=== PATIENT | female | born 1965 | race Caucasian/White ===

== ENCOUNTER 2016-10-13 18:14 | Emergency (ER) | payer OTHER ==
[2016-10-13 18:30] VITALS: RESP 18; TEMP 98
[2016-10-13] MEDS ORDERED: ASPIRIN 81 MG CHEW PO STA (19:07)
--- NOTE | 2016-10-13 19:25 | XR ---
EXAMINATION TYPE: XR chest 2V DATE OF EXAM: 10/13/2016 7:21 PM COMPARISON: 01/22/2016 HISTORY: Hypertension TECHNIQUE: Frontal and lateral views of the chest are obtained. FINDINGS: Heart and mediastinum are normal. Lungs are clear. Diaphragm is normal. Bony thorax is int act. There are chest leads. IMPRESSION: Normal chest. No change.
[2016-10-13 19:31] LABS: Basophils % (A) 0 %; CH 31.9; CHCM 34.6; Eosinophils # (A) 0.1 k/uL (0-0.7); Eosinophils % (A) 1 %; HCT 44.7 % (34.0-46.0); HDW 2.57; HGB 14.9 gm/dL (11.4-16.0); Luc # (Auto) 0.13; Luc % (Auto) 2; Lymphocytes # (A) 1.9 k/uL (1.0-4.8); Lymphocytes % (A) 29 %; MCH 30.9 pg (25.0-35.0); MCHC 33.4 g/dL (31.0-37.0); MCV 92.4 fL (80.0-100.0); Mean Platelet Volume 8.2; Monocytes # (A) 0.4 k/uL (0-1.0); Monocytes % (A) 6 %; Neutrophils # (A) 3.9 k/uL (1.3-7.7); Neutrophils % (A) 61 %; RBC 4.84 m/uL (3.80-5.40); RDW 12.4 % (11.5-15.5); WBC 6.4 k/uL (3.8-10.6); WBC (Perox) 6.34
--- NOTE | 2016-10-13 19:49 | ED ---
General Adult HPI - General Chief complaint: Recheck/Abnormal Lab/Rx Stated complaint: hypertension Time Seen by Provider: 10/13/16 18:53 Source: patient Mode of arrival: ambulatory Limitations: no limitations - History of Present Illness Initial comments: This 51-year-old white female presents with the complaint of being worried about her blood pressure. She states that she was at [facility] and took her blood pressure. It apparently measured 197/105. She states that she 'started freaking out'. She relates that she is'very high anxiety'. She relates that she has been under increased anxiety recently because her boyfriend broke up with her 3 weeks ago for something that she did not even do. She does not take any medications for her anxiety or high blood pressure. She relates that she has a history of pulmonary hypertension. She checks her blood pressure periodically and it is been elevated recently. She relates that she has had some intermittent chest pain described as a pressure. She will have her daughter push on her back and her back will apparently pop and then her chest pain will go away. She denies any chest pain currently. She did have some slight shortness of breath. She denies any lightheadedness. She denies any known history of cardiac disease. She is unsure if she ever had a stress test. No other complaints or modifying factors. She is worried that she may be going into menopause as well. - Related Data Home Medications Medication Instructions Recorded Confirmed Multivitamins, Thera [Multivitamin] 1 tab PO DAILY 10/13/16 10/13/16 Allergies Allergy/AdvReac Type Severity Reaction Status Date / Time cefaclor [From Ceclor] Allergy Unknown Verified 10/13/16 18:41 chocolate flavor Allergy Unknown Verified 10/13/16 18:41 milk Allergy Unknown Verified 10/13/16 18:41 Penicillins Allergy Unknown Verified 10/13/16 18:41 sulfamethoxazole Allergy Unknown Verified 10/13/16 18:41 [From Bactrim] trimethoprim [From Bactrim] Allergy Unknown Verified 10/13/16 18:41 Review of Systems ROS Statement: Those systems with pertinent positive or pertinent negative responses have been documented in the HPI. ROS Other: All systems not noted in ROS Statement are negative. Past Medical History Additional Past Medical History / Comment(s): Primary pulmonary hypertension History of Any Multi-Drug Resistant Organisms: None Reported Past Surgical History: Appendectomy Past Psychological History: No Psychological Hx Reported Smoking Status: Never smoker Past Alcohol Use History: None Reported Past Drug Use History: None Reported General Exam - General Exam Comments Initial Comments: GENERAL: The patient is well nourished and well hydrated. VITAL SIGNS: Heart rate, blood pressure, respiratory rate reviewed as recorded in nurse's notes. EYES: Pupils are round and reactive. Extraocular movements are intact. No conjunctival / lid redness or swelling. ENT: No external evidence of injury, swelling, or ecchymosis. Airway is patent. Throat is clear. NECK: Nontender. No swelling or evidence of injury. No subcutaneous emphysema. Trachea is midline. No thyroid mass. HEART: Regular rate and rhythm. Good peripheral pulses. LUNGS/CHEST: Breath sounds clear and equal bilaterally. No rales, rhonchi, or wheezes. No ecchymosis, subcutaneous emphysema, or tenderness. ABDOMEN: Abdomen soft without tenderness. No palpable masses or organomegaly. No peritoneal signs. No abdominal wall swelling or ecchymosis. EXTREMITIES: No extremity tenderness. Normal muscle tone and function. No thoracolumbar tenderness. NEUROLOGIC: Sensation is grossly intact. Cranial nerve exam reveals face is symmetrical, tongue is midline, speech is clear. SKIN: No abrasions or ecchymosis is noted. No induration or masses noted. PSYCHIATRIC: Alert and oriented. Moderate anxiety noted. Limitations: no limitations Course Vital Signs 10/13/16 10/13/16 10/13/16 18:27 18:48 20:00 Temperature 98.0 F Pulse Rate 74 74 66 Respiratory 18 18 18 Rate Blood Pressure 192/87 162/79 158/80 O2 Sat by Pulse 99 98 97 Oximetry Medical Decision Making - Medical Decision Making The patient was seen and examined. All diagnostics were reviewed. The EKG shows a normal sinus rhythm at a rate of 70. There is no acute ST-T wave changes identified. The patient had a NE interval of 154, QRS duration of 100, and QTC intervals 419. The chest x-ray did not show any acute processes. The laboratory was all essentially within normal limits. Overall, the patient's symptomatology seems consistent with anxiety. She also has a degree of hypertension. It is not felt as though her symptoms are related to a cardiac etiology. It is felt as though she is stable for discharge and close follow-up with her primary doctor. She refuses any medication for anxiety. She was instructed to keep a blood pressure log and follow up closely with her primary doctor in this regard. She leaves in no identifiable distress. - Lab Data Result diagrams: 10/13/16 18:45 10/13/16 18:45 Lab Results 10/13/16 10/13/16 10/13/16 Range/Units 18:45 18:45 18:45 WBC 6.4 (3.8-10.6) k/uL RBC 4.84 (3.80-5.40) m/uL Hgb 14.9 (11.4-16.0) gm/dL Hct 44.7 (34.0-46.0) % MCV 92.4 (80.0-100.0) fL MCH 30.9 (25.0-35.0) pg MCHC 33.4 (31.0-37.0) g/dL RDW 12.4 (11.5-15.5) % Plt Count 174 (150-450) k/uL Neutrophils % 61 % Lymphocytes % 29 % Monocytes % 6 % Eosinophils % 1 % Basophils % 0 % Neutrophils # 3.9 (1.3-7.7) k/uL Lymphocytes # 1.9 (1.0-4.8) k/uL Monocytes # 0.4 (0-1.0) k/uL Eosinophils # 0.1 (0-0.7) k/uL Basophils # 0.0 (0-0.2) k/uL PT (9.0-12.0) sec INR (<1.1) APTT (22.0-30.0) sec Sodium 141 (137-145) mmol/L Potassium 4.1 (3.5-5.1) mmol/L Chloride 102 (98-107) mmol/L Carbon Dioxide 25 (22-30) mmol/L Anion Gap 14 mmol/L BUN 14 (7-17) mg/dL Creatinine 0.78 (0.52-1.04) mg/dL Est GFR (MDRD) Af Amer >60 (>60 ml/min/1.73 sqM) Est GFR (MDRD) Non-Af >60 (>60 ml/min/1.73 sqM) Glucose 84 (74-99) mg/dL Calcium 9.7 (8.4-10.2) mg/dL Magnesium 1.9 (1.6-2.3) mg/dL Total Bilirubin 0.6 (0.2-1.3) mg/dL AST 21 (14-36) U/L ALT 39 (9-52) U/L Alkaline Phosphatase 96 (38-126) U/L Total Creatine Kinase 48 (30-135) U/L CK-MB (CK-2) 0.6 (0.0-2.4) ng/mL CK-MB (CK-2) Rel Index 1.3 Troponin I <0.012 (0.000-0.034) ng/mL Total Protein 8.0 (6.3-8.2) g/dL Albumin 4.4 (3.5-5.0) g/dL 10/13/16 Range/Units 18:45 WBC (3.8-10.6) k/uL RBC (3.80-5.40) m/uL Hgb (11.4-16.0) gm/dL Hct (34.0-46.0) % MCV (80.0-100.0) fL MCH (25.0-35.0) pg MCHC (31.0-37.0) g/dL RDW (11.5-15.5) % Plt Count (150-450) k/uL Neutrophils % % Lymphocytes % % Monocytes % % Eosinophils % % Basophils % % Neutrophils # (1.3-7.7) k/uL Lymphocytes # (1.0-4.8) k/uL Monocytes # (0-1.0) k/uL Eosinophils # (0-0.7) k/uL Basophils # (0-0.2) k/uL PT 10.4 (9.0-12.0) sec INR 1.0 (<1.1) APTT 24.5 (22.0-30.0) sec Sodium (137-145) mmol/L Potassium (3.5-5.1) mmol/L Chloride (98-107) mmol/L Carbon Dioxide (22-30) mmol/L Anion Gap mmol/L BUN (7-17) mg/dL Creatinine (0.52-1.04) mg/dL Est GFR (MDRD) Af Amer (>60 ml/min/1.73 sqM) Est GFR (MDRD) Non-Af (>60 ml/min/1.73 sqM) Glucose (74-99) mg/dL Calcium (8.4-10.2) mg/dL Magnesium (1.6-2.3) mg/dL Total Bilirubin (0.2-1.3) mg/dL AST (14-36) U/L ALT (9-52) U/L Alkaline Phosphatase (38-126) U/L Total Creatine Kinase (30-135) U/L CK-MB (CK-2) (0.0-2.4) ng/mL CK-MB (CK-2) Rel Index Troponin I (0.000-0.034) ng/mL Total Protein (6.3-8.2) g/dL Albumin (3.5-5.0) g/dL Disposition Clinical Impression: Anxiety, Chest pain, Hypertension Disposition: HOME SELF-CARE Condition: Good Instructions: Generalized Anxiety Disorder (ED), Chest Pain (ED), Hypertension (ED) Referrals: Pritesh Taylor MD [Primary Care Provider] - 1-2 days Time of Disposition: 20:26
[2016-10-13 19:50] LABS: ALT 39 U/L (9-52); AST 21 U/L (14-36); Alkaline Phosphatase 96 U/L (38-126); Anion Gap 14 mmol/L; Blood Urea Nitrogen 14 mg/dL (7-17); Calcium 9.7 mg/dL (8.4-10.2); Carbon Dioxide 25 mmol/L (22-30); Chloride 102 mmol/L (98-107); Glucose 84 mg/dL (74-99); Magnesium 1.9 mg/dL (1.6-2.3); Non-African American GFR(MDRD) >60 (>60 ml/min/1.73 sqM); Potassium 4.1 mmol/L (3.5-5.1); Sodium 141 mmol/L (137-145); Total Bilirubin 0.6 mg/dL (0.2-1.3)
[2016-10-13 19:59] LABS: Creatine Kinase 48 U/L (30-135)
[2016-10-13 20:12] LABS: Creatine Kinase MB 0.6 ng/mL (0.0-2.4); Troponin I <0.012 ng/mL (0.000-0.034)
[2016-10-13 20:19] LABS: Partial Thromboplastin Time 24.5 sec (22.0-30.0); Prothrombin Time 10.4 sec (9.0-12.0)
[2016-10-13 20:44] VITALS: BP 157/89; PULSE 60
== END 2016-10-13 20:45 | disposition home or self-care (01) ==
LOC: EC 18:14
DX: F41.9 Anxiety disorder, unspecified (principal); R07.9 Chest pain, unspecified; I10 Essential (primary) hypertension; Z88.0 Allergy status to penicillin; Z88.1 Allergy status to other antibiotic agents; Z91.011 Allergy to milk products; Z88.2 Allergy status to sulfonamides; Z91.018 Allergy to other foods
CPT/HCPCS: 36415; 71020; 80053; 82550; 82553; 83735; 84484; 85025; 85610; 85730; 93005; 99284

== ENCOUNTER 2016-11-01 08:07 | Emergency (ER) | payer OTHER ==
[2016-11-01] MEDS ORDERED: SODIUM CHLORIDE 0.9% 500 ML IV STA (08:44)
--- NOTE | 2016-11-01 08:48 | ED ---
Dizziness HPI - General Chief Complaint: Dizziness Stated Complaint: Dizziness Time Seen by Provider: 11/01/16 08:30 Source: patient, RN notes reviewed Mode of arrival: ambulatory Limitations: no limitations - History of Present Illness Initial Comments: 51-year-old female presents emergency Department chief complaint dizziness. Patient states she woke up at 3 AM and felt very dizzy she went back to sleep and thought it would just go away but states that it didn't. She states that she she feels unsteady, feels like the room spins. Patient states that she's had dizzy spells in the past but he usually dissipate. Patient denies any chest pain, shortness breath at this time. Patient states that she's had stress test, echocardiograms by Dr. Garcia prawn trawler hand. They did want her to perform cardiac cath because of increased pressure on the right side she's been diagnosed with pulmonary hypertension. Patient states that she is not moving she has no dizziness. Denies any headache, fever, chills. She has had some sinus congestion but very minimal. Patient has chronic jaw and headache pain at nighttime secondary to contusion her teeth. Patient denies any nausea vomiting diarrhea constipation this time. Denies any focal weakness. - Related Data Home Medications Medication Instructions Recorded Confirmed Multivitamins, Thera [Multivitamin] 1 tab PO DAILY 10/13/16 11/01/16 Allergies Allergy/AdvReac Type Severity Reaction Status Date / Time cefaclor [From Ceclor] Allergy Unknown Verified 11/01/16 09:13 chocolate flavor Allergy Unknown Verified 11/01/16 09:13 milk Allergy Unknown Verified 11/01/16 09:13 Penicillins Allergy Unknown Verified 11/01/16 09:13 sulfamethoxazole Allergy Unknown Verified 11/01/16 09:13 [From Bactrim] trimethoprim [From Bactrim] Allergy Unknown Verified 11/01/16 09:13 Review of Systems ROS Statement: Those systems with pertinent positive or pertinent negative responses have been documented in the HPI. ROS Other: All systems not noted in ROS Statement are negative. Past Medical History Additional Past Medical History / Comment(s): Primary pulmonary hypertension History of Any Multi-Drug Resistant Organisms: None Reported Past Surgical History: Appendectomy Past Psychological History: No Psychological Hx Reported Smoking Status: Never smoker Past Alcohol Use History: None Reported Past Drug Use History: None Reported General Exam Limitations: no limitations General appearance: alert, in no apparent distress Head exam: Present: atraumatic, normocephalic, normal inspection Eye exam: Present: normal appearance, PERRL, EOMI. Absent: scleral icterus, conjunctival injection, periorbital swelling ENT exam: Present: normal exam, normal oropharynx, mucous membranes moist, TM's normal bilaterally, normal external ear exam Neck exam: Present: normal inspection, full ROM. Absent: tenderness, meningismus, lymphadenopathy Respiratory exam: Present: normal lung sounds bilaterally. Absent: respiratory distress, wheezes, rales, rhonchi, stridor Cardiovascular Exam: Present: regular rate, normal rhythm, normal heart sounds. Absent: systolic murmur, diastolic murmur, rubs, gallop, clicks Neurological exam: Present: alert, oriented X3, CN II-XII intact, reflexes normal, other (Finger to nose intact bilaterally without overshooting). Absent : motor sensory deficit Skin exam: Present: warm, dry, intact, normal color. Absent: rash Course Vital Signs 11/01/16 11/01/16 08:26 09:57 Temperature 98.3 F 97.8 F Pulse Rate 69 66 Respiratory 20 16 Rate Blood Pressure 142/65 145/76 O2 Sat by Pulse 99 98 Oximetry EKG Findings - EKG Comments: EKG Findings:: EKG 848 normal sinus rhythm with a rate of 62, P1 66, QRS duration 92, QT/QTC 394/399 Medical Decision Making - Medical Decision Making 51-year-old female presented emergency department for dizziness worse with movement. Patient refused any Antivert at this time. Patient EKG shows no acute abnormality patient's lab work within normal limits. Patient states that she has no dizziness at rest. Patient will be discharged suicidal follow-up with primary care physician. - Lab Data Result diagrams: 11/01/16 08:40 11/01/16 08:40 Lab Results 11/01/16 11/01/16 11/01/16 Range/Units 08:40 08:40 08:40 WBC 5.8 (3.8-10.6) k/uL RBC 4.96 (3.80-5.40) m/uL Hgb 15.6 (11.4-16.0) gm/dL Hct 47.1 H (34.0-46.0) % MCV 95.0 (80.0-100.0) fL MCH 31.4 (25.0-35.0) pg MCHC 33.1 (31.0-37.0) g/dL RDW 12.8 (11.5-15.5) % Plt Count 205 (150-450) k/uL Neutrophils % 73 % Lymphocytes % 17 % Monocytes % 6 % Eosinophils % 1 % Basophils % 0 % Neutrophils # 4.2 (1.3-7.7) k/uL Lymphocytes # 1.0 (1.0-4.8) k/uL Monocytes # 0.4 (0-1.0) k/uL Eosinophils # 0.1 (0-0.7) k/uL Basophils # 0.0 (0-0.2) k/uL Sodium 142 (137-145) mmol/L Potassium 4.9 (3.5-5.1) mmol/L Chloride 104 (98-107) mmol/L Carbon Dioxide 28 (22-30) mmol/L Anion Gap 10 mmol/L BUN 14 (7-17) mg/dL Creatinine 0.82 (0.52-1.04) mg/dL Est GFR (MDRD) Af Amer >60 (>60 ml/min/1.73 sqM) Est GFR (MDRD) Non-Af >60 (>60 ml/min/1.73 sqM) Glucose 101 H (74-99) mg/dL Calcium 10.1 (8.4-10.2) mg/dL Total Bilirubin 0.8 (0.2-1.3) mg/dL AST 20 (14-36) U/L ALT 36 (9-52) U/L Alkaline Phosphatase 96 (38-126) U/L Troponin I <0.012 (0.000-0.034) ng/mL Total Protein 8.7 H (6.3-8.2) g/dL Albumin 4.6 (3.5-5.0) g/dL Disposition Clinical Impression: Vertigo Disposition: HOME SELF-CARE Condition: Stable Instructions: Dizziness (ED) Additional Instructions: Please return to the Emergency Department if symptoms worsen or any other concerns. Time of Disposition: 10:06
[2016-11-01 08:55] LABS: Basophils % (A) 0 %; CH 31.7; CHCM 33.4; Eosinophils # (A) 0.1 k/uL (0-0.7); Eosinophils % (A) 1 %; HCT 47.1 % (34.0-46.0); HDW 2.52; HGB 15.6 gm/dL (11.4-16.0); Luc # (Auto) 0.14; Luc % (Auto) 3; Lymphocytes % (A) 17 %; MCH 31.4 pg (25.0-35.0); MCHC 33.1 g/dL (31.0-37.0); Mean Platelet Volume 7.4; Monocytes # (A) 0.4 k/uL (0-1.0); Monocytes % (A) 6 %; Neutrophils # (A) 4.2 k/uL (1.3-7.7); Neutrophils % (A) 73 %; RBC 4.96 m/uL (3.80-5.40); RDW 12.8 % (11.5-15.5); WBC 5.8 k/uL (3.8-10.6); WBC (Perox) 5.67
--- NOTE | 2016-11-01 09:03 | XR ---
EXAMINATION TYPE: XR chest 2V DATE OF EXAM: 11/01/2016 8:59 AM COMPARISON: 10/13/2016 TECHNIQUE: PA and lateral views submitted. HISTORY: Dizziness FINDINGS: The lungs are clear and there is no pneumothorax, pleural effusion, or focal pneumonia. IMPRESSION: 1. No acute process.
[2016-11-01 09:04] LABS: ALT 36 U/L (9-52); AST 20 U/L (14-36); Alkaline Phosphatase 96 U/L (38-126); Anion Gap 10 mmol/L; Blood Urea Nitrogen 14 mg/dL (7-17); Calcium 10.1 mg/dL (8.4-10.2); Carbon Dioxide 28 mmol/L (22-30); Chloride 104 mmol/L (98-107); Glucose 101 mg/dL (74-99); Non-African American GFR(MDRD) >60 (>60 ml/min/1.73 sqM); Potassium 4.9 mmol/L (3.5-5.1); Sodium 142 mmol/L (137-145); Total Bilirubin 0.8 mg/dL (0.2-1.3); Total Protein 8.7 g/dL (6.3-8.2)
[2016-11-01 09:58] VITALS: BP 145/76; PULSE 66; RESP 16; TEMP 97.8
== END 2016-11-01 10:29 | disposition home or self-care (01) ==
LOC: EC 08:07
DX: R42 Dizziness and giddiness (principal); I27.2 Other secondary pulmonary hypertension; R09.81 Nasal congestion; Z88.0 Allergy status to penicillin; Z88.1 Allergy status to other antibiotic agents; Z88.2 Allergy status to sulfonamides
CPT/HCPCS: 36415; 71020; 80053; 84484; 85025; 93005; 96360; 99284

== ENCOUNTER 2017-03-01 14:44 | Emergency (ER) | payer OTHER ==
--- NOTE | 2017-03-01 15:56 | ED ---
General Adult HPI - General Chief complaint: Recheck/Abnormal Lab/Rx Stated complaint: body aches/ Diarrhea Time Seen by Provider: 03/01/17 15:28 Source: patient Mode of arrival: ambulatory Limitations: no limitations - History of Present Illness Initial comments: 51-year-old female presenting with chief complaint of abdominal pain and diarrhea. Denies dysuria, denies vaginal bleeding or vaginal discharge. Denies nausea or vomiting Patient has multiple additional complaints including right-sided back pain which is nontraumatic. She also is complaining of bilateral feet pain. She denies paresthesias or weakness in her lower extremities. Patient states she's had a daily headache for 6 months. She does not like taking medication for these headaches and states this is absent today. She also states she is having some abdominal cramping similar to her menstrual cycle. She denies fever. Denies chest pain or shortness of breath. Patient does admit to being depressed stating she is having some issues with her significant other. Patient denies any suicidal ideation. She has been evaluated by her primary care physician for many of these complaints is they have been present for 6 months to one year. She has noted a weight gain of approximately 50 pounds over the past 6 months. She is not currently on any medication. patient denies any recent travel. - Related Data Home Medications Medication Instructions Recorded Confirmed No Known Home Medications [No 03/01/17 03/01/17 Known Home Medications] Allergies Allergy/AdvReac Type Severity Reaction Status Date / Time cefaclor [From Ceclor] Allergy Unknown Verified 03/01/17 15:18 chocolate flavor Allergy Unknown Verified 03/01/17 15:18 milk Allergy Unknown Verified 03/01/17 15:18 Penicillins Allergy Unknown Verified 03/01/17 15:18 sulfamethoxazole Allergy Unknown Verified 03/01/17 15:18 [From Bactrim] trimethoprim [From Bactrim] Allergy Unknown Verified 03/01/17 15:18 ANESTHETIC(UNKNOWN) Allergy Unknown Uncoded 03/01/17 14:58 Review of Systems ROS Statement: Those systems with pertinent positive or pertinent negative responses have been documented in the HPI. ROS Other: All systems not noted in ROS Statement are negative. Past Medical History Past Medical History: No Reported History Additional Past Medical History / Comment(s): Primary pulmonary hypertension History of Any Multi-Drug Resistant Organisms: None Reported Past Surgical History: Appendectomy Past Psychological History: No Psychological Hx Reported Smoking Status: Never smoker Past Alcohol Use History: None Reported Past Drug Use History: None Reported General Exam Limitations: no limitations General appearance: alert, in no apparent distress, anxious Head exam: Present: atraumatic, normocephalic, normal inspection Eye exam: Present: normal appearance, PERRL, EOMI Pupils: Present: normal accommodation ENT exam: Present: normal exam Respiratory exam: Present: normal lung sounds bilaterally. Absent: respiratory distress, wheezes Cardiovascular Exam: Present: regular rate, normal rhythm GI/Abdominal exam: Present: soft. Absent: distended, tenderness, guarding, rebound Rectal exam: Present: deferred Extremities exam: Present: normal inspection. Absent: full ROM, pedal edema, joint swelling Back exam: Present: normal inspection Neurological exam: Present: alert, oriented X3, CN II-XII intact, normal gait, reflexes normal Psychiatric exam: Present: depressed Skin exam: Present: warm, dry Course Vital Signs 03/01/17 14:56 Temperature 98.2 F Pulse Rate 69 Respiratory 20 Rate Blood Pressure 140/80 O2 Sat by Pulse 99 Oximetry Medical Decision Making - Medical Decision Making 51-year-old female presenting with chief complaint of abdominal pain and diarrhea. Patient appears well-hydrated and examination she reports having 6 episodes of nonbloody diarrhea over the past 3 days. Denies nausea or vomiting. Patient also has multiple other complaints including chronic daily headache for 6 months, bilateral feet pain, low back pain. She states she is under a tremendous amount of stress including her nitroglycerin, her job and her home situation as well. She admits to being depressed but denies any suicidal ideation. She seen a counselor in the past and has good follow-up with her primary care physician. Laboratory studies are obtained including a CBC, BMP, magnesium level and urinalysis. These are reviewed and are all unremarkable. Patient is reassured and will follow up with her primary care physician. Diagnosis: Diarrhea, depression - Lab Data Result diagrams: 03/01/17 16:00 03/01/17 16:00 Lab Results 03/01/17 03/01/17 03/01/17 Range/Units 16:00 16:00 16:00 WBC 6.8 (3.8-10.6) k/uL RBC 4.72 (3.80-5.40) m/uL Hgb 15.0 (11.4-16.0) gm/dL Hct 43.5 (34.0-46.0) % MCV 92.2 (80.0-100.0) fL MCH 31.8 (25.0-35.0) pg MCHC 34.5 (31.0-37.0) g/dL RDW 12.7 (11.5-15.5) % Plt Count 192 (150-450) k/uL Neutrophils % 73 % Lymphocytes % 20 % Monocytes % 5 % Eosinophils % 1 % Basophils % 0 % Neutrophils # 4.9 (1.3-7.7) k/uL Lymphocytes # 1.4 (1.0-4.8) k/uL Monocytes # 0.3 (0-1.0) k/uL Eosinophils # 0.1 (0-0.7) k/uL Basophils # 0.0 (0-0.2) k/uL Sodium 140 (137-145) mmol/L Potassium 4.5 (3.5-5.1) mmol/L Chloride 104 (98-107) mmol/L Carbon Dioxide 27 (22-30) mmol/L Anion Gap 9 mmol/L BUN 8 (7-17) mg/dL Creatinine 0.71 (0.52-1.04) mg/dL Est GFR (MDRD) Af Amer >60 (>60 ml/min/1.73 sqM) Est GFR (MDRD) Non-Af >60 (>60 ml/min/1.73 sqM) Glucose 86 (74-99) mg/dL Calcium 9.6 (8.4-10.2) mg/dL Magnesium 1.9 (1.6-2.3) mg/dL Urine Color Yellow Urine Appearance Clear (Clear) Urine pH 5.5 (5.0-8.0) Ur Specific [place] 1.014 (1.001-1.035) Urine Protein Negative (Negative) Urine Glucose (UA) Negative (Negative) Urine Ketones Negative (Negative) Urine Blood Negative (Negative) Urine Nitrite Negative (Negative) Urine Bilirubin Negative (Negative) Urine Urobilinogen <2.0 (<2.0) mg/dL Ur Leukocyte Esterase Negative (Negative) Urine HCG, Qual (Not Detectd) 03/01/17 Range/Units 16:00 WBC (3.8-10.6) k/uL RBC (3.80-5.40) m/uL Hgb (11.4-16.0) gm/dL Hct (34.0-46.0) % MCV (80.0-100.0) fL MCH (25.0-35.0) pg MCHC (31.0-37.0) g/dL RDW (11.5-15.5) % Plt Count (150-450) k/uL Neutrophils % % Lymphocytes % % Monocytes % % Eosinophils % % Basophils % % Neutrophils # (1.3-7.7) k/uL Lymphocytes # (1.0-4.8) k/uL Monocytes # (0-1.0) k/uL Eosinophils # (0-0.7) k/uL Basophils # (0-0.2) k/uL Sodium (137-145) mmol/L Potassium (3.5-5.1) mmol/L Chloride (98-107) mmol/L Carbon Dioxide (22-30) mmol/L Anion Gap mmol/L BUN (7-17) mg/dL Creatinine (0.52-1.04) mg/dL Est GFR (MDRD) Af Amer (>60 ml/min/1.73 sqM) Est GFR (MDRD) Non-Af (>60 ml/min/1.73 sqM) Glucose (74-99) mg/dL Calcium (8.4-10.2) mg/dL Magnesium (1.6-2.3) mg/dL Urine Color Urine Appearance (Clear) Urine pH (5.0-8.0) Ur Specific [place] (1.001-1.035) Urine Protein (Negative) Urine Glucose (UA) (Negative) Urine Ketones (Negative) Urine Blood (Negative) Urine Nitrite (Negative) Urine Bilirubin (Negative) Urine Urobilinogen (<2.0) mg/dL Ur Leukocyte Esterase (Negative) Urine HCG, Qual Not Detected (Not Detectd) Disposition Clinical Impression: Diarrhea, Depressed Narrative: Diarrhea, depression Disposition: HOME SELF-CARE Condition: Good Instructions: Acute Diarrhea (ED), Depression (ED) Referrals: Pritesh Tyalor MD [Primary Care Provider] - 1-2 days Time of Disposition: 16:53
[2017-03-01 16:24] LABS: Basophils % (A) 0 %; CH 32.1; Eosinophils # (A) 0.1 k/uL (0-0.7); Eosinophils % (A) 1 %; HCT 43.5 % (34.0-46.0); HDW 2.66; Luc # (Auto) 0.09; Luc % (Auto) 1; Lymphocytes # (A) 1.4 k/uL (1.0-4.8); Lymphocytes % (A) 20 %; MCH 31.8 pg (25.0-35.0); MCHC 34.5 g/dL (31.0-37.0); MCV 92.2 fL (80.0-100.0); Mean Platelet Volume 7.7; Monocytes # (A) 0.3 k/uL (0-1.0); Monocytes % (A) 5 %; Neutrophils # (A) 4.9 k/uL (1.3-7.7); Neutrophils % (A) 73 %; RBC 4.72 m/uL (3.80-5.40); RDW 12.7 % (11.5-15.5); WBC 6.8 k/uL (3.8-10.6); WBC (Perox) 6.36
[2017-03-01 16:25] LABS: Appearance,Urine Clear (Clear); Bilirubin,Urine Negative (Negative); Glucose,Urine (UA) Negative (Negative); Ketones,Urine Negative (Negative); Leukocyte Esterase,Urine Negative (Negative); Nitrite,Urine Negative (Negative); PH, Urine 5.5 (5.0-8.0); Protein,Urine Negative (Negative); Specific Gravity,Urine 1.014 (1.001-1.035); UA Billing (MACRO vs. MICRO) CHEM; Urobilinogen,Urine <2.0 mg/dL (<2.0)
[2017-03-01 16:34] LABS: Anion Gap 9 mmol/L; Blood Urea Nitrogen 8 mg/dL (7-17); Calcium 9.6 mg/dL (8.4-10.2); Carbon Dioxide 27 mmol/L (22-30); Chloride 104 mmol/L (98-107); Glucose 86 mg/dL (74-99); Magnesium 1.9 mg/dL (1.6-2.3); Non-African American GFR(MDRD) >60 (>60 ml/min/1.73 sqM); Potassium 4.5 mmol/L (3.5-5.1); Sodium 140 mmol/L (137-145)
[2017-03-01 17:05] VITALS: BP 169/90; PULSE 66; RESP 18; TEMP 98.6
== END 2017-03-01 17:00 | disposition home or self-care (01) ==
LOC: EC 14:44
DX: F32.9 Major depressive disorder, single episode, unspecified (principal); R19.7 Diarrhea, unspecified; R10.9 Unspecified abdominal pain; G89.29 Other chronic pain; R51 Headache; M54.2 Cervicalgia; M79.672 Pain in left foot; M79.671 Pain in right foot; Z88.1 Allergy status to other antibiotic agents; Z91.018 Allergy to other foods; Z91.011 Allergy to milk products; Z88.0 Allergy status to penicillin; Z88.4 Allergy status to anesthetic agent
CPT/HCPCS: 36415; 80048; 81003; 81025; 83735; 85025; 99284

== ENCOUNTER 2017-03-13 02:46 | Emergency (ER) | payer OTHER ==
[2017-03-13] MEDS ORDERED: METOCLOPRAMIDE 5 MG/ML 2 ML VIAL IVP STA (02:57)
[2017-03-13] MEDS ORDERED: diphenhydrAMINE 50 MG/ML 1 ML VIAL IVP STA (02:57)
[2017-03-13] MEDS ORDERED: RX INFO: IV CONTRAST WAS GIVEN 1 EACH MISC MISCELLANE PRN (02:57)
[2017-03-13] MEDS ORDERED: MORPHINE SULFATE 4 MG/ML SYRINGE IV STA (02:57)
[2017-03-13] MEDS ORDERED: SODIUM CHLORIDE 0.9% 1,000 ML IV STA ×2 (02:57)
[2017-03-13 03:27] LABS: Basophils % (A) 0 %; CH 31.7; CHCM 34.1; Eosinophils # (A) 0.1 k/uL (0-0.7); Eosinophils % (A) 2 %; HCT 42.9 % (34.0-46.0); HDW 2.66; HGB 15.1 gm/dL (11.4-16.0); Luc # (Auto) 0.13; Luc % (Auto) 3; Lymphocytes # (A) 1.7 k/uL (1.0-4.8); Lymphocytes % (A) 32 %; MCH 32.7 pg (25.0-35.0); MCHC 35.1 g/dL (31.0-37.0); MCV 93.4 fL (80.0-100.0); Mean Platelet Volume 8.3; Monocytes # (A) 0.4 k/uL (0-1.0); Monocytes % (A) 8 %; Neutrophils # (A) 2.9 k/uL (1.3-7.7); Neutrophils % (A) 55 %; RDW 12.6 % (11.5-15.5); WBC 5.3 k/uL (3.8-10.6); WBC (Perox) 5.31
--- NOTE | 2017-03-13 03:31 | ED ---
General Adult HPI - General Chief complaint: Headache Stated complaint: Vision problems Time Seen by Provider: 03/13/17 02:57 Source: patient, RN notes reviewed, old records reviewed Mode of arrival: ambulatory Limitations: no limitations - History of Present Illness Initial comments: This is a 51-year-old female here for evaluation of headache, headache with right-sided eye pain. Patient will be symptoms night, history of same pain, sometimes sleeps on her arm wrong. Patient states low worse with is not getting better. Denies visual deficit. No other neurological complaint. Patient is also with headache L she has a history of headaches. This is not the worse headache of her life no fever or trauma - Related Data Home Medications Medication Instructions Recorded Confirmed No Known Home Medications [No 03/01/17 03/13/17 Known Home Medications] Allergies Allergy/AdvReac Type Severity Reaction Status Date / Time cefaclor [From Ceclor] Allergy Unknown Verified 03/13/17 02:51 chocolate flavor Allergy Unknown Verified 03/13/17 02:51 milk Allergy Unknown Verified 03/13/17 02:51 Penicillins Allergy Unknown Verified 03/13/17 02:51 sulfamethoxazole Allergy Unknown Verified 03/13/17 02:51 [From Bactrim] trimethoprim [From Bactrim] Allergy Unknown Verified 03/13/17 02:51 ANESTHETIC(UNKNOWN) Allergy Unknown Uncoded 03/13/17 02:51 Review of Systems ROS Statement: Those systems with pertinent positive or pertinent negative responses have been documented in the HPI. ROS Other: All systems not noted in ROS Statement are negative. Past Medical History Past Medical History: No Reported History Additional Past Medical History / Comment(s): Primary pulmonary hypertension; Migraines History of Any Multi-Drug Resistant Organisms: None Reported Past Surgical History: Appendectomy Past Psychological History: No Psychological Hx Reported Smoking Status: Never smoker Past Alcohol Use History: None Reported Past Drug Use History: None Reported General Exam Limitations: no limitations General appearance: alert, in no apparent distress Head exam: Present: atraumatic, normocephalic, normal inspection Eye exam: Present: normal appearance, PERRL, EOMI. Absent: scleral icterus, conjunctival injection, periorbital swelling ENT exam: Present: normal exam, mucous membranes moist Neck exam: Present: normal inspection. Absent: tenderness, meningismus, lymphadenopathy Respiratory exam: Present: normal lung sounds bilaterally. Absent: respiratory distress, wheezes, rales, rhonchi, stridor Cardiovascular Exam: Present: regular rate, normal rhythm, normal heart sounds. Absent: systolic murmur, diastolic murmur, rubs, gallop, clicks GI/Abdominal exam: Present: soft, normal bowel sounds. Absent: distended, tenderness, guarding, rebound, rigid Extremities exam: Present: normal inspection, full ROM, normal capillary refill. Absent: tenderness, pedal edema, joint swelling, calf tenderness Back exam: Present: normal inspection Neurological exam: Present: alert, oriented X3, CN II-XII intact Psychiatric exam: Present: normal affect, normal mood Skin exam: Present: warm, dry, intact, normal color. Absent: rash Course Vital Signs 03/13/17 03/13/17 02:49 03:56 Temperature 98.0 F 98 F Pulse Rate 67 80 Respiratory 18 15 Rate Blood Pressure 164/85 109/70 O2 Sat by Pulse 97 99 Oximetry Medical Decision Making - Medical Decision Making 51 female in the ER for evaluation of headache, history of headaches and also mild vision problems or eye pain. No change in visual mike. Patient states she has headaches but does not want any further testing denies having CAT scan, patient signed out AMA - Lab Data Result diagrams: 03/13/17 03:21 03/13/17 03:21 Lab Results 03/13/17 03/13/17 Range/Units 03:21 03:21 WBC 5.3 (3.8-10.6) k/uL RBC 4.60 (3.80-5.40) m/uL Hgb 15.1 (11.4-16.0) gm/dL Hct 42.9 (34.0-46.0) % MCV 93.4 (80.0-100.0) fL MCH 32.7 (25.0-35.0) pg MCHC 35.1 (31.0-37.0) g/dL RDW 12.6 (11.5-15.5) % Plt Count 151 (150-450) k/uL Neutrophils % 55 % Lymphocytes % 32 % Monocytes % 8 % Eosinophils % 2 % Basophils % 0 % Neutrophils # 2.9 (1.3-7.7) k/uL Lymphocytes # 1.7 (1.0-4.8) k/uL Monocytes # 0.4 (0-1.0) k/uL Eosinophils # 0.1 (0-0.7) k/uL Basophils # 0.0 (0-0.2) k/uL Sodium 143 (137-145) mmol/L Potassium 4.1 (3.5-5.1) mmol/L Chloride 107 (98-107) mmol/L Carbon Dioxide 26 (22-30) mmol/L Anion Gap 10 mmol/L BUN 16 (7-17) mg/dL Creatinine 0.77 (0.52-1.04) mg/dL Est GFR (MDRD) Af Amer >60 (>60 ml/min/1.73 sqM) Est GFR (MDRD) Non-Af >60 (>60 ml/min/1.73 sqM) Glucose 100 H (74-99) mg/dL Calcium 9.5 (8.4-10.2) mg/dL Total Bilirubin 0.5 (0.2-1.3) mg/dL AST 15 (14-36) U/L ALT 23 (9-52) U/L Alkaline Phosphatase 88 (38-126) U/L Total Protein 7.5 (6.3-8.2) g/dL Albumin 4.1 (3.5-5.0) g/dL Disposition Clinical Impression: Headache, Pain, eye, right Disposition: HOME SELF-CARE Condition: Good Instructions: Eye Pain (ED) Referrals: Pritesh Taylor MD [Primary Care Provider] - 1-2 days
[2017-03-13 03:36] LABS: ALT 23 U/L (9-52); AST 15 U/L (14-36); Alkaline Phosphatase 88 U/L (38-126); Anion Gap 10 mmol/L; Blood Urea Nitrogen 16 mg/dL (7-17); Calcium 9.5 mg/dL (8.4-10.2); Carbon Dioxide 26 mmol/L (22-30); Chloride 107 mmol/L (98-107); Glucose 100 mg/dL (74-99); Non-African American GFR(MDRD) >60 (>60 ml/min/1.73 sqM); Potassium 4.1 mmol/L (3.5-5.1); Sodium 143 mmol/L (137-145); Total Bilirubin 0.5 mg/dL (0.2-1.3); Total Protein 7.5 g/dL (6.3-8.2)
[2017-03-13 03:57] VITALS: BP 109/70; PULSE 80; RESP 15; TEMP 98
== END 2017-03-13 03:56 | disposition left against medical advice (07) ==
LOC: EC 02:46
DX: R51 Headache (principal); H57.11 Ocular pain, right eye; Z53.20 Procedure and treatment not carried out because of patient's decision for unspecified reasons; Z88.0 Allergy status to penicillin; Z88.1 Allergy status to other antibiotic agents; Z88.2 Allergy status to sulfonamides; Z88.4 Allergy status to anesthetic agent; Z91.011 Allergy to milk products; Z91.018 Allergy to other foods; Z86.69 Personal history of other diseases of the nervous system and sense organs
CPT/HCPCS: 36415; 80053; 85025; 96360; 99284

== ENCOUNTER → 2017-04-05 | Outpatient (CLI) | payer OTHER ==
--- NOTE | 2017-04-06 11:09 | ECHOF ---
Referral Reason:I27.2 Pulmonary HTN, R76.8 Antinuclear MEASUREMENTS -------- HEIGHT: 160.0 cm WEIGHT: 77.1 kg BP: 178/93 RVIDd: 3.2 cm (< 3.3) IVSd: 1.1 cm (0.6 - 1.1) LVIDd: 4.7 cm (3.9 - 5.3) LVPWd: 1.1 cm (0.6 - 1.1) IVSs: 1.6 cm LVIDs: 2.5 cm LVPWs: 1.6 cm LAESV Index (A-L): 19.76 ml/m Ao Diam: 3.1 cm (2.0 - 3.7) AV Cusp: 1.8 cm (1.5 - 2.6) LA Diam: 3.8 cm (2.7 - 3.8) MV EXCURSION: 16.312 mm (> 18.000) MV EF SLOPE: 115 mm/s (70 - 150) EPSS: 0.7 cm MV E Jared: 0.74 m/s MV DecT: 241 ms MV A Jared: 0.87 m/s MV E/A Ratio: 0.85 RAP: 5.00 mmHg RVSP: 53.16 mmHg FINDINGS -------- Sinus rhythm. This was a technically adequate study. There is borderline concentric left ventricular hypertrophy. Overall left ventricular systolic function is normal with, an EF between 60 - 65 %. The right ventricle is normal in size and function. Normal LA size by volume 22+/-6 ml/m2. RA appears enlarged. Aortic valve is trileaflet and is mildly thickened. There is no evidence of aortic regurgitation. There is no evidence of aortic stenosis. The mitral valve leaflets are mildly thickened. There is trace to mild mitral regurgitation. [id number] tricuspid regurgitation present. There is moderate pulmonary hypertension. The right ventricular systolic pressure, as measured by Doppler, is 53.16mmHg. Trace/mild (physiologic) pulmonic regurgitation. The aortic root size is normal. Normal inferior vena cava with normal inspiratory collapse consistent with estimated right atrial pressure of 5 mmHg. The pericardium is normal. There is no pericardial effusion. CONCLUSIONS -------- 1. Sinus rhythm. 2. Iyev-yt-[id number] tricuspid regurgitation present. 3. There is moderate pulmonary hypertension. 4. The right ventricular systolic pressure, as measured by Doppler, is 53.16mmHg. 5. Trace/mild (physiologic) pulmonic regurgitation. 6. The aortic root size is normal. 7. There is no pericardial effusion. 8. This was a technically adequate study. 9. There is borderline concentric left ventricular hypertrophy. 10. Overall left ventricular systolic function is normal with, an EF between 60 - 65 %. 11. Normal LA size by volume 22+/-6 ml/m2. 12. RA appears enlarged. 13. Aortic valve is trileaflet and is mildly thickened. 14. The mitral valve leaflets are mildly thickened. 15. There is trace to mild mitral regurgitation. PRESCHOOL PRINCIPAL: Faizan Bean RDCS
== END | disposition home or self-care (01) ==
LOC: RADECHMAIN 14:54
PROVIDERS: ATTEND Internal Medicine Critical Care Medicine
DX: I08.1 Rheumatic disorders of both mitral and tricuspid valves (principal)
CPT/HCPCS: 93306

== ENCOUNTER 2017-07-30 03:11 | Emergency (ER) | payer OTHER ==
[2017-07-30 03:22] VITALS: TEMP 98.7
--- NOTE | 2017-07-30 04:10 | ED ---
SOB HPI - General Chief Complaint: Shortness of Breath Stated Complaint: High blood pressure Time Seen by Provider: 07/30/17 03:27 Source: patient Mode of arrival: ambulatory Limitations: no limitations - History of Present Illness Initial Comments: This patient is a 52-year-old woman presenting to be evaluated for 2 episodes of dyspnea that she had when she was trying sleep. The patient states that she had been feeling like her usual self tonight and had gone to bed, then she woke up gasping for breath. She states that it felt like she couldn't catch her breath for a period of time then she was better rate she did take her blood pressure when she got up and out of bed and it was a bit high in the neighborhood of 170. She states that she was up and was talking with her son for a while when her anxiety had called she went back to bed and then she woke with a similar episode and decided to be seen here. She states that her blood pressure was again elevated after she got up. The patient denies chest pain, diaphoresis, nausea or vomiting. MD Complaint: shortness of breath Onset/Timin -: hour(s) - Related Data Home Medications Medication Instructions Recorded Confirmed No Known Home Medications [No 03/01/17 03/13/17 Known Home Medications] Allergies Allergy/AdvReac Type Severity Reaction Status Date / Time cefaclor [From Ceclor] Allergy Unknown Verified 07/30/17 03:20 chocolate flavor Allergy Unknown Verified 07/30/17 03:20 milk Allergy Unknown Verified 07/30/17 03:20 Penicillins Allergy Unknown Verified 07/30/17 03:20 sulfamethoxazole Allergy Unknown Verified 07/30/17 03:20 [From Bactrim] trimethoprim [From Bactrim] Allergy Unknown Verified 07/30/17 03:20 ANESTHETIC(UNKNOWN) Allergy Unknown Uncoded 07/30/17 03:20 Review of Systems ROS Statement: Those systems with pertinent positive or pertinent negative responses have been documented in the HPI. ROS Other: All systems not noted in ROS Statement are negative. Constitutional: Denies: fever, chills Respiratory: Reports: dyspnea. Denies: cough, wheezes Cardiovascular: Reports: palpitations. Denies: chest pain, dyspnea on exertion , orthopnea, edema, syncope Gastrointestinal: Denies: abdominal pain, nausea, vomiting Genitourinary: Denies: dysuria, hematuria Musculoskeletal: Denies: back pain Skin: Denies: rash Neurological: Denies: headache, weakness, numbness Psychiatric: Reports: anxiety Past Medical History Past Medical History: No Reported History Additional Past Medical History / Comment(s): Primary pulmonary hypertension; Migraines History of Any Multi-Drug Resistant Organisms: None Reported Past Surgical History: Appendectomy Past Psychological History: No Psychological Hx Reported Smoking Status: Never smoker Past Alcohol Use History: None Reported Past Drug Use History: None Reported General Exam Limitations: no limitations General appearance: alert, in no apparent distress Head exam: Present: atraumatic, normocephalic Eye exam: Present: normal appearance. Absent: scleral icterus, conjunctival injection ENT exam: Present: normal oropharynx Neck exam: Present: normal inspection, full ROM Respiratory exam: Present: normal lung sounds bilaterally. Absent: respiratory distress, wheezes, rales, rhonchi, stridor Cardiovascular Exam: Present: regular rate, normal rhythm, normal heart sounds. Absent: systolic murmur, diastolic murmur, rubs, gallop GI/Abdominal exam: Present: soft. Absent: distended, tenderness, guarding, rebound, rigid Extremities exam: Present: normal inspection, normal capillary refill. Absent: pedal edema, calf tenderness Back exam: Present: normal inspection. Absent: CVA tenderness (R), CVA tenderness (L) Neurological exam: Present: alert Skin exam: Present: warm, dry, intact, normal color. Absent: rash Course Vital Signs 07/30/17 07/30/17 07/30/17 03:14 03:23 04:20 Temperature 98.7 F Pulse Rate 74 84 Respiratory 16 20 16 Rate Blood Pressure 192/97 154/84 O2 Sat by Pulse 98 97 Oximetry Medical Decision Making - Lab Data Result diagrams: 07/30/17 03:54 07/30/17 03:54 Lab Results 07/30/17 07/30/17 07/30/17 Range/Units 03:45 03:54 03:54 WBC 5.1 (3.8-10.6) k/uL RBC 4.56 (3.80-5.40) m/uL Hgb 13.9 (11.4-16.0) gm/dL Hct 43.3 (34.0-46.0) % MCV 95.0 (80.0-100.0) fL MCH 30.6 (25.0-35.0) pg MCHC 32.2 (31.0-37.0) g/dL RDW 13.7 (11.5-15.5) % Plt Count 177 (150-450) k/uL Neutrophils % 68 % Lymphocytes % 21 % Monocytes % 8 % Eosinophils % 1 % Basophils % 0 % Neutrophils # 3.5 (1.3-7.7) k/uL Lymphocytes # 1.1 (1.0-4.8) k/uL Monocytes # 0.4 (0-1.0) k/uL Eosinophils # 0.1 (0-0.7) k/uL Basophils # 0.0 (0-0.2) k/uL PT (9.0-12.0) sec INR (<1.2) APTT (22.0-30.0) sec D-Dimer (<0.60) mg/L FEU Sodium (137-145) mmol/L Potassium (3.5-5.1) mmol/L Chloride (98-107) mmol/L Carbon Dioxide (22-30) mmol/L Anion Gap mmol/L BUN (7-17) mg/dL Creatinine (0.52-1.04) mg/dL Est GFR (MDRD) Af Amer (>60 ml/min/1.73 sqM) Est GFR (MDRD) Non-Af (>60 ml/min/1.73 sqM) Glucose (74-99) mg/dL Calcium (8.4-10.2) mg/dL Total Bilirubin (0.2-1.3) mg/dL AST (14-36) U/L ALT (9-52) U/L Alkaline Phosphatase (38-126) U/L Total Creatine Kinase 48 (30-135) U/L CK-MB (CK-2) 0.8 (0.0-2.4) ng/mL CK-MB (CK-2) Rel Index 1.7 Troponin I <0.012 (0.000-0.034) ng/mL Total Protein (6.3-8.2) g/dL Albumin (3.5-5.0) g/dL Urine Color Light Yellow Urine Appearance Clear (Clear) Urine pH 7.5 (5.0-8.0) Ur Specific [place] 1.007 (1.001-1.035) Urine Protein Negative (Negative) Urine Glucose (UA) Negative (Negative) Urine Ketones Negative (Negative) Urine Blood Negative (Negative) Urine Nitrite Negative (Negative) Urine Bilirubin Negative (Negative) Urine Urobilinogen <2.0 (<2.0) mg/dL Ur Leukocyte Esterase Moderate H (Negative) Urine RBC 1 (0-5) /hpf Urine WBC 4 (0-5) /hpf Ur Squamous Epith Cells 7 H (0-4) /hpf Urine Bacteria Rare H (None) /hpf Urine Mucus Rare H (None) /hpf 07/30/17 07/30/17 Range/Units 03:54 03:54 WBC (3.8-10.6) k/uL RBC (3.80-5.40) m/uL Hgb (11.4-16.0) gm/dL Hct (34.0-46.0) % MCV (80.0-100.0) fL MCH (25.0-35.0) pg MCHC (31.0-37.0) g/dL RDW (11.5-15.5) % Plt Count (150-450) k/uL Neutrophils % % Lymphocytes % % Monocytes % % Eosinophils % % Basophils % % Neutrophils # (1.3-7.7) k/uL Lymphocytes # (1.0-4.8) k/uL Monocytes # (0-1.0) k/uL Eosinophils # (0-0.7) k/uL Basophils # (0-0.2) k/uL PT 10.4 (9.0-12.0) sec INR 1.0 (<1.2) APTT 25.3 (22.0-30.0) sec D-Dimer 0.40 (<0.60) mg/L FEU Sodium 141 (137-145) mmol/L Potassium 4.4 (3.5-5.1) mmol/L Chloride 104 (98-107) mmol/L Carbon Dioxide 28 (22-30) mmol/L Anion Gap 9 mmol/L BUN 16 (7-17) mg/dL Creatinine 0.91 (0.52-1.04) mg/dL Est GFR (MDRD) Af Amer >60 (>60 ml/min/1.73 sqM) Est GFR (MDRD) Non-Af >60 (>60 ml/min/1.73 sqM) Glucose 108 H (74-99) mg/dL Calcium 10.0 (8.4-10.2) mg/dL Total Bilirubin 0.6 (0.2-1.3) mg/dL AST 25 (14-36) U/L ALT 37 (9-52) U/L Alkaline Phosphatase 97 (38-126) U/L Total Creatine Kinase (30-135) U/L CK-MB (CK-2) (0.0-2.4) ng/mL CK-MB (CK-2) Rel Index Troponin I (0.000-0.034) ng/mL Total Protein 7.8 (6.3-8.2) g/dL Albumin 4.2 (3.5-5.0) g/dL Urine Color Urine Appearance (Clear) Urine pH (5.0-8.0) Ur Specific [place] (1.001-1.035) Urine Protein (Negative) Urine Glucose (UA) (Negative) Urine Ketones (Negative) Urine Blood (Negative) Urine Nitrite (Negative) Urine Bilirubin (Negative) Urine Urobilinogen (<2.0) mg/dL Ur Leukocyte Esterase (Negative) Urine RBC (0-5) /hpf Urine WBC (0-5) /hpf Ur Squamous Epith Cells (0-4) /hpf Urine Bacteria (None) /hpf Urine Mucus (None) /hpf - EKG Data -: EKG Interpreted by Ct EKG shows normal: sinus rhythm, axis (Normal), intervals (Normal), QRS complexes (Normal), ST-T waves (Normal) Rate: normal (Right proximal 71 bpm) Interpretation: normal EKG Disposition Clinical Impression: Dyspnea Disposition: HOME SELF-CARE Condition: Good Instructions: Dyspnea (ED) Referrals: Jean Claude Dyson DO [Primary Care Provider] - 1-2 days
[2017-07-30 04:26] LABS: Basophils % (A) 0 %; CH 31.1; CHCM 32.9; Eosinophils # (A) 0.1 k/uL (0-0.7); Eosinophils % (A) 1 %; HCT 43.3 % (34.0-46.0); HGB 13.9 gm/dL (11.4-16.0); Luc # (Auto) 0.09; Luc % (Auto) 2; Lymphocytes # (A) 1.1 k/uL (1.0-4.8); Lymphocytes % (A) 21 %; MCH 30.6 pg (25.0-35.0); MCHC 32.2 g/dL (31.0-37.0); Monocytes # (A) 0.4 k/uL (0-1.0); Monocytes % (A) 8 %; Neutrophils # (A) 3.5 k/uL (1.3-7.7); Neutrophils % (A) 68 %; RBC 4.56 m/uL (3.80-5.40); RDW 13.7 % (11.5-15.5); WBC 5.1 k/uL (3.8-10.6); WBC (Perox) 5.11
[2017-07-30 04:28] LABS: Appearance,Urine Clear (Clear); Bacteria,Urine Rare /hpf; Bilirubin,Urine Negative (Negative); Glucose,Urine (UA) Negative (Negative); Ketones,Urine Negative (Negative); Leukocyte Esterase,Urine Moderate (Negative); Mucus,Urine Rare /hpf; Nitrite,Urine Negative (Negative); PH, Urine 7.5 (5.0-8.0); Particle Count 1666; Protein,Urine Negative (Negative); RBC,Urine 1 /hpf (0-5); Specific Gravity,Urine 1.007 (1.001-1.035); Squamous Epithelial Cell,Urine 7 /hpf (0-4); UA Billing (MACRO vs. MICRO) MICRO; Urobilinogen,Urine <2.0 mg/dL (<2.0); WBC,Urine 4 /hpf (0-5)
[2017-07-30 04:45] LABS: Creatine Kinase 48 U/L (30-135)
[2017-07-30 04:49] LABS: ALT 37 U/L (9-52); AST 25 U/L (14-36); Alkaline Phosphatase 97 U/L (38-126); Anion Gap 9 mmol/L; Blood Urea Nitrogen 16 mg/dL (7-17); Carbon Dioxide 28 mmol/L (22-30); Chloride 104 mmol/L (98-107); Glucose 108 mg/dL (74-99); Non-African American GFR(MDRD) >60 (>60 ml/min/1.73 sqM); Potassium 4.4 mmol/L (3.5-5.1); Sodium 141 mmol/L (137-145); Total Bilirubin 0.6 mg/dL (0.2-1.3); Total Protein 7.8 g/dL (6.3-8.2)
[2017-07-30 04:50] LABS: Partial Thromboplastin Time 25.3 sec (22.0-30.0); Prothrombin Time 10.4 sec (9.0-12.0)
[2017-07-30 04:59] LABS: Creatine Kinase MB 0.8 ng/mL (0.0-2.4); Troponin I <0.012 ng/mL (0.000-0.034)
--- NOTE | 2017-07-30 05:13 | XR ---
EXAM: XR Chest, 2 Views CLINICAL HISTORY: Reason: difficulty breathing TECHNIQUE: Frontal and lateral views of the chest. COMPARISON: Chest radiography 11/01/16 FINDINGS: Lungs: Unremarkable. No consolidation. Pleural space: Unremarkable. No pneumothorax. Heart: Unremarkable. No cardiomegaly. Mediastinum: Unremarkable. Bones/joints: Mild degenerative changes of the spine redemonstrated. IMPRESSION: No acute cardiopulmonary disease.
[2017-07-30 05:18] VITALS: RESP 16
[2017-07-30 07:18] VITALS: BP 136/90; PULSE 90
== END 2017-07-30 07:18 | disposition home or self-care (01) ==
LOC: EC 03:11
DX: R06.00 Dyspnea, unspecified (principal); Z88.1 Allergy status to other antibiotic agents; Z88.0 Allergy status to penicillin; Z88.2 Allergy status to sulfonamides; Z88.4 Allergy status to anesthetic agent; Z91.02 Food additives allergy status; Z91.011 Allergy to milk products
CPT/HCPCS: 36415; 71020; 80053; 81001; 82550; 82553; 84484; 85025; 85379; 85610; 85730; 93005; 99285

== ENCOUNTER 2017-10-28 07:52 | Emergency (ER) | payer OTHER ==
[2017-10-28 08:02] VITALS: TEMP 97.5
[2017-10-28] MEDS ORDERED: SODIUM CHLORIDE 0.9% 1,000 ML IV STA (08:38)
[2017-10-28] MEDS ORDERED: ORPHENADRINE 30 MG/ML 2 ML VIAL IVP STA (08:38)
--- NOTE | 2017-10-28 08:46 | ED ---
General Adult HPI - General Chief complaint: Dizziness Stated complaint: DIZZINESS, NAUSEA Time Seen by Provider: 10/28/17 08:27 Source: patient, RN notes reviewed Mode of arrival: ambulatory Limitations: no limitations - History of Present Illness Initial comments: 52-year-old female presents to the emergency department with chief complaint of dizziness. Patient states that she chronically clenches her jaw. She woke up today with some ear pain chest pain all the way around her neck and she developed some dizziness. She states she feels as if the world was spinning around her. She states that she can look at something but it seems to be a little off when she moves she feels like she has to collect her balance. She states that she does chronically clenches her teeth but is never been this bad before. She denies any vomiting with this. She denies any cough cold like symptoms. She denies any head injury. She was concerned because she continued to have this dizziness so she thought that she should be seen. Patient denies any recent fever, chills, shortness of breath, chest pain, back pain, abdominal pain, nausea vomiting, numbness or tingling, dysuria or hematuria, constipation or diarrhea, headaches or visual changes, or any other current symptoms. - Related Data Previous Rx's Medication Instructions Recorded Ibuprofen [Motrin] 600 mg PO Q6HR PRN #20 tab 10/28/17 Allergies Allergy/AdvReac Type Severity Reaction Status Date / Time cefaclor [From Ceclor] Allergy Unknown Verified 10/28/17 08:27 chocolate flavor Allergy Unknown Verified 10/28/17 08:27 milk Allergy Unknown Verified 10/28/17 08:27 Penicillins Allergy Unknown Verified 10/28/17 08:27 sulfamethoxazole Allergy Unknown Verified 10/28/17 08:27 [From Bactrim] trimethoprim [From Bactrim] Allergy Unknown Verified 10/28/17 08:27 ANESTHETIC(UNKNOWN) Allergy Unknown Uncoded 10/28/17 08:02 Review of Systems ROS Statement: Those systems with pertinent positive or pertinent negative responses have been documented in the HPI. ROS Other: All systems not noted in ROS Statement are negative. Past Medical History Past Medical History: No Reported History Additional Past Medical History / Comment(s): Primary pulmonary hypertension; Migraines History of Any Multi-Drug Resistant Organisms: None Reported Past Surgical History: Appendectomy Past Psychological History: No Psychological Hx Reported Smoking Status: Never smoker Past Alcohol Use History: None Reported Past Drug Use History: None Reported General Exam - General Exam Comments Initial Comments: General: The patient is awake and alert, in no distress, and does not appear acutely ill. Eye: Pupils are equal, round and reactive to light, extra-ocular movements are intact; there is normal conjunctiva bilaterally. No signs of icterus. No vertical nystagmus observed. Ears, nose, mouth and throat: There are moist mucous membranes and no oral lesions. Tympanic membranes are pink bilaterally. Neck: The neck is supple, there is no tenderness. Cardiovascular: There is a regular rate and rhythm. No murmur, rub or gallop is appreciated. Respiratory: Lungs are clear to auscultation, respirations are non-labored, breath sounds are equal. No wheezes, stridor, rales, or rhonchi. Gastrointestinal: Soft, non-distended, non-tender abdomen without masses or organomegaly noted. There is no rebound or guarding present. No CVA tenderness. Bowel sounds are unremarkable. Back: There is no tenderness to palpation in the midline. There is no obvious deformity. No rashes noted. Musculoskeletal: Normal ROM, no tenderness, There is no pedal edema. There is no calf tenderness or swelling. Sensation intact. Pulses equal bilaterally 2+. Neurological: CN II-XII intact, There are no obvious motor or sensory deficits. Coordination appears grossly intact. Speech is normal. Negative Romberg's, negative finger to nose, no ataxia Skin: Skin is warm and dry and no rashes or lesions are noted. Psychiatric: Cooperative, appropriate mood & affect, normal judgment. Limitations: no limitations Course Vital Signs 10/28/17 07:59 Temperature 97.5 F L Pulse Rate 72 Respiratory 16 Rate Blood Pressure 145/80 O2 Sat by Pulse 97 Oximetry Medical Decision Making - Medical Decision Making 52-year-old female presents for dizziness. At this time patient's imaging has been reviewed. Patient has had improvement with her current treatment. This and we will start her on Motrin for home. We discussed most likely is from her TMs J-like discomfort. We did discuss however she needs follow-up with her family care doctor for additional testing. We discussed return parameters and all of her questions. Patient states that she understood and she is agreement this plan. All questions have been answered. The patient will be discharged. - Lab Data Result diagrams: 10/28/17 08:45 10/28/17 08:45 Lab Results 10/28/17 10/28/17 10/28/17 Range/Units 08:45 08:45 08:45 WBC 4.3 (3.8-10.6) k/uL RBC 4.84 (3.80-5.40) m/uL Hgb 14.4 (11.4-16.0) gm/dL Hct 45.6 (34.0-46.0) % MCV 94.1 (80.0-100.0) fL MCH 29.7 (25.0-35.0) pg MCHC 31.5 (31.0-37.0) g/dL RDW 13.1 (11.5-15.5) % Plt Count 185 (150-450) k/uL Neutrophils % 75 % Lymphocytes % 16 % Monocytes % 7 % Eosinophils % 1 % Basophils % 0 % Neutrophils # 3.2 (1.3-7.7) k/uL Lymphocytes # 0.7 L (1.0-4.8) k/uL Monocytes # 0.3 (0-1.0) k/uL Eosinophils # 0.1 (0-0.7) k/uL Basophils # 0.0 (0-0.2) k/uL Sodium 140 (137-145) mmol/L Potassium 4.5 (3.5-5.1) mmol/L Chloride 103 (98-107) mmol/L Carbon Dioxide 27 (22-30) mmol/L Anion Gap 10 mmol/L BUN 14 (7-17) mg/dL Creatinine 0.68 (0.52-1.04) mg/dL Est GFR (MDRD) Af Amer >60 (>60 ml/min/1.73 sqM) Est GFR (MDRD) Non-Af >60 (>60 ml/min/1.73 sqM) Glucose 94 (74-99) mg/dL Calcium 9.2 (8.4-10.2) mg/dL Total Bilirubin 0.4 (0.2-1.3) mg/dL AST 21 (14-36) U/L ALT 25 (9-52) U/L Alkaline Phosphatase 103 (38-126) U/L Total Protein 7.5 (6.3-8.2) g/dL Albumin 3.9 (3.5-5.0) g/dL Urine Color Yellow Urine Appearance Clear (Clear) Urine pH 5.5 (5.0-8.0) Ur Specific [place] 1.013 (1.001-1.035) Urine Protein Negative (Negative) Urine Glucose (UA) Negative (Negative) Urine Ketones Negative (Negative) Urine Blood Negative (Negative) Urine Nitrite Negative (Negative) Urine Bilirubin Negative (Negative) Urine Urobilinogen <2.0 (<2.0) mg/dL Ur Leukocyte Esterase Negative (Negative) - Radiology Data Radiology results: report reviewed, image reviewed Disposition Clinical Impression: Dizziness, TMJ (temporomandibular joint syndrome) Disposition: HOME SELF-CARE Condition: Stable Instructions: Dizziness (ED), Temporomandibular Disorder (ED) Additional Instructions: Please use medication as discussed. Please follow up with family doctor if symptoms have not improved over the next two days. Please return to the emergency room if your symptoms increase or worsen or for any other concerns. Prescriptions: Ibuprofen [Motrin] 600 mg PO Q6HR PRN #20 tab PRN Reason: Pain Referrals: Pritesh Taylor MD [Primary Care Provider] - 1-2 days Time of Disposition: 09:59
[2017-10-28 09:16] LABS: Basophils % (A) 0 %; Eosinophils # (A) 0.1 k/uL (0-0.7); Eosinophils % (A) 1 %; HCT 45.6 % (34.0-46.0); HGB 14.4 gm/dL (11.4-16.0); Lymphocytes # (A) 0.7 k/uL (1.0-4.8); Lymphocytes % (A) 16 %; MCH 29.7 pg (25.0-35.0); MCHC 31.5 g/dL (31.0-37.0); MCV 94.1 fL (80.0-100.0); Mean Platelet Volume 7.1; Monocytes # (A) 0.3 k/uL (0-1.0); Monocytes % (A) 7 %; Neutrophils # (A) 3.2 k/uL (1.3-7.7); Neutrophils % (A) 75 %; Platelet Count 185 k/uL (150-450); RBC 4.84 m/uL (3.80-5.40); RDW 13.1 % (11.5-15.5); WBC 4.3 k/uL (3.8-10.6)
[2017-10-28 09:17] LABS: Appearance,Urine Clear (Clear); Bilirubin,Urine Negative (Negative); Blood,Urine Negative (Negative); Color,Urine Yellow; Glucose,Urine (UA) Negative (Negative); Ketones,Urine Negative (Negative); Leukocyte Esterase,Urine Negative (Negative); Nitrite,Urine Negative (Negative); PH, Urine 5.5 (5.0-8.0); Protein,Urine Negative (Negative); Specific Gravity,Urine 1.013 (1.001-1.035); Urobilinogen,Urine <2.0 mg/dL (<2.0)
--- NOTE | 2017-10-28 09:29 | CT ---
EXAMINATION TYPE: CT brain wo con DATE OF EXAM: 10/28/2017 COMPARISON: Prior head CT 06/13/2012 HISTORY: Patient complains of dizziness. CT DLP: 1055 mGycm Automated exposure control for dose reduction was used. Helical acquisition through the brain FINDINGS: No significant interval change. There is no hemorrhage or hydrocephalus. Brain density is normal. Rigo varium is intact. Paranasal sinuses and mastoid air cells are within normal limits. Some cerebral vas cular calcifications are noted incidentally. IMPRESSION: NO ACUTE BRAIN ABNORMALITY, CONSIDER MRI FOR BETTER EVALUATION INDICATED.
[2017-10-28 09:31] LABS: ALT 25 U/L (9-52); AST 21 U/L (14-36); Albumin 3.9 g/dL (3.5-5.0); Alkaline Phosphatase 103 U/L (38-126); Anion Gap 10 mmol/L; Blood Urea Nitrogen 14 mg/dL (7-17); Calcium 9.2 mg/dL (8.4-10.2); Carbon Dioxide 27 mmol/L (22-30); Chloride 103 mmol/L (98-107); Glucose 94 mg/dL (74-99); Potassium 4.5 mmol/L (3.5-5.1); Sodium 140 mmol/L (137-145); Total Bilirubin 0.4 mg/dL (0.2-1.3); Total Protein 7.5 g/dL (6.3-8.2)
[2017-10-28] MEDS ORDERED: KETOROLAC 30 MG/ML 1 ML VIAL IVP STA (09:31)
[2017-10-28 10:25] VITALS: BP 152/67; PULSE 58; RESP 18
== END 2017-10-28 11:09 | disposition home or self-care (01) ==
LOC: EC 07:52
DX: M26.629 Arthralgia of temporomandibular joint, unspecified side (principal); R42 Dizziness and giddiness; Z86.69 Personal history of other diseases of the nervous system and sense organs; Z88.0 Allergy status to penicillin; Z88.1 Allergy status to other antibiotic agents; Z88.2 Allergy status to sulfonamides; Z88.4 Allergy status to anesthetic agent; Z91.011 Allergy to milk products; Z91.018 Allergy to other foods; Z53.29 Procedure and treatment not carried out because of patient's decision for other reasons
CPT/HCPCS: 36415; 70450; 80053; 81003; 85025; 96360; 96361; 99284

== ENCOUNTER 2018-01-08 23:23 | Emergency (ER) | payer OTHER ==
[2018-01-08 23:36] VITALS: RESP 18
[2018-01-09] MEDS ORDERED: SODIUM CHLORIDE 0.9% 1,000 ML IV ONE (01:00)
--- NOTE | 2018-01-09 01:29 | XR ---
EXAMINATION TYPE: XR chest 2V DATE OF EXAM: 01/09/2018 COMPARISON: NONE HISTORY: Cough TECHNIQUE: Frontal and lateral views of the chest are obtained. FINDINGS: Heart and mediastinum are normal. Lungs are clear. Diaphragm is normal. Bony thorax is int act. IMPRESSION: Normal chest. No change.
[2018-01-09 02:08] LABS: Basophils % (A) 0 %; Eosinophils # (A) 0.1 k/uL (0-0.7); Eosinophils % (A) 1 %; HCT 41.1 % (34.0-46.0); HGB 13.6 gm/dL (11.4-16.0); Lymphocytes # (A) 0.9 k/uL (1.0-4.8); Lymphocytes % (A) 16 %; MCH 29.9 pg (25.0-35.0); MCHC 33.2 g/dL (31.0-37.0); MCV 90.1 fL (80.0-100.0); Mean Platelet Volume 7.8; Monocytes # (A) 0.3 k/uL (0-1.0); Monocytes % (A) 5 %; Neutrophils # (A) 4.3 k/uL (1.3-7.7); Neutrophils % (A) 76 %; Platelet Count 165 k/uL (150-450); RBC 4.55 m/uL (3.80-5.40); RDW 13.2 % (11.5-15.5); WBC 5.6 k/uL (3.8-10.6)
[2018-01-09 02:29] LABS: ALT 21 U/L (9-52); AST 14 U/L (14-36); Albumin 3.9 g/dL (3.5-5.0); Alkaline Phosphatase 83 U/L (38-126); Anion Gap 14 mmol/L; Blood Urea Nitrogen 12 mg/dL (7-17); Calcium 9.4 mg/dL (8.4-10.2); Carbon Dioxide 22 mmol/L (22-30); Chloride 106 mmol/L (98-107); Glucose 109 mg/dL (74-99); Potassium 4.2 mmol/L (3.5-5.1); Sodium 142 mmol/L (137-145); Total Bilirubin 0.4 mg/dL (0.2-1.3); Total Protein 7.1 g/dL (6.3-8.2)
[2018-01-09 02:32] LABS: Creatine Kinase 71 U/L (30-135)
[2018-01-09 02:44] LABS: Troponin I <0.012 ng/mL (0.000-0.034)
--- NOTE | 2018-01-09 03:21 | ED ---
Headache HPI - General Chief Complaint: Headache Stated Complaint: Balance issues, headache, nausea Time Seen by Provider: 01/09/18 00:43 Mode of arrival: ambulatory Limitations: no limitations - History of Present Illness Initial Comments: 52-year-old female patient presents to the emergency department today with complaints of dizziness and vomiting. Patient states this started a couple hours prior to arrival. Patient states it started with a headache and started to become dizzy. Patient states that she did have 3 episodes of vomiting and has had 2 episodes of diarrhea since symptom onset. Patient states her headache is currently resolved. She denies any blurred or double vision. She denies any chest pain, shortness of breath, abdominal pain, fever, or chills. Patient states that she has had problems with dizziness in the past. States it is mostly related to her clenching her teeth. Patient states that she has been very stressed out recently and thinks this may be construed into her symptoms. She denies any suicidal or homicidal ideation. She denies any alcohol or drug use. Patient denies any recent rash, back pain, numbness, tingling, weakness, hematuria, dysuria, urinary urgency, urinary frequency, or any other complaints. - Related Data Previous Rx's Medication Instructions Recorded Ibuprofen [Motrin] 600 mg PO Q6HR PRN #20 tab 10/28/17 Allergies Allergy/AdvReac Type Severity Reaction Status Date / Time cefaclor [From Ceclor] Allergy Unknown Verified 10/28/17 08:27 chocolate flavor Allergy Unknown Verified 10/28/17 08:27 milk Allergy Unknown Verified 10/28/17 08:27 Penicillins Allergy Unknown Verified 10/28/17 08:27 sulfamethoxazole Allergy Unknown Verified 10/28/17 08:27 [From Bactrim] trimethoprim [From Bactrim] Allergy Unknown Verified 10/28/17 08:27 ANESTHETIC(UNKNOWN) Allergy Unknown Uncoded 10/28/17 08:02 Review of Systems ROS Statement: Those systems with pertinent positive or pertinent negative responses have been documented in the HPI. ROS Other: All systems not noted in ROS Statement are negative. Past Medical History Past Medical History: No Reported History Additional Past Medical History / Comment(s): Primary pulmonary hypertension; Migraines History of Any Multi-Drug Resistant Organisms: None Reported Past Surgical History: Appendectomy Past Psychological History: No Psychological Hx Reported Smoking Status: Never smoker Past Alcohol Use History: None Reported Past Drug Use History: None Reported General Exam Limitations: no limitations General appearance: alert, in no apparent distress, other (This is a well- developed, well-nourished adult female patient in no acute distress. Vital signs upon presentation are temperature 98.7F, pulse 80, respirations 18, blood pressure 167/84, pulse ox 98% on room air.) Eye exam: Present: normal appearance, PERRL, EOMI. Absent: scleral icterus, conjunctival injection, nystagmus, periorbital swelling ENT exam: Present: normal exam, normal oropharynx, mucous membranes moist Respiratory exam: Present: normal lung sounds bilaterally. Absent: respiratory distress, wheezes, rales, rhonchi, stridor Cardiovascular Exam: Present: regular rate, normal rhythm, normal heart sounds. Absent: systolic murmur, diastolic murmur, rubs, gallop, clicks GI/Abdominal exam: Present: soft, normal bowel sounds. Absent: distended, tenderness, guarding, rebound, rigid Neurological exam: Present: alert, oriented X3, CN II-XII intact, other ( Strength in all 4 extremities is 5/5.) Psychiatric exam: Present: normal affect, normal mood Skin exam: Present: warm, dry, intact, normal color. Absent: rash Course Vital Signs 01/08/18 23:32 Temperature 98.7 F Pulse Rate 80 Respiratory 18 Rate Blood Pressure 167/84 O2 Sat by Pulse 98 Oximetry Medical Decision Making - Medical Decision Making 52-year-old male patient presents to the emergency department today for evaluation of dizziness, headache, vomiting, and diarrhea. Physical examination is unremarkable. Abdomen is soft and nontender. Patient is neurologically intact. We did administer IV fluids. Patient is feeling better. She is instructed to follow-up with her primary care physician for recheck in 1-2 days. She is instructed to return here immediately for any new, worsening, or concerning symptoms. She verbalizes understanding and agrees with this plan. - Lab Data Result diagrams: 01/09/18 01:47 01/09/18 01:47 Lab Results 01/09/18 01/09/18 01/09/18 Range/Units 01:47 01:47 01:47 WBC 5.6 (3.8-10.6) k/uL RBC 4.55 (3.80-5.40) m/uL Hgb 13.6 (11.4-16.0) gm/dL Hct 41.1 (34.0-46.0) % MCV 90.1 (80.0-100.0) fL MCH 29.9 (25.0-35.0) pg MCHC 33.2 (31.0-37.0) g/dL RDW 13.2 (11.5-15.5) % Plt Count 165 (150-450) k/uL Neutrophils % 76 % Lymphocytes % 16 % Monocytes % 5 % Eosinophils % 1 % Basophils % 0 % Neutrophils # 4.3 (1.3-7.7) k/uL Lymphocytes # 0.9 L (1.0-4.8) k/uL Monocytes # 0.3 (0-1.0) k/uL Eosinophils # 0.1 (0-0.7) k/uL Basophils # 0.0 (0-0.2) k/uL Sodium 142 (137-145) mmol/L Potassium 4.2 (3.5-5.1) mmol/L Chloride 106 (98-107) mmol/L Carbon Dioxide 22 (22-30) mmol/L Anion Gap 14 mmol/L BUN 12 (7-17) mg/dL Creatinine 0.60 (0.52-1.04) mg/dL Est GFR (CKD-EPI)AfAm >90 (>60 ml/min/1.73 sqM) Est GFR (CKD-EPI)NonAf >90 (>60 ml/min/1.73 sqM) Glucose 109 H (74-99) mg/dL Calcium 9.4 (8.4-10.2) mg/dL Total Bilirubin 0.4 (0.2-1.3) mg/dL AST 14 (14-36) U/L ALT 21 (9-52) U/L Alkaline Phosphatase 83 (38-126) U/L Total Creatine Kinase 71 (30-135) U/L CK-MB (CK-2) 1.0 (0.0-2.4) ng/mL CK-MB (CK-2) Rel Index 1.4 Troponin I <0.012 (0.000-0.034) ng/mL Total Protein 7.1 (6.3-8.2) g/dL Albumin 3.9 (3.5-5.0) g/dL - Radiology Data Radiology results: report reviewed, image reviewed Two-view x-ray of the chest shows a hard mediastinum are normal. Lungs are clear. Diaphragm is normal. Bony thorax is intact. Impression by Dr. Hines shows normal chest with no change. Disposition Clinical Impression: Dizziness Disposition: HOME SELF-CARE Condition: Good Instructions: Acute Nausea and Vomiting (ED), Dizziness (ED) Additional Instructions: Increase fluids. Follow-up through primary care physician for recheck in 1-2 days. Consider outpatient counseling. Return here immediately for any new, worsening, or concerning symptoms. Is patient prescribed a controlled substance at d/c from ED?: No Referrals: Pritesh Taylor MD [Primary Care Provider] - 1-2 days Time of Disposition: 03:21
[2018-01-09 03:32] VITALS: BP 166/76; PULSE 78; TEMP 98.1
== END 2018-01-09 03:30 | disposition home or self-care (01) ==
LOC: EC 23:23
DX: R42 Dizziness and giddiness (principal); R51 Headache; R11.10 Vomiting, unspecified; R19.7 Diarrhea, unspecified; Z88.0 Allergy status to penicillin; Z88.2 Allergy status to sulfonamides; Z88.1 Allergy status to other antibiotic agents; Z91.011 Allergy to milk products; Z91.018 Allergy to other foods
CPT/HCPCS: 36415; 71046; 80053; 82550; 82553; 84484; 85025; 93005; 96360; 99284

== ENCOUNTER 2018-03-18 04:51 | Emergency (ER) | payer OTHER ==
--- NOTE | 2018-03-18 05:14 | ED ---
Chest Pain HPI - General Chief Complaint: Chest Pain Stated Complaint: High BP Time Seen by Provider: 03/18/18 05:12 Source: patient Mode of arrival: ambulatory Limitations: no limitations - History of Present Illness Initial Comments: Patient is a 52-year-old woman who presents with approximately 2 hours of pain to the right upper chest that she states she woke from sleep with. She describes it as having sensation of being like indigestion. She states that initially when it came on at lasted number minutes, and seem to be getting better. She went to go back to sleep and the symptoms recurred. She then took an aspirin and decided to be evaluated here. Patient states that she also had a couple of episodes of diarrhea since this developed. MD Complaint: chest pain Onset/Timin -: hour(s) Onset: during rest, awoke with symptoms Pain Location: right chest Pain Radiation: none Severity: severe Quality: other ("Like indigestion") Consistency: constant Improves With: nothing Worsens With: nothing Anginal Symptoms: nausea Other Symptoms: other (Diarrhea) Treatments Prior to Arrival: aspirin - Related Data Previous Rx's Medication Instructions Recorded Ibuprofen [Motrin] 600 mg PO Q6HR PRN #20 tab 10/28/17 Allergies Allergy/AdvReac Type Severity Reaction Status Date / Time cefaclor [From Ceclor] Allergy Unknown Verified 03/18/18 05:02 chocolate flavor Allergy Unknown Verified 03/18/18 05:02 milk Allergy Unknown Verified 03/18/18 05:02 Penicillins Allergy Unknown Verified 03/18/18 05:02 sulfamethoxazole Allergy Unknown Verified 03/18/18 05:02 [From Bactrim] trimethoprim [From Bactrim] Allergy Unknown Verified 03/18/18 05:02 ANESTHETIC(UNKNOWN) Allergy Unknown Uncoded 03/18/18 05:02 Review of Systems ROS Statement: Those systems with pertinent positive or pertinent negative responses have been documented in the HPI. ROS Other: All systems not noted in ROS Statement are negative. Constitutional: Denies: fever, chills Respiratory: Denies: cough, dyspnea Cardiovascular: Reports: chest pain. Denies: palpitations, orthopnea, edema, syncope Gastrointestinal: Reports: nausea, diarrhea. Denies: abdominal pain, vomiting, constipation, melena, hematochezia Genitourinary: Denies: dysuria, hematuria Musculoskeletal: Denies: back pain Skin: Denies: rash Neurological: Denies: headache EKG Findings - EKG Results: EKG: interpreted by VITO SIM, sinus rhythm (61 bpm), normal axis, normal QRS, normal ST/T, no acute changes - WI, Pacemaker, Normal: Normal tracing: normal tracing Past Medical History Past Medical History: Hypertension Additional Past Medical History / Comment(s): Primary pulmonary hypertension; Migraines History of Any Multi-Drug Resistant Organisms: None Reported Past Surgical History: Appendectomy Past Psychological History: No Psychological Hx Reported Smoking Status: Never smoker Past Alcohol Use History: None Reported Past Drug Use History: None Reported General Exam Limitations: no limitations General appearance: alert, in no apparent distress Head exam: Present: atraumatic, normocephalic Eye exam: Present: normal appearance. Absent: scleral icterus, conjunctival injection ENT exam: Present: normal oropharynx Neck exam: Present: normal inspection Respiratory exam: Present: normal lung sounds bilaterally. Absent: respiratory distress, wheezes, rales, rhonchi, stridor Cardiovascular Exam: Present: regular rate, normal rhythm, normal heart sounds. Absent: systolic murmur, diastolic murmur, rubs, gallop GI/Abdominal exam: Present: soft. Absent: distended, tenderness, guarding, rebound, rigid, mass, pulsatile mass Extremities exam: Present: normal inspection, normal capillary refill. Absent: pedal edema, calf tenderness Back exam: Present: normal inspection. Absent: CVA tenderness (R), CVA tenderness (L) Neurological exam: Present: alert Skin exam: Present: warm, dry, intact, normal color. Absent: rash Course Vital Signs 03/18/18 03/18/18 03/18/18 04:58 05:13 06:07 Temperature 98.5 F Pulse Rate 74 61 Pulse Rate [ 63 Restrooms Or Lounges Maid ] Respiratory 18 18 Rate Blood Pressure 178/108 153/82 O2 Sat by Pulse 99 97 Oximetry 03/18/18 03/18/18 06:45 07:12 Temperature 98.0 F Pulse Rate 60 Pulse Rate [ Restrooms Or Lounges Maid ] Respiratory 15 Rate Blood Pressure 175/82 O2 Sat by Pulse 98 Oximetry Chest Pain MDM - MDM Discussed results with the patient and offered admission for telemetry monitoring. At this point the patient declines. She has a actuarial manager and states she wants to follow with him as an outpatient. She is not having symptoms. We discussed appropriate further care and follow-up as well as return parameters. Disposition Clinical Impression: Chest pain Disposition: HOME SELF-CARE Condition: Good Instructions: Chest Pain (ED) Is patient prescribed a controlled substance at d/c from ED?: No Referrals: Pritesh Taylor MD [Primary Care Provider] - 1-2 days
[2018-03-18] MEDS ORDERED: MAG HYDROX/AL HYDROX/SIMETH 30 ML, HYOSCYAMINE ELIXIR 10 ML, CIMETIDINE HCL 300 MG, LID... PO STA ×4 (05:21)
[2018-03-18 05:39] LABS: Basophils % (A) 0 %; Eosinophils # (A) 0.1 k/uL (0-0.7); Eosinophils % (A) 1 %; HCT 43.1 % (34.0-46.0); HGB 14.4 gm/dL (11.4-16.0); Lymphocytes # (A) 1.1 k/uL (1.0-4.8); Lymphocytes % (A) 23 %; MCH 30.7 pg (25.0-35.0); MCHC 33.3 g/dL (31.0-37.0); MCV 92.2 fL (80.0-100.0); Mean Platelet Volume 7.5; Monocytes # (A) 0.4 k/uL (0-1.0); Monocytes % (A) 7 %; Neutrophils # (A) 3.2 k/uL (1.3-7.7); Neutrophils % (A) 66 %; Platelet Count 178 k/uL (150-450); RBC 4.67 m/uL (3.80-5.40); RDW 13.4 % (11.5-15.5); WBC 4.9 k/uL (3.8-10.6)
--- NOTE | 2018-03-18 05:40 | XR ---
EXAMINATION TYPE: XR chest 1V portable DATE OF EXAM: 03/18/2018 COMPARISON: 01/09/2018 HISTORY: Chest pain TECHNIQUE: Single frontal view of the chest is obtained. FINDINGS: There is no heart failure nor confluent pneumonic infiltrate. Costophrenic angles are dayanara r. There are chest leads. IMPRESSION: No active cardiopulmonary disease. No change.
[2018-03-18 05:49] LABS: D-Dimer 0.35 mg/L FEU (<0.60); Prothrombin Time 10.2 sec (9.0-12.0)
[2018-03-18 05:50] LABS: Partial Thromboplastin Time 24.5 sec (22.0-30.0)
[2018-03-18 05:58] LABS: Albumin 4.2 g/dL (3.5-5.0); Calcium 9.6 mg/dL (8.4-10.2); Potassium 4.3 mmol/L (3.5-5.1); Total Bilirubin 0.5 mg/dL (0.2-1.3); Total Protein 7.6 g/dL (6.3-8.2)
[2018-03-18 06:07] LABS: Creatine Kinase 59 U/L (30-135)
[2018-03-18 06:20] LABS: Creatine Kinase MB 0.9 ng/mL (0.0-2.4); Troponin I <0.012 ng/mL (0.000-0.034)
[2018-03-18 06:45] VITALS: BP 175/82; PULSE 60; RESP 15
[2018-03-18 07:13] VITALS: TEMP 98
== END 2018-03-18 07:13 | disposition home or self-care (01) ==
LOC: EC 04:51
DX: R07.9 Chest pain, unspecified (principal); R11.0 Nausea; R19.7 Diarrhea, unspecified; Z88.1 Allergy status to other antibiotic agents; Z88.2 Allergy status to sulfonamides; Z88.6 Allergy status to analgesic agent; Z91.011 Allergy to milk products; Z88.0 Allergy status to penicillin; Z91.018 Allergy to other foods; Z53.29 Procedure and treatment not carried out because of patient's decision for other reasons
CPT/HCPCS: 36415; 71045; 80053; 82550; 82553; 83735; 84484; 85025; 85379; 85610; 85730; 93005; 99285

== ENCOUNTER → 2018-10-24 | Outpatient (CLI) | payer OTHER ==
--- NOTE | 2018-10-25 08:26 | MR ---
EXAMINATION TYPE: MR brain wo con DATE OF EXAM: 10/24/2018 COMPARISON: CT brain 10/28/2017 HISTORY: Migraine with visual disturbance CONTRAST: Performed utilizing 0 mL intravenous Gadavist gadolinium contrast. TECHNIQUE: Multiplanar, multiecho imaging on a 3.0 Frannie magnet is performed through the brain. Stud y is performed within 24 hours of arrival to the hospital. The craniovertebral junction is normal. The pituitary is normal. Diffusion-weighted imaging is performed. No abnormal hyperintensity is present to suggest an acute i ntracranial infarct or acute ischemic change. There are scattered punctate areas of hyperintensity on T2 and Inversion Recovery weighted sequences which are non-specific but can be related to microvascular ischemic changes. Migraine headaches would be within the differential. Ventricles and sulci are appropriate for the patient age. IMPRESSIONS: 1. Few scattered punctate hyperintensities within the deep white matter. Findings can be associated w ith migraine headaches.
== END ==
LOC: RADMRIMAIN 21:08
PROVIDERS: ATTEND Ophthalmology
DX: R90.89 Other abnormal findings on diagnostic imaging of central nervous system (principal)
CPT/HCPCS: 70551

== ENCOUNTER 2020-03-18 21:48 | Emergency (ER) | payer OTHER ==
[2020-03-18] MEDS ORDERED: SODIUM CHLORIDE 0.9% 500 ML 500 ML IV STA (22:16)
--- NOTE | 2020-03-18 22:41 | ED ---
General Adult HPI - General Chief complaint: Recheck/Abnormal Lab/Rx Stated complaint: High Blood Pressure Time Seen by Provider: 03/18/20 22:06 Source: patient Mode of arrival: wheelchair Limitations: no limitations - History of Present Illness Initial comments: 54-year-old female patient presents to the emergency department today for evaluation of elevated blood pressure and anxiety. Patient states that she generally checks her blood pressure to monitor it. Patient states tonight when she checked it was elevated. States that this could be caused from anxiety. States she feels even more anxiety when she found out her blood pressure was high. States she does have some shortness of breath. Denies any chest pain. Denies any cough, congestion, or dizziness. Denies taking any blood pressure medications. Does not take any medication for anxiety. She denies depression or suicidal ideation. Patient denies any recent rash, fever, chills, abdominal pain, nausea, vomiting, diarrhea, constipation, back pain, numbness, tingling, hematuria, dysuria, urinary urgency, urinary frequency, headache, visual changes, or any other complaints. - Related Data Home Medications Medication Instructions Recorded Confirmed No Known Home Medications 03/18/20 03/18/20 Allergies Allergy/AdvReac Type Severity Reaction Status Date / Time cefaclor [From Ceclor] Allergy Unknown Verified 03/18/20 23:01 chocolate flavor Allergy Unknown Verified 03/18/20 23:01 milk Allergy Unknown Verified 03/18/20 23:01 Penicillins Allergy Unknown Verified 03/18/20 23:01 sulfamethoxazole Allergy Unknown Verified 03/18/20 23:01 [From Bactrim] trimethoprim [From Bactrim] Allergy Unknown Verified 03/18/20 23:01 ANESTHETIC(UNKNOWN) Allergy Unknown Uncoded 03/18/20 21:57 Review of Systems ROS Statement: Those systems with pertinent positive or pertinent negative responses have been documented in the HPI. ROS Other: All systems not noted in ROS Statement are negative. Past Medical History Past Medical History: Hypertension Additional Past Medical History / Comment(s): Primary pulmonary hypertension; Migraines History of Any Multi-Drug Resistant Organisms: None Reported Past Surgical History: Appendectomy Past Psychological History: No Psychological Hx Reported Past Alcohol Use History: None Reported Past Drug Use History: None Reported General Exam Limitations: no limitations General appearance: alert, in no apparent distress, other (This is a well- developed, well-nourished adult female patient in no acute distress. Vital signs upon presentation are temperature 98.2F, pulse 84, respirations 18, blood pressure 190/91, pulse ox 99% on room air.) Eye exam: Present: normal appearance, PERRL, EOMI. Absent: scleral icterus, conjunctival injection, periorbital swelling ENT exam: Present: normal exam, normal oropharynx, mucous membranes moist Respiratory exam: Present: normal lung sounds bilaterally. Absent: respiratory distress, wheezes, rales, rhonchi, stridor Cardiovascular Exam: Present: regular rate, normal rhythm, normal heart sounds. Absent: systolic murmur, diastolic murmur, rubs, gallop, clicks GI/Abdominal exam: Present: soft, normal bowel sounds. Absent: distended, tenderness, guarding, rebound, rigid Neurological exam: Present: alert, oriented X3, CN II-XII intact Psychiatric exam: Present: normal affect, normal mood Skin exam: Present: warm, dry, intact, normal color. Absent: rash Course Vital Signs 03/18/20 03/18/20 03/18/20 21:54 22:06 22:09 Temperature 98.0 F Pulse Rate 84 80 Pulse Rate [ 77 Pulse Oximetery ] Respiratory 18 16 16 Rate Blood Pressure 190/91 196/101 O2 Sat by Pulse 99 97 Oximetry 03/18/20 03/18/20 03/19/20 22:59 23:22 00:00 Temperature Pulse Rate 69 Pulse Rate [ Pulse Oximetery ] Respiratory 18 17 Rate Blood Pressure 180/97 167/81 O2 Sat by Pulse 96 Oximetry EKG Findings - EKG Comments: EKG Findings:: EKG obtained at 2244 shows normal sinus rhythm with a ventricular rate is 74, PA interval 162, QRS duration 88, QT 376, QTc 417. No evidence of ST elevation or depression. Medical Decision Making - Medical Decision Making 54-year-old female patient presents to the emergency department today for evaluation of elevated blood pressure and anxiety. Physical examination is unremarkable. EKG showed normal sinus rhythm. Labs reviewed and are unremarkable, troponins negative. Chest x-ray shows no acute cardiopulmonary process. Blood pressures did improve while in the department. She did decline anxiety medications. She'll be discharged popped her primary care physician for recheck in 1-2 days. Return parameters discussed in detail. She verbalizes understanding and agrees with this plan. - Lab Data Result diagrams: 03/18/20 22:44 03/18/20 22:44 Lab Results 03/18/20 03/18/20 03/18/20 Range/Units 22:44 22:44 22:44 WBC 6.6 (3.8-10.6) k/uL RBC 4.59 (3.80-5.40) m/uL Hgb 14.1 (11.4-16.0) gm/dL Hct 43.1 (34.0-46.0) % MCV 93.9 (80.0-100.0) fL MCH 30.7 (25.0-35.0) pg MCHC 32.6 (31.0-37.0) g/dL RDW 12.7 (11.5-15.5) % Plt Count 182 (150-450) k/uL Neutrophils % 75 % Lymphocytes % 16 % Monocytes % 5 % Eosinophils % 2 % Basophils % 0 % Neutrophils # 5.0 (1.3-7.7) k/uL Lymphocytes # 1.1 (1.0-4.8) k/uL Monocytes # 0.3 (0-1.0) k/uL Eosinophils # 0.1 (0-0.7) k/uL Basophils # 0.0 (0-0.2) k/uL PT 9.9 (9.0-12.0) sec INR 1.0 (<1.2) APTT 25.0 (22.0-30.0) sec Sodium 137 (137-145) mmol/L Potassium 4.4 (3.5-5.1) mmol/L Chloride 105 (98-107) mmol/L Carbon Dioxide 25 (22-30) mmol/L Anion Gap 7 mmol/L BUN 17 (7-17) mg/dL Creatinine 0.83 (0.52-1.04) mg/dL Est GFR (CKD-EPI)AfAm >90 (>60 ml/min/1.73 sqM) Est GFR (CKD-EPI)NonAf 81 (>60 ml/min/1.73 sqM) Glucose 107 H (74-99) mg/dL Calcium 9.7 (8.4-10.2) mg/dL Magnesium 2.0 (1.6-2.3) mg/dL Total Bilirubin 0.3 (0.2-1.3) mg/dL AST 20 (14-36) U/L ALT 18 (4-34) U/L Alkaline Phosphatase 113 (38-126) U/L Troponin I (0.000-0.034) ng/mL Total Protein 7.8 (6.3-8.2) g/dL Albumin 4.4 (3.5-5.0) g/dL 03/18/20 Range/Units 22:44 WBC (3.8-10.6) k/uL RBC (3.80-5.40) m/uL Hgb (11.4-16.0) gm/dL Hct (34.0-46.0) % MCV (80.0-100.0) fL MCH (25.0-35.0) pg MCHC (31.0-37.0) g/dL RDW (11.5-15.5) % Plt Count (150-450) k/uL Neutrophils % % Lymphocytes % % Monocytes % % Eosinophils % % Basophils % % Neutrophils # (1.3-7.7) k/uL Lymphocytes # (1.0-4.8) k/uL Monocytes # (0-1.0) k/uL Eosinophils # (0-0.7) k/uL Basophils # (0-0.2) k/uL PT (9.0-12.0) sec INR (<1.2) APTT (22.0-30.0) sec Sodium (137-145) mmol/L Potassium (3.5-5.1) mmol/L Chloride (98-107) mmol/L Carbon Dioxide (22-30) mmol/L Anion Gap mmol/L BUN (7-17) mg/dL Creatinine (0.52-1.04) mg/dL Est GFR (CKD-EPI)AfAm (>60 ml/min/1.73 sqM) Est GFR (CKD-EPI)NonAf (>60 ml/min/1.73 sqM) Glucose (74-99) mg/dL Calcium (8.4-10.2) mg/dL Magnesium (1.6-2.3) mg/dL Total Bilirubin (0.2-1.3) mg/dL AST (14-36) U/L ALT (4-34) U/L Alkaline Phosphatase (38-126) U/L Troponin I <0.012 (0.000-0.034) ng/mL Total Protein (6.3-8.2) g/dL Albumin (3.5-5.0) g/dL - Radiology Data Radiology results: report reviewed, image reviewed Two-view x-ray of the chest is obtained. Report is reviewed in its entirety. Impression by Dr. Hines shows normal chest. No change. Disposition Clinical Impression: Hypertension, Anxiety Disposition: HOME SELF-CARE Condition: Good Instructions (If sedation given, give patient instructions): Hypertension (ED), Anxiety (ED) Additional Instructions: Rest. Follow-up with your primary care physician for recheck as soon as possible. Keep a log of your blood pressures to submit to your doctor. Return to the emergency department immediately for any new, worsening, or concerning symptoms Is patient prescribed a controlled substance at d/c from ED?: No Referrals: Victoriano Servin MD [Primary Care Provider] - 1-2 days Time of Disposition: 00:13
[2020-03-18 22:54] LABS: Basophils % (A) 0 %; Eosinophils # (A) 0.1 k/uL (0-0.7); Eosinophils % (A) 2 %; HCT 43.1 % (34.0-46.0); HGB 14.1 gm/dL (11.4-16.0); Lymphocytes # (A) 1.1 k/uL (1.0-4.8); Lymphocytes % (A) 16 %; MCH 30.7 pg (25.0-35.0); MCHC 32.6 g/dL (31.0-37.0); MCV 93.9 fL (80.0-100.0); Mean Platelet Volume 8.1; Monocytes # (A) 0.3 k/uL (0-1.0); Monocytes % (A) 5 %; Neutrophils % (A) 75 %; Platelet Count 182 k/uL (150-450); RBC 4.59 m/uL (3.80-5.40); RDW 12.7 % (11.5-15.5); WBC 6.6 k/uL (3.8-10.6)
[2020-03-18 23:04] LABS: ALT 18 U/L (4-34); AST 20 U/L (14-36); African American GFR (CKD) >90 (>60 ml/min/1.73 sqM); Albumin 4.4 g/dL (3.5-5.0); Alkaline Phosphatase 113 U/L (38-126); Anion Gap 7 mmol/L; Blood Urea Nitrogen 17 mg/dL (7-17); Calcium 9.7 mg/dL (8.4-10.2); Carbon Dioxide 25 mmol/L (22-30); Chloride 105 mmol/L (98-107); Glucose 107 mg/dL (74-99); Non-African American GFR(CKD) 81 (>60 ml/min/1.73 sqM); Potassium 4.4 mmol/L (3.5-5.1); Sodium 137 mmol/L (137-145); Total Bilirubin 0.3 mg/dL (0.2-1.3); Total Protein 7.8 g/dL (6.3-8.2)
--- NOTE | 2020-03-18 23:18 | XR ---
EXAMINATION TYPE: XR chest 2V DATE OF EXAM: 03/18/2020 COMPARISON: Today HISTORY: Chest pain TECHNIQUE: FINDINGS: Heart and mediastinum are normal. Lungs are clear. Diaphragm is normal. Bony thorax appears normal. IMPRESSION: Normal chest. No change.
[2020-03-18 23:22] LABS: Prothrombin Time 9.9 sec (9.0-12.0)
[2020-03-19 01:13] VITALS: BP 157/92; PULSE 66; RESP 16; TEMP 97.8
== END 2020-03-19 01:10 | disposition home or self-care (01) ==
LOC: EC 21:48
DX: I10 Essential (primary) hypertension (principal); F41.9 Anxiety disorder, unspecified; R06.02 Shortness of breath; Z88.1 Allergy status to other antibiotic agents; Z91.018 Allergy to other foods; Z91.011 Allergy to milk products; Z88.0 Allergy status to penicillin; Z88.2 Allergy status to sulfonamides; Z88.4 Allergy status to anesthetic agent; Z53.29 Procedure and treatment not carried out because of patient's decision for other reasons
CPT/HCPCS: 36415; 71046; 80053; 83735; 84484; 85025; 85610; 85730; 93005; 96360; 96361; 99284

== ENCOUNTER 2020-04-28 21:25 | Emergency (ER) | payer OTHER ==
[2020-04-28 21:31] VITALS: RESP 18; TEMP 98
[2020-04-28 22:08] LABS: Basophils % (A) 1 %; Eosinophils # (A) 0.2 k/uL (0-0.7); Eosinophils % (A) 3 %; HCT 43.4 % (34.0-46.0); HGB 14.2 gm/dL (11.4-16.0); Lymphocytes # (A) 1.1 k/uL (1.0-4.8); Lymphocytes % (A) 19 %; MCH 30.2 pg (25.0-35.0); MCHC 32.6 g/dL (31.0-37.0); MCV 92.6 fL (80.0-100.0); Mean Platelet Volume 8.2; Monocytes # (A) 0.2 k/uL (0-1.0); Monocytes % (A) 4 %; Neutrophils % (A) 72 %; Platelet Count 179 k/uL (150-450); RBC 4.69 m/uL (3.80-5.40); RDW 12.9 % (11.5-15.5); WBC 5.6 k/uL (3.8-10.6)
[2020-04-28 22:16] LABS: ALT 22 U/L (4-34); AST 27 U/L (14-36); African American GFR (CKD) >90 (>60 ml/min/1.73 sqM); Albumin 4.7 g/dL (3.5-5.0); Alkaline Phosphatase 113 U/L (38-126); Anion Gap 9 mmol/L; Blood Urea Nitrogen 15 mg/dL (7-17); Calcium 9.9 mg/dL (8.4-10.2); Carbon Dioxide 25 mmol/L (22-30); Chloride 104 mmol/L (98-107); Glucose 100 mg/dL (74-99); Non-African American GFR(CKD) >90 (>60 ml/min/1.73 sqM); Potassium 4.3 mmol/L (3.5-5.1); Sodium 138 mmol/L (137-145); Total Bilirubin 0.8 mg/dL (0.2-1.3); Total Protein 8.2 g/dL (6.3-8.2)
[2020-04-28 22:20] LABS: INR 0.9 (<1.2); Partial Thromboplastin Time 24.4 sec (22.0-30.0); Prothrombin Time 9.9 sec (9.0-12.0)
--- NOTE | 2020-04-28 22:23 | XR ---
EXAMINATION TYPE: XR chest 2V DATE OF EXAM: 04/28/2020 COMPARISON: 03/18/2020 HISTORY: Altered mental status. Chest pain TECHNIQUE: FINDINGS: Heart and mediastinum are normal. Lungs are clear. Diaphragm is normal. Bony thorax appears normal. IMPRESSION: Normal chest. No change.
--- NOTE | 2020-04-28 22:31 | CT ---
EXAMINATION TYPE: CT brain wo con for TPA DATE OF EXAM: 04/28/2020 COMPARISON: 10/28/2017 HISTORY: Right leg numbness. CT DLP: 1083.4 mGycm Automated exposure control for dose reduction was used. Ventricles and sulci appear normal. There is no mass effect nor midline shift. There is no sign of in tracranial hemorrhage. There is no evidence of cerebral edema. Calvarium is intact. IMPRESSION: Negative unenhanced head CT scan. No change.
[2020-04-28 23:06] VITALS: BP 157/87; PULSE 68
--- NOTE | 2020-04-28 23:14 | ED ---
Extremity Problem HPI - General Chief complaint: Extremity Problem,Nontraumatic Stated complaint: R Leg Numbness Time Seen by Provider: 04/28/20 21:43 Source: patient Mode of arrival: ambulatory Limitations: no limitations - History of Present Illness Initial comments: 55-year-old female who states she is situational hypertension presenting to department today for chief complaint of paresthesia of the right leg. Patient states she is walking the department she developed a falling asleep sensation in the right leg she states she could feel like it had normal strength. Patient states she became overwhelmed and started noticing right arm tingling as well. Patient states that she has a bad right shoulder. Patient denies a chest pain or shortness of breath aside denied headache dizziness visual changes speech changes she denied any weakness or sensation loss more a tingling sensation. Patient states he was more prominent in the right center of her butt cheek. Patient states that area is tender to touch. Patient doesn't follow strict trauma IV drug use history of fevers. Patient has a low back pain that is new. Patient denies any coldness or pallor of the right lower extremity. Denies any known history of TIA or stroke. Patient denies any diabetes. Patient states that she walked in the home and took her blood pressure which was normal she states that was 127/"80s". She states she called one of her friends who states she might be having a stroke patient and she then became overwhelmed to the blood pressure again and noted it was very high. Patient then called her daughter to bring her to the emergency department. Patient has no additional complaints. Patient states these symptoms began at 8PM, and have complete resolved. Pt symptom free on arrival.history taking. - Related Data Home Medications Medication Instructions Recorded Confirmed No Known Home Medications 03/18/20 04/28/20 Allergies Allergy/AdvReac Type Severity Reaction Status Date / Time cefaclor [From Ceclor] Allergy Unknown Verified 04/28/20 22:23 chocolate flavor Allergy Unknown Verified 04/28/20 22:23 milk Allergy Unknown Verified 04/28/20 22:23 Penicillins Allergy Unknown Verified 04/28/20 22:23 sulfamethoxazole Allergy Unknown Verified 04/28/20 22:23 [From Bactrim] trimethoprim [From Bactrim] Allergy Unknown Verified 04/28/20 22:23 ANESTHETIC(UNKNOWN) Allergy Unknown Uncoded 04/28/20 21:29 Review of Systems ROS Statement: Those systems with pertinent positive or pertinent negative responses have been documented in the HPI. ROS Other: All systems not noted in ROS Statement are negative. Past Medical History Past Medical History: Hypertension Additional Past Medical History / Comment(s): Primary pulmonary hypertension; Migraines History of Any Multi-Drug Resistant Organisms: None Reported Past Surgical History: Appendectomy Past Psychological History: No Psychological Hx Reported Past Alcohol Use History: None Reported Past Drug Use History: None Reported General Exam - General Exam Comments Initial Comments: General: The patient is awake and alert, in no distress Eye: +3 mm pupils are equal, round and reactive to light, extra-ocular movements are intact. No nystagmus. There is normal conjunctiva bilaterally. No signs of icterus. Ears, nose, mouth and throat: There are moist mucous membranes and no oral lesions. Neck: The neck is supple, there is no tenderness or JVD. Cardiovascular: There is a regular rate and rhythm. No murmur, rub or gallop is appreciated. Respiratory: Lungs are clear to auscultation, respirations are non-labored, breath sounds are equal. No wheezes, stridor, rales, or rhonchi. Gastrointestinal: Soft, non-distended, non-tender abdomen without masses or organomegaly noted. There is no rebound or guarding present. Musculoskeletal: Normal inspection of buttock, pain to light palpation mid buttock (r) only. No mildine lumbar pain to palpation. Normal ROM, no tenderness. Strength 5/5 of the LE and UE b/l equally. Sensation intact. Radial pulses equal bilaterally 2+. Neurological: A&O x 3. CN II-XII intact,memory intact to immediately, intermediate and assisted recall. Able to follow simple verbal. Able to name a common object. High quality, labial (pa) and lingual (la) speech. Low quality posterior pharynx/larynx (ga) voice sounds. Able to express general knowledge (days in a week). No hemineglect or inattention noted. Finger agnosia (-) and spatially oriented. Light touch sensation present over the face, chest, abdomen, back, UE bilaterally, and LE bilaterally. Able to localize point during point localization b/l and extinction. No visible bulk atrophy, hypertrophy, fasciculations, or myoclonus of the UE or LE b/l. Full PROM in UE and LE b/l. Bilateral muscle strength 5/5 for the following muscles: deltoid, biceps, triceps, brachioradialis, wrist extensors/flexor, hip flexor, hip abductors/adductors, hamstrings, quadriceps, feet dorsiflexors/plantar flexors. Finger to nose, finger to the examiners finger, and heel to giraldo coordinated and accurate b/l. Coordinated and even demonstration of hand flip, finger to thumb, and toe tap b/l. Gait is coordinated and even in stride with walking. (-) pronator drift. No nuchal rigidity. (-) Brudzinskis and Kernig signs. Skin: Skin is warm and dry and no rashes or lesions are noted. Psychiatric: Cooperative, appropriate mood & affect, normal judgment. Limitations: no limitations Course Vital Signs 04/28/20 04/28/20 21:27 23:04 Temperature 98.0 F Pulse Rate 66 68 Respiratory 18 18 Rate Blood Pressure 175/105 157/87 O2 Sat by Pulse 100 99 Oximetry Medical Decision Making - Medical Decision Making 55-year-old female presenting today for chief complaint parathesias of right leg , right arm. Right leg first, then arm. told she was having stroke. initially BP WNL at home per patient. States she is stressed and now its high takes no home medications. Patient has no complaints currently in ER. Exam no focal neurological deficits. Sensation and strength equal and intact. CT (-). EKG no acute findings. Labs stable. Patient BP improved. ABCD2 score 2. Patient low risk. There is also mixed clinical picture with pain to palpation of the right buttock cannot r/o MSK cause of symptom. [facility] 24-48 hours for outpatient carotid studies and monitoring. Recommended daily baby aspirin 81mg. Patient verbalized understanding and was discharged appearing. Case was discussed in detail with attending provider Dr. Menendez who is agreeable to care plan. - Lab Data Result diagrams: 04/28/20 21:55 04/28/20 21:55 Lab Results 04/28/20 04/28/20 04/28/20 Range/Units 21:55 21:55 21:55 WBC 5.6 (3.8-10.6) k/uL RBC 4.69 (3.80-5.40) m/uL Hgb 14.2 (11.4-16.0) gm/dL Hct 43.4 (34.0-46.0) % MCV 92.6 (80.0-100.0) fL MCH 30.2 (25.0-35.0) pg MCHC 32.6 (31.0-37.0) g/dL RDW 12.9 (11.5-15.5) % Plt Count 179 (150-450) k/uL Neutrophils % 72 % Lymphocytes % 19 % Monocytes % 4 % Eosinophils % 3 % Basophils % 1 % Neutrophils # 4.0 (1.3-7.7) k/uL Lymphocytes # 1.1 (1.0-4.8) k/uL Monocytes # 0.2 (0-1.0) k/uL Eosinophils # 0.2 (0-0.7) k/uL Basophils # 0.0 (0-0.2) k/uL PT 9.9 (9.0-12.0) sec INR 0.9 (<1.2) APTT 24.4 (22.0-30.0) sec Sodium 138 (137-145) mmol/L Potassium 4.3 (3.5-5.1) mmol/L Chloride 104 (98-107) mmol/L Carbon Dioxide 25 (22-30) mmol/L Anion Gap 9 mmol/L BUN 15 (7-17) mg/dL Creatinine 0.74 (0.52-1.04) mg/dL Est GFR (CKD-EPI)AfAm >90 (>60 ml/min/1.73 sqM) Est GFR (CKD-EPI)NonAf >90 (>60 ml/min/1.73 sqM) Glucose 100 H (74-99) mg/dL Calcium 9.9 (8.4-10.2) mg/dL Total Bilirubin 0.8 (0.2-1.3) mg/dL AST 27 (14-36) U/L ALT 22 (4-34) U/L Alkaline Phosphatase 113 (38-126) U/L Troponin I (0.000-0.034) ng/mL Total Protein 8.2 (6.3-8.2) g/dL Albumin 4.7 (3.5-5.0) g/dL 04/28/20 Range/Units 21:55 WBC (3.8-10.6) k/uL RBC (3.80-5.40) m/uL Hgb (11.4-16.0) gm/dL Hct (34.0-46.0) % MCV (80.0-100.0) fL MCH (25.0-35.0) pg MCHC (31.0-37.0) g/dL RDW (11.5-15.5) % Plt Count (150-450) k/uL Neutrophils % % Lymphocytes % % Monocytes % % Eosinophils % % Basophils % % Neutrophils # (1.3-7.7) k/uL Lymphocytes # (1.0-4.8) k/uL Monocytes # (0-1.0) k/uL Eosinophils # (0-0.7) k/uL Basophils # (0-0.2) k/uL PT (9.0-12.0) sec INR (<1.2) APTT (22.0-30.0) sec Sodium (137-145) mmol/L Potassium (3.5-5.1) mmol/L Chloride (98-107) mmol/L Carbon Dioxide (22-30) mmol/L Anion Gap mmol/L BUN (7-17) mg/dL Creatinine (0.52-1.04) mg/dL Est GFR (CKD-EPI)AfAm (>60 ml/min/1.73 sqM) Est GFR (CKD-EPI)NonAf (>60 ml/min/1.73 sqM) Glucose (74-99) mg/dL Calcium (8.4-10.2) mg/dL Total Bilirubin (0.2-1.3) mg/dL AST (14-36) U/L ALT (4-34) U/L Alkaline Phosphatase (38-126) U/L Troponin I <0.012 (0.000-0.034) ng/mL Total Protein (6.3-8.2) g/dL Albumin (3.5-5.0) g/dL Disposition Clinical Impression: Right leg paresthesias Disposition: HOME SELF-CARE Condition: Good Instructions (If sedation given, give patient instructions): Transient Ischemic Attack (ED), Paresthesia (ED) Additional Instructions: Please use medication as discussed. Please follow-up with family doctor in the next 2 days. Take baby aspirin daily. Please return to emergency room if the symptoms increase or worsen or for any other concerns. Is patient prescribed a controlled substance at d/c from ED?: No Referrals: Victoriano Servin MD [Primary Care Provider] - 1-2 days Time of Disposition: 23:14
== END 2020-04-28 23:42 | disposition home or self-care (01) ==
LOC: EC 21:25
DX: R20.2 Paresthesia of skin (principal); Z88.0 Allergy status to penicillin; Z88.1 Allergy status to other antibiotic agents; Z91.011 Allergy to milk products; Z91.018 Allergy to other foods; Z88.2 Allergy status to sulfonamides; Z88.4 Allergy status to anesthetic agent
CPT/HCPCS: 36415; 70450; 71046; 80053; 84484; 85025; 85610; 85730; 93005; 99284

== ENCOUNTER 2020-05-30 18:19 | Emergency (ER) | payer OTHER ==
[2020-05-30 18:32] VITALS: RESP 18
[2020-05-30] MEDS ORDERED: SODIUM CHLORIDE 0.9% 500 ML 500 ML IV ONE (19:15)
--- NOTE | 2020-05-30 19:17 | ED ---
General Adult HPI - General Chief complaint: Recheck/Abnormal Lab/Rx Stated complaint: High BP/shaky Time Seen by Provider: 05/30/20 18:41 Source: patient, RN notes reviewed, old records reviewed Mode of arrival: ambulatory Limitations: no limitations - History of Present Illness Initial comments: 55-year-old female presenting for evaluation of flushed feeling, nausea. Patient states she was at home in bed. She again feeling like she may vomit, she felt a flush sensation over her body. She denies associated chest pain or abdominal pain. She does complain of nausea. No headache. No focal numbness or weakness. She states she's had some tingling in the right arm and hand this is been ongoing for several months. She has been seeing her chiropractor regarding these symptoms. - Related Data Home Medications Medication Instructions Recorded Confirmed No Known Home Medications 03/18/20 05/30/20 Allergies Allergy/AdvReac Type Severity Reaction Status Date / Time cefaclor [From Ceclor] Allergy Unknown Verified 05/30/20 19:39 Childhood Penicillins Allergy Swelling Verified 05/30/20 19:39 sulfamethoxazole Allergy Unknown Verified 05/30/20 19:39 [From Bactrim] Childhood trimethoprim [From Bactrim] Allergy Unknown Verified 05/30/20 19:39 Childhood chocolate flavor AdvReac headache Verified 05/30/20 19:39 milk AdvReac headache Verified 05/30/20 19:39 ANESTHETIC(UNKNOWN) Allergy Unknown Uncoded 05/30/20 19:39 Review of Systems ROS Statement: Those systems with pertinent positive or pertinent negative responses have been documented in the HPI. ROS Other: All systems not noted in ROS Statement are negative. Past Medical History Past Medical History: Hypertension Additional Past Medical History / Comment(s): Primary pulmonary hypertension; Migraines History of Any Multi-Drug Resistant Organisms: None Reported Past Surgical History: Appendectomy Past Psychological History: No Psychological Hx Reported Smoking Status: Never smoker Past Alcohol Use History: None Reported Past Drug Use History: None Reported General Exam Limitations: no limitations General appearance: alert, in no apparent distress Head exam: Present: atraumatic, normocephalic Eye exam: Present: normal appearance, PERRL ENT exam: Present: normal exam Neck exam: Present: normal inspection. Absent: tenderness, meningismus Respiratory exam: Present: normal lung sounds bilaterally. Absent: respiratory distress, wheezes Cardiovascular Exam: Present: regular rate, normal rhythm GI/Abdominal exam: Present: soft. Absent: distended, tenderness, guarding Extremities exam: Present: normal inspection, normal capillary refill. Absent: pedal edema, calf tenderness Neurological exam: Present: alert, oriented X3, CN II-XII intact. Absent: motor sensory deficit Psychiatric exam: Present: anxious Skin exam: Present: warm, dry, intact. Absent: cyanosis, diaphoretic Course Vital Signs 05/30/20 05/30/20 18:28 20:00 Temperature 97.8 F Pulse Rate 79 88 Respiratory 18 18 Rate Blood Pressure 189/92 164/100 O2 Sat by Pulse 97 97 Oximetry EKG Findings - EKG Comments: EKG Findings:: EKG: Normal sinus rhythm, rate of 80, SD interval 166, QRS duration 88, QTC 435, no ST segment elevation. Medical Decision Making - Medical Decision Making 55-year-old female history of hypertension, not currently on any medication presenting with a flushed feeling. She does admit that she is under a lot of stress. Both at work and at home. Blood pressure is elevated although downtrending in the emergency department. Workup reveals EKG which is sinus rhythm. She has a chest x-ray was negative for acute Ian pulmonary disease, head CT negative for intracranial hemorrhage or mass effect. She has normal CBC, normal CMP, normal urinalysis, negative troponin. She is feeling better at the time of reevaluation. No nausea vomiting. She has no significant flushed feeling. She is uncertain if she could be going through menopause. No chest pain or abdominal pain. Patient will try and her blood pressure at home, keep a log, and follow-up with her primary care physician. - Lab Data Result diagrams: 05/30/20 19:28 05/30/20 19:28 Lab Results 05/30/20 05/30/20 05/30/20 Range/Units 19:28 19:28 19:28 WBC 6.0 (3.8-10.6) k/uL RBC 4.70 (3.80-5.40) m/uL Hgb 13.9 (11.4-16.0) gm/dL Hct 42.6 (34.0-46.0) % MCV 90.7 (80.0-100.0) fL MCH 29.7 (25.0-35.0) pg MCHC 32.7 (31.0-37.0) g/dL RDW 12.6 (11.5-15.5) % Plt Count 187 (150-450) k/uL Neutrophils % 76 % Lymphocytes % 15 % Monocytes % 6 % Eosinophils % 1 % Basophils % 0 % Neutrophils # 4.6 (1.3-7.7) k/uL Lymphocytes # 0.9 L (1.0-4.8) k/uL Monocytes # 0.4 (0-1.0) k/uL Eosinophils # 0.1 (0-0.7) k/uL Basophils # 0.0 (0-0.2) k/uL PT 10.0 (9.0-12.0) sec INR 1.0 (<1.2) APTT 25.3 (22.0-30.0) sec Sodium (137-145) mmol/L Potassium (3.5-5.1) mmol/L Chloride (98-107) mmol/L Carbon Dioxide (22-30) mmol/L Anion Gap mmol/L BUN (7-17) mg/dL Creatinine (0.52-1.04) mg/dL Est GFR (CKD-EPI)AfAm (>60 ml/min/1.73 sqM) Est GFR (CKD-EPI)NonAf (>60 ml/min/1.73 sqM) Glucose (74-99) mg/dL Plasma Lactic Acid Abel (0.7-2.0) mmol/L Calcium (8.4-10.2) mg/dL Total Bilirubin (0.2-1.3) mg/dL AST (14-36) U/L ALT (4-34) U/L Alkaline Phosphatase (38-126) U/L Troponin I (0.000-0.034) ng/mL Total Protein (6.3-8.2) g/dL Albumin (3.5-5.0) g/dL Urine Color Yellow Urine Appearance Clear (Clear) Urine pH 8.0 (5.0-8.0) Ur Specific [place] 1.018 (1.001-1.035) Urine Protein Trace H (Negative) Urine Glucose (UA) Negative (Negative) Urine Ketones Negative (Negative) Urine Blood Negative (Negative) Urine Nitrite Negative (Negative) Urine Bilirubin Negative (Negative) Urine Urobilinogen <2.0 (<2.0) mg/dL Ur Leukocyte Esterase Negative (Negative) 05/30/20 05/30/20 05/30/20 Range/Units 19:28 19:28 19:28 WBC (3.8-10.6) k/uL RBC (3.80-5.40) m/uL Hgb (11.4-16.0) gm/dL Hct (34.0-46.0) % MCV (80.0-100.0) fL MCH (25.0-35.0) pg MCHC (31.0-37.0) g/dL RDW (11.5-15.5) % Plt Count (150-450) k/uL Neutrophils % % Lymphocytes % % Monocytes % % Eosinophils % % Basophils % % Neutrophils # (1.3-7.7) k/uL Lymphocytes # (1.0-4.8) k/uL Monocytes # (0-1.0) k/uL Eosinophils # (0-0.7) k/uL Basophils # (0-0.2) k/uL PT (9.0-12.0) sec INR (<1.2) APTT (22.0-30.0) sec Sodium 138 (137-145) mmol/L Potassium 4.1 (3.5-5.1) mmol/L Chloride 102 (98-107) mmol/L Carbon Dioxide 27 (22-30) mmol/L Anion Gap 9 mmol/L BUN 17 (7-17) mg/dL Creatinine 0.89 (0.52-1.04) mg/dL Est GFR (CKD-EPI)AfAm 85 (>60 ml/min/1.73 sqM) Est GFR (CKD-EPI)NonAf 74 (>60 ml/min/1.73 sqM) Glucose 116 H (74-99) mg/dL Plasma Lactic Acid Abel 1.6 (0.7-2.0) mmol/L Calcium 9.4 (8.4-10.2) mg/dL Total Bilirubin 0.4 (0.2-1.3) mg/dL AST 19 (14-36) U/L ALT 18 (4-34) U/L Alkaline Phosphatase 106 (38-126) U/L Troponin I <0.012 (0.000-0.034) ng/mL Total Protein 7.6 (6.3-8.2) g/dL Albumin 4.2 (3.5-5.0) g/dL Urine Color Urine Appearance (Clear) Urine pH (5.0-8.0) Ur Specific [place] (1.001-1.035) Urine Protein (Negative) Urine Glucose (UA) (Negative) Urine Ketones (Negative) Urine Blood (Negative) Urine Nitrite (Negative) Urine Bilirubin (Negative) Urine Urobilinogen (<2.0) mg/dL Ur Leukocyte Esterase (Negative) Disposition Clinical Impression: Hypertension Disposition: HOME SELF-CARE Condition: Good Instructions (If sedation given, give patient instructions): Hypertension (ED) Is patient prescribed a controlled substance at d/c from ED?: No Referrals: Victoriano Servin MD [Primary Care Provider] - 1-2 days Time of Disposition: 20:43
[2020-05-30 19:44] LABS: Basophils % (A) 0 %; Eosinophils # (A) 0.1 k/uL (0-0.7); Eosinophils % (A) 1 %; HCT 42.6 % (34.0-46.0); HGB 13.9 gm/dL (11.4-16.0); Lymphocytes # (A) 0.9 k/uL (1.0-4.8); Lymphocytes % (A) 15 %; MCH 29.7 pg (25.0-35.0); MCHC 32.7 g/dL (31.0-37.0); MCV 90.7 fL (80.0-100.0); Monocytes # (A) 0.4 k/uL (0-1.0); Monocytes % (A) 6 %; Neutrophils # (A) 4.6 k/uL (1.3-7.7); Neutrophils % (A) 76 %; Platelet Count 187 k/uL (150-450); RDW 12.6 % (11.5-15.5)
[2020-05-30 19:52] LABS: Partial Thromboplastin Time 25.3 sec (22.0-30.0)
[2020-05-30 19:57] LABS: Albumin 4.2 g/dL (3.5-5.0); Calcium 9.4 mg/dL (8.4-10.2); Potassium 4.1 mmol/L (3.5-5.1); Total Bilirubin 0.4 mg/dL (0.2-1.3); Total Protein 7.6 g/dL (6.3-8.2)
--- NOTE | 2020-05-30 20:19 | CT ---
EXAMINATION TYPE: CT brain wo con DATE OF EXAM: 05/30/2020 COMPARISON: 04/28/2020 INDICATION: Weakness and nausea. DLP: 1091.4 mGycm, Automated exposure control for dose reduction was used. CONTRAST: None CT of the brain is performed utilizing 3 mm thick sections through the posterior fossa and 3 mm thick sections through the remaining calvarium. Study is performed within 24 hours of arrival to the hosp [facility]. No abnormal hyperdensity is present to suggest an acute intracranial hemorrhage. No mass lesion is evident. No acute infarcts are evident. Ventricles and sulci are appropriate for the patient age. Paranasal sinuses and mastoid air cells within the [id number] are clear. IMPRESSIONS: 1. No acute intracranial process.
--- NOTE | 2020-05-30 20:19 | XR ---
EXAMINATION TYPE: XR chest 2V DATE OF EXAM: 05/30/2020 COMPARISON: 04/28/2020 INDICATION: Weakness TECHNIQUE: Frontal and lateral views of the chest are obtained. FINDINGS: The heart size is normal. The pulmonary vasculature is normal. The lungs are clear. IMPRESSION: 1. No acute pulmonary process.
[2020-05-30 20:23] LABS: Appearance,Urine Clear (Clear); Bilirubin,Urine Negative (Negative); Blood,Urine Negative (Negative); Color,Urine Yellow; Glucose,Urine (UA) Negative (Negative); Ketones,Urine Negative (Negative); Leukocyte Esterase,Urine Negative (Negative); Nitrite,Urine Negative (Negative); Protein,Urine Trace (Negative); Specific Gravity,Urine 1.018 (1.001-1.035); Urobilinogen,Urine <2.0 mg/dL (<2.0)
[2020-05-30 20:52] VITALS: BP 176/86; PULSE 87; TEMP 97.7
== END 2020-05-30 20:52 | disposition home or self-care (01) ==
LOC: EC 18:19
DX: I10 Essential (primary) hypertension (principal); Z88.0 Allergy status to penicillin; Z88.1 Allergy status to other antibiotic agents; Z88.2 Allergy status to sulfonamides; Z91.018 Allergy to other foods; Z91.011 Allergy to milk products; Z88.4 Allergy status to anesthetic agent
CPT/HCPCS: 36415; 70450; 71046; 80053; 81003; 83605; 84484; 85025; 85610; 85730; 93005; 96360; 99284

== ENCOUNTER → 2020-07-11 | Outpatient (CLI) | payer OTHER ==
--- NOTE | 2020-07-11 15:56 | XR ---
EXAMINATION TYPE: XR knee complete LT DATE OF EXAM: 07/11/2020 COMPARISON: None HISTORY: Left knee pain TECHNIQUE: 4 view left knee FINDINGS: No acute fracture or dislocation is evident. No joint effusion is evident. Exam is suppleme nted with a sunrise view. Follow-up exams can be performed 7-10 days from acute trauma for continued pain IMPRESSION: 1. Normal 4 view left knee
== END | disposition home or self-care (01) ==
LOC: RADXRMAIN 12:32
PROVIDERS: ATTEND Physician Assistant
DX: M25.562 Pain in left knee (principal)

== ENCOUNTER 2020-08-27 11:16 | Emergency (ER) | payer OTHER ==
[2020-08-27 11:37] VITALS: TEMP 98.6
[2020-08-27] MEDS ORDERED: SODIUM CHLORIDE 0.9% 500 ML 500 ML IV STA (11:56)
[2020-08-27] MEDS ORDERED: hydrALAZINE HCL 20 MG/ML 1 ML VIAL IVP STA (11:57)
--- NOTE | 2020-08-27 11:59 | ED ---
General Adult HPI - General Chief complaint: Recheck/Abnormal Lab/Rx Stated complaint: High BP Time Seen by Provider: 08/27/20 11:41 Source: patient, RN notes reviewed, old records reviewed Mode of arrival: wheelchair Limitations: no limitations - History of Present Illness Initial comments: 55-year-old female presents for a service today with concerns for blood pressure elevation for the past 2 weeks as well as feeling palpitations and dyspnea on exertion for the past week denies any active chest pain. Patient states she's been feeling unwell and leaves that her blood pressure was high so she checks it at home it's 200s over 100. Patient states that she went to the doctor's yesterday and was evaluated by her nurse who found her blood pressure is 170/90. She was started on a low-dose of lisinopril 5 mg however has not been taking it as her blood pressures sometimes is normal and she is very hesitant to take any medication. Patient states she's been to our hospital 3 times [facility] for palpitations and blood pressure issues. - Related Data Home Medications Medication Instructions Recorded Confirmed No Known Home Medications 03/18/20 08/27/20 Allergies Allergy/AdvReac Type Severity Reaction Status Date / Time cefaclor [From Ceclor] Allergy Unknown Verified 08/27/20 12:37 Childhood Penicillins Allergy Swelling Verified 08/27/20 12:37 sulfamethoxazole Allergy Unknown Verified 08/27/20 12:37 [From Bactrim] Childhood trimethoprim [From Bactrim] Allergy Unknown Verified 08/27/20 12:37 Childhood chocolate flavor AdvReac headache Verified 08/27/20 12:37 milk AdvReac headache Verified 08/27/20 12:37 ANESTHETIC(UNKNOWN) Allergy Unknown Uncoded 08/27/20 11:37 Review of Systems ROS Statement: Those systems with pertinent positive or pertinent negative responses have been documented in the HPI. ROS Other: All systems not noted in ROS Statement are negative. Past Medical History Past Medical History: Hypertension Additional Past Medical History / Comment(s): Primary pulmonary hypertension; Migraines History of Any Multi-Drug Resistant Organisms: None Reported Past Surgical History: Appendectomy Past Psychological History: No Psychological Hx Reported Smoking Status: Never smoker Past Alcohol Use History: None Reported Past Drug Use History: None Reported General Exam - General Exam Comments Initial Comments: 55-year-old female. Alert and oriented. No distress. Limitations: no limitations General appearance: alert, in no apparent distress Head exam: Present: atraumatic, normocephalic, normal inspection Eye exam: Present: normal appearance, PERRL, EOMI. Absent: scleral icterus, conjunctival injection, periorbital swelling ENT exam: Present: normal exam, mucous membranes moist Neck exam: Present: normal inspection. Absent: tenderness, meningismus, lymphadenopathy Respiratory exam: Present: normal lung sounds bilaterally. Absent: respiratory distress, wheezes, rales, rhonchi, stridor Cardiovascular Exam: Present: regular rate, normal rhythm, normal heart sounds. Absent: systolic murmur, diastolic murmur, rubs, gallop, clicks GI/Abdominal exam: Present: soft, normal bowel sounds. Absent: distended, tenderness, guarding, rebound, rigid Extremities exam: Present: normal inspection, full ROM, normal capillary refill. Absent: tenderness, pedal edema, joint swelling, calf tenderness Back exam: Present: normal inspection Neurological exam: Present: alert Psychiatric exam: Present: normal affect, normal mood Skin exam: Present: warm, dry, intact, normal color. Absent: rash Course Vital Signs 08/27/20 08/27/20 08/27/20 11:33 12:05 12:37 Temperature 98.6 F Pulse Rate 74 70 73 Respiratory 20 16 18 Rate Blood Pressure 170/98 154/87 165/88 O2 Sat by Pulse 99 98 Oximetry 08/27/20 08/27/20 13:16 14:34 Temperature Pulse Rate 78 70 Respiratory 18 18 Rate Blood Pressure 177/88 181/88 O2 Sat by Pulse 100 98 Oximetry EKG Findings - EKG Comments: EKG Findings:: EKG performed showing a normal sinus rhythm normal EKG. Ventricular rate of 72 bpm. Intervals 154 ms. She orthodoxy is 90 ms. QT QTc is 396/433 ms Medical Decision Making - Medical Decision Making 55-year-old female presents emergency department today for enough for concern for elevated blood pressure. She is very anxious. She states it. Nurse's take any medication and has not taken lisinopril as prescribed for her. Patient reports for department with blood pressure 170/90. Denied chest pain or current palpitations. This time patient's EKG and troponin were reviewed and normal. BNP is normal chest x-ray clear. She's been to is for multiple times for similar complaints between here and [facility]. I did advise Patient she is follow-up with her primary care doctor and would recommend taking her blood pressure medication based on these numbers. She was very hesitant to take any blood pressure medicine and emergency department but did agree with the lowest dose of Vasotec 1.25 mg. Her blood pressure to still be elevated and I do believe most of this is secondary to anxiety however she would be hesitant to take any anxiety medication as well. I discussed this with Dr. Saha reviewed EKG and findings and is agreeable to have the Patient discharged home. - Lab Data Result diagrams: 08/27/20 12:03 08/27/20 12:03 Lab Results 08/27/20 08/27/20 08/27/20 Range/Units 12:03 12:03 12:03 WBC 6.2 (3.8-10.6) k/uL RBC 5.09 (3.80-5.40) m/uL Hgb 15.9 (11.4-16.0) gm/dL Hct 45.6 (34.0-46.0) % MCV 89.6 (80.0-100.0) fL MCH 31.2 (25.0-35.0) pg MCHC 34.8 (31.0-37.0) g/dL RDW 12.2 (11.5-15.5) % Plt Count 185 (150-450) k/uL MPV 7.9 Neutrophils % 84 % Lymphocytes % 10 % Monocytes % 4 % Eosinophils % 1 % Basophils % 1 % Neutrophils # 5.2 (1.3-7.7) k/uL Lymphocytes # 0.6 L (1.0-4.8) k/uL Monocytes # 0.3 (0-1.0) k/uL Eosinophils # 0.1 (0-0.7) k/uL Basophils # 0.0 (0-0.2) k/uL PT 10.3 (9.0-12.0) sec INR 1.0 (<1.2) APTT 25.1 (22.0-30.0) sec Sodium 138 (137-145) mmol/L Potassium 4.2 (3.5-5.1) mmol/L Chloride 104 (98-107) mmol/L Carbon Dioxide 22 (22-30) mmol/L Anion Gap 12 mmol/L BUN 15 (7-17) mg/dL Creatinine 0.83 (0.52-1.04) mg/dL Est GFR (CKD-EPI)AfAm >90 (>60 ml/min/1.73 sqM) Est GFR (CKD-EPI)NonAf 81 (>60 ml/min/1.73 sqM) Glucose 89 (74-99) mg/dL Calcium 10.2 (8.4-10.2) mg/dL Magnesium 1.9 (1.6-2.3) mg/dL Total Bilirubin 1.1 (0.2-1.3) mg/dL AST 23 (14-36) U/L ALT 18 (4-34) U/L Alkaline Phosphatase 120 (38-126) U/L Troponin I (0.000-0.034) ng/mL NT-Pro-B Natriuret Pep pg/mL Total Protein 8.9 H (6.3-8.2) g/dL Albumin 4.8 (3.5-5.0) g/dL 08/27/20 08/27/20 Range/Units 12:03 12:03 WBC (3.8-10.6) k/uL RBC (3.80-5.40) m/uL Hgb (11.4-16.0) gm/dL Hct (34.0-46.0) % MCV (80.0-100.0) fL MCH (25.0-35.0) pg MCHC (31.0-37.0) g/dL RDW (11.5-15.5) % Plt Count (150-450) k/uL MPV Neutrophils % % Lymphocytes % % Monocytes % % Eosinophils % % Basophils % % Neutrophils # (1.3-7.7) k/uL Lymphocytes # (1.0-4.8) k/uL Monocytes # (0-1.0) k/uL Eosinophils # (0-0.7) k/uL Basophils # (0-0.2) k/uL PT (9.0-12.0) sec INR (<1.2) APTT (22.0-30.0) sec Sodium (137-145) mmol/L Potassium (3.5-5.1) mmol/L Chloride (98-107) mmol/L Carbon Dioxide (22-30) mmol/L Anion Gap mmol/L BUN (7-17) mg/dL Creatinine (0.52-1.04) mg/dL Est GFR (CKD-EPI)AfAm (>60 ml/min/1.73 sqM) Est GFR (CKD-EPI)NonAf (>60 ml/min/1.73 sqM) Glucose (74-99) mg/dL Calcium (8.4-10.2) mg/dL Magnesium (1.6-2.3) mg/dL Total Bilirubin (0.2-1.3) mg/dL AST (14-36) U/L ALT (4-34) U/L Alkaline Phosphatase (38-126) U/L Troponin I <0.012 (0.000-0.034) ng/mL NT-Pro-B Natriuret Pep 155 pg/mL Total Protein (6.3-8.2) g/dL Albumin (3.5-5.0) g/dL Disposition Clinical Impression: Hypertension, Anxiety Disposition: HOME SELF-CARE Condition: Good Instructions (If sedation given, give patient instructions): Hypertension (ED) Additional Instructions: Patient advised to take your lisinopril as prescribed following up with primary care doctor, follow up in 1 week and follow up with cardiology. Return to the ED if any alarming signs or symptoms occur. Is patient prescribed a controlled substance at d/c from ED?: No Referrals: Victoriano Servin MD [Primary Care Provider] - 1-2 days Time of Disposition: 14:40
[2020-08-27 12:16] LABS: Basophils % (A) 1 %; Eosinophils # (A) 0.1 k/uL (0-0.7); Eosinophils % (A) 1 %; HCT 45.6 % (34.0-46.0); HGB 15.9 gm/dL (11.4-16.0); Lymphocytes # (A) 0.6 k/uL (1.0-4.8); Lymphocytes % (A) 10 %; MCH 31.2 pg (25.0-35.0); MCHC 34.8 g/dL (31.0-37.0); MCV 89.6 fL (80.0-100.0); Mean Platelet Volume 7.9; Monocytes # (A) 0.3 k/uL (0-1.0); Monocytes % (A) 4 %; Neutrophils # (A) 5.2 k/uL (1.3-7.7); Neutrophils % (A) 84 %; Platelet Count 185 k/uL (150-450); RBC 5.09 m/uL (3.80-5.40); RDW 12.2 % (11.5-15.5); WBC 6.2 k/uL (3.8-10.6)
[2020-08-27 12:34] LABS: Partial Thromboplastin Time 25.1 sec (22.0-30.0); Prothrombin Time 10.3 sec (9.0-12.0)
[2020-08-27 12:37] VITALS: RESP 18
--- NOTE | 2020-08-27 12:40 | XR ---
EXAMINATION TYPE: XR chest 2V DATE OF EXAM: 08/27/2020 COMPARISON: 05/30/2020 HISTORY: Shortness of breath TECHNIQUE: Frontal and lateral views of the chest are obtained. FINDINGS: Scattered senescent parenchymal changes noted. No evidence for infiltrate. No evidence for atelectasis. Heart size is stable. Mediastinal structures are stable and grossly unremarkable. No evidence for hilar prominence. Degenerative changes dorsal spine. IMPRESSION: 1. No evidence for acute pulmonary disease.
[2020-08-27 12:55] LABS: ALT 18 U/L (4-34); AST 23 U/L (14-36); African American GFR (CKD) >90 (>60 ml/min/1.73 sqM); Albumin 4.8 g/dL (3.5-5.0); Alkaline Phosphatase 120 U/L (38-126); Anion Gap 12 mmol/L; Blood Urea Nitrogen 15 mg/dL (7-17); Calcium 10.2 mg/dL (8.4-10.2); Carbon Dioxide 22 mmol/L (22-30); Chloride 104 mmol/L (98-107); Glucose 89 mg/dL (74-99); Magnesium 1.9 mg/dL (1.6-2.3); Non-African American GFR(CKD) 81 (>60 ml/min/1.73 sqM); Potassium 4.2 mmol/L (3.5-5.1); Sodium 138 mmol/L (137-145); Total Bilirubin 1.1 mg/dL (0.2-1.3); Total Protein 8.9 g/dL (6.3-8.2)
[2020-08-27] MEDS ORDERED: ENALAPRILAT 1.25 MG/ML 1 ML VIAL IVP STA (14:09)
[2020-08-27 15:08] VITALS: BP 151/89; PULSE 71
== END 2020-08-27 15:06 | disposition home or self-care (01) ==
LOC: EC 11:16
DX: I10 Essential (primary) hypertension (principal); F41.9 Anxiety disorder, unspecified; Z91.14 Patient's other noncompliance with medication regimen; Z88.0 Allergy status to penicillin; Z88.1 Allergy status to other antibiotic agents; Z88.2 Allergy status to sulfonamides; Z91.011 Allergy to milk products; Z91.018 Allergy to other foods; Z88.6 Allergy status to analgesic agent
CPT/HCPCS: 36415; 71046; 80053; 83735; 83880; 84484; 85025; 85610; 85730; 93005; 96361; 96374; 99284

== ENCOUNTER 2020-08-28 21:15 | Emergency (ER) | payer OTHER ==
[2020-08-28 21:22] VITALS: BP 195/79; PULSE 68; RESP 18; TEMP 98.6
--- NOTE | 2020-08-28 21:56 | ED ---
Recheck HPI - General Chief Complaint: Recheck/Abnormal Lab/Rx Stated Complaint: High BP Time Seen by Provider: 08/28/20 21:30 Source: patient Mode of arrival: ambulatory Limitations: no limitations - History of Present Illness Initial Comments: 55-year-old female patient presents to the emergency department today for elevated blood pressure. Patient states that she has been checking her blood pressure throughout the day and the level has been getting higher and higher. She states that she was recently seen by her primary care physician and given bl ood pressure medication, lisinopril 5mg. She states she did take half a tablet tonight but feels it did not help. She states she is afraid to take medication because she is concerned her blood pressure will go down too low. She was seen in the ED for the same symptoms yesterday she had labs and ekg performed without significant findings. Patient states she is feeling quite anxious and has been under a lot of stress lately. Denies any significant chest pain or shortness of breath. Denies numbness, tingling, weakness or extremities. Denies any headache, blurred vision, double vision. - Related Data Home Medications Medication Instructions Recorded Confirmed No Known Home Medications 03/18/20 08/27/20 Allergies Allergy/AdvReac Type Severity Reaction Status Date / Time cefaclor [From Ceclor] Allergy Unknown Verified 08/28/20 21:22 Childhood Penicillins Allergy Swelling Verified 08/28/20 21:22 sulfamethoxazole Allergy Unknown Verified 08/28/20 21:22 [From Bactrim] Childhood trimethoprim [From Bactrim] Allergy Unknown Verified 08/28/20 21:22 Childhood chocolate flavor AdvReac headache Verified 08/28/20 21:22 milk AdvReac headache Verified 08/28/20 21:22 ANESTHETIC(UNKNOWN) Allergy Unknown Uncoded 08/28/20 21:22 Review of Systems ROS Statement: Those systems with pertinent positive or pertinent negative responses have been documented in the HPI. ROS Other: All systems not noted in ROS Statement are negative. Past Medical History Past Medical History: Hypertension Additional Past Medical History / Comment(s): Primary pulmonary hypertension; Migraines History of Any Multi-Drug Resistant Organisms: None Reported Past Surgical History: Appendectomy Past Psychological History: No Psychological Hx Reported Smoking Status: Never smoker Past Alcohol Use History: None Reported Past Drug Use History: None Reported General Exam Limitations: no limitations General appearance: alert, in no apparent distress, other (Physical well- developed, well-nourished adult female patient in no acute distress. Vital signs upon presentation are temperature 98.6F, pulse 68, respirations 18, blood pressure 195/79, pulse ox 98% on room air.) Respiratory exam: Present: normal lung sounds bilaterally. Absent: respiratory distress, wheezes, rales, rhonchi, stridor Cardiovascular Exam: Present: regular rate, normal rhythm, normal heart sounds. Absent: systolic murmur, diastolic murmur, rubs, gallop, clicks GI/Abdominal exam: Present: soft, normal bowel sounds. Absent: distended, tenderness, guarding, rebound, rigid Neurological exam: Present: alert, oriented X3, CN II-XII intact Psychiatric exam: Present: normal affect, normal mood Skin exam: Present: warm, dry, intact, normal color. Absent: rash Course Vital Signs 08/28/20 21:19 Temperature 98.6 F Pulse Rate 68 Respiratory 18 Rate Blood Pressure 195/79 O2 Sat by Pulse 98 Oximetry Medical Decision Making - Medical Decision Making 55-year-old female patient presents to the emergency department today for evaluation of elevated blood pressure. Physical examination is unremarkable. She is neurologically intact no focal deficits. Lungs are clear to auscultation with good air movement. Patient does have blood pressure medication home that she is reluctant to take due to fear of dropping her blood pressure too low. She is on 5 mg of lisinopril she did have a dose tonight. I did talk to her and try to get her to take another tablet she refused, she did take half a tablet she'll be discharged With her primary care physician. She is instructed to keep a log for her primary care physician. She is instructed to follow-up as soon as possible. Return parameters were discussed in detail. She verbalizes understanding and agrees with this plan. Disposition Clinical Impression: High blood pressure Disposition: HOME SELF-CARE Condition: Good Instructions (If sedation given, give patient instructions): Hypertension (ED) Additional Instructions: Take your blood pressure medication as directed. Follow up with the primary care doctor as soon as possible. Keep a log of your blood pressures. Return to the emergency department for any new, worsening, or concerning symptoms. Is patient prescribed a controlled substance at d/c from ED?: No Referrals: Victoriano Servin MD [Primary Care Provider] - 1-2 days Time of Disposition: 21:55
== END 2020-08-28 22:20 | disposition home or self-care (01) ==
LOC: EC 21:15
DX: I10 Essential (primary) hypertension (principal); Z88.0 Allergy status to penicillin; Z88.1 Allergy status to other antibiotic agents; Z88.2 Allergy status to sulfonamides; Z88.4 Allergy status to anesthetic agent; Z91.011 Allergy to milk products; Z91.018 Allergy to other foods; Z90.49 Acquired absence of other specified parts of digestive tract
CPT/HCPCS: 99283

== ENCOUNTER 2020-12-17 12:27 | Emergency (ER) | payer OTHER ==
[2020-12-17 13:04] VITALS: TEMP 97.9
[2020-12-17 13:08] LABS: Glucose,Whole Blood 97 mg/dL (75-99)
--- NOTE | 2020-12-17 14:28 | ED ---
General Adult HPI - General Chief complaint: Neuro Symptoms/Deficit Stated complaint: right arm & leg numbness Time Seen by Provider: 12/17/20 14:03 Source: patient Mode of arrival: ambulatory Limitations: no limitations - History of Present Illness Initial comments: 55-year-old female with a past medical history of primary pulmonary hypertension, migraines, hypertension presents to the emergency room for a chief complaint of tingling. Patient reports that she has had tingling on and off in the right arm and leg for 6 months to a year now. Patient reports she has been seeing her doctor for this who said it could be stress related. However today patient saw her neurologist who told her it could be mini strokes and ordered an MRI for 2 weeks as well as nerve testing. She called her primary care doctor to tell them this who told her to come in to the ER for eval and for an MRI. Patient denies any weakness when she gets this tingling. Denies history of facial droop or difficulty speaking. Patient states happens 3 or 4 times a week and lasts a few minutes at a time before resolving. Patient has been asymptomatic today. Patient has no other complaints at this time including shortness of breath, chest pain, abdominal pain, nausea or vomiting, headache, or visual changes. - Related Data Home Medications Medication Instructions Recorded Confirmed lisinopriL [Zestril] 5 mg PO DAILY 12/17/20 12/17/20 Allergies Allergy/AdvReac Type Severity Reaction Status Date / Time cefaclor [From Ceclor] Allergy Unknown Verified 12/17/20 15:44 Childhood Penicillins Allergy Swelling Verified 12/17/20 15:44 sulfamethoxazole Allergy Unknown Verified 12/17/20 15:44 [From Bactrim] Childhood trimethoprim [From Bactrim] Allergy Unknown Verified 12/17/20 15:44 Childhood chocolate flavor AdvReac headache Verified 12/17/20 15:44 milk AdvReac headache Verified 12/17/20 15:44 ANESTHETIC(UNKNOWN) Allergy Unknown Uncoded 12/17/20 13:04 Review of Systems ROS Statement: Those systems with pertinent positive or pertinent negative responses have been documented in the HPI. ROS Other: All systems not noted in ROS Statement are negative. Past Medical History Past Medical History: Hypertension Additional Past Medical History / Comment(s): Primary pulmonary hypertension; Migraines History of Any Multi-Drug Resistant Organisms: None Reported Past Surgical History: Appendectomy Past Psychological History: No Psychological Hx Reported Smoking Status: Never smoker Past Alcohol Use History: None Reported Past Drug Use History: None Reported General Exam Limitations: no limitations General appearance: alert, in no apparent distress Head exam: Present: atraumatic, normocephalic, normal inspection Eye exam: Present: normal appearance, PERRL, EOMI. Absent: scleral icterus, conjunctival injection, periorbital swelling ENT exam: Present: normal exam, mucous membranes moist Neck exam: Present: normal inspection. Absent: tenderness, meningismus, lymphadenopathy Respiratory exam: Present: normal lung sounds bilaterally. Absent: respiratory distress, wheezes, rales, rhonchi, stridor Cardiovascular Exam: Present: regular rate, normal rhythm, normal heart sounds GI/Abdominal exam: Present: soft, normal bowel sounds. Absent: distended, tenderness, guarding, rebound, rigid Neurological exam: Present: alert, oriented X3 Expanded Patient oriented to: Present: person, place, time Speech: Present: fluid speech Cranial nerves: EOM's Intact: Normal, Tongue Deviation: Normal, Nystagmus: Normal, Facial Sensation: Normal Cerebellar function: Finger to Nose: Normal Upper motor neuron: Pronator Drift: Normal Sensory exam: Upper Extremity Pin Prick: Normal, Upper Extremity Temperature: Normal, Lower Extremity Light Touch: Normal, Lower Extremity Pin Prick: Normal Motor strength exam: RUE: 5, LUE: 5, RLE: 5, LLE: 5 Eye Response: (4) open spontaneously Motor Response: (6) obeys commands Verbal Response: (5) oriented Russell Total: 15 Course Vital Signs 12/17/20 12/17/20 13:01 14:50 Temperature 97.9 F Pulse Rate 77 70 Respiratory 20 18 Rate Blood Pressure 160/79 175/80 O2 Sat by Pulse 100 98 Oximetry EKG Findings - EKG Comments: EKG Findings:: Normal sinus rhythm, ventricular rate 67, IN interval 158, QTC 416 Medical Decision Making - Medical Decision Making Vitals are stable. Physical exam unremarkable. No focal neurologic deficits. NIH is 0. CBC CMP unremarkable. CT brain shows no acute abnormality. Suspect some underlying nonspecific white matter demyelination as noted on prior brain MRI in 2019. Chest x-ray shows no acute process. Patient has not had any symptoms today. As mentioned symptoms have been intermittent for at least 6 months - 1 year. In fact, patient believes previous MRI was for the same co mplaint in 2019 so symptoms have likely been stable for longer. Discussed inpatient versus outpatient management. At this time patient feels comfortable following up with her neurologist outpatient. I do feel this is reasonable. I did discuss strict return parameters for any worsening symptoms including weakness.I discussed this case with attending Dr. Rodriguez who agrees with this assessment and treatment plan. - Lab Data Result diagrams: 12/17/20 14:37 12/17/20 14:37 Lab Results 12/17/20 12/17/20 12/17/20 Range/Units 13:07 14:37 14:37 WBC 3.6 L (3.8-10.6) k/uL RBC 4.42 (3.80-5.40) m/uL Hgb 13.7 (11.4-16.0) gm/dL Hct 40.2 (34.0-46.0) % MCV 90.9 (80.0-100.0) fL MCH 30.9 (25.0-35.0) pg MCHC 34.0 (31.0-37.0) g/dL RDW 12.5 (11.5-15.5) % Plt Count 167 (150-450) k/uL MPV 8.0 Neutrophils % 77 % Lymphocytes % 17 % Monocytes % 5 % Eosinophils % 1 % Basophils % 0 % Neutrophils # 2.8 (1.3-7.7) k/uL Lymphocytes # 0.6 L (1.0-4.8) k/uL Monocytes # 0.2 (0-1.0) k/uL Eosinophils # 0.0 (0-0.7) k/uL Basophils # 0.0 (0-0.2) k/uL Sodium 137 (137-145) mmol/L Potassium 4.9 (3.5-5.1) mmol/L Chloride 103 (98-107) mmol/L Carbon Dioxide 25 (22-30) mmol/L Anion Gap 9 mmol/L BUN 14 (7-17) mg/dL Creatinine 0.87 (0.52-1.04) mg/dL Est GFR (CKD-EPI)AfAm 88 (>60 ml/min/1.73 sqM) Est GFR (CKD-EPI)NonAf 76 (>60 ml/min/1.73 sqM) Glucose 90 (74-99) mg/dL POC Glucose (mg/dL) 97 (75-99) mg/dL POC Glu Central Supply Technician ID Ryan Kidd Nicole Calcium 9.9 (8.4-10.2) mg/dL Magnesium 1.9 (1.6-2.3) mg/dL Total Bilirubin 0.8 (0.2-1.3) mg/dL AST 27 (14-36) U/L ALT 15 (4-34) U/L Alkaline Phosphatase 105 (38-126) U/L Troponin I (0.000-0.034) ng/mL Total Protein 8.3 H (6.3-8.2) g/dL Albumin 4.6 (3.5-5.0) g/dL 12/17/20 Range/Units 14:37 WBC (3.8-10.6) k/uL RBC (3.80-5.40) m/uL Hgb (11.4-16.0) gm/dL Hct (34.0-46.0) % MCV (80.0-100.0) fL MCH (25.0-35.0) pg MCHC (31.0-37.0) g/dL RDW (11.5-15.5) % Plt Count (150-450) k/uL MPV Neutrophils % % Lymphocytes % % Monocytes % % Eosinophils % % Basophils % % Neutrophils # (1.3-7.7) k/uL Lymphocytes # (1.0-4.8) k/uL Monocytes # (0-1.0) k/uL Eosinophils # (0-0.7) k/uL Basophils # (0-0.2) k/uL Sodium (137-145) mmol/L Potassium (3.5-5.1) mmol/L Chloride (98-107) mmol/L Carbon Dioxide (22-30) mmol/L Anion Gap mmol/L BUN (7-17) mg/dL Creatinine (0.52-1.04) mg/dL Est GFR (CKD-EPI)AfAm (>60 ml/min/1.73 sqM) Est GFR (CKD-EPI)NonAf (>60 ml/min/1.73 sqM) Glucose (74-99) mg/dL POC Glucose (mg/dL) (75-99) mg/dL POC Glu Central Supply Technician ID Calcium (8.4-10.2) mg/dL Magnesium (1.6-2.3) mg/dL Total Bilirubin (0.2-1.3) mg/dL AST (14-36) U/L ALT (4-34) U/L Alkaline Phosphatase (38-126) U/L Troponin I <0.012 (0.000-0.034) ng/mL Total Protein (6.3-8.2) g/dL Albumin (3.5-5.0) g/dL Disposition Clinical Impression: Paresthesia Disposition: HOME SELF-CARE Condition: Good Instructions (If sedation given, give patient instructions): Paresthesia (ED) Additional Instructions: Please continue to follow up with primary care and neurology. Return to the emergency room if symptoms worsen including if you get weakness in the arm or leg. Is patient prescribed a controlled substance at d/c from ED?: No Referrals: Victoriano Servin MD [Primary Care Provider] - 1-2 days Time of Disposition: 16:00
[2020-12-17 14:51] VITALS: RESP 18
[2020-12-17 15:18] LABS: Albumin 4.6 g/dL (3.5-5.0); Calcium 9.9 mg/dL (8.4-10.2); Magnesium 1.9 mg/dL (1.6-2.3); Potassium 4.9 mmol/L (3.5-5.1); Total Bilirubin 0.8 mg/dL (0.2-1.3); Total Protein 8.3 g/dL (6.3-8.2)
[2020-12-17 15:21] LABS: Basophils % (A) 0 %; Eosinophils % (A) 1 %; HCT 40.2 % (34.0-46.0); HGB 13.7 gm/dL (11.4-16.0); Lymphocytes # (A) 0.6 k/uL (1.0-4.8); Lymphocytes % (A) 17 %; MCH 30.9 pg (25.0-35.0); MCV 90.9 fL (80.0-100.0); Monocytes # (A) 0.2 k/uL (0-1.0); Monocytes % (A) 5 %; Neutrophils # (A) 2.8 k/uL (1.3-7.7); Neutrophils % (A) 77 %; Platelet Count 167 k/uL (150-450); RBC 4.42 m/uL (3.80-5.40); RDW 12.5 % (11.5-15.5); WBC 3.6 k/uL (3.8-10.6)
--- NOTE | 2020-12-17 15:28 | CT ---
EXAMINATION TYPE: CT brain wo con DATE OF EXAM: 12/17/2020 COMPARISON: CT brain 05/30/2020, prior brain MRI dated 2019 HISTORY: Right arm and leg numbness X1 year CT DLP: 1098.4 mGycm Automated exposure control for dose reduction was used. Helical imaging through the brain FINDINGS: Cerebral vascular calcifications present. There is no hemorrhage or hydrocephalus. Calvarium is intac t. Paranasal sinuses and mastoid air cells as visualized are normal. Calcified pineal gland is noted. Periventricular white matter shows patchy low attenuation. IMPRESSION: NO ACUTE ABNORMALITY. SUSPECT SOME UNDERLYING NONSPECIFIC WHITE MATTER DEMYELINATION NOTED ON PRIO R BRAIN MRI.
--- NOTE | 2020-12-17 15:35 | XR ---
EXAMINATION TYPE: XR chest 2V DATE OF EXAM: 12/17/2020 COMPARISON: 08/27/2020 INDICATION: Right arm and leg numbness TECHNIQUE: Frontal and lateral views of the chest are obtained. FINDINGS: The heart size is normal. The pulmonary vasculature is normal. The lungs are clear. IMPRESSION: 1. No acute pulmonary process.
[2020-12-17 16:20] VITALS: BP 178/86; PULSE 71
== END 2020-12-17 16:19 | disposition home or self-care (01) ==
LOC: EC 12:27
DX: R20.2 Paresthesia of skin (principal); I10 Essential (primary) hypertension
CPT/HCPCS: 36415; 70450; 71046; 80053; 83735; 84484; 85025; 93005; 99285

== ENCOUNTER 2022-03-08 02:18 | Inpatient (IN) | payer OTHER ==
[2022-03-08] MEDS ORDERED: NALOXONE 0.4 MG/ML 1 ML VIAL IV PRN (03:59)
[2022-03-08] MEDS ORDERED: ACETAMINOPHEN TAB 325 MG TAB PO PRN (03:59)
--- NOTE | 2022-03-08 03:59 | ED ---
General Adult HPI - General Chief complaint: Headache Stated complaint: left side numbness Time Seen by Provider: 03/08/22 03:01 Source: patient Mode of arrival: ambulatory Limitations: no limitations - History of Present Illness Initial comments: This patient is a 56-year-old woman who presents to have further evaluation for suspected TIA. The patient states that approximately one in the afternoon she began feeling like her left arm and the left side of her face were rubbery. She states that the sensation was decreased and her left arm didn't seem to be working properly. She had gone to [facility] where she was seen in the emergency department. She had a computed tomography scan which did not reveal any abnormality. The physician in the emergency department had wanted to transfer her to [place] to have MRI, but the patient declined that, preferring to drive home. The patient states that her symptoms lasted probably around an hour. She feels as if they have completely resolved. She did have another brief episode during the drive here during which her arm felt funny. The symptoms again had resolved by the time she arrived here. Her past medical history is notable for having pretension and migraine headaches. No diabetes. Onset/Timin -: hour(s) Location: face, left, upper extremity Severity scale (1-10): 0 Consistency: now resolved Improves with: none Worsens with: none Associated Symptoms: denies other symptoms Treatments Prior to Arrival: none - Related Data Home Medications Medication Instructions Recorded Confirmed lisinopriL [Zestril] 2.5 mg PO DAILY 12/17/20 03/08/22 Allergies Allergy/AdvReac Type Severity Reaction Status Date / Time cefaclor [From Ceclor] Allergy Unknown Verified 03/08/22 08:20 Childhood Penicillins Allergy Unknown Verified 03/08/22 08:20 povidone-iodine Allergy Unknown Verified 03/08/22 11:02 [From Betadine] sulfamethoxazole Allergy Unknown Verified 03/08/22 08:20 [From Bactrim] Childhood trimethoprim [From Bactrim] Allergy Unknown Verified 03/08/22 08:20 Childhood chocolate flavor AdvReac headache Verified 03/08/22 08:20 milk AdvReac headache Verified 03/08/22 08:20 ANESTHETIC(UNKNOWN) Allergy Unknown Uncoded 03/08/22 02:24 Review of Systems ROS Statement: Those systems with pertinent positive or pertinent negative responses have been documented in the HPI. ROS Other: All systems not noted in ROS Statement are negative. Constitutional: Denies: fever, chills, weakness Eyes: Denies: eye pain, vision change Respiratory: Denies: cough, dyspnea Cardiovascular: Denies: chest pain, palpitations, edema Gastrointestinal: Denies: abdominal pain, nausea, vomiting Genitourinary: Denies: dysuria Musculoskeletal: Denies: back pain Skin: Denies: rash Neurological: Reports: weakness, numbness. Denies: headache, paresthesias, confusion Hematological/Lymphatic: Denies: easy bleeding Past Medical History Past Medical History: Fibromyalgia, Hypertension Additional Past Medical History / Comment(s): Primary pulmonary hypertension; Migraines History of Any Multi-Drug Resistant Organisms: None Reported Past Surgical History: Appendectomy Past Psychological History: Anxiety Smoking Status: Never smoker Past Alcohol Use History: None Reported Past Drug Use History: None Reported - Past Family History Mother Family Medical History: Hyperlipidemia, Myocardial Infarction ([place]) Additional Family Medical History / Comment(s): MS Father Additional Family Medical History / Comment(s): hemophilia General Exam Limitations: no limitations General appearance: alert, in no apparent distress Head exam: Present: atraumatic, normocephalic Eye exam: Present: normal appearance, PERRL, EOMI. Absent: scleral icterus, conjunctival injection, nystagmus ENT exam: Present: normal oropharynx Neck exam: Present: normal inspection, full ROM. Absent: tenderness Respiratory exam: Present: normal lung sounds bilaterally. Absent: respiratory distress, wheezes, rales, rhonchi, stridor Cardiovascular Exam: Present: regular rate, normal rhythm, normal heart sounds. Absent: systolic murmur, diastolic murmur, rubs, gallop GI/Abdominal exam: Present: soft. Absent: distended, tenderness, guarding, rebound, rigid, mass Extremities exam: Present: normal inspection, normal capillary refill. Absent: pedal edema, calf tenderness Neurological exam: Present: alert, oriented X3, CN II-XII intact. Absent: motor sensory deficit Skin exam: Present: warm, dry, intact, normal color. Absent: rash Course Vital Signs 03/08/22 03/08/22 03/08/22 02:19 04:00 05:10 Temperature 98 F Pulse Rate 68 58 L 66 Respiratory 22 18 16 Rate Blood Pressure 123/77 171/86 143/68 O2 Sat by Pulse 98 98 98 Oximetry Medical Decision Making - Lab Data Result diagrams: 03/08/22 05:10 03/08/22 05:10 Disposition Clinical Impression: TIA (transient ischemic attack) Disposition: ADMITTED IP TO THIS HOSP Condition: Fair Is patient prescribed a controlled substance at d/c from ED?: No
[2022-03-08] MEDS ORDERED: ASPIRIN 325 MG TAB PO STA (05:10)
--- NOTE | 2022-03-08 05:12 | P.HPIM ---
History of Present Illness H&P Date: 03/08/22 The patient is a 56-year-old female with a PMH of hypertension who presented to the emergency room with complaints of left-sided paresthesias and weakness. The patient reports that her symptoms started around 1 PM today as she had arrived to her cabin up [place] where she was planning on going canoeing. She reports initially developing left arm heaviness and weakness. She then developed left leg weakness and heaviness along with left facial tingling. The patient's family immediately took her to the nearest hospital ([place]). The patient's symptoms resolved within 20-30 minutes in route to the hospital. She denied any prior history of CVA. Reports feeling at her baseline at the time of interview. At [facility], she underwent a CT brain without contrast which was unremarkable. The patient was scheduled to be transferred to a hospital in [place], at which point she decided to drive herself down to her hometown, [place] and came to the hospital. Denied expressing speech impairments, abnormal gait, facial symmetry, or visual impairments. Also denied expressing c hest discomfort, shortness of breath, fever, chills, cough, nausea, vomiting, abdominal pain, diarrhea. The patient did not have any of the workup performed at [place] with her. Review of systems: Pertinent positives and negatives as discussed in HPI, a complete review of systems was performed and all other systems are negative. Physical examination: General: non toxic, no distress, appears at stated age, normal weight Derm: no unusual rashes/lesions, warm Head: atraumatic, normocephalic, symmetric Eyes: EOMI, no lid lag, anicteric sclera, pupils equal round reactive to light ENT: Nose and ears atraumatic Neck: No cervical lymphadenopathy, trachea midline, supple Mouth: no lip lesion, mucus membranes moist Cardiovascular: S1S2 reg, no murmur, positive dorsalis pedis pulse bilateral, no edema Lungs: CTA bilateral, no rhonchi, no rales, no accessory muscle use Abdominal: soft, nontender to palpation, no guarding Ext: muscle strength 5 out of 5 in all 4 extremities grossly, no gross muscle atrophy, no contractures, Neuro: CN II-XI grossly intact, no gross focal neuro deficits, finger to nose unremarkable Psych: Alert, oriented, appropriate affect Assessment/plan TIA -Obtain carotid doppler -Echocardiogram -Cardiac monitoring -Neurology consulted -Continue with aspirin, statin Chronic conditions: Hypertension -Permissive hypertension for now DVT prophylaxis -Heparin subcu The patient is admitted with an anticipated less than 2 midnight stay for evaluation of TIA CODE STATUS: Full Code Discussed with: Patient Anticipated discharge date: In a.m. Anticipated discharge place: Home Past Medical History Past Medical History: Fibromyalgia, Hypertension Additional Past Medical History / Comment(s): Primary pulmonary hypertension; Migraines History of Any Multi-Drug Resistant Organisms: None Reported Past Surgical History: Appendectomy Past Psychological History: Anxiety Smoking Status: Never smoker Past Alcohol Use History: None Reported Past Drug Use History: None Reported - Past Family History Mother Family Medical History: Hyperlipidemia Medications and Allergies Home Medications Medication Instructions Recorded Confirmed Type lisinopriL [Zestril] 5 mg PO DAILY 12/17/20 12/17/20 History Allergies Allergy/AdvReac Type Severity Reaction Status Date / Time cefaclor [From Ceclor] Allergy Unknown Verified 03/08/22 02:24 Childhood Penicillins Allergy Swelling Verified 03/08/22 02:24 sulfamethoxazole Allergy Unknown Verified 03/08/22 02:24 [From Bactrim] Childhood trimethoprim [From Bactrim] Allergy Unknown Verified 03/08/22 02:24 Childhood chocolate flavor AdvReac headache Verified 03/08/22 02:24 milk AdvReac headache Verified 03/08/22 02:24 ANESTHETIC(UNKNOWN) Allergy Unknown Uncoded 03/08/22 02:24 Physical Exam Vitals: Vital Signs Temp Pulse Resp BP Pulse Ox 03/08/22 04:00 58 L 18 171/86 98 03/08/22 02:19 98 F 68 22 123/77 98 Intake and Output 03/07/22 03/07/22 03/08/22 14:59 22:59 06:59 Other: Weight 72.575 kg
[2022-03-08 05:20] LABS: Basophils # (A) 0.1 k/uL (0-0.2); Basophils % (A) 2 %; Eosinophils # (A) 0.1 k/uL (0-0.7); Eosinophils % (A) 2 %; HCT 38.2 % (34.0-46.0); HGB 12.9 gm/dL (11.4-16.0); Lymphocytes # (A) 0.9 k/uL (1.0-4.8); Lymphocytes % (A) 23 %; MCH 31.6 pg (25.0-35.0); MCHC 33.8 g/dL (31.0-37.0); MCV 93.3 fL (80.0-100.0); Mean Platelet Volume 8.4; Monocytes # (A) 0.2 k/uL (0-1.0); Monocytes % (A) 6 %; Neutrophils # (A) 2.6 k/uL (1.3-7.7); Neutrophils % (A) 66 %; Platelet Count 167 k/uL (150-450); RDW 13.2 % (11.5-15.5); WBC 3.9 k/uL (3.8-10.6)
[2022-03-08 05:29] LABS: Albumin 4.5 g/dL (3.5-5.0); Calcium 9.4 mg/dL (8.4-10.2); Total Bilirubin 0.7 mg/dL (0.2-1.3); Total Protein 8.1 g/dL (6.3-8.2)
[2022-03-08] MEDS: SODIUM CHLORIDE 0.9% 1,000 ML IV SCH (05:46)
--- NOTE | 2022-03-08 08:01 | US ---
EXAMINATION TYPE: US carotid duplex BILAT DATE OF EXAM: 03/08/2022 COMPARISON: US 2011 CLINICAL HISTORY: TIA. Pt states left side weakness and heaviness EXAM MEASUREMENTS: RIGHT: Peak Systolic Velocity (PSV) cm/sec ----- Right CCA: 100 ----- Right ICA: 98.2 ----- Right ECA: 261 ICA/CCA ratio: 1.0 RIGHT: End Diastole cm/sec ----- Right CCA: 27.3 ----- Right ICA: 19.0 ----- Right ECA: 27.2 LEFT: Peak Systolic Velocity (PSV) cm/sec ----- Left CCA: 84.9 ----- Left ICA: 127 ----- Left ECA: 122 ICA/CCA ratio: 1.5 LEFT: End Diastole cm/sec ----- Left CCA: 20.1 ----- Left ICA: 32.0 ----- Left ECA: 23.0 VERTEBRALS (direction of flow): Right Vertebral: ?occluded Left Vertebral: Antegrade Rhythm: Normal Significant elevated velocities right ECA and possible occluded right vertebral artery/ otherwise n o significant stenosis visualized IMPRESSION: 1. Less than 50% stenosis of the bilateral carotid bifurcations. 2. Nonvisualization the right vertebral artery, correlate for occlusion. Criteria for Assigning % of Stenosis / Diameter reduction (Estimation based on the indirect measurements of the internal carotid artery velocities (ICA PSV). 1. Normal (no stenosis)=ICA PSV < 125 cm/s: ratio < 2.0: ICA EDV<40 cm/s. 2. Less than 50% stenosis=ICA PSV < 125 cm/s: ratio < 2.0: ICA EDV<40 cm/s. 3. 50 to 69% stenosis=ICA PSV of 125 to 230 cm/s: ration 2.0 ? 4.0: ICA EDV 40-100 cm/s. 4. Greater than 70% stenosis to near occlusion= ICA PSV > 230 cm/s: ratio > 4.0: ICA EDV > 100 cm/s. 5. Near occlusion= ICA PSV velocities may be low or undetectable: variable ratio and ICA EDV. 6. Total occlusion=unable to detect flow.
[2022-03-08] MEDS: HEPARIN SODIUM,PORCINE/PF 5,000 UNIT/0.5 ML SYRINGE SQ SCH ×3 (08:40→23:03)
--- NOTE | 2022-03-08 10:30 | P.CNNES ---
History of Present Illness Consult date: 03/08/22 Requesting physician: Eder Prescott Reason for Consult: TIA History of Present Illness: This is a 56-year-old woman medical history of hypertension who presents emergency department for left-sided weakness. It seems that the patient onset of symptoms was around 1 PM on 03/07/2022 and was about to go kayaking. She noticed that she had left facial weakness, left upper extremity weakness and lower cavity weakness she thinks it started with the left upper extremity weakness but not sure. She denies any numbness tingling over the left side that. As stated above she felt the left side was weak and heavy. She denies any headache. Patient denied any speech difficulty. Any visual disturbance. Patient the symptoms resolved within 20-30 minutes on route to the hospital. The family I took the patient to a nearby hospital in [place]. She had a CT of the head w/o at outside hospital which was normal. Patient was supposed to be transferred to [place] but the patient declined and she drove herself to [facility] and came [facility] for further evaluation. Of note patient denies of tobacco user. She denies being on any antiplatelets or anticoagulation. Of note about 2 years ago the patient stated that she had right-sided numbness and she had an MRI of the brain and she was told she had minimal white matter lesion and was likely related to migraine. It was not felt her symptoms at that time was done due to multiple sclerosis. She had EMG with nerve conduction study in the past and that was normal. She stated that she has chronic lower back pain. She stated that when she turns her head to the left side or sleeps on the left side she'll noticed left-sided heaviness. She does have chronic neck pain that. She was in [place] by neurologists in the past but does not remember the name. Her kids have hemophilia A and was told probably she might have hemophilia A but has not had work-up. Some of the workup in our facility consisted of: Carotid duplex is reported as less than 50% stenosis bilateral carotid bifurcation. Nonvisualization of the right vertebral artery, correlate for occlusion. I personally reviewed the CBC and chemistry panel and they seemed unremarkable Review of Systems Review of system: The 12 point system was reviewed and apparent positive and negative per HPI. Past Medical History Past Medical History: Fibromyalgia, Hypertension Additional Past Medical History / Comment(s): Primary pulmonary hypertension; Migraines, covid+ 01/2022. currently having work up to rule out hemophilia, vitiligo. History of Any Multi-Drug Resistant Organisms: None Reported Past Surgical History: Appendectomy Additional Past Surgical History / Comment(s): d&c Past Psychological History: Anxiety Smoking Status: Never smoker Past Alcohol Use History: None Reported Past Drug Use History: None Reported - Past Family History Mother Family Medical History: Hyperlipidemia, Myocardial Infarction ([place]) Additional Family Medical History / Comment(s): MS Father Additional Family Medical History / Comment(s): hemophilia Medications and Allergies Home Medications Medication Instructions Recorded Confirmed Type lisinopriL [Zestril] 5 mg PO DAILY 12/17/20 03/08/22 History Allergies Allergy/AdvReac Type Severity Reaction Status Date / Time cefaclor [From Ceclor] Allergy Unknown Verified 03/08/22 08:20 Childhood Penicillins Allergy Unknown Verified 03/08/22 08:20 povidone-iodine Allergy Unknown Verified 03/08/22 11:02 [From Betadine] sulfamethoxazole Allergy Unknown Verified 03/08/22 08:20 [From Bactrim] Childhood trimethoprim [From Bactrim] Allergy Unknown Verified 03/08/22 08:20 Childhood chocolate flavor AdvReac headache Verified 03/08/22 08:20 milk AdvReac headache Verified 03/08/22 08:20 ANESTHETIC(UNKNOWN) Allergy Unknown Uncoded 03/08/22 02:24 Physical Examination - Vital Signs Vital Signs: Vital Signs Temp Pulse Pulse Resp BP BP Pulse Ox 03/08/22 05:42 98.6 F 61 17 178/77 97 03/08/22 05:10 66 16 143/68 98 03/08/22 04:00 58 L 18 171/86 98 03/08/22 02:19 98 F 68 22 123/77 98 Intake and Output 03/07/22 03/08/22 03/08/22 22:59 06:59 14:59 Other: # Voids 1 Weight 72.575 kg GENERAL: The patient is lying in bed and is not in acute distress. CHEST: The heart rate is regular rate rhythm. No murmurs to auscultation. LUNG: Clear to auscultation bilaterally no wheezing noted throughout. Not labored breathing. ABDOMEN/GI: Bowel sounds present in all 4 quadrants. No tenderness to palpation throughout. NEUROLOGICAL: Higher mental function: The patient is awake, alert, oriented to self, place and time. Patient is following commands. No aphasia and no neglect. Cranial nerves: The pupils are round, equal and reactive to light and accommodation. Visual mike are full to confrontation throughout. Extraocular movement is intact no nystagmus is noted. Facial sensation is normal to touch throughout. The facial strength is normal throughout. Hearing is normal bilaterally to hand rub. Tongue is midline and moved [id number] without any difficulty. No dysarthria is noted. Shoulder shrug is normal bilaterally. Motor: The strength is 5 over 5 throughout. Normal tone and bulk. Cerebellum: Normal finger to nose heel to giraldo bilaterally. Sensation: Sensation is normal to touch throughout. Reflexes (right/left): 2+ throughout. Plantars are downgoing bilaterally. Results - Laboratory Findings CBC and BMP: 03/08/22 05:10 03/08/22 05:10 Abnormal Lab Findings: Abnormal Labs 03/08/22 05:10 Lymphocytes # 0.9 L Assessment and Plan Assessment: Probable transient ischemic attack and her symptoms was left-sided weakness including face History of episode of right sided numbness about 2 years ago and had work-up was told possibly fibromyalgia (I feel unlikely fibromyalgia was cause for those symptoms) ?Nonvisualization of right vertebral artery on carotid duplex (but duplex is not best study for that). 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 Therefore I ordered CT angiography of the head and neck but did not want to pursue with testing because of allergy to ?iodine and did not want prep. I ordered MRI of the brain without since the patient stated that the she is ALL ERGIC to contrast 2-D echo was ordered by the primary team is pending I ordered lipid panel, TSH, hemoglobin A1c The patient was given aspirin 325 once. Patient stated that she has suspected hemophilia A and was hesitant about being on aspirin or antiplatelet. I'll defer the workup of hemophilia to the primary team but the meantime I will not start the patient on antiplatelets because of her risk of bleed and the risk outweighed the benefit. Patient was started on the Lipitor 80 mg daily at [facility] for secondary stroke prophylaxis by primary team. Every 4 hours neuro checks Patient is on cardiac monitoring Consulted PT and OT. We'll defer the rest of the medical management to primary team For DVT prophylaxis the patient is on subcu heparin 5000 units every 8 hours The plan is discussed with patient's nurse Thank you for the consultation. Vance Mcelroy M.D. Neurologist was Time with Patient: Greater than 30
[2022-03-08 12:32] LABS: Prothrombin Time 10.6 sec (9.0-12.0)
[2022-03-08] MEDS ORDERED: lisinopriL 5 MG TAB PO STA (14:56)
[2022-03-08] MEDS: ATORVASTATIN 80 MG TAB PO SCH ×2 (20:16→20:18)
[2022-03-08 21:23] LABS: Chol/HDL Ratio 6.38 Ratio; LDL Cholesterol,Calculated 186.2 mg/dL (0.0-131.0)
[2022-03-09] MEDS: SODIUM CHLORIDE 0.9% 1,000 ML IV SCH (05:58)
[2022-03-09] MEDS: HEPARIN SODIUM,PORCINE/PF 5,000 UNIT/0.5 ML SYRINGE SQ SCH ×3 (07:31→21:17)
[2022-03-09 10:37] LABS: Basophils # (A) 0.01 X 10*3/uL (0.00-0.10); Basophils % (A) 0.3 %; Eosinophils # (A) 0.07 X 10*3/uL (0.04-0.35); Eosinophils % (A) 2.2 %; HGB 13.4 g/dL (12.0-15.0); Immature Grans, Automated 0.3 %; Lymphocytes # (A) 0.97 X 10*3/uL (0.90-5.00); Lymphocytes % (A) 29.9 %; MCH 30.2 pg (27.0-32.0); MCHC 32.7 g/dL (32.0-37.0); MCV 92.6 fL (80.0-97.0); Mean Platelet Volume 10.7 fL (9.5-12.2); Monocytes # (A) 0.34 X 10*3/uL (0.20-1.00); Monocytes % (A) 10.5 %; NRBC Per 100 WBC 0 /100 WBCS (0.0-0.0); Neutrophils # (A) 1.84 X 10*3/uL (1.80-7.70); Neutrophils % (A) 56.8 %; Platelet Count 183 X 10*3/uL (140-440); RBC 4.43 X 10*6/uL (4.10-5.20); RDW 13.1 % (11.5-14.5); WBC 3.24 X 10*3/uL (4.50-10.00)
[2022-03-09 11:12] LABS: African American GFR (CKD) 73.4 (60.0-200.0); Anion Gap 9.4 mmol/L (10.00-18.00); BUN/Creat Ratio 16.6 Ratio (12.00-20.00); Blood Urea Nitrogen 16.6 mg/dL (9.0-27.0); Calcium 9.5 mg/dL (8.7-10.3); Carbon Dioxide 23.6 mmol/L (20.0-27.5); Non-African American GFR(CKD) 63.4 (60.0-200.0); Potassium 4.5 mmol/L (3.5-5.5)
--- NOTE | 2022-03-09 11:12 | P.PN ---
Subjective Progress Note Date: 03/09/22 Hospital course: Patient is a very pleasant 56-year-old female with a PMH of hypertension. She presented to the emergency department on 03/08/22 with complaints of left-sided paresthesias and weakness. The patient reports that her symptoms started around 1 PM as she had arrived to her cabin up [place] where she was planning on going canoeing. She reports initially developing left arm heaviness and weakness. She then developed left leg weakness and heaviness along with left facial t ingling. The patient's family immediately took her to the nearest hospital ([place]). The patient's symptoms resolved within 20-30 minutes in route to the hospital. She denied any prior history of CVA. Reports feeling at her baseline at the time of interview. At [facility], she underwent a CT brain without contrast which was unremarkable. The patient was scheduled to be transferred to a hospital in [place], at which point she decided to drive herself down to her hometown, [place] so she came to our hospital. Pt denied having any speech impairments, abnormal gait, facial symmetry, or visual impairments. She also denied expressing chest discomfort, shortness of breath, fever, chills, cough, nausea, vomiting, abdominal pain, diarrhea. The patient did not have any of the workup performed at [facility] with her. Carotid Dopplers were completed revealing less than 50% stenosis of bilateral carotid bifurcations and nonvisualization of right vertebral artery possibly secondary to obstructed right vertebral artery recommending ruling out with MRI. Echocardiogram completed revealing normal EF 55-60% with moderately dilated right ventricle. Patient awaiting MRI to be completed. Physical exam: Patient seen and fully evaluated at bedside this morning. Patient reports having a mild headache otherwise denies having any complaints including dizziness, lightheadedness, changes in vision or hearing, dysphasia, difficulties with speech, chest pain, palpitations, shortness of breath, or experiencing any numbness/tingling/weakness in her extremities. Patient is aw aiting to go down for MRI, per RN MRI states patient will not get MRI completed until tomorrow morning. At this time patient to continue with aspirin, atorvastatin, and lisinopril. Vital signs reviewed and stable. General: Nontoxic, no distress and appears stated age. Derm: Skin warm and dry, normal coloration for ethnicity. Head: Atraumatic, normocephalic and symmetric. Eyes: EOMs intact, no lid lag, and anicteric sclera Mouth: no lip lesions, mucus membranes moist Cardiovascular: regular rate and rhythm with normal S1S2, no murmur, positive posterior tibial pulses bilaterally, and cap refill < 2 seconds. Lungs: Respirations even, regular, and unlabored on room air. Lungs CTA bila terally, no rhonchi, no rales, no wheezing, and no accessory muscle usage. Abdominal: soft, nontender to palpation, no guarding, no appreciable organomegaly Ext: ROM intact. No gross muscle atrophy, no edema, no contractures Neuro: Speech clear, face symmetrical and CN II-XII grossly intact with no noted focal neuro deficits Psych: Alert and oriented to person, place, time, and situation. Appropriate and pleasant affect. Assessment and Plan of Care: Left-sided paresthesias and weakness, likely resulting from TIA. Symptoms have resolved. -CT brain completed at [facility]. Reportedly negative. -Carotid Dopplers were completed revealing less than 50% stenosis of bilateral carotid bifurcations and nonvisualization of right vertebral artery possibly secondary to obstructed right vertebral artery recommending ruling out with MRI. -Echocardiogram completed revealing normal EF 55-60% with moderately dilated right ventricle. -Patient awaiting MRI to be completed. -Neurology following -Continue with aspirin and atorvastatin. -Continue neuro checks and telemetry monitoring. Hypertension -Monitor vital signs and continue daily medication regimen with lisinopril. Family history of hemophilia A -Recommend outpatient follow-up with web development director for further evaluation and testing. CODE STATUS: Full code DVT prophylaxis: Heparin Discussed with: Patient and RN Anticipated discharge date: Tomorrow morning as we are awaiting MRI to be completed Anticipated discharge place: Home A total of 35 minutes was spent on the care of this complex patient more than 50% of the time was spent in counseling and care coordination. I reviewed the documentation as provided by the JOSE ENRIQUE above, who is the original author of this note. I agree with the documented assessment and plan, with the following changes: none Objective - Vital Signs Vital signs: Vital Signs Temp 97.2 F L 03/09/22 07:48 Pulse 71 03/09/22 07:48 Resp 16 03/09/22 08:00 BP 151/90 03/09/22 07:48 Pulse Ox 95 03/09/22 07:48 FiO2 Intake & Output 03/08/22 03/09/22 03/09/22 18:59 06:59 18:59 Intake Total 118 Balance 118 Intake: Oral 118 Other: Voiding Method Toilet # Voids 2 1 1 - Labs CBC & Chem 7: 03/09/22 06:45 03/09/22 06:45 Labs: Abnormal Lab Results - Last 24 Hours (Table) 03/08/22 03/09/22 03/09/22 Range/Units 05:10 06:45 06:45 WBC 3.24 L (4.50-10.00) X 10*3/uL Anion Gap 9.40 L (10.00-18.00) mmol/L Cholesterol 250.00 H (0.00-200.00) mg/dL LDL Cholesterol, Calc 186.2 H (0.0-131.0) mg/dL HDL Cholesterol 39.20 L (40.00-60.00) mg/dL
--- NOTE | 2022-03-09 12:32 | CA ---
Transthoracic Echo Report Name: Celina Mejia Age: 56 Gender: F : 1965 Exam Date: 03/09/2022 09:17 Exam Location: [facility] Ht (in): 63 Wt (lb): 160 Ordering Physician: Hillary Solis MD Attending/Referring Phys: Relations Manager Cami Sánchez RDCS Procedure CPT: Indications: tia Cardiac Hx: Technical Quality: Fair Contrast 1: Total Dose (mL): Contrast 2: Total Dose (mL): MEASUREMENTS (Male / Female) Normal Values 2D ECHO LV Diastolic Diameter PLAX 3.8 cm 4.2 - 5.9 / 3.9 - 5.3 cm LV Systolic Diameter PLAX 2.6 cm IVS Diastolic Thickness 1.3 cm 0.6 - 1.0 / 0.6 - 0.9 cm LVPW Diastolic Thickness 1.3 cm 0.6 - 1.0 / 0.6 - 0.9 cm LV Relative Wall Thickness 0.7 RV Internal Dim ED PLAX 4.0 cm LA Volume 42.9 cm??? 18 - 58 / 22 - 52 cm??? M-MODE Aortic Root Diameter MM 3.0 cm LA Systolic Diameter MM 3.9 cm LA Ao Ratio MM 1.3 AV Cusp Separation MM 1.9 cm DOPPLER AV Peak Velocity 135.8 cm/s AV Peak Gradient 7.4 mmHg LVOT Peak Velocity 103.8 cm/s LVOT Peak Gradient 4.3 mmHg MV Area PHT 4.2 cm??? Mitral E Point Velocity 89.3 cm/s Mitral A Point Velocity 62.6 cm/s Mitral E to A Ratio 1.4 MV Deceleration Time 182.7 ms MV E' Velocity 5.5 cm/s Mitral E to MV E' Ratio 16.2 TR Peak Velocity 260.1 cm/s TR Peak Gradient 27.1 mmHg Right Ventricular Systolic Press 31.1 mmHg FINDINGS Left Ventricle Moderately increased left ventricular wall thickness. Normal left ventricular systolic function with no obvious regional wall motion abnormalities. Left ventricular ejection fraction is estimated at 55-60 %. Normal left ventricular diastolic filling pattern. Right Ventricle Moderate right ventricular dilatation. Right ventricular systolic pressure within normal limits. Right Atrium Normal right atrial size. Left Atrium Normal left atrial size. No evidence for an atrial septal defect. Mitral Valve Structurally normal mitral valve. Mild mitral annular calcification. Mild mitral regurgitation. Aortic Valve Trileaflet aortic valve. No aortic stenosis. No aortic regurgitation. Aortic valve sclerosis. Tricuspid Valve Structurally normal tricuspid valve. Mild tricuspid regurgitation. Pulmonic Valve Trace pulmonic regurgitation. Pericardium No pericardial effusion. Aorta Normal size aortic root and proximal ascending aorta. CONCLUSIONS Normal left ventricular dimension and systolic function Moderately dilated right ventricle with normal function Previewed by: Dr. Len Calles MD (Electronically Signed) Final Date: 09 March 2022 12:31
--- NOTE | 2022-03-09 15:25 | P.PN ---
Subjective Progress Note Date: 03/09/22 The patient is seen at bedside and denies of any neurological deficits. Objective - Vital Signs Vital signs: Vital Signs Temp 98.2 F 03/09/22 13:48 Pulse 71 03/09/22 13:48 Resp 16 03/09/22 13:48 BP 129/71 03/09/22 13:48 Pulse Ox 100 03/09/22 13:48 FiO2 Intake & Output 03/08/22 03/09/22 03/09/22 18:59 06:59 18:59 Intake Total 118 Balance 118 Intake: Oral 118 Other: Voiding Method Toilet # Voids 2 1 1 - Exam GENERAL: The patient is lying in bed and is not in acute distress. NEUROLOGICAL: Higher mental function: The patient is awake, alert, oriented to self, place and time. Patient is following commands. No aphasia and no neglect. Cranial nerves: The pupils are round, equal and reactive to light and ac commodation. Visual mike are full to confrontation throughout. Extraocular movement is intact no nystagmus is noted. Facial sensation is normal to touch throughout. The facial strength is normal throughout. Hearing is normal bilaterally to hand rub. Tongue is midline and moved [id number] without any difficulty. No dysarthria is noted. Shoulder shrug is normal bilaterally. Motor: The strength is 5 over 5 throughout. Normal tone and bulk. Cerebellum: Normal finger to nose heel to giraldo bilaterally. Sensation: Sensation is normal to touch throughout. Reflexes (right/left): 2+ throughout. Plantars are downgoing bilaterally. Some of the workup in our facility consisted of: HbA1c: 5.6 TSH: 4.23 Lipid panels triglyceride 123, cholesterol 250, LDLs 186 and HDL is 39. Carotid duplex is reported as less than 50% stenosis bilateral carotid bifurcation. Nonvisualization of the right vertebral artery, correlate for occlusion. 2-D echo was reported as normal left ventricular dye mention systolic function. Moderately dilated right ventricle with normal function. Normal left atrial size. No evidence of an atrial septal defect. She had a CT of the head w/o at outside hospital which was normal. - Labs CBC & Chem 7: 03/09/22 06:45 03/09/22 06:45 Labs: Abnormal Lab Results - Last 24 Hours (Table) 07/04/22 07/05/22 07/05/22 Range/Units 05:10 06:45 06:45 WBC 3.24 L (4.50-10.00) X 10*3/uL Anion Gap 9.40 L (10.00-18.00) mmol/L Cholesterol 250.00 H (0.00-200.00) mg/dL LDL Cholesterol, Calc 186.2 H (0.0-131.0) mg/dL HDL Cholesterol 39.20 L (40.00-60.00) mg/dL Assessment and Plan Assessment: Probable transient ischemic attack and her symptoms was left-sided weakness including face History of episode of right sided numbness about 2 years ago and had work-up was told possibly fibromyalgia (I feel unlikely fibromyalgia was cause for those symptoms) ?Nonvisualization of right vertebral artery on carotid duplex (but duplex is not best study for that). 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 Patient refused CTA head and neck because of allergy of iodine and does not prep. MRI of the brain and C-spine are pending. without since the patient stated that the she is ALLERGIC to contrast The patient was given aspirin 325mg once. Patient stated that she has suspected hemophilia A and was hesitant about being on aspirin or antiplatelet. I'll defer the workup of hemophilia to the primary team but the meantime I will not start the patient on antiplatelets because of her risk of bleed and the risk outweighed the benefit. Patient was started on the Lipitor 80 mg daily at bedtime for secondary stroke prophylaxis by primary team. Every 4 hours neuro checks Patient is on cardiac monitoring Consulted PT and OT. We'll defer the rest of the medical management to primary team For DVT prophylaxis the patient is on subcu heparin 5000 units every 8 hours Upon discharge, the patient needs to follow-up with a neurologist as outpatient within 1-2 weeks. The plan is discussed with patient's Vance Mcelroy M.D. Neurologist was Time with Patient: Less than 30
[2022-03-09] MEDS: ASPIRIN 81 MG PO SCH (16:43)
--- NOTE | 2022-03-09 19:00 | MR ---
EXAMINATION TYPE: MR brain/cspine wo DATE OF EXAM: 03/09/2022 COMPARISON: MR brain 10/24/2018 HISTORY: Left side weakness. Multiplanar multi echo imaging of the brain and cervical spine with no contrast. Brain. Ventricles have normal size. There is no mass effect. There is no midline shift. The diffusion images show 7 mm focus of increased signal in the lateral right thalamus. This has increased signal also on the T2 and FLAIR images in consistent with acute infarct. There are numerous scattered peripheral wh ite matter high signal foci up to 4 mm in the frontal temporal and parietal lobes and the occipital l obes. Total number is approximately 25 the corpus callosum is intact. Sella turcica is intact. Brains tem is intact. Cerebellum is intact. No evidence of orbital mass. IMPRESSION: Acute infarct in the lateral right thalamus. This is a change compared to old exam. Numerous peripheral small white matter high signal foci likely related to microvascular ischemia and not significantly different than old exam. No evidence of cortical infarct. Cervical spine. The cervical vertebra have normal alignment. Disc spaces are fairly normal. No compression fracture. There is small posterior disc bulging at C4-5 and C5-6. Cervical spinal cord has normal signal patter n. No edema. No evidence of focal bone destruction. Brainstem is intact. There is developmentally lar ge spinal canal and no spinal stenosis. There is no paraspinal mass. IMPRESSION: Mild posterior disc bulging at several levels of the cervical spine. No spinal stenosis. Large spinal canal. No fracture.
[2022-03-09] MEDS: ATORVASTATIN 80 MG TAB PO SCH (21:16)
[2022-03-10] MEDS: SODIUM CHLORIDE 0.9% 1,000 ML IV SCH (05:48)
[2022-03-10 07:13] VITALS: BP 133/72; PULSE 67; RESP 16; TEMP 97.6
[2022-03-10] MEDS: ASPIRIN 81 MG PO SCH (07:32)
[2022-03-10] MEDS: HEPARIN SODIUM,PORCINE/PF 5,000 UNIT/0.5 ML SYRINGE SQ SCH (07:32)
[2022-03-10] MEDS ORDERED: ATORVASTATIN 80 MG TAB PO STA (11:51)
--- NOTE | 2022-03-10 12:56 | P.DS ---
Providers Date of admission: 03/10/22 08:10 Expected date of discharge: 03/10/22 Attending physician: Hillary Solis MD Consults: 03/08/22 03:59 Consult Physician Routine Consulting Provider: Vance Mcelroy Consult Reason/Comments: TIA Do you want consulting provider notified?: Yes Primary care physician: Victoriano Gareth [place] Hospital Course: Discharge Diagnosis: Acute ischemic CVA, MRI revealed acute infarct in the lateral right thalamus. Patient being discharged on aspirin 81 mg daily and atorvastatin. Patient placed on higher dose of aspirin or Plavix at this time until follow-up with hematology and complete testing for suspected hemophilia A is completed. Dyslipidemia Hypertension, monitor vital signs and continue daily medication regimen with lisinopril. Immediate family history of hemophilia a, patient reports both children have been diagnosed with hemophilia A and she is scheduled to further undergo testing with l tacker. Anxiety, patient discharged home on hydroxyzine 25 mg 4 times daily as needed for anxiety. Hospital Course: Patient is a very pleasant 56-year-old female with a PMH of hypertension. She presented to the emergency department on 03/08/22 with complaints of left-sided paresthesias and weakness. The patient reports that her symptoms started around 1 PM as she had arrived to her cabin up [place] where she was planning on going canoeing. She reports initially developing left arm heaviness and weakness. She then developed left leg weakness and heaviness along with left facial tingling. The patient's family immediately took her to the nearest hospital ([facility]). The patient's symptoms resolved within 20-30 minutes in route to the hospital. She denied any prior history of CVA. Reports feeling at her baseline at the time of interview. At [facility], she underwent a CT brain without contrast which was unremarkable. The patient was scheduled to be transferred to a hospital in [place], at which point she decided to drive herself down to her hometown, [place] so she came to our hospital. Pt denied having any speech impairments, abnormal gait, facial symmetry, or visual impairments. She also denied expressing chest discomfort, shortness of breath, fever, chills, cough, nausea, vomiting, abdominal pain, diarrhea. The patient did not have any of the workup performed at [facility] with her. Carotid Dopplers were completed revealing less than 50% stenosis of bilateral carotid bifurcations and nonvisualization of right vertebral artery possibly secondary to obstructed right vertebral artery recommending ruling out with MRI. Echocardiogram completed revealing normal EF 55-60% with moderately dilated right ventricle. MRI was completed which revealed an acute infarct in the lateral right thalamus. Physical exam: Patient seen and fully evaluated at bedside this morning. Patient reports having a mild headache otherwise denies having any complaints including dizziness, lightheadedness, changes in vision or hearing, dysphasia, difficulties with speech, chest pain, palpitations, shortness of breath, or experiencing any numbness/tingling/weakness in her extremities. Patient is awaiting to go down for MRI, per RN MRI states patient will not get MRI completed until tomorrow morning. At this time patient to continue with aspirin, atorvastatin, and lisinopril. Vital signs reviewed and stable. General: Nontoxic, no distress and appears stated age. Derm: Skin warm and dry, normal coloration for ethnicity. Head: Atraumatic, normocephalic and symmetric. Eyes: EOMs intact, no lid lag, and anicteric sclera Mouth: no lip lesions, mucus membranes moist Cardiovascular: regular rate and rhythm with normal S1S2, no murmur, positive posterior tibial pulses bilaterally, and cap refill < 2 seconds. Lungs: Respirations even, regular, and unlabored on room air. Lungs CTA bilaterally, no rhonchi, no rales, no wheezing, and no accessory muscle usage. Abdominal: soft, nontender to palpation, no guarding, no appreciable organomegaly Ext: ROM intact. No gross muscle atrophy, no edema, no contractures Neuro: Speech clear, face symmetrical and CN II-XII grossly intact with no noted focal neuro deficits Psych: Alert and oriented to person, place, time, and situation. Appropriate and pleasant affect. A total of 39 minutes of time were spent preparing this complex discharge summary. Pt was discharged on 03/10/22 at 12:35 PM. Jose Juan Nye NP rendered care for this patient independently, reviewed the findings and plan as documented in the note above. I did not physically speak with or examine the patient on this date. Patient Condition at Discharge: Stable Plan - Discharge Summary Discharge Rx Participant: No New Discharge Prescriptions: New Aspirin 81 mg PO DAILY 60 Days #60 tab Atorvastatin [Lipitor] 80 mg PO DAILY 60 Days #60 tab hydrOXYzine HCL [Atarax] 25 mg PO QID PRN #60 tab PRN Reason: Anxiety Continue lisinopriL [Zestril] 2.5 mg PO DAILY Discharge Medication List lisinopriL [Zestril] 2.5 mg PO DAILY 12/17/20 [History] Aspirin 81 mg PO DAILY 60 Days #60 tab 03/10/22 [Rx] Atorvastatin [Lipitor] 80 mg PO DAILY 60 Days #60 tab 03/10/22 [Rx] hydrOXYzine HCL [Atarax] 25 mg PO QID PRN #60 tab 03/10/22 [Rx] Follow up Appointment(s)/Referral(s): Sunny Gill MD [STAFF PHYSICIAN] - 1 Week (Follow-up outpatient for testing for hemophilia A.) Victoriano Servin MD [Primary Care Provider] - 1-2 days July Wheeler MD [REFERRING] - 1 Week (Office will call you with an appointment.) Patient Instructions/Handouts: Ischemic Stroke (DC), Self Care Measures After a Stroke (DC) Activity/Diet/Wound Care/Special Instructions: Activity: As tolerated. Take breaks as needed. Diet: Heart healthy and carb consistent diet. Avoid salts, or foods with hidden salts such as canned or boxed foods and frozen dinners. Extra salt makes your heart work harder and traps the fluid in your body for longer. Special Instructions: Take all of your medications as directed and remember to keep all of your doctor's appointments and follow-up as needed. Thank you for allowing us to participate in your care, it was truly a pleasure having you for our patient!!! Discharge/Stand Alone Forms: Outpatient Counseling, [facility] Discharge Disposition: HOME SELF-CARE
--- NOTE | 2022-03-10 13:57 | P.PN ---
Subjective Progress Note Date: 03/10/22 The patient is seen at bedside and continues to be feeling well. Denies of any new neurological issues. Objective - Vital Signs Vital signs: Vital Signs Temp 97.6 F 03/10/22 07:12 Pulse 67 03/10/22 07:12 Resp 16 03/10/22 07:12 BP 133/72 03/10/22 07:12 Pulse Ox 99 03/10/22 07:12 FiO2 Intake & Output 03/09/22 03/10/22 03/10/22 18:59 06:59 18:59 Other: Voiding Method Toilet Toilet # Voids 1 2 - Exam GENERAL: The patient is lying in bed and is not in acute distress. NEUROLOGICAL: Higher mental function: The patient is awake, alert, oriented to self, place and time. Patient is following commands. No aphasia and no neglect. Cranial nerves: The pupils are round, equal and reactive to light and accommodation. Visual mike are full to confrontation throughout. Extraocular movement is intact no nystagmus is noted. Facial sensation is normal to touch throughout. The facial strength is normal throughout. Hearing is normal bilaterally to hand rub. Tongue is midline and moved [id number] without any difficulty. No dysarthria is noted. Shoulder shrug is normal bilaterally. Motor: The strength is 5 over 5 throughout. Normal tone and bulk. Cerebellum: Normal finger to nose heel to giraldo bilaterally. Sensation: Sensation is normal to touch throughout. Reflexes (right/left): 2+ throughout. Plantars are downgoing bilaterally. Some of the workup in our facility consisted of: HbA1c: 5.6 TSH: 4.23 Lipid panels triglyceride 123, cholesterol 250, LDLs 186 and HDL is 39. Carotid duplex is reported as less than 50% stenosis bilateral carotid bifurcation. Nonvisualization of the right vertebral artery, correlate for occlusion. 2-D echo was reported as normal left ventricular dye mention systolic function. Moderately dilated right ventricle with normal function. Normal left atrial size. No evidence of an atrial septal defect. MRI Brain is reported as acute infarct in the lateral right thalamus. There is a change compared to old exam. Numerous peripheral small white matter high signal foci likely related to microvascular ischemia and not significantly different than old exam. MRI C-spine: It is reported as mild posterior disc bulbing at several levels of cervical spine. No spinal stenosis. No fracture. She had a CT of the head w/o at outside hospital which was normal. - Labs CBC & Chem 7: 03/09/22 06:45 03/09/22 06:45 Assessment and Plan Assessment: Acute ischemic stroke (right thalamus): seems possible due to small vessel disease (risk factor is hypertension, Dyslipidemia). Presented with left sided weakness, including face--resolved History of episode of right sided numbness about 2 years ago and had work-up was told possibly fibromyalgia (I feel unlikely fibromyalgia was cause for those symptoms) ?Nonvisualization of right vertebral artery on carotid duplex (but duplex is not best study for that). 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 Patient refused CTA head and neck because of allergy of iodine and does not prep. Patient is currently on ASA 81mg daily (new during this visit) and she is re fusing to take it because of suspected hemophilia A. Will hold off dual antiplatelets because of suspected Hemopholia. aPatient was started on the Lipitor 80 mg daily at bedtime for secondary stroke prophylaxis by primary team. Every 4 hours neuro checks Patient is on cardiac monitoring Consulted PT and OT. We'll defer the rest of the medical management to primary team For DVT prophylaxis the patient is on subcu heparin 5000 units every 8 hours Recommend for patient to follow-up with her hemaologist (Dr. Gill). Upon discharge, the patient needs to follow-up with a neurologist as outpatient within 1-2 weeks. The patient is clear for discharge from neurological perspective. Vance Mcelroy M.D. Neurologist was Time with Patient: Less than 30
== END 2022-03-10 13:11 | disposition home or self-care (01) | DRG 65 ==
LOC: EC 02:18 → 6NMEDSUR 03:59 → OBSVTOIN 03-10 08:10
PROVIDERS: ADMIT Internal Medicine; ATTEND Internal Medicine
DX: I63.81 Other cerebral infarction due to occlusion or stenosis of small artery (principal); G45.9 Transient cerebral ischemic attack, unspecified; I27.0 Primary pulmonary hypertension; G81.94 Hemiplegia, unspecified affecting left nondominant side; E78.5 Hyperlipidemia, unspecified; F41.9 Anxiety disorder, unspecified; G35 Multiple sclerosis; G43.909 Migraine, unspecified, not intractable, without status migrainosus; G89.29 Other chronic pain; I10 Essential (primary) hypertension; I08.1 Rheumatic disorders of both mitral and tricuspid valves; I37.1 Nonrheumatic pulmonary valve insufficiency; R42 Dizziness and giddiness; I65.23 Occlusion and stenosis of bilateral carotid arteries; M79.7 Fibromyalgia; R29.810 Facial weakness; Z79.899 Other long term (current) drug therapy; Z82.49 Family history of ischemic heart disease and other diseases of the circulatory system; Z83.2 Family history of diseases of the blood and blood-forming organs and certain disorders involving the immune mechanism; Z86.16 Personal history of COVID-19; Z88.1 Allergy status to other antibiotic agents; Z88.0 Allergy status to penicillin; Z88.2 Allergy status to sulfonamides; Z91.011 Allergy to milk products; Z91.018 Allergy to other foods
CPT/HCPCS: 70551; 72141; 80048; 80053; 80061; 83036; 84443; 85025; 85610; 85730; 93306; 93880

== ENCOUNTER 2022-03-19 22:41 | Emergency (ER) | payer OTHER ==
[2022-03-19 23:07] VITALS: RESP 18; TEMP 98.2
[2022-03-20] MEDS ORDERED: KETOROLAC 15 MG/ML 1 ML VIAL IVP STA (00:43)
[2022-03-20] MEDS ORDERED: SODIUM CHLORIDE 0.9% 1,000 ML IV STA (00:43)
[2022-03-20] MEDS ORDERED: ONDANSETRON 4 MG/2 ML VIAL IVP STA (00:43)
--- NOTE | 2022-03-20 00:44 | ED ---
Weakness HPI - General Chief complaint: Nausea/Vomiting/Diarrhea Stated complaint: Fatigue, Vomiting, Abdominal Pain Time Seen by Provider: 03/20/22 00:43 Source: patient Mode of arrival: ambulatory Limitations: no limitations - Related Data Home Medications Medication Instructions Recorded Confirmed lisinopriL [Zestril] 2.5 mg PO DAILY 12/17/20 03/08/22 Previous Rx's Medication Instructions Recorded Aspirin 81 mg PO DAILY 60 Days #60 tab 03/10/22 Atorvastatin [Lipitor] 80 mg PO DAILY 60 Days #60 tab 03/10/22 hydrOXYzine HCL [Atarax] 25 mg PO QID PRN #60 tab 03/10/22 Allergies Allergy/AdvReac Type Severity Reaction Status Date / Time cefaclor [From Ceclor] Allergy Unknown Verified 03/19/22 23:06 Childhood Penicillins Allergy Unknown Verified 03/19/22 23:06 povidone-iodine Allergy Unknown Verified 03/19/22 23:06 [From Betadine] sulfamethoxazole Allergy Unknown Verified 03/19/22 23:06 [From Bactrim] Childhood trimethoprim [From Bactrim] Allergy Unknown Verified 03/19/22 23:06 Childhood chocolate flavor AdvReac headache Verified 03/19/22 23:06 milk AdvReac headache Verified 03/19/22 23:06 ANESTHETIC(UNKNOWN) Allergy Unknown Uncoded 03/19/22 23:06 Review of Systems ROS Statement: Those systems with pertinent positive or pertinent negative responses have been documented in the HPI. ROS Other: All systems not noted in ROS Statement are negative. Past Medical History Past Medical History: CVA/TIA, Fibromyalgia, Hypertension Additional Past Medical History / Comment(s): Primary pulmonary hypertension; Migraines History of Any Multi-Drug Resistant Organisms: None Reported Past Surgical History: Appendectomy Additional Past Surgical History / Comment(s): d&c Past Psychological History: Anxiety Smoking Status: Never smoker Past Alcohol Use History: None Reported Past Drug Use History: None Reported - Past Family History Mother Family Medical History: Hyperlipidemia, Myocardial Infarction ([place]) Additional Family Medical History / Comment(s): MS Father Additional Family Medical History / Comment(s): hemophilia General Exam Limitations: no limitations Course Vital Signs 03/19/22 23:04 Temperature 98.2 F Pulse Rate 81 Respiratory 18 Rate Blood Pressure 147/80 O2 Sat by Pulse 100 Oximetry Medical Decision Making - Lab Data Result diagrams: 03/20/22 01:19 03/20/22 01:19 Lab Results 03/20/22 03/20/22 Range/Units 01:19 01:19 WBC 5.4 (3.8-10.6) k/uL RBC 4.16 (3.80-5.40) m/uL Hgb 12.6 (11.4-16.0) gm/dL Hct 38.3 (34.0-46.0) % MCV 92.0 (80.0-100.0) fL MCH 30.4 (25.0-35.0) pg MCHC 33.0 (31.0-37.0) g/dL RDW 12.6 (11.5-15.5) % Plt Count 155 (150-450) k/uL MPV 9.6 Neutrophils % 77 % Lymphocytes % 14 % Monocytes % 7 % Eosinophils % 1 % Basophils % 0 % Neutrophils # 4.2 (1.3-7.7) k/uL Lymphocytes # 0.7 L (1.0-4.8) k/uL Monocytes # 0.4 (0-1.0) k/uL Eosinophils # 0.1 (0-0.7) k/uL Basophils # 0.0 (0-0.2) k/uL Sodium 135 L (137-145) mmol/L Potassium 4.2 (3.5-5.1) mmol/L Chloride 100 (98-107) mmol/L Carbon Dioxide 26 (22-30) mmol/L Anion Gap 9 mmol/L BUN 29 H (7-17) mg/dL Creatinine 1.17 H (0.52-1.04) mg/dL Est GFR (CKD-EPI)AfAm 61 (>60 ml/min/1.73 sqM) Est GFR (CKD-EPI)NonAf 53 (>60 ml/min/1.73 sqM) Glucose 113 H (74-99) mg/dL Calcium 9.5 (8.4-10.2) mg/dL Phosphorus 3.1 (2.5-4.5) mg/dL Magnesium 1.9 (1.6-2.3) mg/dL Total Bilirubin 0.6 (0.2-1.3) mg/dL AST 21 (14-36) U/L ALT 19 (4-34) U/L Alkaline Phosphatase 108 (38-126) U/L Total Protein 7.7 (6.3-8.2) g/dL Albumin 4.3 (3.5-5.0) g/dL Amylase 91 (30-110) U/L Lipase 213 (23-300) U/L Disposition Clinical Impression: Dehydration, Nausea & vomiting, Medication reaction Disposition: HOME SELF-CARE Condition: Good Instructions (If sedation given, give patient instructions): Acute Nausea and Vomiting (ED) Is patient prescribed a controlled substance at d/c from ED?: No Referrals: Victoriano Servin MD [Primary Care Provider] - 1-2 days
[2022-03-20 01:40] LABS: Basophils % (A) 0 %; Eosinophils # (A) 0.1 k/uL (0-0.7); Eosinophils % (A) 1 %; HCT 38.3 % (34.0-46.0); HGB 12.6 gm/dL (11.4-16.0); Lymphocytes # (A) 0.7 k/uL (1.0-4.8); Lymphocytes % (A) 14 %; MCH 30.4 pg (25.0-35.0); Mean Platelet Volume 9.6; Monocytes # (A) 0.4 k/uL (0-1.0); Monocytes % (A) 7 %; Neutrophils # (A) 4.2 k/uL (1.3-7.7); Neutrophils % (A) 77 %; Platelet Count 155 k/uL (150-450); RBC 4.16 m/uL (3.80-5.40); RDW 12.6 % (11.5-15.5); WBC 5.4 k/uL (3.8-10.6)
[2022-03-20 01:49] LABS: Albumin 4.3 g/dL (3.5-5.0); Calcium 9.5 mg/dL (8.4-10.2); Magnesium 1.9 mg/dL (1.6-2.3); Phosphorus 3.1 mg/dL (2.5-4.5); Potassium 4.2 mmol/L (3.5-5.1); Total Bilirubin 0.6 mg/dL (0.2-1.3); Total Protein 7.7 g/dL (6.3-8.2)
[2022-03-20 02:38] VITALS: BP 134/81; PULSE 75
== END 2022-03-20 02:38 | disposition home or self-care (01) ==
LOC: EC 22:41
DX: E86.0 Dehydration (principal); R11.2 Nausea with vomiting, unspecified; R10.9 Unspecified abdominal pain; T46.6X5A Adverse effect of antihyperlipidemic and antiarteriosclerotic drugs, initial encounter; I10 Essential (primary) hypertension; Z88.8 Allergy status to other drugs, medicaments and biological substances; Z88.0 Allergy status to penicillin; Z88.2 Allergy status to sulfonamides; Z91.02 Food additives allergy status; Z91.011 Allergy to milk products; Z88.4 Allergy status to anesthetic agent; Z79.899 Other long term (current) drug therapy
CPT/HCPCS: 36415; 80053; 82150; 83690; 83735; 84100; 85025; 96360; 99283

== ENCOUNTER → 2022-08-24 | Outpatient (CLI) | payer OTHER ==
[2022-08-24 14:59] LABS: Rheumatoid Factor, Qnt 11 IU/mL (0-15)
[2022-08-25 08:39] LABS: Protein, Total 7.4 g/dL (6.2-8.2)
[2022-08-25 12:24] LABS: Free Lambda Lt Chain Qnt, Seru 3.62 mg/dL (0.57-2.63)
== END | disposition home or self-care (01) ==
LOC: LABWHC1 09:29
PROVIDERS: ATTEND Physician Assistant
DX: I10 Essential (primary) hypertension (principal); R77.1 Abnormality of globulin
CPT/HCPCS: 36415; 83883; 84165; 84443; 85652; 86038; 86039; 86140; 86431

== ENCOUNTER 2023-03-31 23:59 | Inpatient (IN) | payer OTHER ==
[2023-04-01] MEDS ORDERED: SODIUM CHLORIDE 0.9% 1,000 ML IV STA (00:10)
--- NOTE | 2023-04-01 00:44 | CT ---
EXAM: CT Head Without Intravenous Contrast CLINICAL HISTORY: ITS.REASON CT Reason: Neuro deficit, acute, stroke suspected TECHNIQUE: Axial computed tomography images of the head/brain without intravenous contrast. CTDI is 48.9 mGy and DLP is 1139.8 mGy-cm. This CT exam was performed using one or more of the following dose reduction techniques: automated exposure control, adjustment of the mA and/or kV according to patient size, and/or use of iterative reconstruction technique. COMPARISON: Comparison is made to prior head CT from December 17, 2020. FINDINGS: Brain: Unremarkable. No hemorrhage. No significant white matter disease. No edema. Ventricles: Unremarkable. No ventriculomegaly. Bones/joints: Unremarkable. No acute fracture. Soft tissues: Unremarkable. Sinuses: Unremarkable as visualized. No acute sinusitis. Mastoid air cells: Unremarkable as visualized. No mastoid effusion. IMPRESSION: No evidence of acute intracranial pathology.
--- NOTE | 2023-04-01 00:48 | ED ---
Neuro HPI - General Chief Complaint: Altered Mental Status Stated Complaint: Right sided weakness, Face numbness, stroke histor Time Seen by Provider: 04/01/23 00:09 Source: patient, RN notes reviewed, old records reviewed Mode of arrival: wheelchair Limitations: no limitations - History of Present Illness Is the patient presenting with stroke symptoms?: Yes -: hour(s) (2 prior to arrival) Initial Comments: This is a 58-year-old female to the ER today. Patient doesn't state the ER for evaluation of possible CVA concern with occasional headache and speech issues, right-sided weakness. History of CVA. Recent hospitalization for CVA patient has had symptoms before getting ready for bed tonight unsure what times was at around 10:00, patient had symptoms slurred speech or stuttering speech but those symptoms have resolved on arrival to the ER she is complaining of some right arm weakness Daughter at bedside stating speech is almost back to normal Location: speech, dysarthria, right arm, right leg History of same: Yes (prior CVA with eficits resolved) Place: home Severity: mild Quality: weak Improves With: time Worsens With: none On Anticoagulants: No (no blood thiners) Context: sudden onset Associated Symptoms: denies other symptoms Treatments Prior to Arrival: none - Related Data Home Medications: Home Medications Medication Instructions Recorded Confirmed lisinopriL [Zestril] 2.5 mg PO DAILY 12/17/20 04/01/23 Previous Rx's Medication Instructions Recorded Aspirin 81 mg PO DAILY 60 Days #60 tab 03/10/22 Allergies/Adverse Reactions: Allergies Allergy/AdvReac Type Severity Reaction Status Date / Time cefaclor [From Ceclor] Allergy Unknown Verified 04/01/23 07:54 Childhood Penicillins Allergy Unknown Verified 04/01/23 07:54 povidone-iodine Allergy Unknown Verified 04/01/23 07:54 [From Betadine] sulfamethoxazole Allergy Unknown Verified 04/01/23 07:54 [From Bactrim] Childhood trimethoprim [From Bactrim] Allergy Unknown Verified 04/01/23 07:54 Childhood chocolate flavor AdvReac headache Verified 04/01/23 07:54 milk AdvReac headache Verified 04/01/23 07:54 ANESTHETIC(UNKNOWN) Allergy Unknown Uncoded 03/19/22 23:06 Review of Systems ROS Statement: Those systems with pertinent positive or pertinent negative responses have been documented in the HPI. ROS Other: All systems not noted in ROS Statement are negative. General Exam - General Exam Comments Initial Comments: NIH 2 slurred speech R arm weakness to gravity Limitations: no limitations General appearance: alert, in no apparent distress, anxious Head exam: Present: atraumatic, normocephalic, normal inspection Eye exam: Present: normal appearance, PERRL, EOMI. Absent: scleral icterus, conjunctival injection, periorbital swelling ENT exam: Present: normal exam, mucous membranes moist Neck exam: Present: normal inspection. Absent: tenderness, meningismus, lymphadenopathy Respiratory exam: Present: normal lung sounds bilaterally. Absent: respiratory distress, wheezes, rales, rhonchi, stridor Cardiovascular Exam: Present: regular rate, normal rhythm, normal heart sounds. Absent: systolic murmur, diastolic murmur, rubs, gallop, clicks GI/Abdominal exam: Present: soft, normal bowel sounds. Absent: distended, tenderness, guarding, rebound, rigid Extremities exam: Present: normal inspection, full ROM, normal capillary refill. Absent: tenderness, pedal edema, joint swelling, calf tenderness Back exam: Present: normal inspection Neurological exam: Present: alert, oriented X3, CN II-XII intact Psychiatric exam: Present: normal affect, normal mood Skin exam: Present: warm, dry, intact, normal color. Absent: rash Stroke MDM - Lab Data Result diagrams: 04/01/23 00:10 04/01/23 00:10 Lab Results 04/01/23 04/01/23 04/01/23 Range/Units 00:10 00:10 00:10 WBC 4.6 (3.8-10.6) k/uL RBC 4.20 (3.80-5.40) m/uL Hgb 12.9 (11.4-16.0) gm/dL Hct 38.3 (34.0-46.0) % MCV 91.3 (80.0-100.0) fL MCH 30.7 (25.0-35.0) pg MCHC 33.6 (31.0-37.0) g/dL RDW 13.2 (11.5-15.5) % Plt Count 173 (150-450) k/uL MPV 8.0 Neutrophils % 54 % Lymphocytes % 31 % Monocytes % 10 % Eosinophils % 2 % Basophils % 1 % Neutrophils # 2.5 (1.3-7.7) k/uL Lymphocytes # 1.4 (1.0-4.8) k/uL Monocytes # 0.4 (0-1.0) k/uL Eosinophils # 0.1 (0-0.7) k/uL Basophils # 0.0 (0-0.2) k/uL PT 10.2 (9.0-12.0) sec INR 1.0 (<1.2) APTT 24.2 (22.0-30.0) sec Sodium 137 (137-145) mmol/L Potassium 4.0 (3.5-5.1) mmol/L Chloride 102 (98-107) mmol/L Carbon Dioxide 25 (22-30) mmol/L Anion Gap 10 mmol/L BUN 20 H (7-17) mg/dL Creatinine 0.92 (0.52-1.04) mg/dL Est GFR (CKD-EPI)AfAm 80 (>60 ml/min/1.73 sqM) Est GFR (CKD-EPI)NonAf 70 (>60 ml/min/1.73 sqM) Glucose 113 H (74-99) mg/dL Estimated Ave Glu mg/dL mg/dL Hemoglobin A1c (<=6.0) % Calcium 9.6 (8.4-10.2) mg/dL Total Bilirubin 0.5 (0.2-1.3) mg/dL AST 26 (14-36) U/L ALT 25 (4-34) U/L Alkaline Phosphatase 88 (38-126) U/L Creatine Kinase 77 (30-135) U/L Troponin I (0.000-0.034) ng/mL Total Protein 8.2 (6.3-8.2) g/dL Albumin 4.2 (3.5-5.0) g/dL 04/01/23 04/01/23 Range/Units 00:10 00:10 WBC (3.8-10.6) k/uL RBC (3.80-5.40) m/uL Hgb (11.4-16.0) gm/dL Hct (34.0-46.0) % MCV (80.0-100.0) fL MCH (25.0-35.0) pg MCHC (31.0-37.0) g/dL RDW (11.5-15.5) % Plt Count (150-450) k/uL MPV Neutrophils % % Lymphocytes % % Monocytes % % Eosinophils % % Basophils % % Neutrophils # (1.3-7.7) k/uL Lymphocytes # (1.0-4.8) k/uL Monocytes # (0-1.0) k/uL Eosinophils # (0-0.7) k/uL Basophils # (0-0.2) k/uL PT (9.0-12.0) sec INR (<1.2) APTT (22.0-30.0) sec Sodium (137-145) mmol/L Potassium (3.5-5.1) mmol/L Chloride (98-107) mmol/L Carbon Dioxide (22-30) mmol/L Anion Gap mmol/L BUN (7-17) mg/dL Creatinine (0.52-1.04) mg/dL Est GFR (CKD-EPI)AfAm (>60 ml/min/1.73 sqM) Est GFR (CKD-EPI)NonAf (>60 ml/min/1.73 sqM) Glucose (74-99) mg/dL Estimated Ave Glu mg/dL 114 mg/dL Hemoglobin A1c 5.6 (<=6.0) % Calcium (8.4-10.2) mg/dL Total Bilirubin (0.2-1.3) mg/dL AST (14-36) U/L ALT (4-34) U/L Alkaline Phosphatase (38-126) U/L Creatine Kinase (30-135) U/L Troponin I <0.012 (0.000-0.034) ng/mL Total Protein (6.3-8.2) g/dL Albumin (3.5-5.0) g/dL - NIH Stroke Scale 1b. LOC Questions: (0) answers correctly 1c. LOC Commands: (0) performs tasks correctly 2. Best Gaze: (0) normal 3. Visual: (0) no visual loss 4. Facial Palsy: (0) normal symmetrical movement 5a. Motor Arm Left: (0) no drift 5b. Motor Arm Right: (1) drift 6a. Motor Leg Left: (0) no drift 6b. Motor Leg Right: (0) no drift 7. Limb Ataxia: (0) absent 8. Sensory: (0) normal 9. Best Language: (0) no aphasia 10. Dysarthria: (1) mild/moderate dysarthria 11. Extinction/Inattention: (0) no abnormality - Thrombolytic Inclusion/Exclusion Thrombolytic Inclusion Criteria: Symptom Onset < 4.5 h, NIH Stroke Scale Deficit (2), Negative CT Scan for ICH - Medical Decision Making 58 female to the ER for evaluation. Patient story of onset of symptoms was nonspecific but no TPA was given secondary to low NIG as well as improving symptoms for family who is at bedside. Patient has continued R arm weakness and again has history of prior CVA not on blood thinners. Patient has normal computed tomography scan here in the ER with history of CVA and will be admitted for neurology evaluation and continued monitoring, blood pressures improved without treatment - Radiology Data Radiology results: report reviewed (CT brain is negative for acute disease), image reviewed - EKG Data -: EKG Interpreted by Me (EKG shows sinus 65 OH 193 QTC 408) Past Medical History Past Medical History: CVA/TIA, Fibromyalgia, Hypertension Additional Past Medical History / Comment(s): Primary pulmonary hypertension; M igraines History of Any Multi-Drug Resistant Organisms: None Reported Past Surgical History: Appendectomy Additional Past Surgical History / Comment(s): d&c Past Psychological History: Anxiety Smoking Status: Never smoker Past Alcohol Use History: None Reported Past Drug Use History: None Reported - Past Family History Mother Family Medical History: Hyperlipidemia, Myocardial Infarction ([place]) Additional Family Medical History / Comment(s): MS Father Additional Family Medical History / Comment(s): hemophilia Course Vital Signs 04/01/23 04/01/23 04/01/23 00:05 00:25 00:39 Temperature 97.3 F L Pulse Rate 74 71 68 Respiratory 16 12 12 Rate Blood Pressure 172/83 195/92 185/97 O2 Sat by Pulse 98 92 L 97 Oximetry 04/01/23 04/01/23 04/01/23 00:55 01:08 03:29 Temperature 98.9 F Pulse Rate 66 70 68 Respiratory 16 14 14 Rate Blood Pressure 177/118 134/90 O2 Sat by Pulse 98 99 98 Oximetry 04/01/23 04/01/23 04/01/23 04:25 05:25 06:55 Temperature Pulse Rate 65 68 66 Respiratory 14 16 14 Rate Blood Pressure 171/80 176/88 162/98 O2 Sat by Pulse 98 90 L 98 Oximetry 04/01/23 04/01/23 04/01/23 09:31 11:11 13:12 Temperature Pulse Rate 62 68 75 Respiratory 18 18 18 Rate Blood Pressure 188/92 194/106 212/102 O2 Sat by Pulse 98 98 97 Oximetry 04/01/23 13:19 Temperature Pulse Rate 76 Respiratory 18 Rate Blood Pressure 180/87 O2 Sat by Pulse 97 Oximetry - Reevaluation(s) Reevaluation #1: 04/01/23 00:48 Medical record is reviewed 04/01/23 00:48 Code stroke in triage on patient arrival 04/01/23 00:[address] angiography secondary to ALLERGY, refusing premedication Reevaluation #2: 04/01/23 03:26 Patient symptoms are continuing to improve 04/01/23 03:27 No TPA secondary to low NIH and improving symptoms, speech continuing to improve to normal, R arm weak but able to move and has good strength Reevaluation #3: 04/01/23 03:26 Patient informed results and questions answered patient is beginning to complain of increasing weakness of the Right arm Reevaluation #4: 04/01/23 00:48 Was pt. sent in by a medical professional or institution ([facility] [place], [employer]OR, urgent care, hospital, or senior care...) When possible be specific @ -no Did you speak to anyone other than the patient for history (EMS, parent, family, police, friend...)? What history was obtained from this source @ -yes daughter at bedside continues to comment on improving of patients speech Did you review nursing and triage notes (agree or disagree)? Why? @ -agree Are old charts reviewed (outside hosp., previous admission, EMS record, old EKG, old radiological studies, urgent care reports/EKG's, senior care records)? Report findings @ -yes prior admission for CVA about a year ago Differential Diagnosis (chest pain, altered mental status, abdominal pain women, abdominal pain men, vaginal bleeding, weakness, fever, dyspnea, syncope, headache, dizziness, GI bleed, back pain, seizure, CVA, palpatations, mental health, musculoskeletal)? @ -prior EKG interpreted by me (3pts min.). @ -yes X-rays interpreted by me (1pt min.). @ -no CT interpreted by me (1pt min.). @ -yes U/S interpreted by me (1pt. min.). @ -no What testing was considered but not performed or refused? (CT, X-rays, U/S, labs)? Why? @ -CTangio HandN refused What meds were considered but not given or refused? Why? @ -tpa, low NIH and improving symptoms Did you discuss the management of the patient with other professionals (professionals i.e. , PA, FRENCH TUTOR, lab, RT, psych nurse, social worker aide, advertising copywriter, teacher, security officer, outsole caser)? Give summary @ -no Was smoking cessation discussed for >3mins.? @ -no Was critical care preformed (if so, how long)? @ -yes31 Were there social determinants of health that impacted care today? How? (Homelessness, low income, unemployed, alcoholism, drug addiction, transportation, low edu. Level, literacy, decrease access to med. care, [facility], rehab)? @ -none Was there de-escalation of care discussed even if they declined (Discuss DNR or withdrawal of care, Hospice)? DNR status @ -no What co-morbidities impacted this encounter? (DM, HTN, Smoking, COPD, CAD, Cancer, CVA, ARF, Chemo, Hep., AIDS, mental health diagnosis, sleep apnea, morbid obesity)? @ -none Was patient admitted / discharged? Hospital course, mention meds given and route, prescriptions, significant lab abnormalities, going to OR and other pertinent info. @ - 58 female to the ED with complaint of R arm and leg weakness as well as slurred speech, speech to normal on arrival and no deficit noted in patients R leg, R arm continues to be weak compared to left, patient refused CTangio, and was not given tpa secondarily to improving symptoms and low NIH and patient will be admitted for neurological evaluation. Undiagnosed new problem with uncertain prognosis? @ -no Drug Therapy requiring intensive monitoring for toxicity (Heparin, Nitro, Insulin, Cardizem)? @ -no Were any procedures done? @ -no Diagnosis/symptom? @ -Acute CVA Acute, or Chronic, or Acute on Chronic? @ -Acute Uncomplicated (without systemic symptoms) or Complicated (systemic symptoms)? @ -Complicated Side effects of treatment? @ -no Exacerbation, Progression, or Severe Exacerbation? @ -exacerbation Poses a threat to life or bodily function? How? (Chest pain, [place], [place], pneumonia, PE, COPD, DKA, ARF, appy, cholecystitis, CVA, Diverticulitis, Homicidal, Suicidal, threat to staff... and all critical care pts) @ -yes with CVA Reevaluation #5: 04/01/23 00:48 Differential CVA Ischemic stroke, hemorrhagic stroke, brain tumor, atypical migraine, Wernicke's encephalopathy, seizure, multiple sclerosis, meningitis, encephalitis, hypoglycemia, Guillain-Starks, electrolytes disturbance, myasthenia gravis.... This is not meant to be an all-inclusive list - Consultations Consultation #1: Spoke with neuro intervention, understanding there is no CTA, no intervention necessary Consultation #2: Spoke with sound who agrees to admit this patient Critical Care Time Critical Care Time: Yes Total Critical Care Time: 31 Disposition Clinical Impression: TIA (transient ischemic attack), CVA (cerebral vascular accident) Disposition: ADMITTED IP TO THIS HOSP Condition: Serious Is patient prescribed a controlled substance at d/c from ED?: No Time of Disposition: 03:25
[2023-04-01 00:49] LABS: Basophils % (A) 1 %; Eosinophils # (A) 0.1 k/uL (0-0.7); Eosinophils % (A) 2 %; HCT 38.3 % (34.0-46.0); HGB 12.9 gm/dL (11.4-16.0); Lymphocytes # (A) 1.4 k/uL (1.0-4.8); Lymphocytes % (A) 31 %; MCH 30.7 pg (25.0-35.0); MCHC 33.6 g/dL (31.0-37.0); MCV 91.3 fL (80.0-100.0); Monocytes # (A) 0.4 k/uL (0-1.0); Monocytes % (A) 10 %; Neutrophils # (A) 2.5 k/uL (1.3-7.7); Neutrophils % (A) 54 %; Platelet Count 173 k/uL (150-450); RDW 13.2 % (11.5-15.5); WBC 4.6 k/uL (3.8-10.6)
[2023-04-01 01:00] LABS: Partial Thromboplastin Time 24.2 sec (22.0-30.0); Prothrombin Time 10.2 sec (9.0-12.0)
[2023-04-01 01:18] LABS: ALT 25 U/L (4-34); AST 26 U/L (14-36); African American GFR (CKD) 80 (>60 ml/min/1.73 sqM); Albumin 4.2 g/dL (3.5-5.0); Alkaline Phosphatase 88 U/L (38-126); Anion Gap 10 mmol/L; Blood Urea Nitrogen 20 mg/dL (7-17); Calcium 9.6 mg/dL (8.4-10.2); Carbon Dioxide 25 mmol/L (22-30); Chloride 102 mmol/L (98-107); Creatine Kinase 77 U/L (30-135); Glucose 113 mg/dL (74-99); Non-African American GFR(CKD) 70 (>60 ml/min/1.73 sqM); Sodium 137 mmol/L (137-145); Total Bilirubin 0.5 mg/dL (0.2-1.3); Total Protein 8.2 g/dL (6.3-8.2)
--- NOTE | 2023-04-01 02:37 | XR ---
EXAM: XR Chest, 1 View CLINICAL HISTORY: ITS.REASON XR Reason: altered mental status TECHNIQUE: Frontal view of the chest. COMPARISON: Comparison is made to prior chest x-ray from December 17, 2020. FINDINGS: Lungs: Mild to moderate peribronchial thickening of the central and peripheral bronchi with increased interstitial opacities throughout the lungs. No consolidation. Pleural space: Unremarkable. No pneumothorax. Heart: Unremarkable. No cardiomegaly. Mediastinum: Unremarkable. Bones/joints: Unremarkable. IMPRESSION: Findings concerning for atypical pneumonia. No consolidation.
[2023-04-01] MEDS ORDERED: ASPIRIN 325 MG TAB PO STA (03:28)
--- NOTE | 2023-04-01 06:09 | P.HPIM ---
History of Present Illness H&P Date: 04/01/23 Chief Complaint: Right-sided weakness 58-year-old female with hypertension, history of stroke with no residual weakness She is coming in for slurred speech and right-sided weakness symptoms started suddenly around 10 PM and she was getting ready to go to bed she felt heavy and weak on the right side she woke up her kids and asked him to take her to the hospital for evaluation upon arrival and evaluation in the ED she had a low NIH score of 2 computed tomography scan of the head was negative no acute pathology determined. Patient declined contrast CT angiogram of the neck was not done. Patient was not given TPA due to low NIH Upon my evaluation patient denies any headache denies any vision or hearing changes denies any numbness or tingling however she does feel heaviness over her right upper and lower extremity and possibly some slurred speech upon my evaluation her NIH was around 4. Patient denies any chest pain trouble breathing nausea vomiting any head i njuries or recent falls. She reports history of stroke like symptoms about a year ago which resolved within a few hours. Denies any history of A. fib or blood clots She denies tobacco smoking and illicit drugs or alcohol review of systems Pertinent positives as noted in HPI. All other systems were reviewed and are negative on exam Constitutional: No acute distress, conversant, pleasant Eyes: Anicteric sclerae, moist conjunctiva, Pupils equal round reactive to light ENMT: NC/AT Oropharynx clear, no erythema, or exudates Neck: Supple, no masses, or JVD No carotid bruits No thyromegaly Lungs: Clear to auscultation Clear to percussion Normal respiratory effort, no accessory muscle use Cardiovascular: Heart regular in rate and rhythm, No murmurs, gallops, or rubs No peripheral edema Abdominal: Soft Nontender, no guarding, rebound or rigidity Abdomen moving with respiration Normoactive bowel sounds No hepatomegaly, No splenomegaly No palpable mass No abdominal wall hernia noted Skin: Normal temperature, tone, texture, turgor Extremities: No digital cyanosis No clubbing Pedal pulses intact and symmetrical Radial pulses intact and symmetrical No calf tenderness Psychiatric: Alert and oriented to person, place and time Appropriate affect fair judgement Neuro Muscles Strength 5/5 left upper and lower extremity, 4 out of 5 in right upper and lower extremity Sensation to light touch grossly present throughout Cranial nerves II-XII grossly intact Finger-nose exam intact with the left hand, dysmetria with the right hand. [id number] exam intact to the left leg patient could not perform it with the right leg. Babinski sign upwards on the right foot, NIH score of 4 for 2 limb ataxia and motor arm and leg on one side Lymphatics: no palpable cervical or supraclavicular lymph nodes Past Medical History Past Medical History: CVA/TIA, Fibromyalgia, Hypertension Additional Past Medical History / Comment(s): Primary pulmonary hypertension; Migraines History of Any Multi-Drug Resistant Organisms: None Reported Past Surgical History: Appendectomy Additional Past Surgical History / Comment(s): d&c Past Psychological History: Anxiety Smoking Status: Never smoker Past Alcohol Use History: None Reported Past Drug Use History: None Reported - Past Family History Mother Family Medical History: Hyperlipidemia, Myocardial Infarction ([place]) Additional Family Medical History / Comment(s): MS Father Additional Family Medical History / Comment(s): hemophilia Medications and Allergies Home Medications Medication Instructions Recorded Confirmed Type lisinopriL [Zestril] 2.5 mg PO DAILY 12/17/20 03/08/22 History Aspirin 81 mg PO DAILY 60 Days #60 tab 03/10/22 Rx Atorvastatin [Lipitor] 80 mg PO DAILY 60 Days #60 tab 03/10/22 Rx hydrOXYzine HCL [Atarax] 25 mg PO QID PRN #60 tab 03/10/22 Rx Allergies Allergy/AdvReac Type Severity Reaction Status Date / Time cefaclor [From Ceclor] Allergy Unknown Verified 03/19/22 23:06 Childhood Penicillins Allergy Unknown Verified 03/19/22 23:06 povidone-iodine Allergy Unknown Verified 03/19/22 23:06 [From Betadine] sulfamethoxazole Allergy Unknown Verified 03/19/22 23:06 [From Bactrim] Childhood trimethoprim [From Bactrim] Allergy Unknown Verified 03/19/22 23:06 Childhood chocolate flavor AdvReac headache Verified 03/19/22 23:06 milk AdvReac headache Verified 03/19/22 23:06 ANESTHETIC(UNKNOWN) Allergy Unknown Uncoded 03/19/22 23:06 Physical Exam Vitals: Vital Signs Temp Pulse Resp BP Pulse Ox 04/01/23 04:25 65 14 171/80 98 04/01/23 03:29 98.9 F 68 14 98 04/01/23 01:08 70 14 134/90 99 04/01/23 00:55 66 16 177/118 98 04/01/23 00:39 68 12 185/97 97 04/01/23 00:25 71 12 195/92 92 L 04/01/23 00:05 97.3 F L 74 16 172/83 98 Intake and Output 03/31/23 03/31/23 04/01/23 14:59 22:59 06:59 Other: Weight 76.657 kg Results CBC & Chem 7: 04/01/23 00:10 04/01/23 00:10 Labs: Abnormal Lab Results - Last 24 Hours (Table) 04/01/23 Range/Units 00:10 BUN 20 H (7-17) mg/dL Glucose 113 H (74-99) mg/dL Assessment and Plan Assessment: 58-year-old female with hypertension coming in for right-sided weakness, I discussed the case with the adductor no TPA was given due to low NIH score I accepted the admission for acute ischemic stroke for further neurology workup and evaluation with anticipated length of stay more than 2 midnights Acute ischemic stroke CT of the brain without contrast was negative Patient declined contrast CT angiogram of the neck was not performed Check echocardiogram Check carotid ultrasound Continue with neuro checks Neurology consult NIH of 4 at time of my evaluation initiate dual antiplatelet therapy Permissive hypertension hold lisinopril keep systolic blood pressure below 220 diastolic below 120 EKG showed normal sinus rhythm Check TSH and lipid panel Blood work showed BUN of 20 creatinine 0.9 potassium 4 sodium 137 unremarkable Hemoglobin 12.9 white counts 4.6 unremarkable Full code DVT prophylaxis mechanical
[2023-04-01] MEDS ORDERED: SODIUM CHLORIDE 0.9% 1,000 ML IV SCH (06:15)
--- NOTE | 2023-04-01 08:15 | US ---
EXAMINATION TYPE: US carotid duplex BILAT DATE OF EXAM: 04/01/2023 COMPARISON: US dated 03/08/2022 CLINICAL INDICATION: Female, 58 years old with history of Stenosis; TECHNIQUE: Carotid duplex ultrasound examination. Indirect Doppler criteria was utilized. FINDINGS: EXAM MEASUREMENTS: RIGHT: Peak Systolic Velocity (PSV) cm/sec ----- Right CCA: 90.9 ----- Right ICA: 154.0 ----- Right ECA: 364.0 ICA/CCA ratio: 1.69 RIGHT: End Diastole cm/sec ----- Right CCA: 22.1 ----- Right ICA: 41.3 ----- Right ECA: 2.4 LEFT: Peak Systolic Velocity (PSV) cm/sec ----- Left CCA: 113.0 ----- Left ICA: 310.0 ----- Left ECA: 152.0 ICA/CCA ratio: 2.74 LEFT: End Diastole cm/sec ----- Left CCA: 26.6 ----- Left ICA: 116.0 ----- Left ECA: 2.0 VERTEBRALS (direction of flow): Right Vertebral: no flow detected Left Vertebral: Antegrade Rhythm: Normal BARKER PEELER NOTES: Soft plaque noted throughout. Elevated right ECA velocity. Significant stenosis no divina left bulb/ICA with increased velocities. IMPRESSION: 50-69% diameter reduction suggested left ICA. Criteria for Assigning % of Stenosis / Diameter reduction (Estimation based on the indirect measurements of the internal carotid artery velocities (ICA PSV). 1. Normal (no stenosis)=ICA PSV < 125 cm/s: ratio < 2.0: ICA EDV<40 cm/s. 2. Less than 50% stenosis=ICA PSV < 125 cm/s: ratio < 2.0: ICA EDV<40 cm/s. 3. 50 to 69% stenosis=ICA PSV of 125 to 230 cm/s: ration 2.0 ? 4.0: ICA EDV 40-100 cm/s. 4. Greater than 70% stenosis to near occlusion= ICA PSV > 230 cm/s: ratio > 4.0: ICA EDV > 100 cm/s. 5. Near occlusion= ICA PSV velocities may be low or undetectable: variable ratio and ICA EDV. 6. Total occlusion=unable to detect flow.
[2023-04-01] MEDS ORDERED: ATORVASTATIN 80 MG TAB PO SCH (09:00)
[2023-04-01] MEDS: CLOPIDOGREL 75 MG TAB PO SCH (09:40)
[2023-04-01] MEDS ORDERED: CLOPIDOGREL 75 MG TAB PO STA (10:52)
--- NOTE | 2023-04-01 10:56 | P.CNNES ---
History of Present Illness Consult date: 04/01/23 Requesting physician: Cedric Egan Reason for Consult: CVA, TIA History of Present Illness: Patient is a 58-year-old right-handed female with history of previous CVA, hypertension, dyslipidemia, came to the hospital last night at 11:59 PM for slurred speech and headache and some right-sided weakness. Patient states that her symptoms started at around 11 PM when she started feeling funny, and developed some slurred speech, right arm weakness and a headache. When she arrived to the hospital, the headache resolved and slurred speech also resolved, but then developed right-sided weakness. Patient was evaluated by the ED staff, and patient's NIH stroke scale was documented as 2 with some slurred speech, and right arm droop. As patient's symptoms were improving and had mild deficits, it appears as per electronic records that patient was considered not a candidate for TPA, and TPA was not administered. ED staff apparently discuss case with stroke neurologist as well. Please refer to ED report for more details. Patient denies any numbness of the extremities, or any problem with the vision. Vital signs on arrival blood pressure 172/83, which went up to 195/92. Pulse rate 74 temperature 97.3. Blood test shows normal CBC PT/PTT, normal CMP, troponin. CT head revealed no acute process. On my review, there is possibility of hypodensity in the left medial pontine region, rule out subacute CVA. EKG shows sinus rhythm. Chest x-ray revealed findings concerning for atypical pneumonia. No consolidation. Patient declined CTA of head and neck because of her ALLERGIES to the iodine. Patient states that over night her symptoms have got worse, with weakness of the right criminal lawyer and right-sided weakness. She still has some slurred speech. Patient has been seen by Dr. Vance Mcelroy in consultation on 03/10/2022 for acute ischemic stroke lateral right thalamus felt to be related to small vessel disease. Patient at that time presented with left-sided weakness including face, which resolved. Patient had suspected hemophilia, therefore she did not want to take antiplatelet medication. Patient was placed on statins. Patient declined CTA at that time because of iodine ALLERGY. Patient does take aspirin 81 mg and lisinopril 2.5 mg daily. Patient states that she was given Crestor prescription in the past, but developed severe side effects including sick feeling, dizziness, body aches and it was discontinued. Currently not on any statins. Patient denies any tobacco use, alcohol or diabetes. There was some concern of hemophilia in the previous reports, but patient stated that she probably does not have hemophilia, but she may be a carrier of 2 different conditions. Review of Systems Constitutional: Denies chills, Denies fever Eyes: denies blurred vision, denies diplopia, denies pain Ears: deny: decreased hearing, ear discharge Ears, nose, mouth and throat: Denies headache (Patient had headache last night, but now resolved.), Denies sore throat Cardiovascular: Denies chest pain, Denies shortness of breath Respiratory: Denies cough, Denies excessive sputum Gastrointestinal: Denies abdominal pain, Denies diarrhea, Denies nausea, Denies vomiting Genitourinary: Denies dysuria, Denies hematuria Musculoskeletal: Denies low back pain, Denies neck pain (Patient had slight neck pain last night, but now seems to have resolved.) Integumentary: Denies pruritus, Denies rash Neurological: Reports as per HPI Psychiatric: Reports anxiety, Reports depression Endocrine: Reports fatigue, Denies weight change Past Medical History Past Medical History: CVA/TIA, Fibromyalgia, Hypertension Additional Past Medical History / Comment(s): Primary pulmonary hypertension; Migraines History of Any Multi-Drug Resistant Organisms: None Reported Past Surgical History: Appendectomy Additional Past Surgical History / Comment(s): d&c Past Psychological History: Anxiety Smoking Status: Never smoker Past Alcohol Use History: None Reported Past Drug Use History: None Reported - Past Family History Mother Family Medical History: Hyperlipidemia, Myocardial Infarction ([place]) Additional Family Medical History / Comment(s): MS Father Additional Family Medical History / Comment(s): hemophilia Medications and Allergies Home Medications Medication Instructions Recorded Confirmed Type lisinopriL [Zestril] 2.5 mg PO DAILY 12/17/20 04/01/23 History Aspirin 81 mg PO DAILY 60 Days #60 tab 03/10/22 04/01/23 Rx Allergies Allergy/AdvReac Type Severity Reaction Status Date / Time cefaclor [From Ceclor] Allergy Unknown Verified 04/01/23 07:54 Childhood Penicillins Allergy Unknown Verified 04/01/23 07:54 povidone-iodine Allergy Unknown Verified 04/01/23 07:54 [From Betadine] sulfamethoxazole Allergy Unknown Verified 04/01/23 07:54 [From Bactrim] Childhood trimethoprim [From Bactrim] Allergy Unknown Verified 04/01/23 07:54 Childhood chocolate flavor AdvReac headache Verified 04/01/23 07:54 milk AdvReac headache Verified 04/01/23 07:54 ANESTHETIC(UNKNOWN) Allergy Unknown Uncoded 03/19/22 23:06 Physical Examination - Vital Signs Vital Signs: Vital Signs Temp Pulse Resp BP Pulse Ox 04/01/23 09:31 62 18 188/92 98 04/01/23 06:55 66 14 162/98 98 04/01/23 05:25 68 16 176/88 90 L 04/01/23 04:25 65 14 171/80 98 04/01/23 03:29 98.9 F 68 14 98 04/01/23 01:08 70 14 134/90 99 04/01/23 00:55 66 16 177/118 98 04/01/23 00:39 68 12 185/97 97 04/01/23 00:25 71 12 195/92 92 L 04/01/23 00:05 97.3 F L 74 16 172/83 98 Intake and Output 03/31/23 04/01/23 04/01/23 22:59 06:59 14:59 Other: Weight 76.657 kg Patient is a middle aged female, appears to be in distress because of ongoing symptoms. She is emotional, crying because of stroke symptoms. Patient is alert awake oriented to time place and person. Patient can name and repeat very well. Patient has mild dysarthria, but no aphasia. Attention, concentration and fund of knowledge is adequate. On cranial nerve examination, pupils are equal, round and reacting to light, visual mike are full on confrontation, with no neglect on double simultaneous stimulation. Extraocular muscles are intact with no nystagmus. Patient has right facial weakness, central type, with sparing of the forehead region. Her tongue protrudes to the midline. Palatal elevation and sensation normal, hearing and shoulder shrug normal, facial sensation normal. On muscle strength testing, patient states that she cannot lift her arms up to check for blood or drift. However on encouragement, she was able to bring it up, and hold it for 5 seconds and then gets tired and been sent down. Likewise in order to check for lower extremity drift, patient would not able to bring it up, but when manually lift it up, she was able to hold it for 5 seconds and then gets tired and brings it down immediately. The muscle strength is completely normal in the left side of the body. On the right side deltoid 4-4+, biceps 4+, triceps 4+, criminal lawyer 4. Plantar flexion 5-, ankle dorsiflexion 0, hip flexion 2-3. Deep tendon reflexes are (right/left) biceps 2/2+, brachioradialis 2/2+, knees 2+/2, ankles 2+/1+ and plantar is clearly upgoing on the right, down left. Sensory to touch is equal in the arms and legs bilaterally, with no neglect on double simultaneous stimulation. Cerebellar function showed slight ataxia for ppvgvy-zj-erml testing only on the right side. No ataxia for yivq-ia-dzqu testing on either side. Tone and bulk of muscles normal. Gait deferred.. On general examination, there is no carotid bruit or murmur, S1-S2 audible. Chest is clear on consultation. Abdomen is soft nontender. No organomegaly, bowel sounds present. Peripheral pulses are present. No edema. Results - Laboratory Findings CBC and BMP: 04/01/23 00:10 04/01/23 00:10 Abnormal Lab Findings: Abnormal Labs 04/01/23 00:10 BUN 20 H Glucose 113 H Assessment and Plan Assessment: * Acute CVA with right hemiparesis. Patient's current NIH stroke scale is 6. * History of right lateral thalamic ischemic CVA with left-sided symptoms on 03/10/2022. Symptoms completely resolved. * Hypertension * Hyperlipidemia * Chronic neck pain Plan: * Patient has presented with an acute ischemic stroke with right hemiparesis and slurred speech. Patient's symptoms improved in the ER and her NIH stroke scale was only 2. She was considered not a candidate for TPA at that time as per electronic records. Overnight symptoms have got worse. At present her NIH stroke scale is 6. At present patient not a candidate for TPA because of symptoms present for > 4.5 hours. * MRI of the brain without contrast, evaluate for acute CVA * 2-D echo with bubble study to rule out PFO * Carotid Doppler, revealed 50-69% diameter reduction suggest left ICA. Right vertebral has no flow detected. Antegrade flow in the left vertebral artery. * Check MRA of the neck for further evaluation. May consider vascular surgical consultation. * Fasting a.m. lipid panel * Hemoglobin A1c * Permissive hypertension for next 24-48 hours * Patient was taking aspirin 81 mg daily. Patient to be loaded with Plavix 150 mg 1 dose and then 75 mg daily. * Close neuro checks as per protocol. * Telemetry monitoring rule out any arrhythmia * PT, OT, speech therapy. * DVT prophylaxis: Heparin 5000 units subcu every 8 hours * Dr Hutton will cover neurology service over the weekend. Thank you for the consult. Time with Patient: Greater than 30
--- NOTE | 2023-04-01 12:20 | CA ---
Transthoracic Echo Report Name: Celina Mejia Age: 58 Gender: F : 1965 Exam Date: 04/01/2023 08:52 Exam Location: [facility] Ht (in): 63 Wt (lb): 169 Ordering Physician: Cedric Egan DO Attending/Referring Phys: [id number], Julisa Hull Builder Brody Treviño Procedure CPT: Indications: Thrombus Cardiac Hx: Technical Quality: Fair Contrast 1: Total Dose (mL): Contrast 2: Total Dose (mL): MEASUREMENTS (Male / Female) Normal Values 2D ECHO LV Diastolic Diameter PLAX 4.4 cm 4.2 - 5.9 / 3.9 - 5.3 cm LV Systolic Diameter PLAX 2.9 cm IVS Diastolic Thickness 1.4 cm 0.6 - 1.0 / 0.6 - 0.9 cm LVPW Diastolic Thickness 0.9 cm 0.6 - 1.0 / 0.6 - 0.9 cm LV Relative Wall Thickness 0.5 RV Internal Dim ED PLAX 3.6 cm LVOT Diameter 2.0 cm Aortic Root Diameter 3.0 cm LA Systolic Diameter LX 3.2 cm 3.0 - 4.0 / 2.7 - 3.8 cm LV Diastolic Volume MOD BP 47.2 cm??? 67 - 155 / 56 - 104 cm??? LV Systolic Volume MOD BP 17.6 cm??? 22 - 58 / 19 - 49 cm??? LV Ejection Fraction MOD BP 62.7 % >= 55 % LV Cardiac Index MOD BP 980.6 cm???/min???m??? LV Diastolic Volume MOD 4C 46.0 cm??? LV Systolic Volume MOD 4C 15.6 cm??? LV Ejection Fraction MOD 4C 66.1 % LV Cardiac Index MOD 4C 1007.6 cm???/min???m??? LV Diastolic Length 4C 5.9 cm LV Systolic Length 4C 5.0 cm LV Diastolic Volume MOD 2C 48.6 cm??? LV Systolic Volume MOD 2C 19.0 cm??? LV Ejection Fraction MOD 2C 60.9 % LV Cardiac Index MOD 2C 979.6 cm???/min???m??? LV Diastolic Length 2C 5.8 cm LV Systolic Length 2C 5.4 cm LA Volume 41.2 cm??? 18 - 58 / 22 - 52 cm??? Ascending Aorta Diameter 3.2 cm DOPPLER AV Peak Velocity 139.7 cm/s AV Peak Gradient 7.8 mmHg LVOT Peak Velocity 102.4 cm/s LVOT Peak Gradient 4.2 mmHg AV Area Cont Eq pk 2.4 cm??? MV Peak Velocity 104.3 cm/s MV Peak Gradient 4.4 mmHg MV Mean Velocity 54.9 cm/s MV Mean Gradient 1.5 mmHg MV Velocity Time Integral 35.9 cm MR Peak Velocity 652.5 cm/s MR Peak Gradient 170.3 mmHg Mitral E Point Velocity 74.0 cm/s Mitral A Point Velocity 79.4 cm/s Mitral E to A Ratio 0.9 MV Deceleration Time 266.1 ms TR Peak Velocity 256.4 cm/s TR Peak Gradient 26.3 mmHg Right Ventricular Systolic Press 32.1 mmHg PV Peak Velocity 83.6 cm/s PV Peak Gradient 2.8 mmHg FINDINGS Left Ventricle Normal LV size and wall thickness. Left ventricular ejection fraction is estimated at 55-60 %.normal left ventricular wall motion. Right Ventricle Normal right ventricular size. RVSP= 39mmhg Right Atrium Normal right atrial size. Left Atrium Normal left atrial size. LA Volume index= 23ml/m2 Mitral Valve Structurally normal mitral valve. Mild to Moderate MR with at least two jets identified. Aortic Valve Trileaflet aortic valve. No aortic valve stenosis or regurgitation. Tricuspid Valve Structurally normal tricuspid valve. Moderate TR. Pulmonic Valve Pulmonic valve not well visualized. Trace PI. Pericardium Normal pericardium. Aorta Normal size aortic root and proximal ascending aorta. CONCLUSIONS 1. Normal left ventricle size and systolic function 2. Girm-eh-ptiqbfbm mitral with moderate tricuspid regurgitation and mild pulmonary hypertension Previewed by: Dr. Aikko Garcia MD (Electronically Signed) Final Date: 01 April 2023 12:19
--- NOTE | 2023-04-01 17:56 | MR ---
EXAMINATION TYPE: MR brain wo con DATE OF EXAM: 04/01/2023 5:22 PM COMPARISON: 03/09/2022. CLINICAL INDICATION:Female, 58 years old with history of Acute CVA; Acute CVA TECHNIQUE: Multi planar, multi sequence imaging was performed through the brain including: T1, T2, In version recovery, Diffusion weighted imaging, and gradient echo imaging. No gadolinium was given. FINDINGS: Restricted diffusion within the left superior medulla oblongata/inferior paxton. The york-white junctions, ventricular system, and cisterns appear unremarkable. Scattered foci of hi gh T2 signal intensity are seen within the periventricular white matter. Midline structures show no a bnormality. The susceptibility weighted images do not reveal any evidence for micro-hemorrhage. The bone marrow signal is within normal limits. Paranasal sinuses and mastoid air cells: No significant paranasal sinus disease. Visualized orbits: Orbital contents are intact. IMPRESSION: 1. Acute/subacute CVA involving the left inferior paxton/superior lingula. 2. Nonspecific white matter changes, likely secondary to small vessel ischemic disease.
--- NOTE | 2023-04-01 18:10 | MR ---
EXAMINATION TYPE: MR angio neck wo/w con DATE OF EXAM: 04/01/2023 5:40 PM CLINICAL INDICATION:Female, 58 years old with history of Left ICA stenosis, right vertebral artery oc clusio; Left ICA stenosis, right vertebral artery occlusion COMPARISON: None TECHNIQUE: Multiplanar, multi-sequence imaging as well as vcev-nm-ojctxg and phase contrast imaging w as performed extracranial vasculature of the neck. 2-D and 3-D diwj-hm-qcsnoq imaging. 3-D reformatte d images and maximum intensity projection reformatted images were submitted for evaluation. IV Contrast: 7 cc Gadavist FINDINGS: RIGHT CAROTID SYSTEM: The common carotid artery is patent. There is at least 25-50% stenosis of the r ight carotid bifurcation. The internal carotid arteries patent. LEFT CAROTID SYSTEM: The common carotid artery is patent. There is at least 50-70% stenosis of the c arotid bifurcation. The internal carotid arteries patent. The origins of the great vessels and vertebral arteries appear unremarkable. There is a diminutive ap pearance of the right vertebral artery which extends from its origin and demonstrates multiple areas in the PET imaging where there is nonvisualization of the vessel most pronounced more superiorly part icularly the intracranial portion. IMPRESSIONS: 1. Nonvisualization of the distal portions of the right vertebral artery most compatible with occlus ion. Motion artifact slightly limits evaluation. 2. 50-70% stenosis of the left carotid bifurcation and 25-50% stenosis of the right carotid bifurcat ion. 3. No evidence aneurysm.
--- NOTE | 2023-04-01 18:43 | P.PN ---
Subjective Progress Note Date: 04/01/23 Hospital course: Patient is a very pleasant 58-year-old female with a past medical history of hypertension, fibromyalgia, pulmonary hypertension, migraines, and previous CVA with no reported deficits. She presented to the emergency department overnight secondary to right-sided weakness and slurred speech. Patient reports she was getting ready for bed because and went to turn down her air conditioner around 10-11 pm but states that while walking to thermastat she suddenly felt "off" and suddenly noticed she was experiencing right-sided weakness and went directly to her daughter's room for help and by the time she got there she reports she was having weakness throughout her entire right upper and lower extremity as well as slurring of her speech so her family brought her straight to the emergency department. Upon arrival to the emergency room a CT brain was completed which was negative for acute intercranial process. EKG was completed showing normal sinus rhythm at 65 bpm with no noted T-wave or ST abnormalities upon personal review and interpretation. Blood glucose 113. Labs completed and reviewed. CBC, coags, and CMP were unremarkable. Patient was admitted under the services of consultation to neurology. Physical exam: Vital signs reviewed and stable. General: Nontoxic, no distress and appears stated age. Derm: Skin warm and dry, normal coloration for ethnicity. Head: Atraumatic, normocephalic and symmetric. Eyes: EOMs intact, no lid lag, and anicteric sclera Mouth: no lip lesions, mucus membranes moist Cardiovascular: regular rate and rhythm with normal S1S2, no murmur, positive posterior tibial pulses bilaterally, and cap refill < 2 seconds. Lungs: Respirations even, regular, and unlabored on room air. Lungs CTA bilaterally, no rhonchi, no rales, no wheezing, and no accessory muscle usage. Abdominal: soft, nontender to palpation, no guarding, no appreciable organomegaly Ext: No gross muscle atrophy, no edema, no contractures. Sensation intact and equal in all 4 extremities. Patient with full range of motion and left upper and left lower extremity. She does have moderate noted right-sided weakness in upper and lower extremities Neuro:, face symmetrical and CN II-XII grossly intact with no noted focal neuro deficits. Speech slurred. Psych: Alert and oriented to person, place, time, and situation. Appropriate and pleasant affect. Assessment and Plan of Care: Acute ischemic stroke with right-sided upper and lower extremity weakness and speech deficits History of previous CVA in 2021 with no reported deficits at that time History of hypertension History of migraines History of fibromyalgia -NIH score 6. -Continue neuro checks. -Per documentation on chart, ED physician documented no TPA secondary to low NIH score and improving symptoms -Telemetry monitoring -Echocardiogram -Carotid Dopplers -Neurology following and Discussed plan of care with neurologist, ordered MRI brain and MRA head and neck. -Consult to physical and occupational therapy. -Consult to speech-language pathologist -Patient to continue with aspirin 325 mg daily, atorvastatin 40 mg nightly, and Plavix 75 mg daily. -Continue to allow for permissive hypertension over the next 24 hours and patient may resume lisinopril 2.5 mg daily starting tomorrow morning. CODE STATUS: Full code DVT prophylaxis: Lovenox Discussed with: Patient, RN, and neurologist Anticipated discharge date: Clinical course to determine Anticipated discharge place: Home with home care versus rehab Patient was seen independently by Nurse Pracitioner. This document was prepared using [employer] dictation software. Please allow for errors in hand finisher, while rare they do occur. Jose Juan Nye NP rendered care for this patient independently, reviewed the findings and plan as documented in the note above. I did not physically speak w ith or examine the patient on this date. Objective - Vital Signs Vital signs: Vital Signs Temp 98.9 F 04/01/23 03:29 Pulse 66 04/01/23 06:55 Resp 14 04/01/23 06:55 BP 162/98 04/01/23 06:55 Pulse Ox 98 04/01/23 06:55 FiO2 Intake & Output 03/31/23 04/01/23 04/01/23 18:59 06:59 18:59 Weight 76.657 kg - Labs CBC & Chem 7: 04/01/23 00:10 04/01/23 00:10 Labs: Abnormal Lab Results - Last 24 Hours (Table) 04/01/23 Range/Units 00:10 BUN 20 H (7-17) mg/dL Glucose 113 H (74-99) mg/dL
[2023-04-01] MEDS: ENOXAPARIN 40 MG/0.4 ML SYRINGE SQ SCH (19:03)
[2023-04-01] MEDS: ATORVASTATIN 40 MG TAB PO SCH (20:24)
[2023-04-02] MEDS: CLOPIDOGREL 75 MG TAB PO SCH (08:19)
[2023-04-02] MEDS: ASPIRIN 325 MG TAB PO SCH (08:19)
[2023-04-02] MEDS: ENOXAPARIN 40 MG/0.4 ML SYRINGE SQ SCH (08:20)
[2023-04-02] MEDS ORDERED: CLOPIDOGREL 75 MG TAB PO SCH (09:00)
[2023-04-02 12:56] LABS: Chol/HDL Ratio 7.53 Ratio; LDL Cholesterol,Calculated 174.2 mg/dL (0.0-131.0)
--- NOTE | 2023-04-02 14:06 | P.PN ---
Subjective Progress Note Date: 04/02/23 Hospital course: Patient is a very pleasant 58-year-old female with a past medical history of hypertension, fibromyalgia, pulmonary hypertension, migraines, and previous CVA with no reported deficits. She presented to the emergency department overnight secondary to right-sided weakness and slurred speech. Patient reports she was getting ready for bed because and went to turn down her air conditioner around 10-11 pm but states that while walking to thermastat she suddenly felt "off" and suddenly noticed she was experiencing right-sided weakness and went directly to her daughter's room for help and by the time she got there she reports she was having weakness throughout her entire right upper and lower extremity as well as slurring of her speech so her family brought her straight to the emergency department. Upon arrival to the emergency room a CT brain was completed which was negative for acute intercranial process. EKG was completed showing normal sinus rhythm at 65 bpm with no noted T-wave or ST abnormalities upon personal review and interpretation. Blood glucose 113. Labs completed and reviewed. CBC, coags, and CMP were unremarkable. Per documentation in chart, ED physician documented no TPA given secondary to low NIH score and improving symptoms Patient was admitted under our services with consultation to neurology. Echocardiogram completed revealing normal EF 55-60% and mild to moderate tricuspid regurgitation with mild pulmonary hypertension. Carotid Doppler showing 50-69% left ICA stenosis. MRA neck with and without contrast showing nonvisualization of the distal portions of the right vertebral artery most compatible with occlusion and 50-70% stenosis of the left carotid bifurcation and 20-50% stenosis of the right carotid bifurcation. MRI brain showing acute CVA involving the left inferior paxton/superior lingula along with nonspecific white matter changes likely secondary to small vessel ischemic disease. Order placed for consult to vascular surgery. lipid profile also resulting with elevated triglycerides of 174, total cholesterol of 241,and LDL of 174.2, and low HDL of 32. Physical exam: Patient seen and fully evaluated at bedside this morning. She is having slight improvement in strength of right upper extremity but continues with moderate weakness of the right lower extremity. Sensation remains intact and equal throughout all 4 limbs. Patient has had improvement in speech but continues to have occasional episodes of slurring noted. Patient denies having headache, lightheadedness, dizziness, changes in vision or hearing, or any other complaints at this time. Vital signs reviewed and stable. General: Nontoxic, no distress and appears stated age. Derm: Skin warm and dry, normal coloration for ethnicity. Head: Atraumatic, normocephalic and symmetric. Eyes: EOMs intact, no lid lag, and anicteric sclera Mouth: no lip lesions, mucus membranes moist Cardiovascular: regular rate and rhythm with normal S1S2, no murmur, positive posterior tibial pulses bilaterally, and cap refill < 2 seconds. Lungs: Respirations even, regular, and unlabored on room air. Lungs CTA bilaterally, no rhonchi, no rales, no wheezing, and no accessory muscle usage. Abdominal: soft, nontender to palpation, no guarding, no appreciable organomegaly Ext: No gross muscle atrophy, no edema, no contractures. Sensation intact and equal in all 4 extremities. Patient with full range of motion and left upper and left lower extremity. She does have moderate noted right-sided weakness in upper and lower extremities Neuro:, face symmetrical and CN II-XII grossly intact with no noted focal neuro deficits. Speech slurred. Psych: Alert and oriented to person, place, time, and situation. Appropriate and pleasant affect. Assessment and Plan of Care: Acute ischemic stroke involving the left inferior paxton and superior lingula resu lting in right-sided upper and lower extremity weakness and speech deficits History of previous CVA in 2021 with no reported deficits at that time Carotid stenosis Occluded vertebral artery History of hypertension History of migraines History of fibromyalgia -Continue neuro checks every 4 hours. -Neurology following -Echocardiogram completed revealing normal EF 55-60% and mild to moderate tricuspid regurgitation with mild pulmonary hypertension. -Carotid Doppler showing 50-69% left ICA stenosis. -MRA neck with and without contrast showing nonvisualization of the distal portions of the right vertebral artery most compatible with occlusion and 50-70% stenosis of the left carotid bifurcation and 20-50% stenosis of the right carotid bifurcation. -MRI brain showing acute CVA involving the left inferior paxton/superior lingula along with nonspecific white matter changes likely secondary to small vessel ischemic disease. -Orders placed for consult to vascular surgery. -Lipid profile also resulting with elevated triglycerides of 174, total cholesterol of 241,and LDL of 174.2, and low HDL of 32. -Telemetry monitoring -Discussed with patient and family possibility of inpatient rehab and consult placed to Dr. Shaffer for evaluation for inpatient stroke rehab secondary to persistent right-sided deficits. -Consult to physical and occupational therapy. -Consult to speech-language pathologist -Patient to continue with aspirin 325 mg daily, atorvastatin 40 mg nightly, and Plavix 75 mg daily. -Allowed for permissive hypertension for 24 hours due to acute ischemic stroke and resumed lisinopril 2.5 mg daily this morning. CODE STATUS: Full code DVT prophylaxis: Lovenox Discussed with: Patient, RN, and neurologist Anticipated discharge date: Clinical course to determine Anticipated discharge place: Home with home care versus rehab Patient was seen independently by Nurse Pracitioner. This document was prepared using [employer] dictation software. Please allow for errors in gravity prospecting supervisor, while rare they do occur. I reviewed the documentation as provided by the JOSE ENRIQUE above, who is the original author of this note. I agree with the documented assessment and plan, with the following changes: none Objective - Vital Signs Vital signs: Vital Signs Temp 98.1 F 04/02/23 04:00 Pulse 64 04/02/23 04:00 Resp 18 04/02/23 04:00 BP 157/73 04/02/23 04:00 Pulse Ox 98 04/02/23 04:00 FiO2 Intake & Output 04/01/23 04/02/23 04/02/23 18:59 06:59 18:59 Intake Total 0 110 0 Balance 0 110 0 Weight 76.657 kg Intake: Oral 0 110 0 Other: Voiding Method Bedside Commode # Voids 1 - Labs CBC & Chem 7: 04/01/23 00:10 04/01/23 00:10
--- NOTE | 2023-04-02 15:22 | P.PN ---
Subjective Progress Note Date: 04/02/23 The patient is a 58-year-old female who is seen in neurologic follow-up on April 02, 2023, via teleneurology. The patient's chart has been reviewed. She represented to the emergency department with right-sided weakness and slurring of speech. Apparently in the ER, NIH stroke scale score is reported to be 2. She was deemed not to be a candidate for IV TPA. Her symptoms were also reportedly improving. The patient was admitted. By the time she was seen by neurology the next morning, age stroke scale score had increased to 6. MRI of the brain revealed an acute infarct involving the inferior left paxton. CT angiogram and MRA of the neck both revealed evidence of complete occlusion of the right vertebral artery. There is also noted 50-75% stenosis of the left carotid artery. The patient reportedly had a stroke approximately one year ago. At that time CT angiogram reported occlusion of the right vertebral and 50% stenosis of the left ICA. The patient's previous stroke involving the right thalamus. She has no residual weakness. This morning, the patient reports that her right sided strength seems to be mildly improved. She is frustrated and depressed. Objective - Vital Signs Vital signs: Vital Signs Temp 98.7 F 04/02/23 08:00 Pulse 59 L 04/02/23 08:00 Resp 16 04/02/23 08:00 BP 192/88 04/02/23 08:00 Pulse Ox 96 04/02/23 08:00 FiO2 Intake & Output 04/01/23 04/02/23 04/02/23 18:59 06:59 18:59 Intake Total 0 110 120 Output Total 0 Balance 0 110 120 Weight 76.657 kg Intake: Oral 0 110 120 Output: Gastric Drainage 0 Urine 0 Stool 0 Urine/Stool Mix 0 Emesis 0 Oral Regurgitation 0 Other 0 Other: Voiding Method Bedside Commode Bedside Commode # Voids 1 0 # Bowel Movements 0 - Exam Gen.: The patient is reclining in the bed. She is well-nourished. She appears her stated age. HEENT: Head is atraumatic, normocephalic. Fundus not visualized. There is no scleral icterus. Mucous members are moist Neurological examination Mental status: The patient is awake, alert and oriented 3. There is an occasional slurring of speech. Cranial nerves: Pupils are equal at 3 mm and reactive. Visual mike are full to confrontation. Extraocular movements are intact. Facial sensation is intact. There is mild right facial drooping. Hearing is grossly intact. Uvula and palate are midline. Shoulder shrug is diminished on the right. Tongue protrudes midline. Motor: Right sided strength is 4/5. Left-sided strength is 5/5. Deep tendon reflexes: 3+/4+ in the right upper and lower extremities. Left upper and lower extremity reflexes 2+/4+. Sensation: Grossly intact to light touch throughout - Labs CBC & Chem 7: 04/01/23 00:10 04/01/23 00:10 Labs: Abnormal Lab Results - Last 24 Hours (Table) 04/02/23 Range/Units 07:18 Triglycerides 174.00 H (0.00-149.00) mg/dL Cholesterol 241.00 H (0.00-200.00) mg/dL LDL Cholesterol, Calc 174.2 H (0.0-131.0) mg/dL HDL Cholesterol 32.00 L (40.00-60.00) mg/dL Assessment and Plan Assessment: 1. Acute left pontine infarct 2. Left ICA stenosis 3. Right vertebral artery occlusion 4. History of hypertension 5. History of hyperlipidemia 6. History of previous stroke Plan: 1. Consider transesophageal echocardiogram for further evaluation of the heart, with bubble study, also to assess for the possibility of thrombus, with possible placement of loop recorder to assess for atrial fibrillation, in light of strokes occurring in different vascular territories 2. Continue aspirin and Plavix at this point. The patient reports that she was taking aspirin 81 mg, following her previous discharge 3. High intensity statin should be initiated as the patient has elevated total cholesterol and LDL 4. Agree with inpatient rehabilitation transfer as the patient is young and will likely do well. Also because the patient is right hand dominant and her current deficit is right-sided Time with Patient: Greater than 30 (40 minutes were spent caring for this patient today including, obtaining a history, examining the patient, reviewing imaging, chart documentation, labs, placing orders and creating this note)
[2023-04-02] MEDS: ATORVASTATIN 40 MG TAB PO SCH (19:50)
[2023-04-03] MEDS: ENOXAPARIN 40 MG/0.4 ML SYRINGE SQ SCH (08:51)
[2023-04-03] MEDS: CLOPIDOGREL 75 MG TAB PO SCH (08:51)
[2023-04-03] MEDS: ASPIRIN 325 MG TAB PO SCH (08:51)
--- NOTE | 2023-04-03 09:54 | P.GSCN ---
History of Present Illness Consult date: 04/03/23 History of present illness: Francy is a 58-year-old female with multiple comorbidities including hypertension, dyslipidemia, fibromyalgia, pulmonary hypertension and migraines who presented to the ER for speech changes, headache and some right-sided weakness. Upon workup and evaluation it was thought she had a acute ischemic stroke. Previously she had had something similar back in the beginning of the month in the right lateral thalamus related to small vessel disease. Her left- sided weakness had resolved at that point. She has not been on anything other than aspirin due to refusing to take antiplatelet medication for fear bleeding as well as stating that Crestor cause significant joint aches and bone pain therefore she was not taking it. She has not ever tried Lipitor. At this point we are consult for findings of carotid stenosis. The patient overall feels better from regards to her weakness but is anxious and states she is depressed at this point with everything going on. Past Medical History Past Medical History: CVA/TIA, Fibromyalgia, Hypertension Additional Past Medical History / Comment(s): Primary pulmonary hypertension; Migraines History of Any Multi-Drug Resistant Organisms: None Reported Past Surgical History: Appendectomy Additional Past Surgical History / Comment(s): d&c Past Anesthesia/Blood Transfusion Reactions: No Reported Reaction Past Psychological History: Anxiety Smoking Status: Never smoker Past Alcohol Use History: None Reported Past Drug Use History: None Reported - Past Family History Mother Family Medical History: Hyperlipidemia, Myocardial Infarction ([place]) Additional Family Medical History / Comment(s): MS Father Additional Family Medical History / Comment(s): hemophilia Medications and Allergies Home Medications Medication Instructions Recorded Confirmed Type lisinopriL [Zestril] 2.5 mg PO DAILY 12/17/20 04/01/23 History Aspirin 81 mg PO DAILY 60 Days #60 tab 03/10/22 04/01/23 Rx Allergies Allergy/AdvReac Type Severity Reaction Status Date / Time cefaclor [From Ceclor] Allergy Unknown Verified 04/01/23 07:54 Childhood Penicillins Allergy Unknown Verified 04/01/23 07:54 povidone-iodine Allergy Unknown Verified 04/01/23 07:54 [From Betadine] sulfamethoxazole Allergy Unknown Verified 04/01/23 07:54 [From Bactrim] Childhood trimethoprim [From Bactrim] Allergy Unknown Verified 04/01/23 07:54 Childhood chocolate flavor AdvReac headache Verified 04/01/23 07:54 milk AdvReac headache Verified 04/01/23 07:54 ANESTHETIC(UNKNOWN) Allergy Unknown Uncoded 03/19/22 23:06 Surgical - Exam Vital Signs Temp Pulse Resp BP Pulse Ox 97.3 F L 74 16 172/83 98 04/01/23 00:05 04/01/23 00:05 04/01/23 00:05 04/01/23 00:05 04/01/23 00:05 Genitals a pleasant cooperative female, mildly emotional but no acute distress. She is awake and alert and oriented to person place and time. HEENT is normal cephalic, atraumatic, extraocular motion intact. Heart appears regular. Lungs are clear. Abdomen is soft. Extremity show no clubbing, cyanosis or edema. Cranial nerves II through XII grossly intact at this time Results Carotid Doppler and MRA are reviewed. The carotid Doppler shows a right side with a peak systolic velocity of 154 cm/s and a ratio of 1.69 to correlate with 50-69% stenosis. On the left her peak systolic velocity 310 with a ratio 2.74 and an elevated end-diastolic velocity of 116 which would correlate with greater than 70% stenosis. The MRA was reviewed and does reveal likely at least 70% stenosis of the left internal carotid artery - Labs 04/01/23 00:10 04/01/23 00:10 Abnormal Lab Results - Last 24 Hours (Table) 04/02/23 Range/Units 07:18 Triglycerides 174.00 H (0.00-149.00) mg/dL Cholesterol 241.00 H (0.00-200.00) mg/dL LDL Cholesterol, Calc 174.2 H (0.0-131.0) mg/dL HDL Cholesterol 32.00 L (40.00-60.00) mg/dL Diabetes panel 04/02/23 Range/Units 07:18 Triglycerides 174.00 H (0.00-149.00) mg/dL HDL Cholesterol 32.00 L (40.00-60.00) mg/dL Assessment and Plan Assessment: Carotid stenosis, bilateral greater on the left Acute CVA with right hemiparesis, improved History of right lateral traumatic CVA, resolved Hypertension Hyperlipidemia Plan: At this point did review the images and I believe the patient has moderate to high-grade stenosis of the left internal carotid artery given imaging and findings. I do believe it is greater than 70%. We did discuss that this still may not be the cause of her issues given her multifocal distribution and do agree that cardiac workup a be beneficial. We discussed that at this time there is no urgent need for carotid intervention however it is likely we will be discussing this in the near future pending further neurology input. We discussed the importance of dual antiplatelet therapy as well as statin medication. She is not sure of the stomach she is willing to try but will consider it.
--- NOTE | 2023-04-03 14:04 | P.PN ---
Subjective Progress Note Date: 04/03/23 Hospital course: Patient is a very pleasant 58-year-old female with a past medical history of hypertension, fibromyalgia, pulmonary hypertension, migraines, and previous CVA with no reported deficits. She presented to the emergency department overnight secondary to right-sided weakness and slurred speech. Patient reports she was getting ready for bed because and went to turn down her air conditioner around 10-11 pm but states that while walking to thermastat she suddenly felt "off" and suddenly noticed she was experiencing right-sided weakness and went directly to her daughter's room for help and by the time she got there she reports she was having weakness throughout her entire right upper and lower extremity as well as slurring of her speech so her family brought her straight to the emergency department. Upon arrival to the emergency room a CT brain was completed which was negative for acute intercranial process. EKG was completed showing normal sinus rhythm at 65 bpm with no noted T-wave or ST abnormalities upon personal review and interpretation. Blood glucose 113. Labs completed and reviewed. CBC, coags, and CMP were unremarkable. Per documentation in chart, ED physician documented no TPA given secondary to low NIH score and improving symptoms Patient was admitted under our services with consultation to neurology. Echocardiogram completed revealing normal EF 55-60% and mild to moderate tricuspid regurgitation with mild pulmonary hypertension. Carotid Doppler showing 50-69% left ICA stenosis. MRA neck with and without contrast showing nonvisualization of the distal portions of the right vertebral artery most compatible with occlusion and 50-70% stenosis of the left carotid bifurcation and 20-50% stenosis of the right carotid bifurcation. MRI brain showing acute CVA involving the left inferior paxton/superior lingula along with nonspecific white matter changes likely secondary to small vessel ischemic disease. Order placed for consult to vascular surgery. Lipid profile also resulting with elevated triglycerides of 174, total cholesterol of 241,and LDL of 174.2, and low HDL of 32. Hemoglobin A1c 5.6%. Patient continues to refuse atorvastatin at this time. Physical exam: Patient seen and fully evaluated at bedside this morning. She continues to report improvement in strength of right upper and now having improvement in right lower extremity strength. Sensation remains intact and equal throughout all 4 limbs. Patient has had improvement in speech but again continues to have persistent episodes of slurring. Patient denies having headache, lightheadedness, dizziness, changes in vision or hearing, or any other complaints at this time. She has been refusing Lipitor. Discussed with her the importance of taking medication as ordered and this was discussed with her by both neurologist and myself. Pt states that she did not like the way crestor made her feel and she does not like taking new medications. Discussed with patient we would like to see if she tolerates Lipitor better and cannot determine this if she is unwilling to take. Pt states that she wants to talk to the neurologist again before she is willing to take any more new medications. Patient reports feeling very anxious this diagnosis and recommendations. Vital signs reviewed and stable. General: Nontoxic, no distress and appears stated age. Derm: Skin warm and dry, normal coloration for ethnicity. Head: Atraumatic, normocephalic and symmetric. Eyes: EOMs intact, no lid lag, and anicteric sclera Mouth: no lip lesions, mucus membranes moist Cardiovascular: regular rate and rhythm with normal S1S2, no murmur, positive posterior tibial pulses bilaterally, and cap refill < 2 seconds. Lungs: Respirations even, regular, and unlabored on room air. Lungs CTA bilaterally, no rhonchi, no rales, no wheezing, and no accessory muscle usage. Abdominal: soft, nontender to palpation, no guarding, no appreciable organomegaly Ext: No gross muscle atrophy, no edema, no contractures. Sensation intact and equal in all 4 extremities. Patient with full range of motion in bilateral upper and lower extremities. Patient does have continued slight weakness noted to right upper and lower extremities. Neuro:, face symmetrical and CN II-XII grossly intact with no noted focal neuro deficits. Speech clear at time of assessment, however patient and patient's family at bedside reports continued episodes of slurred speech. Psych: Alert and oriented to person, place, time, and situation. Appropriate and pleasant affect. Assessment and Plan of Care: Acute ischemic stroke involving the left inferior paxton and superior lingula resulting in right-sided upper and lower extremity weakness and speech deficits History of previous CVA in 2021 with no reported deficits at that time Carotid stenosis Occluded vertebral artery Hyperlipidemia Hypertension, poorly controlled. History of migraines History of fibromyalgia -Continue neuro checks every 4 hours. -Neurology following and recommending BIANCA. -Vascular surgery also following, and discussed plan of care with Dr. Cm, vascular surgeon. She is in agreement with BIANCA and stated further cardiac workup would be beneficial and also stated that she discussed with patient and if patient is agreeable she will likely need carotid stenting in the near future. -Order placed for consult to cardiology to evaluate for BIANCA and discussed this with shelf filler. -Telemetry monitoring -Discussed with patient and family possibility of inpatient rehab and consult placed to Dr. Shaffer for evaluation for inpatient stroke rehab secondary to persistent right-sided deficits. -Consult to physical and occupational therapy. -Consult to speech-language pathologist -Patient to continue with aspirin 325 mg daily, atorvastatin 40 mg nightly, and Plavix 75 mg daily. -Allowed for permissive hypertension for 24 hours due to acute ischemic stroke and resumed lisinopril 2.5 mg daily on 04/02/23. This has not been effective in controlling pressure and they remain elevated at 174/91 and 187/100, patient very anxious about beginning any new medications and therefore increased lisinopril increased to 20 mg daily. Will monitor for improvement. CODE STATUS: Full code DVT prophylaxis: Lovenox Discussed with: Patient, RN, vascular surgeon and patient's family at bedside Anticipated discharge date: Clinical course to determine Anticipated discharge place: Home with home care versus rehab Patient was seen independently by Nurse Pracitioner. This document was prepared using [employer] dictation software. Please allow for errors in metallurgical lab technician, while rare they do occur. Jose Juan Nye NP rendered care for this patient independently, reviewed the findings and plan as documented in the note above. I did not physically speak with or examine the patient on this date. Objective - Vital Signs Vital signs: Vital Signs Temp 98 F 04/03/23 03:49 Pulse 51 L 04/03/23 03:49 Resp 14 04/03/23 03:49 BP 132/74 04/03/23 03:49 Pulse Ox 98 04/03/23 03:49 FiO2 Intake & Output 04/02/23 04/03/23 04/03/23 18:59 06:59 18:59 Intake Total 240 0 Output Total 0 Balance 240 0 Intake: Oral 240 0 Output: Gastric Drainage 0 Urine 0 Stool 0 Urine/Stool Mix 0 Emesis 0 Oral Regurgitation 0 Other 0 Other: Voiding Method Bedside Commode Bedside Commode # Voids 0 1 # Bowel Movements 0 - Labs CBC & Chem 7: 04/01/23 00:10 04/01/23 00:10 Labs: Abnormal Lab Results - Last 24 Hours (Table) 04/02/23 Range/Units 07:18 Triglycerides 174.00 H (0.00-149.00) mg/dL Cholesterol 241.00 H (0.00-200.00) mg/dL LDL Cholesterol, Calc 174.2 H (0.0-131.0) mg/dL HDL Cholesterol 32.00 L (40.00-60.00) mg/dL
[2023-04-03] MEDS: lisinopriL 20 MG TAB PO SCH (15:59)
--- NOTE | 2023-04-03 16:50 | P.PN ---
Subjective Progress Note Date: 04/03/23 The patient is a 58-year-old female who is seen in neurologic follow-up on April 02, 2023, via teleneurology. The patient's chart has been reviewed. She represented to the emergency department with right-sided weakness and slurring of speech. Apparently in the ER, NIH stroke scale score is reported to be 2. She was deemed not to be a candidate for IV TPA. Her symptoms were also reportedly improving. The patient was admitted. By the time she was seen by neurology the next morning, age stroke scale score had increased to 6. MRI of the brain revealed an acute infarct involving the inferior left paxton. CT angiogram and MRA of the neck both revealed evidence of complete occlusion of the right vertebral artery. There is also noted 50-75% stenosis of the left carotid artery. The patient reportedly had a stroke approximately one year ago. At that time CT angiogram reported occlusion of the right vertebral and 50% stenosis of the left ICA. The patient's previous stroke involving the right thalamus. She has no residual weakness. This morning, the patient reports that her right sided strength seems to be mildly improved. She is frustrated and depressed. The patient is seen in neurologic follow-up on April 03, 2023, in collaboration with Viktoria Meraz, via teleneurology. The patient has multiple family members present in the room at the time of the evaluation. According to nursing, the patient has refused to take her statin medication. The patient reports concern regarding the transesophageal echocardiogram. She says she is afraid to have it done. She is afraid of the anesthesia. She reports having had a reaction to anesthesia in the past. The procedures again explained to the patient. This time the patient reports that she has a allergy to lidocaine. She says that when she used to receive lidocaine from the dentist, she had swelling of her face. This last occurred approximately 10 years ago. Patient reports she has not received lidocaine since that time. Objective - Vital Signs Vital signs: Vital Signs Temp 98.5 F 04/03/23 13:20 Pulse 73 04/03/23 16:00 Resp 16 04/03/23 16:00 BP 149/98 04/03/23 16:00 Pulse Ox 97 04/03/23 16:00 FiO2 Intake & Output 04/02/23 04/03/23 04/03/23 18:59 06:59 18:59 Intake Total 240 340 Output Total 0 0 Balance 240 340 Intake: Oral 240 340 Output: Gastric Drainage 0 Urine 0 Stool 0 0 Urine/Stool Mix 0 Emesis 0 Oral Regurgitation 0 Other 0 Other: Voiding Method Bedside Commode Bedside Commode Bedside Commode # Voids 0 1 # Bowel Movements 0 - Exam Gen.: The patient is reclining in the bed. She is well-nourished. She appears her stated age. HEENT: Head is atraumatic, normocephalic. Fundus not visualized. There is no scleral icterus. Mucous members are moist Neurological examination Mental status: The patient is awake, alert and oriented 3. Speech is clear. Cranial nerves: Pupils are equal at 3 mm and reactive. Visual mike are full to confrontation. Extraocular movements are intact. Facial sensation is intact. There is Minimal right facial drooping. Hearing is grossly intact. Motor: Right sided strength is 4+/5. Left-sided strength is 5/5. Deep tendon reflexes: 3+/4+ in the right upper and lower extremities. Left upper and lower extremity reflexes 2+/4+. Sensation: Grossly intact to light touch throughout - Labs CBC & Chem 7: 04/01/23 00:10 04/01/23 00:10 Assessment and Plan Assessment: 1. Acute left pontine infarct 2. Left ICA stenosis 3. Right vertebral artery occlusion 4. History of hypertension 5. History of hyperlipidemia 6. History of previous stroke-Right thalamic Plan: 1. Consider transesophageal echocardiogram for further evaluation of the heart, with possible placement of loop recorder to assess for atrial fibrillation, in light of strokes occurring in different vascular territories 2. Continue aspirin and Plavix at this point. The patient reports that she was taking aspirin 81 mg, following her previous discharge 3. High intensity statin should be initiated as the patient has elevated total cholesterol and LDL-The importance of this statin medication was emphasized to the patient. 4. Agree with inpatient rehabilitation transfer as the patient is young and will likely do well. Also because the patient is right hand dominant and her current deficit is right-sided Dr. Vance Mcelroy will assume neurologic coverage of this patient has of April 04, 2023 Time with Patient: Less than 30 (25 minutes were spent in caring for this patient today including, obtaining a history, examining the patient, reviewing chart documentation, labs, discussing patient's status with the nurse and creating this note)
[2023-04-03] MEDS: ATORVASTATIN 40 MG TAB PO SCH (19:42)
--- NOTE | 2023-04-04 08:12 | P.CRDCN ---
History of Present Illness Consult date: 04/04/23 Reason for Consult (text): Needs BIANCA History of present illness: History of present illness: This is a 58-year-old female with past medical history of hypertension, hyperlipidemia, CVA. We have been asked to evaluate the patient for BIANCA. Shelby hernandez presented to the hospital on 04/01 with weakness on the right side, diagnosed with acute left pontine infarct. Transthoracic echocardiogram revealed normal left ventricular dimension and systolic function, moderately dilated right ventricle and normal function. Patient continues to have right sided weakness. Note the patient was also here as an admission on 03/10 for acute ischemic stroke of the right pelvic related to small vessel disease with left- sided weakness. Symptoms apparently had resolved and due to suspected hemophilia, patient did not start on antiplatelet. She voices concern with medications during BIANCA as she has had a reaction to Novocain in the past. EKG sinus rhythm at rate of 65 bpm CBC unremarkable. INR 1. Electrolytes normal, creatinine 0.92. Liver function tests normal. Triglycerides 174, cholesterol 241, LDL 174, HDL 32. TSH 2.06. Home cardiac medications: Aspirin 81 mg daily, lisinopril 2.5 mg daily Review Of Systems: At the time of my evaluation: Constitutional: No fever, no chills. No weakness, fatigue or lethargy. EENT: No headache. No dizziness. Lungs: No shortness of breath, cough, no sputum production. No wheezing. Cardiovascular: No chest pain, no lower extremity edema. No palpitations. No paroxysmal nocturnal dyspnea. No orthopnea. No lightheadedness or dizziness. No syncopal episodes. Abdominal: No abdominal pain. No nausea, vomiting. Genitourinary: No dysuria.. No urinary retention. Musculoskeletal: No myalgias. No muscle weakness, no frequent falls. Integumentary: No wounds. No rash. No unusual bruising. Neurologic: Right-sided weakness of upper and lower extremities. Physical examination: Gen: This is a 88-year-old female. She is resting in bed appears to be comfortable and in no acute distress VS: reviewed HEENT: Head is atraumatic, normocephalic. Pupils equal, round. Sclerae is anicteric. NECK: Supple. No JVD. LUNGS: Clear to auscultation. No wheezes or rhonchi. No intercostal retr actions. HEART: Regular rate and rhythm. No murmur. ABDOMEN: Soft No tenderness. EXTREMITIES: No pedal edema. NEUROLOGICAL: Patient is awake, alert and oriented x3. Assessment: Acute left pontine infarct Hypertension Hyperlipidemia Previous stroke Plan: Patient will be scheduled for BIANCA today Further recommendations to follow based upon clinical course Thank you kindly for this consultation. Nurse practitioner note has been reviewed, I agree with documented findings and plan of care. Patient was seen and examined. Past Medical History Past Medical History: CVA/TIA, Fibromyalgia, Hypertension Additional Past Medical History / Comment(s): Primary pulmonary hypertension; Migraines History of Any Multi-Drug Resistant Organisms: None Reported Past Surgical History: Appendectomy Additional Past Surgical History / Comment(s): d&c Past Anesthesia/Blood Transfusion Reactions: No Reported Reaction Past Psychological History: Anxiety Smoking Status: Never smoker Past Alcohol Use History: None Reported Past Drug Use History: None Reported - Past Family History Mother Family Medical History: Hyperlipidemia, Myocardial Infarction ([place]) Additional Family Medical History / Comment(s): MS Father Additional Family Medical History / Comment(s): hemophilia Medications and Allergies Home Medications Medication Instructions Recorded Confirmed Type lisinopriL [Zestril] 2.5 mg PO DAILY 12/17/20 04/01/23 History Aspirin 81 mg PO DAILY 60 Days #60 tab 03/10/22 04/01/23 Rx Allergies Allergy/AdvReac Type Severity Reaction Status Date / Time cefaclor [From Ceclor] Allergy Unknown Verified 04/01/23 07:54 Childhood Penicillins Allergy Unknown Verified 04/01/23 07:54 povidone-iodine Allergy Unknown Verified 04/01/23 07:54 [From Betadine] sulfamethoxazole Allergy Unknown Verified 04/01/23 07:54 [From Bactrim] Childhood trimethoprim [From Bactrim] Allergy Unknown Verified 04/01/23 07:54 Childhood chocolate flavor AdvReac headache Verified 04/01/23 07:54 milk AdvReac headache Verified 04/01/23 07:54 lidocaine Allergy Intermediate Swelling Uncoded 04/03/23 15:04 ANESTHETIC(UNKNOWN) Allergy Unknown Uncoded 03/19/22 23:06 Physical Exam Vitals: Vital Signs Temp Pulse Resp BP Pulse Ox 04/04/23 04:00 97.3 F L 96 16 124/77 99 04/04/23 01:41 62 17 04/04/23 00:00 97.3 F L 62 17 138/75 98 04/03/23 20:00 97.6 F 74 16 175/90 97 04/03/23 16:00 73 16 149/98 97 04/03/23 13:20 98.5 F 71 16 187/100 100 04/03/23 08:50 98 F 66 14 174/91 94 L Intake and Output 04/03/23 04/04/23 04/04/23 22:59 06:59 14:59 Intake Total 0 Balance 0 Intake: Oral 0 Other: Voiding Method Bedside Commode Bedside Commode # Voids 1 1 Results 04/04/23 09:18 04/01/23 00:10 Current Medications Generic Name Dose Route Start Last Admin Trade Name Freq PRN Reason Stop Dose Admin Aspirin 325 mg 04/02/23 09:00 04/03/23 08:51 Aspirin 325 Mg Tab PO 325 mg DAILY MIGUEL ANGEL Administration Atorvastatin Calcium 40 mg 04/01/23 21:00 04/03/23 19:42 Atorvastatin 40 Mg Tab PO 40 mg HS MIGUEL ANGEL Administration Clopidogrel Bisulfate 75 mg 04/01/23 09:00 04/03/23 08:51 Clopidogrel 75 Mg Tab PO 75 mg DAILY MIGUEL ANGEL Administration Enoxaparin Sodium 40 mg 04/01/23 18:45 04/03/23 08:51 Enoxaparin 40 Mg/0.4 Ml Syringe SQ 40 mg DAILY MIGUEL ANGEL Administration Lisinopril 20 mg 04/03/23 13:30 04/03/23 15:59 Lisinopril 20 Mg Tab PO 20 mg DAILY MIGUEL ANGEL Administration Intake and Output 04/03/23 04/04/23 04/04/23 22:59 06:59 14:59 Intake Total 0 Balance 0 Intake: Oral 0 Other: Voiding Method Bedside Commode Bedside Commode # Voids 1 1 04/01/23 00:10 04/01/23 00:10
[2023-04-04] MEDS ORDERED: fentaNYL (PF) 50 MCG/ML 2 ML AMP ONE (09:23)
[2023-04-04] MEDS ORDERED: methylPREDNISolone SOD SUCCI 125 MG/2 ML VIAL ONE (09:24)
[2023-04-04] MEDS ORDERED: diphenhydrAMINE 50 MG/ML 1 ML VIAL ONE (09:24)
[2023-04-04] MEDS ORDERED: BENZOCAINE SPRAY 1 CAN TOPICAL ONE ×2 (09:38→09:57)
[2023-04-04 09:55] LABS: HCT 42.9 % (34.0-46.0); HGB 14.6 gm/dL (11.4-16.0); MCH 31.3 pg (25.0-35.0); MCHC 34.1 g/dL (31.0-37.0); MCV 91.8 fL (80.0-100.0); Mean Platelet Volume 8.2; Platelet Count 190 k/uL (150-450); RBC 4.67 m/uL (3.80-5.40); RDW 13.2 % (11.5-15.5); WBC 6.3 k/uL (3.8-10.6)
[2023-04-04] MEDS ORDERED: MIDAZOLAM 2 MG/2 ML VIAL IVP ONE (09:57)
[2023-04-04] MEDS ORDERED: SODIUM CHLORIDE 0.9% 500 ML 500 ML IV ONE (10:10)
[2023-04-04 10:29] LABS: ALT 32 U/L (4-34); AST 35 U/L (14-36); African American GFR (CKD) 63 (>60 ml/min/1.73 sqM); Albumin 4.7 g/dL (3.5-5.0); Alkaline Phosphatase 105 U/L (38-126); Anion Gap 17 mmol/L; Blood Urea Nitrogen 27 mg/dL (7-17); Calcium 10.3 mg/dL (8.4-10.2); Carbon Dioxide 19 mmol/L (22-30); Chloride 101 mmol/L (98-107); Glucose 67 mg/dL (74-99); Magnesium 2.1 mg/dL (1.6-2.3); Non-African American GFR(CKD) 54 (>60 ml/min/1.73 sqM); Sodium 137 mmol/L (137-145); Total Bilirubin 1.2 mg/dL (0.2-1.3); Total Protein 8.7 g/dL (6.3-8.2)
[2023-04-04 10:56] LABS: Potassium 4.3 mmol/L (3.5-5.1)
[2023-04-04] MEDS: ASPIRIN 325 MG TAB PO SCH (11:01)
[2023-04-04] MEDS: CLOPIDOGREL 75 MG TAB PO SCH (11:01)
[2023-04-04] MEDS: lisinopriL 20 MG TAB PO SCH (11:01)
[2023-04-04] MEDS: ENOXAPARIN 40 MG/0.4 ML SYRINGE SQ SCH (11:01)
--- NOTE | 2023-04-04 11:12 | ECHOT ---
TRANSESOPHAGEAL ECHOCARDIOGRAM INDICATION: Recurrent CVA. PROCEDURE NOTE: After obtaining informed consent, transesophageal echocardiogram was performed in left lateral position using an Omniplane probe. Local and IV sedation were obtained using Xylocaine spray, 2 mg of Versed, and 25 mcg of fentanyl. The patient tolerated the procedure well without any obvious immediate complications. FINDINGS: 1. There is no intracardiac thrombus within the left atrial appendage, left atrium, right atrium, right ventricle. 2. Left ventricle has normal size and systolic function. 3. Interatrial septum: There is no evidence of [id number] shunt by color-flow Doppler or [id number]-ga-[id number] shunt by agitated saline contrast study. 4. Mitral valve is anatomically normal. There is mild mitral regurgitation noted. Tricuspid valve shows [id number] tricuspid regurgitation. Aortic valve is a 3-leaflet valve. 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 CONCLUSIONS: 1. No intracardiac thrombus. 2. Normal LV function. 3. No evidence of shunting across the interatrial septum. MMODL / IJN: [id number] /
--- NOTE | 2023-04-04 12:23 | P.PN ---
Subjective Progress Note Date: 04/04/23 Principal diagnosis: Carotid stenosis Patient undergoing BIANCA with findings of no intra-cardiac thrombus. Normal LV function. No evidence of shunting across the intra-atrial septum. No acute changes reported. Objective - Vital Signs Vital signs: Vital Signs Temp 98.6 F 04/04/23 08:20 Pulse 77 04/04/23 09:58 Resp 17 04/04/23 09:58 BP 147/74 04/04/23 09:58 Pulse Ox 98 04/04/23 09:58 FiO2 Intake & Output 04/03/23 04/04/23 04/04/23 18:59 06:59 18:59 Intake Total 340 Output Total 0 Balance 340 Intake: Oral 340 Output: Stool 0 Other: Voiding Method Bedside Commode Bedside Commode # Voids 1 - Labs CBC & Chem 7: 04/04/23 09:18 04/04/23 09:18 Assessment and Plan Assessment: 1. Carotid stenosis bilateral, greater on left 2. Acute/subacute left pontine infarct 3. History of right lateral traumatic CVA, resolved 4. Hypertension 5. Hyperlipidemia Plan: Patient underwent BIANCA. Continue medical management. Recommend dual antiplatelet therapy as well as statin. Patient to follow-up with vascular surgery to discuss the surgical options for left ICA stenosis. The impression and plan of care has been dictated as directed. Dr. Cm I performed a history and examination of this patient, discussed the same with the dictator. I agree with the dictator's note ,documented as a scribe. Any additional findings or plans will be noted.
[2023-04-04] MEDS ORDERED: DEXTROSE 50% SYRINGE 50 ML IVP PRN ×2 (13:56)
--- NOTE | 2023-04-04 14:10 | P.CONS ---
History of Present Illness - Reason for Consult Consult date: 04/04/23 rehabilitation recommendations - Chief Complaint CVA/TIA - History of Present Illness Francy is a 58-year-old right handed female who lives in a single story home with 0 JODY. She lives with her 2 children and was independent with ADL's prior to admission without assistive device use. She drives. 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 She has support from her 9 c hilwilber. She helps care for a granddaughter with special needs. She presented to [facility] 04/01 with complaints of right-sided weakness and slurred speech. Patient reports she was getting ready for bed and went to turn down her air conditioner around 10-11 pm, but states that while walking to thermostat she suddenly felt "off" and noticed she was experiencing right-sided weakness and went directly to her daughter's room for help. By the time the patient got to her daughters room she was having weakness throughout her entire right upper and lower extremity as well as slurring of her speech, so her family brought her to the ER. Upon arrival to the ER a CT brain was completed which was negative for acute intercranial process. She had a low NIH score of 2 with a negative computed tomography scan of the head. Patient declined contrast CT angiogram of the neck. Patient was not given TPA due to low NIH score. EKG was completed showing normal sinus rhythm at 65 bpm with no noted T-wave or ST abnormalities upon personal review and interpretation. Blood glucose 113. Labs completed and reviewed. CBC, coags, and CMP were unremarkable. Patient was admitted under the services of consultation to neurology. 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 She still has some slurred speech. Her NIH score increased to 6, but was then not a candidate for TPA, as her symptoms began > 4.5 hours ago. She had an echocardiogram completed revealing normal EF 55-60% and mild to moderate tricuspid regurgitation with mild pulmonary hypertension. A carotid Doppler showing 50-69% left ICA stenosis. MRA neck with and without contrast showing nonvisualization of the distal portions of the right vertebral artery most compatible with occlusion and 50-70% stenosis of the left carotid bifurcation and 20-50% stenosis of the right carotid bifurcation. MRI brain showing acute CVA involving the left inferior paxton/superior lingula along with nonspecific white matter changes likely secondary to small vessel ischemic disease. Doctor Cm was consulted. Doctor Cm did not find the carotid findings emergent and does not feel as if this is the main contributor to her 2 recent strokes due to the multifocal distribution. Dr. Cm recommended cardiac work up. A BIANCA completed today with no significant findings. Of note, patient had a right lateral thalamus CVA 03/2022 related to small vessel disease. Her left-sided weakness had resolved at that point. She has not been on anything other than aspirin due to refusing to take antiplatelet medication for fear of bleeding as well as stating that Crestor caused significant joint aches and bone pain and therefore she was not taking it. She has not tried Lipitor. She said no cause for her prior TIA was found. PM&R consulted for rehab recommendations. Therapy notes reviewed, patient min assist to SBA with transfers, ambulation and supervision with grooming, eating. 04/04/23: Patient found laying in bed with her daughters at bedside. Patient darien es issues with urination. Her last BM was this morning. Patient denies CP, SOB and abdominal pain. Patient reports that she feels ok. She feels that therapy went ok. She reports some weakness on the right side, but feels like her strength is starting to increase. She reports "feeling funny" sometimes when she gets up. She denies visual changes, dizziness, headaches and issues swallowing. Patient denies other concerns at this time. Review of Systems ROS negative unless noted in HPI Past Medical History Past Medical History: CVA/TIA, Fibromyalgia, Hypertension Additional Past Medical History / Comment(s): Primary pulmonary hypertension; Migraines History of Any Multi-Drug Resistant Organisms: None Reported Past Surgical History: Appendectomy Additional Past Surgical History / Comment(s): d&c Past Anesthesia/Blood Transfusion Reactions: No Reported Reaction Past Psychological History: Anxiety Smoking Status: Never smoker Past Alcohol Use History: None Reported Past Drug Use History: None Reported - Past Family History Mother Family Medical History: Hyperlipidemia, Myocardial Infarction ([place]) Additional Family Medical History / Comment(s): MS Father Additional Family Medical History / Comment(s): hemophilia Medications and Allergies Home Medications Medication Instructions Recorded Confirmed Type lisinopriL [Zestril] 2.5 mg PO DAILY 12/17/20 04/01/23 History Aspirin 81 mg PO DAILY 60 Days #60 tab 03/10/22 04/01/23 Rx Allergies Allergy/AdvReac Type Severity Reaction Status Date / Time cefaclor [From Ceclor] Allergy Unknown Verified 04/01/23 07:54 Childhood Penicillins Allergy Unknown Verified 04/01/23 07:54 povidone-iodine Allergy Unknown Verified 04/01/23 07:54 [From Betadine] sulfamethoxazole Allergy Unknown Verified 04/01/23 07:54 [From Bactrim] Childhood trimethoprim [From Bactrim] Allergy Unknown Verified 04/01/23 07:54 Childhood chocolate flavor AdvReac headache Verified 04/01/23 07:54 milk AdvReac headache Verified 04/01/23 07:54 lidocaine Allergy Intermediate Swelling Uncoded 04/03/23 15:04 ANESTHETIC(UNKNOWN) Allergy Unknown Uncoded 03/19/22 23:06 Physical Exam Vitals: Vital Signs Temp Pulse Resp BP Pulse Ox 04/04/23 10:07 79 16 154/70 97 04/04/23 09:58 77 17 147/74 98 04/04/23 09:45 88 16 200/100 98 04/04/23 08:20 98.6 F 81 16 164/82 97 04/04/23 04:00 97.3 F L 96 16 124/77 99 04/04/23 01:41 62 17 04/04/23 00:00 97.3 F L 62 17 138/75 98 04/03/23 20:00 97.6 F 74 16 175/90 97 04/03/23 16:00 73 16 149/98 97 04/03/23 13:20 98.5 F 71 16 187/100 100 Intake and Output 04/03/23 04/04/23 04/04/23 22:59 06:59 14:59 Intake Total 0 100 Balance 0 100 Intake: IV 100 Oral 0 Other: Voiding Method Bedside Commode Bedside Commode # Voids 1 1 EXAM; General: WDWN, female, laying in her bed with daughters at bedside, NAD Head: Normocephalic, atraumatic. Eyes: Symmetric Ears: Symmetric. Hearing within normal limits. Mouth: Clear. Cardiac: system developer associate manager on. Calves supple, non tender, no edema. Lungs: Breathing comfortably on RA. Chest symmetric. Abdomen: Soft, nontender. Extremities: Arthritic changes consistent with age. Neurological: Alert and oriented x 4. Speech is clear and fluent without paraphasic errors Cranial nerves: CN II-XII: right central VII with asymmetry in face Sensation: Intact and symmetrical limbs. Musculoskeletal: FROM jts MMT UE Sh Abd EE EF FABD WE HG Right 4+ 4 4 4 4 4 Left 5 5 5 5 5 5 MMT LE HF KE DF EHL Right 4+ 4+ 4 4 Left 5 5 5 5 Reflexes Biceps Triceps Brachioradialis Patella Achilles Babinski Hoffmans Right 1 1 1 1 1 Left 1 1 1 1 1 Skin: Skin intact where visible to head, neck, and bilateral upper and lower extremities EXCEPT: PIV Cerebellar: Ataxia RUE and RLE with dysmetria and clumsiness Psych: Calm, cooperative Results CBC & Chem 7: 04/04/23 09:18 04/04/23 09:18 Assessment and Plan Assessment: #Right hemiparesis secondary to acute ischemic stroke of the left inferior paxton/superior lingula - PT/OT/OFFAL TRIMMER -neurology following, cardiology consulted for work-up, BIANCA planned 04/04 -Aspirin 325 mg daily, atorvastatin 40 mg nightly, and Plavix 75 mg daily #Dysphagia -thin liquids, dysphagia III chopped suggested by OFFAL TRIMMER, - continue with OFFAL TRIMMER #Bowel/bladder: Nursing to monitor and report concerns if any #Skin/wound: skin/wound care to follow as needed #Pain management none per EMR, defer to IM #DVTprophylaxis:Defer to neuro/IM managment. #Comorbidities: migrianes, hypertension, fibromyalgia, CVA history #Your medical dx and mgt Goals: Modified Independent mobility and ADLS both basic and advanced; increased functional mobility/strength; increased balance, safety, endurance. Improvement in medical issues through your care. Barriers: right hemiparesis, ataxia, high risk for falls, history non-compliance Discharge recommendation:She is not a candidate for IPR as she is too high functioning. suggest PT/OTand OFFAL TRIMMER through home health care with goal of going to outpatient therapy will need repeat swallow study in the future. Thank you. Zaid Gilbert MD
--- NOTE | 2023-04-04 14:32 | P.PN ---
Subjective Progress Note Date: 04/04/23 Hospital course: Patient is a very pleasant 58-year-old female with a past medical history of hypertension, fibromyalgia, pulmonary hypertension, migraines, and previous CVA with no reported deficits. She presented to the emergency department overnight secondary to right-sided weakness and slurred speech. Patient reports she was getting ready for bed because and went to turn down her air conditioner around 10-11 pm but states that while walking to thermastat she suddenly felt "off" and suddenly noticed she was experiencing right-sided weakness and went directly to her daughter's room for help and by the time she got there she reports she was having weakness throughout her entire right upper and lower extremity as well as slurring of her speech so her family brought her straight to the emergency department. Upon arrival to the emergency room a CT brain was completed which was negative for acute intercranial process. EKG was completed showing normal sinus rhythm at 65 bpm with no noted T-wave or ST abnormalities upon personal review and interpretation. Blood glucose 113. Labs completed and reviewed. CBC, coags, and CMP were unremarkable. Per documentation in chart, ED physician documented no TPA given secondary to low NIH score and improving symptoms Patient was admitted under our services with consultation to neurology. Echocardiogram completed revealing normal EF 55-60% and mild to moderate tricuspid regurgitation with mild pulmonary hypertension. Carotid Doppler showing 50-69% left ICA stenosis. MRA neck with and without contrast showing nonvisualization of the distal portions of the right vertebral artery most compatible with occlusion and 50-70% stenosis of the left carotid bifurcation and 20-50% stenosis of the right carotid bifurcation. MRI brain showing acute CVA involving the left inferior paxton/superior lingula along with nonspecific white matter changes likely secondary to small vessel ischemic disease. Order placed for consult to vascular surgery. Lipid profile also resulting with elevated triglycerides of 174, total cholesterol of 241,and LDL of 174.2, and low HDL of 32. Hemoglobin A1c 5.6%. Patient continues to refuse atorvastatin at this time. Physical exam: Patient seen and fully evaluated at bedside this morning. She continues to report improvement in strength of right upper and right lower extremity strength. Sensation remains intact and equal throughout all 4 limbs. Speech is clear. Patient scheduled to undergo BIANCA today. Vital signs reviewed and stable. General: Nontoxic, no distress and appears stated age. Derm: Skin warm and dry, normal coloration for ethnicity. Head: Atraumatic, normocephalic and symmetric. Eyes: EOMs intact, no lid lag, and anicteric sclera Mouth: no lip lesions, mucus membranes moist Cardiovascular: regular rate and rhythm with normal S1S2, no murmur, positive posterior tibial pulses bilaterally, and cap refill < 2 seconds. Lungs: Respirations even, regular, and unlabored on room air. Lungs CTA bilaterally, no rhonchi, no rales, no wheezing, and no accessory muscle usage. Abdominal: soft, nontender to palpation, no guarding, no appreciable organomegaly Ext: No gross muscle atrophy, no edema, no contractures. Sensation intact and equal in all 4 extremities. Patient with full range of motion in bilateral upper and lower extremities. Patient does have continued slight weakness noted to right upper and lower extremities. Neuro:, face symmetrical, speech clear and CN II-XII grossly intact with no noted focal neuro deficits. Psych: Alert and oriented to person, place, time, and situation. Appropriate and pleasant affect. Assessment and Plan of Care: Acute ischemic stroke involving the left inferior paxton and superior lingula resulting in right-sided upper and lower extremity weakness and speech deficits History of previous CVA in 2021 with no reported deficits at that time Carotid stenosis Occluded vertebral artery Hyperlipidemia Hypertension, poorly controlled. History of migraines History of fibromyalgia -Continue neuro checks every 4 hours. -Neurology following and recommending BIANCA. -Vascular surgery also following, and discussed plan of care with Dr. Cm, vascular surgeon. She is in agreement with BIANCA and stated further cardiac caron p would be beneficial and also stated that she discussed with patient and if patient is agreeable she will likely need carotid stenting in the near future. -Cardiology evaluated and discussed plan of care with cardiac COLOR DEPOSITING MACHINE TENDER stated patient scheduled to undergo BIANCA today. -Telemetry monitoring -Physical and occupational therapy following. -Consult to speech-language pathologist -Patient to continue with aspirin 325 mg daily, atorvastatin 40 mg nightly, and Plavix 75 mg daily. -Once daily antihypertensive medication was resumed patient continued to have elevated blood pressures at 174/91 and 187/100 Lisinopril increased to 20 mg daily and patient has had significant improvement in control of pressures. After lisinopril was increased blood pressures were trended showing improvement in going from 187/100-149/98, 175/90, 138/75, 124/77, and currently 164/82. Hypoglycemic event -Morning glucose resulting at 67. Patient was asymptomatic to hypoglycemia. -Orders placed for a [id number] glucose every 4 hours to monitor for further episodes of hypoglycemia. Morning labs reviewed and CBC unremarkable. BMP revealing slightly elevating renal function with BUN of 27, creatinine 1.13, and GFR 54. Glucose this morning was low at 67. CODE STATUS: Full code DVT prophylaxis: Lovenox Discussed with: Patient, RN, vascular surgeon and patient's family at bedside Anticipated discharge date: Clinical course to determine Anticipated discharge place: Home with home care versus rehab Patient was seen independently by Nurse Pracitioner. This document was prepared using [employer] dictation software. Please allow for errors in gristmiller, while rare they do occur. Objective - Vital Signs Vital signs: Vital Signs Temp 97.3 F L 04/04/23 04:00 Pulse 96 04/04/23 04:00 Resp 16 04/04/23 04:00 BP 124/77 04/04/23 04:00 Pulse Ox 99 04/04/23 04:00 FiO2 Intake & Output 04/03/23 04/04/23 04/04/23 18:59 06:59 18:59 Intake Total 340 Output Total 0 Balance 340 Intake: Oral 340 Output: Stool 0 Other: Voiding Method Bedside Commode Bedside Commode # Voids 1 - Labs CBC & Chem 7: 04/04/23 09:18 04/04/23 09:18
[2023-04-04 14:40] LABS: Glucose,Whole Blood 71 mg/dL (70-110)
[2023-04-04 18:47] LABS: Glucose,Whole Blood 109 mg/dL (70-110)
[2023-04-04] MEDS: ATORVASTATIN 40 MG TAB PO SCH (20:47)
[2023-04-05 06:00] LABS: Glucose,Whole Blood 89 mg/dL (70-110)
[2023-04-05] MEDS: CLOPIDOGREL 75 MG TAB PO SCH (08:35)
[2023-04-05] MEDS: ASPIRIN 325 MG TAB PO SCH (08:35)
[2023-04-05] MEDS: lisinopriL 20 MG TAB PO SCH (08:35)
[2023-04-05] MEDS: ENOXAPARIN 40 MG/0.4 ML SYRINGE SQ SCH (08:35)
--- NOTE | 2023-04-05 09:46 | P.DS ---
Providers Date of admission: 04/01/23 03:28 Expected date of discharge: 04/05/23 Attending physician: Andres Mitchell MD Consults: 04/01/23 03:28 Consult Physician Routine Consulting Provider: Jaqui Lombardi Consult Reason/Comments: cva,tia Do you want consulting provider notified?: Yes 04/02/23 08:50 Consult Physician Routine Consulting Provider: Gail Cm Consult Reason/Comments: carotid stenosis 50-69%, acute CVA (2nd CVA within one year) Do you want consulting provider notified?: Yes 04/02/23 14:08 Consult Physician Routine Consulting Provider: Dereck Shaffer Consult Reason/Comments: inpatient stroke rehab, right sided deficits. Do you want consulting provider notified?: Yes 04/03/23 12:11 Consult Physician Routine Consulting Provider: Alen Renteria Consult Reason/Comments: pt needs BIANCA Do you want consulting provider notified?: Yes Primary care physician: Physician Nonstaff Hospital Course: Discharge Diagnosis: Acute ischemic stroke involving the left inferior paxton and superior lingula resulting in right-sided upper and lower extremity weakness and speech deficits. MRI brain showing acute CVA involving the left inferior paxton/superior lingula along with nonspecific white matter changes likely secondary to small vessel ischemic disease. Speech deficits fully resolved at time of discharge, patient continues to have mild right upper and lower extremity weakness and being discharged home with a rolling walker and with home physical and occupational therapy. Patient discharged home on dual antiplatelet therapy with aspirin 81 mg daily and Plavix 75 mg daily along with atorvastatin 40 mg nightly. Patient to follow up outpatient with neurologist, PCP, pcas, and vascular surgeon. Patient discharged home with event monitor 2 weeks. History of previous CVA in 2021 with no reported deficits at that time Carotid stenosis, patient evaluated by vascular surgeon. Patient with 50-69% of left ICA stenosis and 30-50% of right stenosis of right carotid bifurcation. Patient evaluated by vascular surgeon and to follow-up outpatient in our office for further testing and scheduling of carotid stenting. Hyperlipidemia. Lipid profile also resulting with elevated triglycerides of 174, total cholesterol of 241,and LDL of 174.2, and low HDL of 32. Patient started on atorvastatin 40 mg daily. Educated on importance of heart healthy diet. Hypertension, poorly controlled. Lisinopril increased to 20 mg daily. Blood pressure much better controlled 146/80, heart rate 70, respiratory rate 17, SpO2 of 90% on room air at time of discharge. History of migraines History of fibromyalgia Hypoglycemic event. Patient had an isolated asymptomatic episode of hypoglycemia with a.m. fasting glucose of 67. Patient placed on glycemic protocol and hemoglobin levels were trended. Patient had no further hypoglycemic events. Hemoglobin A1c 5.6. Hospital Course: Patient is a very pleasant 58-year-old female with a past medical history of hypertension, fibromyalgia, pulmonary hypertension, migraines, and previous CVA with no reported deficits. She presented to the emergency department overnight secondary to right-sided weakness and slurred speech. Patient reports she was getting ready for bed because and went to turn down her air conditioner around 10-11 pm but states that while walking to [employer] she suddenly felt "off" and suddenly noticed she was experiencing right-sided weakness and went directly to her daughter's room for help and by the time she got there she reports she was having weakness throughout her entire right upper and lower extremity as well as slurring of her speech so her family brought her straight to the emergency department. Upon arrival to the emergency room a CT brain was completed which was negative for acute intercranial process. EKG was completed showing normal sinus rhythm at 65 bpm with no noted T-wave or ST abnormalities upon personal review and interpretation. Blood glucose 113. Labs completed and reviewed. CBC, coags, and CMP were unremarkable. Per documentation in chart, ED physician documented no TPA given secondary to low NIH score and improving symptoms Patient was admitted under our services with consultation to neurology. Echocardiogram completed revealing normal EF 55-60% and mild to moderate tricuspid regurgitation with mild pulmonary hypertension. Carotid Doppler showing 50-69% left ICA stenosis. MRA neck with and without contrast showing nonvisualization of the distal portions of the right vertebral artery most compatible with occlusion and 50-70% stenosis of the left carotid bifurcation and 20-50% stenosis of the right carotid bifurcation. MRI brain showing acute CVA involving the left inferior paxton/superior lingula along with nonspecific white matter changes likely secondary to small vessel ischemic disease. Order placed for consult to vascular surgery. Lipid profile also resulting with elevated triglycerides of 174, total cholesterol of 241,and LDL of 174.2, and low HDL of 32. Hemoglobin A1c 5.6%. Patient continues to refuse atorvastatin at this time. BIANCA completed showing no intracardiac thrombus and no evidence of shunting across the interatrial septum. Patient is medically stable. Blood pressure is much better controlled since increasing lisinopril to 20 mg daily. Blood pressure much better controlled 146/80, heart rate 70, respiratory rate 17, SpO2 of 90% on room air at time of discharge. Speech deficits fully resolved at time of discharge, patient continues to have mild right upper and lower extremity weakness and being discharged home with a rolling walker and with home physical and occupational therapy. Patient discharged home on dual antiplatelet therapy with aspirin 81 mg daily and Plavix 75 mg daily along with atorvastatin 40 mg nightly. Patient to follow up outpatient with neurologist, PCP, pcas, and vascular surgeon. Patient discharged home with event monitor 2 weeks. Physical exam: Vital signs reviewed and stable. General: Nontoxic, no distress and appears stated age. Derm: Skin warm and dry, normal coloration for ethnicity. Head: Atraumatic, normocephalic and symmetric. Eyes: EOMs intact, no lid lag, and anicteric sclera Mouth: no lip lesions, mucus membranes moist Cardiovascular: regular rate and rhythm with normal S1S2, no murmur, positive posterior tibial pulses bilaterally, and cap refill < 2 seconds. Lungs: Respirations even, regular, and unlabored on room air. Lungs CTA bilaterally, no rhonchi, no rales, no wheezing, and no accessory muscle usage. Abdominal: soft, nontender to palpation, no guarding, no appreciable organom egaly Ext: No gross muscle atrophy, no edema, no contractures. Sensation intact and equal in all 4 extremities. Patient with full range of motion in bilateral upper and lower extremities. Patient does have continued slight weakness noted to right upper and lower extremities. Neuro:, face symmetrical, speech clear and CN II-XII grossly intact with no noted focal neuro deficits. Psych: Alert and oriented to person, place, time, and situation. Appropriate and pleasant affect. A total of 41 minutes of time were spent preparing this complex discharge summary. Pt was discharged on 04/05/23 at 9:46 AM. Patient was seen independently by Nurse Practitioner. This document was prepared using [employer] dictation software. Please allow for errors in assembler tractor while rare they do occur. Jose Juan Nye NP rendered care for this patient independently, reviewed the findings and plan as documented in the note above. I did not physically speak with or examine the patient on this date. Patient Condition at Discharge: Stable Plan - Discharge Summary Discharge Rx Participant: No New Discharge Prescriptions: New Atorvastatin [Lipitor] 40 mg PO HS 30 Days #30 tab Clopidogrel [Plavix] 75 mg PO DAILY 30 Days #30 tab lisinopriL [Zestril] 20 mg PO DAILY 30 Days #30 tab Continue Aspirin 81 mg PO DAILY 60 Days #60 tab Discontinued lisinopriL [Zestril] 2.5 mg PO DAILY Discharge Medication List Aspirin 81 mg PO DAILY 60 Days #60 tab 03/10/22 [Rx] Atorvastatin [Lipitor] 40 mg PO HS 30 Days #30 tab 04/05/23 [Rx] Clopidogrel [Plavix] 75 mg PO DAILY 30 Days #30 tab 04/05/23 [Rx] lisinopriL [Zestril] 20 mg PO DAILY 30 Days #30 tab 04/05/23 [Rx] Follow up Appointment(s)/Referral(s): Danae Wheeler MD [REFERRING] - 1 Week Cain Jaime MD [STAFF PHYSICIAN] - 3 Days Gail Cm DO [STAFF PHYSICIAN] - 1 Week (Call to schedule appointment. ) [facility], [NON-STAFF] - 1 Week Rafi Mejia MD [Medical Doctor] - 1 Week Ga Penny DO [STAFF PHYSICIAN] - 1 Week Jamel Hernandez MD [STAFF PHYSICIAN] - 6 Weeks (Event monitor being sent to pcas, Dr. Hernandez. Call to schedule follow up appointment. ) Patient Instructions/Handouts: Carotid Artery Disease (DC), Ischemic Stroke (DC), Hypertension (DC), Hyperlipidemia (DC) Activity/Diet/Wound Care/Special Instructions: Activity: As tolerated. Take breaks as needed. Diet: Heart healthy and carb consistent diet. Avoid salts, or foods with hidden salts such as canned or boxed foods and frozen dinners. Extra salt makes your heart work harder and traps the fluid in your body for longer. Special Instructions: Take all of your medications as directed and remember to keep all of your doctor's appointments and follow-up as needed. It is very important to take medications as directed. You will need to follow- up with PCP, Dr. Cmvascular surgeon for outpatient evaluation and scheduling of carotid stenting, and pcas-Dr. Hernandez for follow-up and to discuss event monitor findings. Thank you for allowing us to participate in your care, it was truly a pleasure having you for our patient!!! Discharge Disposition: HOME SELF-CARE
[2023-04-05 10:19] VITALS: RESP 17; TEMP 98.7
[2023-04-05 12:29] VITALS: BP 146/80; PULSE 70
--- NOTE | 2023-04-05 18:18 | P.PN ---
Subjective Progress Note Date: 04/05/23 I'm seeing the patient for the first time during this admission. Please refer to Dr. Lombardi's note as well as ganglia's note for further details. It appears the patient had left pontine that infarct with left ICA stenosis right vertebral occlusion. She has a history of previous stroke in the past. Patient stated that she had a stroke about one year ago. She was taking aspirin at that time. Currently she was started on aspirin as well as Plavix. She has an event monitor placed prior to discharge today. She had a transesophageal echocardiogram on 04/04/2023 which is reported as no intracardiac thrombus. Normal left ventricular function. No evidence of shunting across the interatrial atrial septum. Objective - Vital Signs Vital signs: Vital Signs Temp 98.7 F 04/05/23 08:30 Pulse 70 04/05/23 11:55 Resp 17 04/05/23 11:55 BP 146/80 04/05/23 11:55 Pulse Ox 98 04/05/23 11:55 FiO2 21 04/05/23 09:15 Intake & Output 04/04/23 04/05/23 04/05/23 18:59 06:59 18:59 Intake Total 640 Balance 640 Intake: IV 100 Oral 540 Other: Voiding Method Bedside Commode Toilet Toilet # Voids 1 - Exam GENERAL: The patient is lying in bed and is not in acute distress. NEUROLOGICAL: Higher mental function: The patient is awake, alert, oriented to self, place and time. Patient is following commands. No aphasia and no neglect. Cranial nerves: The pupils are round, equal and reactive to light. Visual mike are full to confrontation throughout. Extraocular movement is intact no nystagmus is noted. Facial sensation is normal to touch throughout. The facial strength is normal throughout. Tongue is midline and moved [id number] without any difficulty. No dysarthria is noted. Shoulder shrug is normal bilaterally. Motor: The strength is right side is 4+. Left side is 5/5. Normal tone and bulk. Cerebellum: Appears slight dysmetria over the right finger to nose. Normal on the left. Sensation: Sensation is normal to touch throughout. - Labs CBC & Chem 7: 04/04/23 09:18 04/04/23 09:18 Assessment and Plan Assessment: 1. Acute left pontine infarct 2. Left ICA stenosis 3. Right vertebral artery occlusion 4. History of hypertension 5. History of hyperlipidemia 6. History of previous stroke-Right thalamic Plan: 1. transesophageal echocardiogram on 04/04/2023 which is reported as no intracardiac thrombus. Normal left ventricular function. No evidence of shunting across the interatrial atrial septum. 2. Patient has an event monitor and to continue for 30 days to rule out a- fib/flutter. 3. Continue aspirin and Plavix at this point. The patient reports that she was taking aspirin 81 mg, following her previous discharge 4. High intensity statin should be initiated as the patient has elevated total cholesterol and LDL-The importance of this statin medication was emphasized to the patient. 5. Vascular surgery is on board. They recommended to follow up as an outpatient for further surgical option for the left ICA stenosis. 6. We'll defer the rest of medical management to primary team. 7. Upon discharge recommend the patient follow up with a neurologist as an ou tpatient within 1-2 weeks. Plan discussed with the patient and her daughters at bedside. Time with Patient: Less than 30
--- NOTE | 2023-04-06 07:27 | P.PN ---
Subjective Progress Note Date: 04/05/23 History of present illness: This is a 58-year-old female with past medical history of hypertension, hyperl ipidemia, CVA. We have been asked to evaluate the patient for BIANCA. Patient presented to the hospital on 04/01 with weakness on the right side, diagnosed with acute left pontine infarct. Transthoracic echocardiogram revealed normal left ventricular dimension and systolic function, moderately dilated right ventricle and normal function. Patient continues to have right sided weakness. Note the patient was also here as an admission on 03/10 for acute ischemic stroke of the right pelvic related to small vessel disease with left-sided weakness. Symptoms apparently had resolved and due to suspected hemophilia, patient did not start on antiplatelet. She voices concern with medications during BIANCA as she has had a reaction to Novocain in the past. EKG sinus rhythm at rate of 65 bpm CBC unremarkable. INR 1. Electrolytes normal, creatinine 0.92. Liver function tests normal. Triglycerides 174, cholesterol 241, LDL 174, HDL 32. TSH 2.06. Home cardiac medications: Aspirin 81 mg daily, lisinopril 2.5 mg daily 04/05 Patient is seen today in follow-up. Event monitor has been ordered. Yesterday, she underwent BIANCA which revealed no intracardiac thrombus, normal LV function, no evidence of shunting across the interatrial septum. Physical examination: Gen: This is a 88-year-old female. She is resting in bed appears to be comfortable and in no acute distress VS: reviewed HEENT: Head is atraumatic, normocephalic. Pupils equal, round. Sclerae is anicteric. NECK: Supple. No JVD. LUNGS: Clear to auscultation. No wheezes or rhonchi. No intercostal retractions. HEART: Regular rate and rhythm. No murmur. ABDOMEN: Soft No tenderness. EXTREMITIES: No pedal edema. NEUROLOGICAL: Patient is awake, alert and oriented x3. Assessment: Acute left pontine infarct Hypertension Hyperlipidemia Previous stroke Carotid stenosis Plan: Patient is cleared from cardiology for discharge home. A follow-up in the office in 6 weeks to review event monitor event monitor.Nurse practitioner note has been reviewed, I agree with documented findings and plan of care. Patient was seen and examined. Objective - Vital Signs Vital signs: Vital Signs Temp 98.7 F 04/05/23 08:30 Pulse 76 04/05/23 08:30 Resp 17 04/05/23 08:30 BP 161/83 04/05/23 08:30 Pulse Ox 97 04/05/23 09:15 FiO2 21 04/05/23 09:15 Intake & Output 04/04/23 04/05/23 04/05/23 18:59 06:59 18:59 Intake Total 640 Balance 640 Intake: IV 100 Oral 540 Other: Voiding Method Bedside Commode Toilet Toilet # Voids 1 - Labs CBC & Chem 7: 04/04/23 09:18 04/04/23 09:18 Labs: Abnormal Lab Results - Last 24 Hours (Table) 04/04/23 Range/Units 09:18 Carbon Dioxide 19 L (22-30) mmol/L BUN 27 H (7-17) mg/dL Creatinine 1.13 H (0.52-1.04) mg/dL Glucose 67 L (74-99) mg/dL Calcium 10.3 H (8.4-10.2) mg/dL Total Protein 8.7 H (6.3-8.2) g/dL
== END 2023-04-05 12:56 | disposition home or self-care (01) | DRG 45 ==
LOC: EC 23:59 → 3SCARD 04-01 03:28
PROVIDERS: ADMIT Internal Medicine; ATTEND Internal Medicine
PROC: B246ZZ4 Ultrasonography of Right and Left Heart, Transesophageal (ICD-10-PCS; principal; 2023-04-04 12:00)
DX: I63.29 Cerebral infarction due to unspecified occlusion or stenosis of other precerebral arteries (principal); I65.01 Occlusion and stenosis of right vertebral artery; I69.354 Hemiplegia and hemiparesis following cerebral infarction affecting left non-dominant side; M79.7 Fibromyalgia; R13.10 Dysphagia, unspecified; R29.706 NIHSS score 6; I27.0 Primary pulmonary hypertension; G89.29 Other chronic pain; G81.91 Hemiplegia, unspecified affecting right dominant side; I65.23 Occlusion and stenosis of bilateral carotid arteries; E16.2 Hypoglycemia, unspecified; G43.909 Migraine, unspecified, not intractable, without status migrainosus; F41.9 Anxiety disorder, unspecified; F32.A Depression, unspecified; R27.0 Ataxia, unspecified; R47.1 Dysarthria and anarthria; I08.1 Rheumatic disorders of both mitral and tricuspid valves; I77.810 Thoracic aortic ectasia; E78.5 Hyperlipidemia, unspecified; E78.1 Pure hyperglyceridemia; R29.702 NIHSS score 2; Z79.02 Long term (current) use of antithrombotics/antiplatelets; Z79.82 Long term (current) use of aspirin; Z91.041 Radiographic dye allergy status; Z91.81 History of falling; Z91.199 Patient's noncompliance with other medical treatment and regimen due to unspecified reason; Z88.4 Allergy status to anesthetic agent; Z88.1 Allergy status to other antibiotic agents; Z91.011 Allergy to milk products; Z88.0 Allergy status to penicillin; Z88.2 Allergy status to sulfonamides; Z91.018 Allergy to other foods
CPT/HCPCS: 36415; 70450; 70549; 70551; 71045; 80053; 80061; 82550; 83036; 83735; 84484; 85025; 85027; 85610; 85730; 93005; 93270; 93306; 93312; 93320; 93325; 93880; 94760; 96360; 96361; 99291

== ENCOUNTER 2023-05-03 09:49 | Emergency (ER) | payer OTHER ==
[2023-05-03 09:59] VITALS: TEMP 98
[2023-05-03] MEDS ORDERED: SODIUM CHLORIDE 0.9% 1,000 ML IV STA (10:59)
--- NOTE | 2023-05-03 11:15 | ED ---
General Adult HPI - General Chief complaint: Dizziness Stated complaint: PREV.STROKE/DIZZINESS/FLASHING EYESIGHT Time Seen by Provider: 05/03/23 10:44 Source: patient, RN notes reviewed, old records reviewed Mode of arrival: ambulatory Limitations: no limitations - History of Present Illness Initial comments: 58-year-old female 1 month status post CVA presenting for evaluation of lightheadedness, not feeling well over the past one week. She's also had some flashing lights in the left eye which is transient. No significant headache. No fever. No vomiting. No chest pain. Patient states the weakness in her right side is improved but she still remains somewhat dizzy. She is on aspirin, statin, and Plavix. - Related Data Previous Rx's Medication Instructions Recorded Aspirin 81 mg PO DAILY 60 Days #60 tab 03/10/22 Atorvastatin [Lipitor] 40 mg PO HS 30 Days #30 tab 04/05/23 Clopidogrel [Plavix] 75 mg PO DAILY 30 Days #30 tab 04/05/23 lisinopriL [Zestril] 20 mg PO DAILY 30 Days #30 tab 04/05/23 Allergies Allergy/AdvReac Type Severity Reaction Status Date / Time cefaclor [From Ceclor] Allergy Unknown Verified 05/03/23 09:59 Childhood Penicillins Allergy Unknown Verified 05/03/23 09:59 povidone-iodine Allergy Unknown Verified 05/03/23 09:59 [From Betadine] sulfamethoxazole Allergy Unknown Verified 05/03/23 09:59 [From Bactrim] Childhood trimethoprim [From Bactrim] Allergy Unknown Verified 05/03/23 09:59 Childhood chocolate flavor AdvReac headache Verified 05/03/23 09:59 milk AdvReac headache Verified 05/03/23 09:59 lidocaine Allergy Intermediate Swelling Uncoded 05/03/23 09:59 ANESTHETIC(UNKNOWN) Allergy Unknown Uncoded 05/03/23 09:59 Review of Systems ROS Statement: Those systems with pertinent positive or pertinent negative responses have been documented in the HPI. ROS Other: All systems not noted in ROS Statement are negative. Past Medical History Past Medical History: CVA/TIA, Fibromyalgia, Hypertension Additional Past Medical History / Comment(s): Primary pulmonary hypertension; Migraines History of Any Multi-Drug Resistant Organisms: None Reported Past Surgical History: Appendectomy Additional Past Surgical History / Comment(s): d&c Past Anesthesia/Blood Transfusion Reactions: No Reported Reaction Past Psychological History: Anxiety Smoking Status: Never smoker Past Alcohol Use History: None Reported Past Drug Use History: None Reported - Past Family History Mother Family Medical History: Hyperlipidemia, Myocardial Infarction ([place]) Additional Family Medical History / Comment(s): MS Father Additional Family Medical History / Comment(s): hemophilia General Exam Limitations: no limitations General appearance: alert, in no apparent distress Head exam: Present: atraumatic, normocephalic Eye exam: Present: normal appearance, PERRL, EOMI. Absent: nystagmus ENT exam: Present: mucous membranes dry Neck exam: Present: normal inspection. Absent: tenderness, meningismus Respiratory exam: Present: normal lung sounds bilaterally. Absent: respiratory distress, wheezes, rales Cardiovascular Exam: Present: regular rate, normal rhythm GI/Abdominal exam: Present: soft. Absent: distended, tenderness, guarding Extremities exam: Present: normal inspection, normal capillary refill. Absent: pedal edema Neurological exam: Present: alert, oriented X3, CN II-XII intact, other (No limb ataxia). Absent: motor sensory deficit Psychiatric exam: Present: normal affect, normal mood Skin exam: Present: warm, dry, intact Course Vital Signs 05/03/23 05/03/23 09:56 11:18 Temperature 98 F Pulse Rate 74 62 Respiratory 18 16 Rate Blood Pressure 124/83 145/81 O2 Sat by Pulse 98 98 Oximetry Medical Decision Making - Medical Decision Making Was pt. sent in by a medical professional or institution (, PA, ENVIRONMENTAL SERVICES TECHNICIAN, urgent care, hospital, or [facility]...) When possible be specific @ -No Did you speak to anyone other than the patient for history (EMS, parent, family, police, friend...)? What history was obtained from this source @ -No Did you review nursing and triage notes (agree or disagree)? Why? @ -I reviewed and agree with nursing and triage notes Were old charts reviewed (outside hosp., previous admission, EMS record, old EKG, old radiological studies, urgent care reports/EKG's, [facility] records)? Report findings @ -No old charts were reviewed Differential Diagnosis (chest pain, altered mental status, abdominal pain women, abdominal pain men, vaginal bleeding, weakness, fever, dyspnea, syncope, headache, dizziness, GI bleed, back pain, seizure, CVA, palpatations, mental health, musculoskeletal)? @ -Differential Dizziness: Benign paroxysmal positional Vertigo, Menieres disease, otitis media, acoustic neuroma, vertebrobasilar insufficiency, cerebellar stroke, encephalitis, hypovolemic, arrhythmia, coronary artery syndrome, anemia, this is not meant to be an all-inclusive list EKG interpreted by me (3pts min.). @EKG: Sinus rhythm rate 60 to ME interval 176, QRS duration 103, QTC [address] segment elevation. X-rays interpreted by me (1pt min.). @ -None done CT interpreted by me (1pt min.). @ -[CT brain negative for intracranial hemorrhage or mass effect U/S interpreted by me (1pt. min.). @ -None done What testing was considered but not performed or refused? (CT, X-rays, U/S, la bs)? Why? @ -None What meds were considered but not given or refused? Why? @ -None Did you discuss the management of the patient with other professionals (professionals i.e. , PA, ENVIRONMENTAL SERVICES TECHNICIAN, lab, RT, psych nurse, social work lecturer, crisis counselor, teacher, protocol officer, returned case inspector)? Give summary @ -No Was smoking cessation discussed for >3mins.? @ -No Was critical care preformed (if so, how long)? @ -No Were there social determinants of health that impacted care today? How? (Homelessness, low income, unemployed, alcoholism, drug addiction, transportation, low edu. Level, literacy, decrease access to med. care, halfway, rehab)? @ -No Was there de-escalation of care discussed even if they declined (Discuss DNR or withdrawal of care, Hospice)? DNR status @ -No What co-morbidities impacted this encounter? (DM, HTN, Smoking, COPD, CAD, Cancer, CVA, ARF, Chemo, Hep., AIDS, mental health diagnosis, sleep apnea, morbid obesity)? @ -[Hypertension and CVA Was patient admitted / discharged? Hospital course, mention meds given and route, prescriptions, significant lab abnormalities, going to OR and other p ertinent info. @ -[58 female with lightheadedness, flashing light sensation in her left eye which is resolved and quite transient. No nystagmus, normal pupillary exam, no focal exam findings. Stable vitals. Normal CBC, normal CMP, head CT negative for intracranial hemorrhage or mass effect. Patient will continue outpatient follow-up with strict return parameters. Undiagnosed new problem with uncertain prognosis? @ -No Drug Therapy requiring intensive monitoring for toxicity (Heparin, Nitro, Insulin, Cardizem)? @ -No Were any procedures done? @ -No Diagnosis/symptom? @ -Dizzy Acute, or Chronic, or Acute on Chronic? @ -[acute Uncomplicated (without systemic symptoms) or Complicated (systemic symptoms)? @ -default Side effects of treatment? @ -No Exacerbation, Progression, or Severe Exacerbation? @ -No Poses a threat to life or bodily function? How? (Chest pain, [place], [place], pneumonia, PE, COPD, DKA, ARF, appy, cholecystitis, CVA, Diverticulitis, Homicidal, Suicidal, threat to staff... and all critical care pts) @ -[Low risk at this time - Lab Data Result diagrams: 05/03/23 10:59 05/03/23 10:59 Lab Results 05/03/23 05/03/23 05/03/23 Range/Units 10:59 10:59 10:59 WBC 4.6 (3.8-10.6) k/uL RBC 4.04 (3.80-5.40) m/uL Hgb 12.2 (11.4-16.0) gm/dL Hct 36.2 (34.0-46.0) % MCV 89.5 (80.0-100.0) fL MCH 30.3 (25.0-35.0) pg MCHC 33.9 (31.0-37.0) g/dL RDW 13.1 (11.5-15.5) % Plt Count 144 L (150-450) k/uL MPV 9.5 Neutrophils % 79 % Lymphocytes % 11 % Monocytes % 7 % Eosinophils % 1 % Basophils % 0 % Neutrophils # 3.6 (1.3-7.7) k/uL Lymphocytes # 0.5 L (1.0-4.8) k/uL Monocytes # 0.3 (0-1.0) k/uL Eosinophils # 0.0 (0-0.7) k/uL Basophils # 0.0 (0-0.2) k/uL PT 10.2 (9.0-12.0) sec INR 1.0 (<1.2) APTT 24.1 (22.0-30.0) sec Sodium 138 (137-145) mmol/L Potassium 4.4 (3.5-5.1) mmol/L Chloride 103 (98-107) mmol/L Carbon Dioxide 23 (22-30) mmol/L Anion Gap 12 mmol/L BUN 21 H (7-17) mg/dL Creatinine 1.23 H (0.52-1.04) mg/dL Est GFR (CKD-EPI)AfAm 57 (>60 ml/min/1.73 sqM) Est GFR (CKD-EPI)NonAf 49 (>60 ml/min/1.73 sqM) Glucose 97 (74-99) mg/dL Plasma Lactic Acid Abel (0.7-2.0) mmol/L Calcium 9.9 (8.4-10.2) mg/dL Magnesium 2.1 (1.6-2.3) mg/dL Total Bilirubin 0.6 (0.2-1.3) mg/dL AST 21 (14-36) U/L ALT 26 (4-34) U/L Alkaline Phosphatase 107 (38-126) U/L Troponin I (0.000-0.034) ng/mL Total Protein 8.0 (6.3-8.2) g/dL Albumin 4.2 (3.5-5.0) g/dL Urine Color Urine Appearance (Clear) Urine pH (5.0-8.0) Ur Specific [place] (1.001-1.035) Ur Protein Confirm (Negative) Urine Glucose (UA) (Negative) Urine Ketones (Negative) Urine Blood (Negative) Urine Nitrite (Negative) Urine Bilirubin (Negative) Ur Bilirubin Confirm (Negative) Urine Urobilinogen (<2.0) mg/dL Ur Leukocyte Esterase (Negative) 05/03/23 05/03/23 05/03/23 Range/Units 10:59 10:59 11:00 WBC (3.8-10.6) k/uL RBC (3.80-5.40) m/uL Hgb (11.4-16.0) gm/dL Hct (34.0-46.0) % MCV (80.0-100.0) fL MCH (25.0-35.0) pg MCHC (31.0-37.0) g/dL RDW (11.5-15.5) % Plt Count (150-450) k/uL MPV Neutrophils % % Lymphocytes % % Monocytes % % Eosinophils % % Basophils % % Neutrophils # (1.3-7.7) k/uL Lymphocytes # (1.0-4.8) k/uL Monocytes # (0-1.0) k/uL Eosinophils # (0-0.7) k/uL Basophils # (0-0.2) k/uL PT (9.0-12.0) sec INR (<1.2) APTT (22.0-30.0) sec Sodium (137-145) mmol/L Potassium (3.5-5.1) mmol/L Chloride (98-107) mmol/L Carbon Dioxide (22-30) mmol/L Anion Gap mmol/L BUN (7-17) mg/dL Creatinine (0.52-1.04) mg/dL Est GFR (CKD-EPI)AfAm (>60 ml/min/1.73 sqM) Est GFR (CKD-EPI)NonAf (>60 ml/min/1.73 sqM) Glucose (74-99) mg/dL Plasma Lactic Acid Abel 1.1 (0.7-2.0) mmol/L Calcium (8.4-10.2) mg/dL Magnesium (1.6-2.3) mg/dL Total Bilirubin (0.2-1.3) mg/dL AST (14-36) U/L ALT (4-34) U/L Alkaline Phosphatase (38-126) U/L Troponin I <0.012 (0.000-0.034) ng/mL Total Protein (6.3-8.2) g/dL Albumin (3.5-5.0) g/dL Urine Color Colorless Urine Appearance Cloudy H (Clear) Urine pH 5.5 (5.0-8.0) Ur Specific [place] 1.010 (1.001-1.035) Ur Protein Confirm Negative (Negative) Urine Glucose (UA) 1+ H (Negative) Urine Ketones Negative (Negative) Urine Blood Negative (Negative) Urine Nitrite Positive (Negative) Urine Bilirubin Negative (Negative) Ur Bilirubin Confirm Negative (Negative) Urine Urobilinogen <2.0 (<2.0) mg/dL Ur Leukocyte Esterase Moderate (Negative) Disposition Clinical Impression: Dehydration, Dizziness Disposition: HOME SELF-CARE Condition: Fair Instructions (If sedation given, give patient instructions): Dizziness (ED) Is patient prescribed a controlled substance at d/c from ED?: No Referrals: Cony Delgado PAC [Family Provider] - 1-2 days Time of Disposition: 13:02
[2023-05-03 11:19] VITALS: PULSE 62
[2023-05-03 11:34] LABS: Basophils % (A) 0 %; Eosinophils % (A) 1 %; HCT 36.2 % (34.0-46.0); HGB 12.2 gm/dL (11.4-16.0); Lymphocytes # (A) 0.5 k/uL (1.0-4.8); Lymphocytes % (A) 11 %; MCH 30.3 pg (25.0-35.0); MCHC 33.9 g/dL (31.0-37.0); MCV 89.5 fL (80.0-100.0); Mean Platelet Volume 9.5; Monocytes # (A) 0.3 k/uL (0-1.0); Monocytes % (A) 7 %; Neutrophils # (A) 3.6 k/uL (1.3-7.7); Neutrophils % (A) 79 %; Platelet Count 144 k/uL (150-450); RBC 4.04 m/uL (3.80-5.40); RDW 13.1 % (11.5-15.5); WBC 4.6 k/uL (3.8-10.6)
--- NOTE | 2023-05-03 11:40 | CT ---
EXAMINATION TYPE: CT brain wo con DATE OF EXAM: 05/03/2023 COMPARISON: 04/01/23 HISTORY: Dizziness since yesterday at noon, Recent CVA CT DLP: 1130.[address] of the brain was performed. The ventricles, basal cisterns and sulci overlying the cerebral convexities demonstrate mild enlargem ent. There is no evidence for intracranial hemorrhage or sulcal effacement. There is decreased attenuation about the periventricular white matter and deep white matter of both c erebral hemispheres, compatible with chronic small vessel ischemia. Differential diagnosis does inclu de demyelination. No mass effects are seen.No midline shift. Osseous calvarium is intact. If symptoms persist consider MRI. IMPRESSION: 1. Age related atrophic and chronic small vessel ischemic change without acute intracranial process s een at this time.
[2023-05-03 11:57] LABS: Bacteria,Urine Occasional /hpf; Mucus,Urine Rare /hpf; RBC,Urine 1 /hpf (0-5); Squamous Epithelial Cell,Urine <1 /hpf (0-4); WBC,Urine 24 /hpf (0-5)
[2023-05-03 11:58] LABS: Partial Thromboplastin Time 24.1 sec (22.0-30.0); Prothrombin Time 10.2 sec (9.0-12.0)
[2023-05-03 11:59] LABS: Appearance,Urine Cloudy (Clear); Color,Urine Colorless; PH, Urine 5.5 (5.0-8.0)
[2023-05-03 12:00] LABS: Bilirubin Confirmation, Urine Negative (Negative); Bilirubin,Urine Negative (Negative); Glucose,Urine (UA) 1+ (Negative); Ketones,Urine Negative (Negative); Protein Confirmation,Urine Negative (Negative)
[2023-05-03 12:01] LABS: Blood,Urine Negative (Negative); Urobilinogen,Urine <2.0 mg/dL (<2.0)
[2023-05-03 12:02] LABS: Leukocyte Esterase,Urine Moderate (Negative); Nitrite,Urine Positive (Negative)
[2023-05-03 12:11] LABS: ALT 26 U/L (4-34); AST 21 U/L (14-36); African American GFR (CKD) 57 (>60 ml/min/1.73 sqM); Albumin 4.2 g/dL (3.5-5.0); Alkaline Phosphatase 107 U/L (38-126); Anion Gap 12 mmol/L; Blood Urea Nitrogen 21 mg/dL (7-17); Calcium 9.9 mg/dL (8.4-10.2); Carbon Dioxide 23 mmol/L (22-30); Chloride 103 mmol/L (98-107); Glucose 97 mg/dL (74-99); Magnesium 2.1 mg/dL (1.6-2.3); Non-African American GFR(CKD) 49 (>60 ml/min/1.73 sqM); Potassium 4.4 mmol/L (3.5-5.1); Sodium 138 mmol/L (137-145); Total Bilirubin 0.6 mg/dL (0.2-1.3)
[2023-05-03 13:22] VITALS: BP 158/68; RESP 18
== END 2023-05-03 13:22 | disposition home or self-care (01) ==
LOC: EC 09:49
DX: R42 Dizziness and giddiness (principal); E86.0 Dehydration; I10 Essential (primary) hypertension; Z88.0 Allergy status to penicillin; Z88.1 Allergy status to other antibiotic agents; Z88.2 Allergy status to sulfonamides; Z88.4 Allergy status to anesthetic agent; Z86.73 Personal history of transient ischemic attack (TIA), and cerebral infarction without residual deficits; Z91.011 Allergy to milk products; Z91.018 Allergy to other foods; Z88.8 Allergy status to other drugs, medicaments and biological substances; Z90.49 Acquired absence of other specified parts of digestive tract
CPT/HCPCS: 36415; 70450; 80053; 81001; 83605; 83735; 84484; 85025; 85610; 85730; 93005; 96360; 99284

== ENCOUNTER → 2023-05-18 | Outpatient (CLI) | payer OTHER | END | disposition home or self-care (01) | LOC: LABPAT 14:29 | PROVIDERS: ATTEND Surgery | DX: Z53.9 Procedure and treatment not carried out, unspecified reason (principal) ==

== ENCOUNTER → 2023-05-18 | Outpatient (CLI) | payer OTHER | END | disposition home or self-care (01) | LOC: LABPAT 13:44 | PROVIDERS: ATTEND Surgery | DX: Z53.9 Procedure and treatment not carried out, unspecified reason (principal) ==

== ENCOUNTER → 2023-06-30 | Outpatient (CLI) | payer OTHER ==
[2023-06-30 16:44] LABS: ALT 39 U/L (8-44); AST 24 U/L (13-35); Chol/HDL Ratio 3.98 Ratio
== END | disposition home or self-care (01) ==
LOC: LABWHC1 08:36
PROVIDERS: ATTEND Internal Medicine Cardiovascular Disease
DX: E78.2 Mixed hyperlipidemia (principal)
CPT/HCPCS: 36415; 80061; 84450; 84460

== ENCOUNTER 2023-08-22 10:47 | Observation (INO) | payer OTHER ==
[2023-08-22] MEDS ORDERED: SODIUM CHLORIDE 0.9% 1,000 ML IV STA (11:37)
[2023-08-22 12:20] LABS: Basophils % (A) 0 %; Eosinophils % (A) 1 %; HCT 37.6 % (34.0-46.0); HGB 12.8 gm/dL (11.4-16.0); Lymphocytes # (A) 0.6 k/uL (1.0-4.8); Lymphocytes % (A) 9 %; MCH 31.7 pg (25.0-35.0); MCV 93.4 fL (80.0-100.0); Mean Platelet Volume 7.9; Monocytes # (A) 0.3 k/uL (0-1.0); Monocytes % (A) 4 %; Neutrophils # (A) 5.3 k/uL (1.3-7.7); Neutrophils % (A) 85 %; Platelet Count 196 k/uL (150-450); RBC 4.03 m/uL (3.80-5.40); WBC 6.2 k/uL (3.8-10.6)
[2023-08-22 12:33] LABS: Partial Thromboplastin Time 24.9 sec (22.0-30.0); Prothrombin Time 10.7 sec (10.0-12.5)
--- NOTE | 2023-08-22 12:35 | ED ---
General Adult HPI - General Chief complaint: Neuro Symptoms/Deficit Stated complaint: stroke symptoms, tingling lips, tongue numbness Time Seen by Provider: 08/22/23 11:12 Source: patient, RN notes reviewed Mode of arrival: ambulatory Limitations: no limitations - History of Present Illness Initial comments: This is a 58-year-old female who presents to the emergency department for paresthesias. States that since yesterday she has had intermittent numbness to the left side of her face, including the lips and tongue. Denies any pain associated with this. She did at one point get the paresthesias in her left arm as well. Her largest concern is that she has a history of strokes and wants to make sure that is not what is going on. Her most recent stroke was in March of this year. She is taking blood thinners. Denies any weakness, chest pain, short ness of breath, or other complaints. - Related Data Home Medications Medication Instructions Recorded Confirmed Aspirin 81 mg PO DAILY 05/18/23 08/22/23 Clopidogrel [Plavix] 75 mg PO QAM 05/18/23 08/22/23 Azithromycin [Zithromax Z Pack] See Taper PO DIRECTED 08/22/23 08/22/23 lisinopriL [Zestril] 10 mg PO DAILY 08/22/23 08/22/23 methylPREDNISolone Dose Pack See Taper PO DIRECTED 08/22/23 08/22/23 [Medrol Dose Pack] Previous Rx's Medication Instructions Recorded Atorvastatin [Lipitor] 40 mg PO HS 30 Days #30 tab 04/05/23 Allergies Allergy/AdvReac Type Severity Reaction Status Date / Time cefaclor [From Ceclor] Allergy Unknown Verified 08/22/23 13:49 Childhood Penicillins Allergy Unknown Verified 08/22/23 13:49 povidone-iodine Allergy Unknown Verified 08/22/23 13:49 [From Betadine] sulfamethoxazole Allergy Unknown Verified 08/22/23 13:49 [From Bactrim] Childhood trimethoprim [From Bactrim] Allergy Unknown Verified 08/22/23 13:49 Childhood chocolate flavor AdvReac headache Verified 08/22/23 13:49 milk AdvReac headache Verified 08/22/23 13:49 lidocaine Allergy Intermediate Swelling Uncoded 08/22/23 10:55 ANESTHETIC(UNKNOWN) Allergy Unknown Uncoded 08/22/23 10:55 Review of Systems ROS Statement: Those systems with pertinent positive or pertinent negative responses have been documented in the HPI. ROS Other: All systems not noted in ROS Statement are negative. Past Medical History Past Medical History: CVA/TIA, Fibromyalgia, GERD/Reflux, Hyperlipidemia, Hypertension Additional Past Medical History / Comment(s): Possible cva Primary pulmonary hypertension; Migraines occasionally, low back pain. History of Any Multi-Drug Resistant Organisms: None Reported Past Surgical History: Appendectomy Additional Past Surgical History / Comment(s): BIANCA, d&c x 2 Past Anesthesia/Blood Transfusion Reactions: No Reported Reaction Past Psychological History: Anxiety Smoking Status: Never smoker Past Alcohol Use History: None Reported Past Drug Use History: None Reported - Past Family History Mother Family Medical History: Hyperlipidemia, Myocardial Infarction ([place]) Additional Family Medical History / Comment(s): MS Father Family Medical History: Blood Disorder Additional Family Medical History / Comment(s): hemophilia General Exam Limitations: no limitations General appearance: alert, in no apparent distress Head exam: Present: atraumatic, normocephalic, normal inspection Eye exam: Present: normal appearance, PERRL, EOMI. Absent: scleral icterus, conjunctival injection, periorbital swelling ENT exam: Present: normal exam, normal oropharynx, mucous membranes moist, TM's normal bilaterally, normal external ear exam Respiratory exam: Present: normal lung sounds bilaterally. Absent: respiratory distress, wheezes, rales, rhonchi, stridor Cardiovascular Exam: Present: regular rate, normal rhythm, normal heart sounds. Absent: systolic murmur, diastolic murmur, rubs, gallop, clicks Neurological exam: Present: alert, oriented X3, CN II-XII intact Expanded Cerebellar function: Finger to Nose: Normal, Heel to Chavez: Normal, Romberg: Normal Upper motor neuron: Sebas Neglect: Normal, Pronator Drift: Normal Motor strength exam: RUE: 5, LUE: 5, RLE: 5, LLE: 5 Psychiatric exam: Present: normal affect, normal mood Skin exam: Present: warm, dry, intact, normal color. Absent: rash Course Vital Signs 08/22/23 08/22/23 08/22/23 10:51 13:15 15:29 Temperature 98 F Pulse Rate 80 81 89 Respiratory 18 18 16 Rate Blood Pressure 137/89 170/86 180/101 O2 Sat by Pulse 99 97 97 Oximetry 08/22/23 16:18 Temperature Pulse Rate 86 Respiratory Rate Blood Pressure 158/78 O2 Sat by Pulse Oximetry Medical Decision Making - Medical Decision Making This is a 58-year-old female who presents to the emergency department for paresthesias. Was pt. sent in by a medical professional or institution? @ -No Did you speak to anyone other than the patient for history? @ -No Did you review nursing and triage notes? @ -Yes, and I agree, it is accurate with regards to the patient's symptoms. Were old charts reviewed? @ -No Differential Diagnosis? @ -Differential Paresthesias: CVA/TIA, allergic reaction, vitamin deficiency, injury, this is not meant to be an all-inclusive list. EKG interpreted by me (3pts min.)? @ -EKG interpreted by me demonstrating the following: Sinus rhythm. Ventricular rate 79 beats per minute, VA interval 172 ms, QRS duration 97 ms, QTC 427 ms. X-rays interpreted by me (1pt min.)? @ -Not obtained CT interpreted by me (1pt min.)? @ -CT scan of the brain obtained. My interpretation identifies no evidence of an acute intracranial hemorrhage. U/S interpreted by me (1pt. min.)? @ -Not obtained What testing was considered but not performed? (CT, X-rays, U/S, labs)? Why? @ -None What meds were considered but not given? Why? @ -None Did you discuss the management of the patient with other professionals? @ -Yes, Dr. Rodriguez, who accepts the patient for admission. Did you reconcile home meds? @ -No Was smoking cessation discussed for >3mins.? @ -No Was critical care preformed (if so, how long)? @ -No Were there social determinants of health that impacted care today? How? (Homelessness, low income, unemployed, alcoholism, drug addiction, transportation, low edu. Level, literacy, decrease access to med. care, correction, rehab)? @ -No Was there de-escalation of care discussed even if they declined? (Discuss DNR or withdrawal of care, Hospice)? @ -No What co-morbidities impacted this encounter? (DM, HTN, Smoking, COPD, CAD, Cancer, CVA, Hep., AIDS, mental health diagnosis, sleep apnea, morbid obesity)? @ -HLD, HTN, Hx of CVA Was patient admitted / discharged? @ -Admitted. Patient had no neurological deficits on examination. Lab work obtained and found to be unremarkable. Computed tomography scan of the brain was obtained revealing no acute process. Radiology advised an MRI if there is concern for acute ischemia. Patient's symptoms continued to be intermittent while in the emergency department, and she occasionally developed numbness in the left hand as well. Discussed with the patient the option of admission for neurology consult and MRI versus discharge home. Patient is concerned that during prior strokes, they were not immediately evident on the computed tomography scan and an MRI was needed for confirmation. She was also concerned about being able to get an MRI on a timely basis outpatient. Patient subsequently requested to proceed with admission for further evaluation and MRI due to her concern of another stroke. Patient admitted to medicine with consult placed for neurology. Undiagnosed new problem with uncertain prognosis? @ -None Drug Therapy requiring intensive monitoring for toxicity (Heparin, Nitro, Insul in, Cardizem)? @ -None Were any procedures done? @ -None Diagnosis/symptom? @ -Facial paresthesia Acute, or Chronic, or Acute on Chronic? @ -Acute Uncomplicated (without systemic symptoms) or Complicated (systemic symptoms)? @ -Uncomplicated Side effects of treatment? @ -None Exacerbation, Progression, or Severe Exacerbation] @ -Not applicable Poses a threat to life or bodily function? @ -Unclear, this will depend on the cause This case was discussed in detail with the attending ED physician, Dr. Rodriguez. Presentation, findings, and treatment plan discussed in detail as well. - Lab Data Result diagrams: 08/22/23 12:08/22/23 12:07 Lab Results 08/22/23 08/22/23 08/22/23 Range/Units 12: 12: 12:07 WBC 6.2 (3.8-10.6) k/uL RBC 4.03 (3.80-5.40) m/uL Hgb 12.8 (11.4-16.0) gm/dL Hct 37.6 (34.0-46.0) % MCV 93.4 (80.0-100.0) fL MCH 31.7 (25.0-35.0) pg MCHC 34.0 (31.0-37.0) g/dL RDW 12.0 (11.5-15.5) % Plt Count 196 (150-450) k/uL MPV 7.9 Neutrophils % 85 % Lymphocytes % 9 % Monocytes % 4 % Eosinophils % 1 % Basophils % 0 % Neutrophils # 5.3 (1.3-7.7) k/uL Lymphocytes # 0.6 L (1.0-4.8) k/uL Monocytes # 0.3 (0-1.0) k/uL Eosinophils # 0.0 (0-0.7) k/uL Basophils # 0.0 (0-0.2) k/uL PT 10.7 (10.0-12.5) sec INR 1.0 (<1.2) APTT 24.9 (22.0-30.0) sec Sodium 137 (137-145) mmol/L Potassium 4.6 (3.5-5.1) mmol/L Chloride 104 (98-107) mmol/L Carbon Dioxide 23 (22-30) mmol/L Anion Gap 10 mmol/L BUN 21 H (7-17) mg/dL Creatinine 1.01 (0.52-1.04) mg/dL Est GFR (CKD-EPI)AfAm 72 (>60 ml/min/1.73 sqM) Est GFR (CKD-EPI)NonAf 62 (>60 ml/min/1.73 sqM) Glucose 91 (74-99) mg/dL Calcium 10.0 (8.4-10.2) mg/dL Total Bilirubin 0.7 (0.2-1.3) mg/dL AST 23 (14-36) U/L ALT 19 (4-34) U/L Alkaline Phosphatase 100 (38-126) U/L Total Protein 8.1 (6.3-8.2) g/dL Albumin 4.2 (3.5-5.0) g/dL - Radiology Data Radiology results: report reviewed, image reviewed Disposition Clinical Impression: Facial paresthesia, History of CVA (cerebrovascular accident) Disposition: ADMITTED IP TO THIS HOSP
[2023-08-22 12:47] LABS: ALT 19 U/L (4-34); AST 23 U/L (14-36); African American GFR (CKD) 72 (>60 ml/min/1.73 sqM); Albumin 4.2 g/dL (3.5-5.0); Alkaline Phosphatase 100 U/L (38-126); Anion Gap 10 mmol/L; Blood Urea Nitrogen 21 mg/dL (7-17); Carbon Dioxide 23 mmol/L (22-30); Chloride 104 mmol/L (98-107); Glucose 91 mg/dL (74-99); Non-African American GFR(CKD) 62 (>60 ml/min/1.73 sqM); Sodium 137 mmol/L (137-145); Total Bilirubin 0.7 mg/dL (0.2-1.3); Total Protein 8.1 g/dL (6.3-8.2)
--- NOTE | 2023-08-22 12:48 | CT ---
EXAMINATION TYPE: CT brain wo con DATE OF EXAM: 08/22/2023 COMPARISON: 04/23/2023 HISTORY: Lip and tounge tingling, LT arm tingling, hx of CVA CT DLP: 1168.4 mGycm Automated exposure control for dose reduction was used. FINDINGS: Extensive intracranial atherosclerotic change involving the cavernous segment bilateral ICA. No midline shift or mass effect. No acute hemorrhage. Low-lying cerebellar tonsils. Orbits are symmetric. Nasal septal deviation with changes of chronic sinusitis. Calvarium intact. Pre viously noted hypoattenuation in the white matter is similar to prior exam suggestive of remote micro vascular ischemic changes. IMPRESSION: 1. LOW-LYING CEREBELLAR TONSILS. 2. EXTENSIVE ATHEROSCLEROTIC PLAQUE INVOLVING BILATERAL CAVERNOUS ICA. NO ACUTE HEMORRHAGE OR MASS EF FECT. IF CONCERN FOR ACUTE ISCHEMIA CONSIDER FOLLOW-UP MRI.
[2023-08-22 13:01] LABS: Potassium 4.6 mmol/L (3.5-5.1)
[2023-08-22] MEDS ORDERED: ACETAMINOPHEN TAB 325 MG TAB PO PRN (14:50)
[2023-08-22] MEDS ORDERED: ONDANSETRON 4 MG/2 ML VIAL IVP PRN (14:50)
[2023-08-22] MEDS ORDERED: NALOXONE 0.4 MG/ML 1 ML VIAL IV PRN (14:50)
[2023-08-22] MEDS ORDERED: HYDROcodone/APAP 5-325MG 1 EACH TAB PO PRN (14:50)
[2023-08-22] MEDS: lisinopriL 10 MG TAB PO SCH (15:31)
[2023-08-22] MEDS: HEPARIN SODIUM,PORCINE 5,000 UNIT/ML 1 ML VIAL SQ SCH ×2 (15:32→23:27)
[2023-08-22] MEDS: ATORVASTATIN 40 MG TAB PO SCH (20:02)
--- NOTE | 2023-08-23 00:23 | P.HPIM ---
History of Present Illness H&P Date: 08/22/23 Chief Complaint: Left-sided numbness and paresthesias Patient is a 58-year-old female with a known history of CVA/TIA with right-sided weakness in March 2023, improved now and hypertension, fibromyalgia and anxiety presents to ER with complaints of paresthesias. Patient was tested since yesterday she has been having intermittent episodes of paresthesias over the left side of the mouth and face including lips and tongue and also noticed having left/fingers tingling sensation. Otherwise patient denies any complaints of weakness or facial droop. Denies any blurred vision or diplopia. Patient had acute ischemic stroke involving left inferior paxton and superior lingula resulting in right-sided upper and lower extremity weakness and speech deficits in March 2023. Patient underwent stroke workup including MRI brain, neck MRA and BIANCA. Patient also had event monitor. Showed rhythm strip revealed a sinus mechanism with episodes of sinus arrhythmia. There was no atrial fibrillation or ventricular tachyarrhythmia as per report on 05/16/2023. MRA neck showed nonvisualization of distal portion of the right vertebral artery most compatible with occlusion. 50 to 70% stenosis of the left carotid bifurcation and 25 to 50% stenosis of the right carotid bifurcation. No evidence of aneurysm. Patient was seen by vascular surgery and recommended carotid intervention upon c ompletion of cardiac workup. Patient is supposed to get a stress test but she is concerned about the dye and could not get the test so far. On admission CT head showed low-lying cerebellar tonsils. Extensive atherosclerotic plaque involving bilateral cavernous ICA no acute hemorrhage or mass effect. If concern for acute ischemia consider follow-up MRI. EKG showed sinus rhythm. Laboratory pressure WBC 6.2 hemoglobin 12.8 and platelets 196 Sodium 137 potassium 4.6 chloride 104 bicarb is 23 BUN 21 creatinine 1.01. Liver enzymes not elevated. Calcium 10.0 Review of Systems Constitutional: Patient denies any fever or chills . no Generalized weakness. Abdomen: Patient denied any nausea or vomiting or abd. pain Cardiovascular: Patient denies any chest pain or short of breath no palpitations. Respiratory: patient denied any cough . no sputum production. No shortness of breath Neurologic: Patient numbness and tingling over the left forearm, facial and left upper extremity. No headache. Musculoskeletal: Patient denies any complaints of joint swelling or deformity. Skin: Negative Psychiatric: Negative Endocrine: No heat or cold intolerance. No recent weight gain. Genitourinary: No dysuria or hematuria. All other 14 point ROS negative except the above Past Medical History Past Medical History: CVA/TIA, Fibromyalgia, GERD/Reflux, Hyperlipidemia, Hypertension Additional Past Medical History / Comment(s): Possible cva Primary pulmonary hypertension; Migraines occasionally, low back pain. History of Any Multi-Drug Resistant Organisms: None Reported Past Surgical History: Appendectomy Additional Past Surgical History / Comment(s): BIANCA, d&c x 2 Past Anesthesia/Blood Transfusion Reactions: No Reported Reaction Past Psychological History: Anxiety Smoking Status: Never smoker Past Alcohol Use History: None Reported Past Drug Use History: None Reported - Past Family History Mother Family Medical History: Hyperlipidemia, Myocardial Infarction ([place]) Additional Family Medical History / Comment(s): MS Father Family Medical History: Blood Disorder Additional Family Medical History / Comment(s): hemophilia Medications and Allergies Home Medications Medication Instructions Recorded Confirmed Type Atorvastatin [Lipitor] 40 mg PO HS 30 Days #30 tab 04/05/23 08/22/23 Rx Aspirin 81 mg PO DAILY 05/18/23 08/22/23 History Clopidogrel [Plavix] 75 mg PO QAM 05/18/23 08/22/23 History Azithromycin [Zithromax Z Pack] See Taper PO DIRECTED 08/22/23 08/22/23 History lisinopriL [Zestril] 10 mg PO DAILY 08/22/23 08/22/23 History methylPREDNISolone Dose Pack See Taper PO DIRECTED 08/22/23 08/22/23 History [Medrol Dose Pack] Allergies Allergy/AdvReac Type Severity Reaction Status Date / Time cefaclor [From Ceclor] Allergy Unknown Verified 08/22/23 13:49 Childhood Penicillins Allergy Unknown Verified 08/22/23 13:49 povidone-iodine Allergy Unknown Verified 08/22/23 13:49 [From Betadine] sulfamethoxazole Allergy Unknown Verified 08/22/23 13:49 [From Bactrim] Childhood trimethoprim [From Bactrim] Allergy Unknown Verified 08/22/23 13:49 Childhood chocolate flavor AdvReac headache Verified 08/22/23 13:49 milk AdvReac headache Verified 08/22/23 13:49 lidocaine Allergy Intermediate Swelling Uncoded 08/22/23 10:55 ANESTHETIC(UNKNOWN) Allergy Unknown Uncoded 08/22/23 10:55 Physical Exam Vitals: Vital Signs Temp Pulse Pulse Resp BP BP Pulse Ox 08/22/23 20:30 98.7 F 72 16 147/83 96 08/22/23 18:39 97.6 F 87 18 186/90 97 08/22/23 16:18 86 158/78 08/22/23 15:29 89 16 180/101 97 08/22/23 13:15 81 18 170/86 97 08/22/23 10:51 98 F 80 18 137/89 99 Intake and Output 08/22/23 08/22/23 08/22/23 06:59 14:59 22:59 Other: # Voids 1 Weight 67.132 kg 67.132 kg PHYSICAL EXAMINATION: Patient is lying in the bed comfortably, no acute distress, awake alert and oriented.. HEENT: Normocephalic. Neck is supple. Pupils reactive. Nostrils clear. Oral cavi ty is moist. Neck reveals no JVD, carotid bruits, or thyromegaly. CHEST EXAMINATION: Trachea is central. Symmetrical expansion. Lung mike clear to auscultation and percussion. CARDIAC: Normal S1, S2 with no gallops. No murmurs ABDOMEN: Soft. Bowel sounds present. Nontender. No organomegaly. No abdominal bruits. Extremities: reveal no edema. No clubbing or cyanosis Neurologically awake, alert, oriented x3 with well-coordinated movements. Muscle strength 5 out of 5 all 4 extremities. Sensory system intact. Cranial nerves intact. Skin: No rash or skin lesions. Psychiatric: Coperative. Nonsuicidal, Musculoskeletal: No joint swelling or deformity. Normal range of motion. Results CBC & Chem 7: 08/22/23 12:07 08/22/23 12:07 Labs: Abnormal Lab Results - Last 24 Hours (Table) 08/22/23 08/22/23 Range/Units 12:07 12:07 Lymphocytes # 0.6 L (1.0-4.8) k/uL BUN 21 H (7-17) mg/dL Thrombosis Risk Factor Assmnt - DVT/VTE Prophylaxis DVT/VTE Prophylaxis: Pharmacologic Prophylaxis ordered - Choose All That Apply Each Factor Represents 1 point: Age 41-60 years, Obesity (BMI >25) Other Risk Factors: No Other congenital or acquired thrombophilia - If yes, enter type in comment: No Thrombosis Risk Factor Assessment Total Risk Factor Score: 2 Thrombosis Risk Factor Assessment Level: Low Risk Assessment and Plan Assessment: Paresthesias involving left oral, facial numbness and tingling of the hand and/fingers. Rule out acute CVA History of acute ischemic stroke involving left inferior paxton and superior lingula resulting in right upper and lower extremity weakness and speech deficits in March 2023. Improved now. History of CVA in 2021 with no residual deficits. Bilateral carotid stenosis left greater than right. Patient is supposed to get carotid intervention pending cardiac workup. Uncontrolled hypertension Hyperlipidemia Fibromyalgia Migraine headaches GERD Anxiety DVT prophylaxis with heparin subcu Plan: Patient will be continued on telemonitoring. Continue with neurochecks. Will be started back on aspirin and Plavix and statins. Patient will be started back on lisinopril 10 mg daily and titrate blood pressure medications as tolerated. Vitamin D level was ordered. Neurology was consulted. Continue to follow closely. Time with Patient: Greater than 30
[2023-08-23] MEDS: lisinopriL 10 MG TAB PO SCH (08:49)
[2023-08-23] MEDS: HEPARIN SODIUM,PORCINE 5,000 UNIT/ML 1 ML VIAL SQ SCH ×3 (08:49→23:33)
[2023-08-23] MEDS: ASPIRIN 81 MG PO SCH (08:49)
[2023-08-23] MEDS: CLOPIDOGREL 75 MG TAB PO SCH (08:49)
[2023-08-23 09:06] LABS: BUN/Creat Ratio 14.27 Ratio (12.00-20.00); Blood Urea Nitrogen 15.7 mg/dL (9.0-27.0); Calcium 9.7 mg/dL (8.7-10.3); Carbon Dioxide 21.3 mmol/L (21.6-31.8); Chloride 107 mmol/L (96-109); Glucose 84 mg/dL (70-110); Potassium 4.5 mmol/L (3.5-5.5); Sodium 140 mmol/L (135-145)
--- NOTE | 2023-08-23 11:28 | P.GSCN ---
History of Present Illness Consult date: 08/23/23 Reason for Consult: Carotid stenosis Requesting physician: Ivana Taylor History of present illness: This is a pleasant 58-year-old female with a past medical history including hypertension, dyslipidemia, fibromyalgia, pulmonary hypertension, migraines, and CVA Vincent to the emergency department on 08/22/2023 with complaints of numbness and tingling near her left side of her mouth, tongue and numbness and tingling in her left fingers. She states that this had occurred 2-3 times yesterday lasting about 1 minute in duration. And according to the patient's had also occurred in the last couple of days. She denied any other focal deficits such as weakness in her upper or lower extremities, difficulty with speech, or visual changes. Patient was seen back in March of this year by vascular surgery for concerns of carotid stenosis and TIA/stroke. At that time she underwent an MRA of the neck which Dr. Cm had independently higinio and thought stenosis was likely 70% or more of the left ICA. Patient has been following with Dr. Cm in the office, they have been working her up for surgical intervention of the left carotid artery. She had a carotid duplex in the office last week, report not available at this time. She also is undergoing cardiac clearance. Patient had a cardiac stress test scheduled for 07/28/2023 however she rescheduled until 09/06/2022. She is currently on aspirin 81 mg d aily, atorvastatin 40 mg at at bedtime and Plavix 75 mg daily. Patient also states that she was supposed to start a Medrol Dosepak and Z-Javier for complaints of right sided headache at bedtime with complaints of congestion. States she was just prescribed and not started any medication check. Today she denies any focal deficits. She is scheduled to undergo an MRI. She had a CT of the brain on admission which reported low lying cerebellar tonsils, extensive arthrosclerotic plaque involving bilateral cavernous ICA. No acute hemorrhage or mass effect. Concern for acute ischemia consider follow-up MRI. Vascular surgery consulted for carotid stenosis. Review of Systems A 14 point review systems was completed all pertinent positives and negatives as stated in the HPI. Past Medical History Past Medical History: CVA/TIA, Fibromyalgia, GERD/Reflux, Hyperlipidemia, Hypertension Additional Past Medical History / Comment(s): Possible cva Primary pulmonary hypertension; Migraines occasionally, low back pain. History of Any Multi-Drug Resistant Organisms: None Reported Past Surgical History: Appendectomy Additional Past Surgical History / Comment(s): BIANCA, d&c x 2 Past Anesthesia/Blood Transfusion Reactions: No Reported Reaction Past Psychological History: Anxiety Smoking Status: Never smoker Past Alcohol Use History: None Reported Past Drug Use History: None Reported - Past Family History Mother Family Medical History: Hyperlipidemia, Myocardial Infarction ([place]) Additional Family Medical History / Comment(s): MS Father Family Medical History: Blood Disorder Additional Family Medical History / Comment(s): hemophilia Medications and Allergies Home Medications Medication Instructions Recorded Confirmed Type Atorvastatin [Lipitor] 40 mg PO HS 30 Days #30 tab 04/05/23 08/22/23 Rx Aspirin 81 mg PO DAILY 05/18/23 08/22/23 History Clopidogrel [Plavix] 75 mg PO QAM 05/18/23 08/22/23 History Azithromycin [Zithromax Z Pack] See Taper PO DIRECTED 08/22/23 08/22/23 His tory lisinopriL [Zestril] 10 mg PO DAILY 08/22/23 08/22/23 History methylPREDNISolone Dose Pack See Taper PO DIRECTED 08/22/23 08/22/23 History [Medrol Dose Pack] Allergies Allergy/AdvReac Type Severity Reaction Status Date / Time cefaclor [From Ceclor] Allergy Unknown Verified 08/22/23 13:49 Childhood Penicillins Allergy Unknown Verified 08/22/23 13:49 povidone-iodine Allergy Unknown Verified 08/22/23 13:49 [From Betadine] sulfamethoxazole Allergy Unknown Verified 08/22/23 13:49 [From Bactrim] Childhood trimethoprim [From Bactrim] Allergy Unknown Verified 08/22/23 13:49 Childhood chocolate flavor AdvReac headache Verified 08/22/23 13:49 milk AdvReac headache Verified 08/22/23 13:49 lidocaine Allergy Intermediate Swelling Uncoded 08/22/23 10:55 ANESTHETIC(UNKNOWN) Allergy Unknown Uncoded 08/22/23 10:55 Surgical - Exam Vital Signs Temp Pulse Resp BP Pulse Ox 98 F 80 18 137/89 99 08/22/23 10:51 08/22/23 10:51 08/22/23 10:51 08/22/23 10:51 08/22/23 10:51 General appearance: The patient is alert, oriented, appears in no acute distress. HET: Head is normocephalic and atraumatic. Pupils are equal and reactive. Neck: Supple. Left carotid bruit noted. Heart: Regular. Lungs: Equal expansion, normal respiratory effort. Abdomen: Soft, nontender, nondistended. Extremities: Normal skin color and turgor. Palpable bilateral radial and DP pulses. Neurological: No focal deficits. Strength and sensation are grossly intact. Results - Labs 08/22/23 12:08/23/23 06:13 Abnormal Lab Results - Last 24 Hours (Table) 08/22/23 08/22/23 08/23/23 Range/Units 12:07 12:07 06:13 Lymphocytes # 0.6 L (1.0-4.8) k/uL Carbon Dioxide 21.3 L (21.6-31.8) mmol/L BUN 21 H (7-17) mg/dL Est GFR (CKD-EPI) 59 L (>=60) Diabetes panel 08/22/23 08/23/23 Range/Units 12:07 06:13 Sodium 137 140 (137-145) mmol/L Potassium 4.6 4.5 (3.5-5.1) mmol/L Chloride 104 107 (98-107) mmol/L Carbon Dioxide 23 21.3 L (22-30) mmol/L BUN 21 H 15.7 (7-17) mg/dL Creatinine 1.01 1.1 (0.52-1.04) mg/dL Glucose 91 84 (74-99) mg/dL Calcium 10.0 9.7 (8.4-10.2) mg/dL AST 23 (14-36) U/L ALT 19 (4-34) U/L Alkaline Phosphatase 100 (38-126) U/L Total Protein 8.1 (6.3-8.2) g/dL Albumin 4.2 (3.5-5.0) g/dL Calcium panel 08/22/23 08/23/23 Range/Units 12:07 06:13 Calcium 10.0 9.7 (8.4-10.2) mg/dL Albumin 4.2 (3.5-5.0) g/dL Pituitary panel 08/22/23 08/23/23 Range/Units 12:07 06:13 Sodium 137 140 (137-145) mmol/L Potassium 4.6 4.5 (3.5-5.1) mmol/L Chloride 104 107 (98-107) mmol/L Carbon Dioxide 23 21.3 L (22-30) mmol/L BUN 21 H 15.7 (7-17) mg/dL Creatinine 1.01 1.1 (0.52-1.04) mg/dL Glucose 91 84 (74-99) mg/dL Calcium 10.0 9.7 (8.4-10.2) mg/dL Adrenal panel 08/22/23 08/23/23 Range/Units 12:07 06:13 Sodium 137 140 (137-145) mmol/L Potassium 4.6 4.5 (3.5-5.1) mmol/L Chloride 104 107 (98-107) mmol/L Carbon Dioxide 23 21.3 L (22-30) mmol/L BUN 21 H 15.7 (7-17) mg/dL Creatinine 1.01 1.1 (0.52-1.04) mg/dL Glucose 91 84 (74-99) mg/dL Calcium 10.0 9.7 (8.4-10.2) mg/dL Total Bilirubin 0.7 (0.2-1.3) mg/dL AST 23 (14-36) U/L ALT 19 (4-34) U/L Alkaline Phosphatase 100 (38-126) U/L Total Protein 8.1 (6.3-8.2) g/dL Albumin 4.2 (3.5-5.0) g/dL - Imaging Comments: CT of the brain on admission which reported low lying cerebellar tonsils, ext ensive arthrosclerotic plaque involving bilateral cavernous ICA. No acute hemorrhage or mass effect. Concern for acute ischemia consider follow-up MRI. Carotid ultrasound done 08/18/2023 [facility] vascular ultrasound practice reported greater than 70% right ICA stenosis and greater than 70% left ICA stenosis, vertebral flow absent on the right and antegrade on the left. Greater than 50% stenosis of bilateral external carotid artery. Assessment and Plan Assessment: 1. Left internal carotid artery stenosis 2. Left facial numbness and tingling and left finger numbness and tingling, now resolved 3. History of CVA 4. Hypertension 5. Hyperlipidemia Plan: 1. Await MRI results 2. Obtain carotid duplex report from vascular surgery office 3. Continue aspirin, Plavix and statin 4. Await recommendations from neurology 5. Further recommendations forthcoming per vascular surgeon Thank you for this consultation, we will continue to follow. The impression and plan of care has been dictated as directed. I performed a history and examination of this patient, discussed the same with the dictator. I agree with the dictator's note ,documented as a scribe. Any additional findings or plans will be noted.
--- NOTE | 2023-08-23 13:08 | P.CNNES ---
History of Present Illness Consult date: 08/23/23 Requesting physician: Lavern Welsh Reason for Consult: left sided parethesia, hx of cva History of Present Illness: This is a 58-year-old woman presented emergency department because of numbness over the left side of the upper lip the left side of the tongue as well as left side of the hands. He noticed her symptoms yesterday and lasted for some time exactly unsure and has resolved. He denies off any weakness any difficulty getting her words out or swallowing. Patient has chronic neck pain but denies any worsening or any radiation of the neck pain. Patient does have history of of stroke, left ICA stenosis, right vertebral artery occlusion. She was last seen by our team by our team on 04/05/2023 and she is was on aspirin and Plavix at that time. Vascular surgery was on board and they recommended outpatient follow-up. It seemed to the patient needed clearance from a cardiac standpoint before any intervention of her left ICA. Some of the workup during this hospital visit consisted of: Vitamin D 25-hydroxy is 25.6 with which is considered deficient. Otherwise the glucose, calcium, sodium, creatinine is within normal limits CT of the head is reported as low-lying cerebellar tonsils. Extensive at herosclerotic plaque involving bilateral cavernous ICA. No acute hemorrhage or mass effect. Concern for acute ischemia consider follow-up MRI. I did personally review the CT and there is no acute or subacute ischemia. There is no bleed. Review of Systems Review of system: The 12 point system was reviewed and apparent positive and negative per HPI. Past Medical History Past Medical History: CVA/TIA, Fibromyalgia, GERD/Reflux, Hyperlipidemia, Hypertension Additional Past Medical History / Comment(s): Possible cva Primary pulmonary hypertension; Migraines occasionally, low back pain. History of Any Multi-Drug Resistant Organisms: None Reported Past Surgical History: Appendectomy Additional Past Surgical History / Comment(s): BIANCA, d&c x 2 Past Anesthesia/Blood Transfusion Reactions: No Reported Reaction Past Psychological History: Anxiety Smoking Status: Never smoker Past Alcohol Use History: None Reported Past Drug Use History: None Reported - Past Family History Mother Family Medical History: Hyperlipidemia, Myocardial Infarction ([place]) Additional Family Medical History / Comment(s): MS Father Family Medical History: Blood Disorder Additional Family Medical History / Comment(s): hemophilia Medications and Allergies Home Medications Medication Instructions Recorded Confirmed Type Atorvastatin [Lipitor] 40 mg PO HS 30 Days #30 tab 04/05/23 08/22/23 Rx Aspirin 81 mg PO DAILY 05/18/23 08/22/23 History Clopidogrel [Plavix] 75 mg PO QAM 05/18/23 08/22/23 History Azithromycin [Zithromax Z Pack] See Taper PO DIRECTED 08/22/23 08/22/23 History lisinopriL [Zestril] 10 mg PO DAILY 08/22/23 08/22/23 History methylPREDNISolone Dose Pack See Taper PO DIRECTED 08/22/23 08/22/23 History [Medrol Dose Pack] Allergies Allergy/AdvReac Type Severity Reaction Status Date / Time cefaclor [From Ceclor] Allergy Unknown Verified 08/22/23 13:49 Childhood Penicillins Allergy Unknown Verified 08/22/23 13:49 povidone-iodine Allergy Unknown Verified 08/22/23 13:49 [From Betadine] sulfamethoxazole Allergy Unknown Verified 08/22/23 13:49 [From Bactrim] Childhood trimethoprim [From Bactrim] Allergy Unknown Verified 08/22/23 13:49 Childhood chocolate flavor AdvReac headache Verified 08/22/23 13:49 milk AdvReac headache Verified 08/22/23 13:49 lidocaine Allergy Intermediate Swelling Uncoded 08/22/23 10:55 ANESTHETIC(UNKNOWN) Allergy Unknown Uncoded 08/22/23 10:55 Physical Examination - Vital Signs Vital Signs: Vital Signs Temp Pulse Pulse Resp BP BP Pulse Ox 08/23/23 08:49 16 08/23/23 07:00 97.9 F 72 16 146/84 97 08/23/23 02:00 98.5 F 69 16 165/83 96 08/22/23 20:30 98.7 F 72 16 147/83 96 08/22/23 18:39 97.6 F 87 18 186/90 97 08/22/23 16:18 86 158/78 08/22/23 15:29 89 16 180/101 97 08/22/23 13:15 81 18 170/86 97 Intake and Output 08/22/23 08/23/23 08/23/23 22:59 06:59 14:59 Other: Voiding Method Toilet # Voids 1 2 Weight 67.132 kg GENERAL: The patient is lying in bed and is not in acute distress. NEUROLOGICAL: Higher mental function: The patient is awake, alert, oriented to self, place and time. Patient is following commands. No aphasia and no neglect. Cranial nerves: The pupils are round, equal and reactive to light and accommodation. Visual mike are full to confrontation throughout. Extraocular movement is intact no nystagmus is noted. Facial sensation is normal to touch throughout. The facial strength is normal throughout. Hearing is normal bilaterally to hand rub. Tongue is midline and moved [id number] without any difficulty. No dysarthria is noted. Shoulder shrug is normal bilaterally. Motor: The strength is 5 over 5 throughout. Normal tone and bulk. Cerebellum: Normal finger to nose heel to giraldo bilaterally. Sensation: Sensation is normal to touch throughout. Reflexes (right/left): 2+ throughout. Plantars are downgoing bilaterally. Results - Laboratory Findings CBC and BMP: 08/22/23 12:07 08/23/23 06:13 Abnormal Lab Findings: Abnormal Labs 08/22/23 08/22/23 08/23/23 12:07 12:07 06:13 Lymphocytes # 0.6 L Carbon Dioxide 21.3 L BUN 21 H Est GFR (CKD-EPI) 59 L Vitamin D 25-Hydroxy 25.6 L Assessment and Plan Assessment: This is a 58-year-old woman with history of left pontine stroke towards end of March 2023, left ICA stenosis, right vertebral occlusion who presents to emergency Department for numbness over the left side of the face as well as left hand. Her symptoms has resolved. Transient left-sided numbness over the left face hand likely transient ischemic attack. History of left pontine infarct and of March 2023 as well as previous strokelike right dominant stroke Significant left ICA stenosis and pending clearance of cardiology for intervention History of right vertebral artery occlusion Hypertension Hyperlipidemia Plan: Patient is resumed on her home medication of aspirin 81 mg, Plavix 75 mg and Lipitor 40 mg daily at bedtime. MRI of the brain is pending. If the MRI does reveal an acute or subacute ischemia then the will change to Plavix to [employer]. I ordered a limited 2-D echo I also ordered carotid duplex Vascular surgery is consulted the for the left ICA stenosis and recommend the cardiology consultation for clearance. Continue neuro checks Cardiac monitoring We'll defer the rest of the medical management to primary team We'll hold off PT and OT since the patient does not have any focal deficits at this time. For DVT prophylaxis patient is on subcu heparin The plan was discussed with the patient and the primary attending Thank you for consultation Time with Patient: Greater than 30
--- NOTE | 2023-08-23 15:48 | US ---
EXAMINATION TYPE: US carotid duplex BILAT DATE OF EXAM: 08/23/2023 COMPARISON: US 2022 CLINICAL INDICATION: Female, 58 years old with history of carotid stenosis; TECHNIQUE: Carotid duplex ultrasound examination. Indirect Doppler criteria was utilized. FINDINGS: Hand Upper And Bottom Lacer notes: Exam done portable EXAM MEASUREMENTS: RIGHT: Peak Systolic Velocity (PSV) cm/sec ----- Right CCA: 129.0 ----- Right ICA: 269.0 ----- Right ECA: 290.0 ICA/CCA ratio: 2.1 RIGHT: End Diastole cm/sec ----- Right CCA: 40.9 ----- Right ICA: 70.5 ----- Right ECA: 12.7 LEFT: Peak Systolic Velocity (PSV) cm/sec ----- Left CCA: 94.8 ----- Left ICA: 382.0 ----- Left ECA: 199.0 ICA/CCA ratio: 4.0 LEFT: End Diastole cm/sec ----- Left CCA: 24.3 ----- Left ICA: 203.0 ----- Left ECA: 50.4 VERTEBRALS (direction of flow): Right Vertebral: Antegrade Left Vertebral: Antegrade Rhythm: Normal Hand Upper And Bottom Lacer notes: Right ICA/CCA ratio 2.1, left ICA/CCA ratio 4.0 IMPRESSION: Doppler measurements estimating a severe, greater than 70% proximal left ICA stenosis and a moderate, 50-69%, proximal right ICA stenosis. Criteria for Assigning % of Stenosis / Diameter reduction (Estimation based on the indirect measurements of the internal carotid artery velocities (ICA PSV). 1. Normal (no stenosis)=ICA PSV < 125 cm/s: ratio < 2.0: ICA EDV<40 cm/s. 2. Less than 50% stenosis=ICA PSV < 125 cm/s: ratio < 2.0: ICA EDV<40 cm/s. 3. 50 to 69% stenosis=ICA PSV of 125 to 230 cm/s: ration 2.0 ? 4.0: ICA EDV 40-100 cm/s. 4. Greater than 70% stenosis to near occlusion= ICA PSV > 230 cm/s: ratio > 4.0: ICA EDV > 100 cm/s. 5. Near occlusion= ICA PSV velocities may be low or undetectable: variable ratio and ICA EDV. 6. Total occlusion=unable to detect flow.
--- NOTE | 2023-08-23 16:33 | MR ---
EXAMINATION TYPE: MR brain wo con DATE OF EXAM: 08/23/2023 3:36 PM CLINICAL INDICATION:Female, 58 years old with history of stroke. facial numbness; PHH, Stroke. Facia l numbness. COMPARISON: 08/22/2023. TECHNIQUE: Multi planar, multi sequence imaging was performed through the brain including: T1, T2, In version recovery, Diffusion weighted imaging, and gradient echo imaging. No gadolinium was given. FINDINGS: The york-white junctions, ventricular system, basal cisterns appear unremarkable. Scattered foci of high T2 signal intensity are seen within the periventricular white matter condition white matter beau nges within the left paxton.. Midline structures show no abnormality. Diffusion-weighted imaging shows no evidence of restricted diffusion. The susceptibility weighted images do not reveal any evidence fo r micro-hemorrhage. The bone marrow signal is within normal limits. Paranasal sinuses and mastoid air cells: No significant paranasal sinus disease. Visualized orbits: Orbital contents are intact. IMPRESSION: 1. No evidence of intracranial mass or acute/subacute infarct. 2. No evidence for active demyelination, Nonspecific white matter changes, likely secondary to small vessel ischemic disease.
[2023-08-23] MEDS: ATORVASTATIN 40 MG TAB PO SCH (20:06)
--- NOTE | 2023-08-24 06:12 | P.PN ---
Subjective Progress Note Date: 08/23/23 Patient is a 58-year-old female with a known history of CVA/TIA with right-sided weakness in March 2023, improved now and hypertension, fibromyalgia and anxiety presents to ER with complaints of paresthesias. Patient was tested since yesterday she has been having intermittent episodes of paresthesias over the left side of the mouth and face including lips and tongue and also noticed having left/fingers tingling sensation. Otherwise patient denies any complaints of weakness or facial droop. Denies any blurred vision or diplopia. Patient had acute ischemic stroke involving left inferior paxton and superior lingula resulting in right-sided upper and lower extremity weakness and speech deficits in March 2023. Patient underwent stroke workup including MRI brain, neck MRA and BIANCA. Patient also had event monitor. Showed rhythm strip revealed a sinus mechanism with episodes of sinus arrhythmia. There was no atrial fibrillation or ventricular tachyarrhythmia as per report on 05/16/2023. MRA neck showed nonvisualization of distal portion of the right vertebral artery most compatible with occlusion. 50 to 70% stenosis of the left carotid bifurcation and 25 to 50% stenosis of the right carotid bifurcation. No evidence of aneurysm. Patient was seen by vascular surgery and recommended carotid intervention upon completion of cardiac workup. Patient is supposed to get a stress test but she is concerned about the dye and could not get the test so far. On admission CT head showed low-lying cerebellar tonsils. Extensive atherosclerotic plaque involving bilateral cavernous ICA no acute hemorrhage or mass effect. If concern for acute ischemia consider follow-up MRI. EKG showed sinus rhythm. Laboratory pressure WBC 6.2 hemoglobin 12.8 and platelets 196 Sodium 137 potassium 4.6 chloride 104 bicarb is 23 BUN 21 creatinine 1.01. Liver enzymes not elevated. Calcium 10.0 08/23/2023 Patient is seen and evaluated follow-up this morning with neurology following an MRI of the brain is ordered and pending for today. Patient does have history of carotid stenosis and has been seen by vascular surgery in the past and will consult Dr. Cm and appreciate input recommendations. Patient is currently afebrile with the reported chest pain or shortness of breath. No reported nausea or vomiting patient is tolerating diet. Will await MRI report and discuss further with consultations and discharge planning as patient reports she would like to go home Review of systems: Constitutional: No reports of fatigue, fever, or chills Cardiovascular: No reports of chest pain or palpitations Respiratory: No reports of shortness of breath or cough GI: No reports of nausea, vomiting, or diarrhea : No reports of dysuria or retention Neurovascular: No reports of weakness, reports occasional numbness and tingling on the left hand and fingers All medications have been reviewed Physical exam: Patient is sitting up in the bed comfortably, no acute distress, awake alert and oriented.. HEENT: Normocephalic. Neck is supple. Pupils reactive. Nostrils clear. Oral cavity is moist. Neck reveals no JVD, carotid bruits, or thyromegaly. CHEST EXAMINATION: Trachea is central. Symmetrical expansion. Lung mike clear to auscultation and percussion. CARDIAC: Normal S1, S2 with no gallops. No murmurs ABDOMEN: Soft. Bowel sounds present. Nontender. No organomegaly. No abdominal bruits. Extremities: reveal no edema. No clubbing or cyanosis Neurologically awake, alert, oriented x3 with well-coordinated movements. Muscle strength 5 out of 5 all 4 extremities. Sensory system intact. Cranial nerves intact. Skin: No rash or skin lesions. Psychiatric: Cooperative. Non-suicidal, slightly anxious Musculoskeletal: No joint swelling or deformity. Normal range of motion. Assessment: Paresthesias involving left oral, facial numbness and tingling of the hand and/fingers. Rule out acute CVA History of acute ischemic stroke involving left inferior paxton and superior lingula resulting in right upper and lower extremity weakness and speech deficits in March 2023. Improved now. History of CVA in 2021 with no residual deficits. Bilateral carotid stenosis left greater than right. Patient is supposed to get carotid intervention pending cardiac workup. Uncontrolled hypertension Hyperlipidemia Fibromyalgia Migraine headaches GERD Anxiety DVT prophylaxis with heparin subcu Full code Plan: Patient will be continued on telemetry monitoring with neurology following and has ordered MRI and discussing possible MRA of the neck is patient continues to have intermittent neck pain with tingling of the left upper extremity. Patient is scheduled to undergo MRI of the brain sometime this afternoon and currently nothing by mouth. Will resume diet once returned Continue with neurochecks. Has been started back on aspirin and Plavix and statins. Home blood pressure medications have been resumed Patient has seen vascular surgery Dr. Cm in the past this patient was scheduled to undergo carotid intervention and will consult vascular surgery and appreciate input recommendations. Patient was pending cardiac workup Will await MRI and discuss further with neurology and vascular surgery about discharge planning is patient is asking when she can go home. The impression and plan of care has been dictated by Ivana Taylor, Nurse Practitioner as directed. Dr. Jennifer MD I have performed a history and examination and MDM of this patient, discussed the same with the dictator, and agree with the dictator's assessment and plan as written ,documented as a scribe. Based on total visit time, I have performed more than 50% of the visit. Objective - Vital Signs Vital signs: Vital Signs Temp 98.3 F 08/24/23 02:00 Pulse 72 08/24/23 02:00 Resp 16 08/24/23 02:00 BP 117/73 08/24/23 02:00 Pulse Ox 96 08/24/23 02:00 FiO2 Intake & Output 08/23/23 08/23/23 08/24/23 06:59 18:59 06:59 Weight 67.132 kg Other: Voiding Method Toilet Toilet # Voids 2 2 2 - Labs CBC & Chem 7: 08/22/23 12:07 08/23/23 06:13 Labs: Abnormal Lab Results - Last 24 Hours (Table) 08/23/23 Range/Units 06:13 Carbon Dioxide 21.3 L (21.6-31.8) mmol/L Est GFR (CKD-EPI) 59 L (>=60) Vitamin D 25-Hydroxy 25.6 L (30.0-100.0) ng/mL
--- NOTE | 2023-08-24 07:26 | CA ---
Transthoracic Echo Report Name: Celina Mejia Age: 58 Gender: F : 1965 Exam Date: 08/23/2023 14:46 Exam Location: [facility] Ht (in): 63 Wt (lb): 148 Ordering Physician: Vance Mcelroy MD Attending/Referring Phys: Circulation Clerk Brody Treviño Procedure CPT: Indications: limited. stroke Cardiac Hx: Technical Quality: Fair Contrast 1: Total Dose (mL): Contrast 2: Total Dose (mL): MEASUREMENTS (Male / Female) Normal Values DOPPLER TR Peak Velocity 267.9 cm/s TR Peak Gradient 28.7 mmHg Right Ventricular Systolic Press 33.7 mmHg FINDINGS Left Ventricle Normal LV size and wall thickness. Left ventricular ejection fraction is estimated at 55-60 %. Right Ventricle Normal right ventricular size. RVPS= 34mmHg. Right Atrium Normal right atrial size. Left Atrium Normal left atrial size. Mitral Valve Structurally normal mitral valve. Aortic Valve Tricuspid Valve Structurally normal tricuspid valve. moderate TR. Pulmonic Valve Pericardium Normal pericardium. Aorta CONCLUSIONS 1. Normal left ventricle size and systolic function 2. Limited Doppler study with moderate tricuspid regurgitation 3. No evidence of shunting by color Doppler study Previewed by: Dr. Akiko Garcia MD (Electronically Signed) Final Date: 24 August 2023 07:25
[2023-08-24 07:34] VITALS: PULSE 75; RESP 19
[2023-08-24] MEDS: lisinopriL 10 MG TAB PO SCH (08:10)
[2023-08-24] MEDS: CLOPIDOGREL 75 MG TAB PO SCH (08:10)
[2023-08-24] MEDS: ASPIRIN 81 MG PO SCH (08:10)
[2023-08-24] MEDS: HEPARIN SODIUM,PORCINE 5,000 UNIT/ML 1 ML VIAL SQ SCH (08:10)
--- NOTE | 2023-08-24 12:43 | P.PN ---
Subjective Progress Note Date: 08/24/23 Principal diagnosis: Carotid Stenosis Patient was seen and examined today as a follow-up. She denies any focal deficits. She had a carotid duplex yesterday which reported 50-69% stenosis on the right and greater than 70% stenosis on the left. She denies any further numbness or tingling in her fingers her face. She also underwent an MRI of the brain that reported no acute findings with no evidence of intracranial mass or acute/subacute infarct. No evidence for active demyelination, nonspecific white matter changes, likely secondary to small vessel ischemic disease. Ec hocardiogram reported normal left ventricle size and systolic function. Limited Doppler study with moderate tricuspid regurgitation. No evidence of shunting by color Doppler study. Patient states that she has severe anxiety and thinks that possibly her symptoms were related to her anxiety. She currently denies any focal deficits, no shortness of breath or chest pain. Objective - Vital Signs Vital signs: Vital Signs Temp 98.6 F 08/24/23 07:00 Pulse 75 08/24/23 07:00 Resp 19 08/24/23 07:00 BP 159/93 08/24/23 07:00 Pulse Ox 96 08/24/23 07:00 FiO2 Intake & Output 08/23/23 08/24/23 08/24/23 18:59 06:59 18:59 Intake Total 500 Balance 500 Intake: Oral 500 Other: Voiding Method Toilet Toilet Toilet # Voids 2 2 - Exam General appearance: The patient is alert, oriented, appears in no acute distress. HET: Head is normocephalic and atraumatic. Pupils are equal and reactive. Neck: Supple. Left carotid bruit. Heart: Regular. Lungs: Equal expansion, normal respiratory effort. Abdomen: Soft, nontender, nondistended. Extremities: Normal skin color and turgor. Neurological: No focal deficits. Strength and sensation are grossly intact. - Labs CBC & Chem 7: 08/22/23 12:07 08/23/23 06:13 Assessment and Plan Assessment: 1. Left internal carotid artery stenosis greater than 70% 2. Right internal carotid artery stenosis 50-69% 3. Left facial numbness and tingling and left finger numbness and tingling, now resolved 4. History of CVA 5. Hypertension 6. Hyperlipidemia Plan: MRI reviewed with no evidence of acute/subacute infarct and carotid duplex reviewed from office and here. Patient with bilateral ICA stenosis. Possible TIA versus anxiety. Patient is scheduled to undergo stress test September 06, discussed the patient's case with neurology and agreeable that patient could be discharged home continue with cardiology clearance outpatient and schedule outpatient carotid surgery. Will change Plavix to Brilinta, continue aspirin and statin. Patient will follow-up with Dr. Cm next week 08/31/2023. Chavez is agreeable with plan of care. Patient cleared for discharge from vascular surgery. The impression and plan of care has been dictated as directed. I performed a history and examination of this patient, discussed the same with the dictator. I agree with the dictator's note ,documented as a scribe. Any additional findings or plans will be noted.
--- NOTE | 2023-08-24 12:49 | P.CRDCN ---
History of Present Illness History of present illness: HISTORY OF PRESENT ILLNESS: This is a 58-year-old female with a past medical history significant for CVA, hypertension, and hyperlipidemia. Patient follows in the office with Dr. Hernandez. We have been asked to see the patient in consultation for clearance for left ICA intervention. Patient examined at the bedside. Patient states she came to the hospital due tingling in her face and fingers. Her symptoms have since resolved. She denies any chest pain or pressure. She denies any shortness of breath. The patient had a treadmill exercise stress test performed in June 2023. However the patient was unable to reach her target heart rate and therefore stress test was nondiagnostic. The patient is scheduled for Lexiscan stress test 09/06/2023 in the cardiology office. * EKG reveals sinus mechanism with no signs of acute ischemia * Carotid Doppler: Greater than 70% proximal left ICA stenosis and moderate 50- 69% proximal right ICA stenosis * MRI of the brain completed revealing no evidence of intracranial mass or acute/subacute infarct. No evidence for active demyelination. * Laboratory data: W BC 6.2. Hemoglobin 12.8. Platelet count 196. Sodium 140. Potassium 4.5. BUN 15. Creatinine 1.1. * Current home cardiac medications include aspirin 81 mg daily, atorvastatin 40 mg at night, Plavix 75 mg daily, lisinopril 10 mg daily * Echocardiogram completed this admission reveals normal LV size and function. Ejection fraction 55-60%. Moderate tricuspid regurgitation. No evidence of shunting by color Doppler study. * The patient underwent event monitor in April 2023 which revealed sinus mechanism with an episode of sinus arrhythmia. No atrial fibrillation or ventricular tachyarrhythmia was noted. * Patient underwent BIANCA in March 2023 which was negative for intracardiac thrombus. Normal LV function. No evidence of shunting across interatrial septum * Cardiac catheterization history: unknown REVIEW OF SYSTEMS: At the time of my exam: CONSTITUTIONAL: Denies fever or chills. HEENT: Denies blurred vision, vision changes, or eye pain. Denies hemoptysis CARDIOVASCULAR: Denies chest pain. Denies orthopnea. Denies PND. Denies palpitations RESPIRATORY: Denies shortness of breath. GASTROINTESTINAL: Denies abdominal pain. Denies nausea or vomiting. HEMATOLOGIC: Denies bleeding disorders. GENITOURINARY: Denies any blood in urine. SKIN: Denies pruitis. Denies rash. PHYSICAL EXAM: VITAL SIGNS: Reviewed. GENERAL: Well-developed in no acute distress. HEENT: Head is normocephalic. Pupils are equal, round. Sclerae anicteric. Mucous membranes of the mouth are moist. Neck supple. No JVD or thyromegaly LUNGS: Respirations even and unlabored. Lungs essentially clear to auscultation bilaterally. HEART: Regular rate and rhythm. S1 and S2 heard. ABDOMEN: Soft. Nondistended. Nontender. EXTREMITIES: Normal range of motion. No clubbing or cyanosis. Peripheral pulses intact. No lower extremity edema NEUROLOGIC: Awake and alert. Oriented x 3. ASSESSMENT: Suspected TIA Bilateral carotid stenosis, 70% left ICA and 50-69% right ICA History of CVA, left inferior paxton, infarct March 2023 Hypertension Hyperlipidemia PLAN: Continue current cardiac medications Patient is scheduled for outpatient Lexiscan stress test on 09/06/2023 in the cardiology office Patient may be discharged home today from a cardiac standpoint She will follow-up with Dr. Hernandez outpatient to obtain cardiac clearance Nurse practitioner note has been reviewed by physician. Signing provider agrees with the documented findings, assessment, and plan of care. Past Medical History Past Medical History: CVA/TIA, Fibromyalgia, GERD/Reflux, Hyperlipidemia, Hypertension Additional Past Medical History / Comment(s): Possible cva Primary pulmonary hypertension; Migraines occasionally, low back pain. History of Any Multi-Drug Resistant Organisms: None Reported Past Surgical History: Appendectomy Additional Past Surgical History / Comment(s): BIANCA, d&c x 2 Past Anesthesia/Blood Transfusion Reactions: No Reported Reaction Past Psychological History: Anxiety Smoking Status: Never smoker Past Alcohol Use History: None Reported Past Drug Use History: None Reported - Past Family History Mother Family Medical History: Hyperlipidemia, Myocardial Infarction (CT) Additional Family Medical History / Comment(s): MS Father Family Medical History: Blood Disorder Additional Family Medical History / Comment(s): hemophilia Medications and Allergies Home Medications Medication Instructions Recorded Confirmed Type Atorvastatin [Lipitor] 40 mg PO HS 30 Days #30 tab 04/05/23 08/22/23 Rx Aspirin 81 mg PO DAILY 05/18/23 08/22/23 History Azithromycin [Zithromax Z Pack] See Taper PO DIRECTED 08/22/23 08/22/23 History lisinopriL [Zestril] 10 mg PO DAILY 08/22/23 08/22/23 History methylPREDNISolone Dose Pack See Taper PO DIRECTED 08/22/23 08/22/23 History [Medrol Dose Pack] Ticagrelor [Brilinta] 90 mg PO BID #60 tab 08/24/23 Rx Allergies Allergy/AdvReac Type Severity Reaction Status Date / Time cefaclor [From Ceclor] Allergy Unknown Verified 08/22/23 13:49 Childhood Penicillins Allergy Unknown Verified 08/22/23 13:49 povidone-iodine Allergy Unknown Verified 08/22/23 13:49 [From Betadine] sulfamethoxazole Allergy Unknown Verified 08/22/23 13:49 [From Bactrim] Childhood trimethoprim [From Bactrim] Allergy Unknown Verified 08/22/23 13:49 Childhood chocolate flavor AdvReac headache Verified 08/22/23 13:49 milk AdvReac headache Verified 08/22/23 13:49 lidocaine Allergy Intermediate Swelling Uncoded 08/22/23 10:55 ANESTHETIC(UNKNOWN) Allergy Unknown Uncoded 08/22/23 10:55 Physical Exam Vitals: Vital Signs Temp Pulse Resp BP Pulse Ox 08/24/23 07:00 98.6 F 75 19 159/93 96 08/24/23 02:00 98.3 F 72 16 117/73 96 08/23/23 20:00 98.3 F 77 16 117/68 98 08/23/23 14:09 97.6 F 82 16 143/80 97 Intake and Output 08/23/23 08/24/23 08/24/23 22:59 06:59 14:59 Intake Total 500 Balance 500 Intake: Oral 500 Other: Voiding Method Toilet # Voids 1 2 Results 08/22/23 12:07 08/23/23 06:13 Current Medications Generic Name Dose Route Start Last Admin Trade Name Freq PRN Reason Stop Dose Admin Acetaminophen 650 mg 08/22/23 14:50 Acetaminophen Tab 325 Mg Tab PO Q6HR PRN Mild Pain or Fever > 100.5 Hydrocodone Bitart/Acetaminophen 1 each 08/22/23 14:50 Hydrocodone/Apap 5-325mg 1 Each Tab PO Q4HR PRN Moderate Pain (Scale 4 to 6) Aspirin 81 mg 08/23/23 09:00 08/24/23 08:10 Aspirin 81 Mg PO 81 mg DAILY MIGUEL ANGEL Administration Atorvastatin Calcium 40 mg 08/22/23 21:00 08/23/23 20:06 Atorvastatin 40 Mg Tab PO 40 mg HS MIGUEL ANGEL Administration Clopidogrel Bisulfate 75 mg 08/23/23 09:00 08/24/23 08:10 Clopidogrel 75 Mg Tab PO 75 mg QAM MIGUEL ANGEL Administration Heparin Sodium (Porcine) 5,000 unit 08/22/23 16:00 08/24/23 08:10 Heparin Sodium,Porcine 5,000 Unit/Ml 1 Ml Vial SQ 5,000 unit Q8HR MIGUEL ANGEL Administration Lisinopril 10 mg 08/22/23 14:45 08/24/23 08:10 Lisinopril 10 Mg Tab PO 10 mg DAILY MIGUEL ANGEL Administration Naloxone HCl 0.2 mg 08/22/23 14:50 Naloxone 0.4 Mg/Ml 1 Ml Vial IV Q2M PRN Opioid Reversal Ondansetron HCl 4 mg 08/22/23 14:50 Ondansetron 4 Mg/2 Ml Vial IVP Q8HR PRN Nausea And Vomiting Intake and Output 08/23/23 08/24/23 08/24/23 22:59 06:59 14:59 Intake Total 500 Balance 500 Intake: Oral 500 Other: Voiding Method Toilet # Voids 1 2 08/22/23 12:07 08/23/23 06:13
[2023-08-24 14:34] VITALS: BP 152/83; TEMP 98.9
--- NOTE | 2023-08-24 15:23 | P.PN ---
Subjective Progress Note Date: 08/24/23 I am seeing the patient at bedside and she feels she is feeling better. No further numbness. No new neurological issues. Objective - Vital Signs Vital signs: Vital Signs Temp 98.9 F 08/24/23 14:22 Pulse 75 08/24/23 14:22 Resp 19 08/24/23 14:22 BP 152/83 08/24/23 14:22 Pulse Ox 97 08/24/23 14:22 FiO2 Intake & Output 08/23/23 08/24/23 08/24/23 18:59 06:59 18:59 Intake Total 500 Balance 500 Intake: Oral 500 Other: Voiding Method Toilet Toilet Toilet # Voids 2 2 3 - Exam GENERAL: The patient is lying in bed and is not in acute distress. NEUROLOGICAL: Higher mental function: The patient is awake, alert, oriented to self, place and time. Patient is following commands. No aphasia and no neglect. Cranial nerves: The pupils are round, equal and reactive to light and accommodation. Visual mike are full to confrontation throughout. Extraocular movement is intact no nystagmus is noted. Facial sensation is normal to touch throughout. The facial strength is normal throughout. Hearing is normal bilaterally to hand rub. Tongue is midline and moved [id number] without any difficulty. No dysarthria is noted. Shoulder shrug is normal bilaterally. Motor: The strength is 5 over 5 throughout. Normal tone and bulk. Cerebellum: Normal finger to nose heel to giraldo bilaterally. Sensation: Sensation is normal to touch throughout. Reflexes (right/left): 2+ throughout. Plantars are downgoing bilaterally. Some of the workup during this hospital visit consisted of: Vitamin D 25-hydroxy is 25.6 with which is considered deficient. Otherwise the glucose, calcium, sodium, creatinine is within normal limits CT of the head is reported as low-lying cerebellar tonsils. Extensive atherosclerotic plaque involving bilateral cavernous ICA. No acute hemorrhage or mass effect. Concern for acute ischemia consider follow-up MRI. I did personally review the CT and there is no acute or subacute ischemia. There is no bleed. MRI Brain is reported as no evidence of intracranial mass or acute/subacute infarct. No evidence for active demyelination, nonspecific white matter changes, likely secondary to small vessel ischemic disease. I personally reviewed MRI and agree with report that there is no acute or subacute ischemia. Carotid duplex: Doppler measrement estimating severe, greater than 70% proximal left ICA stenosis and moderate 50-69% proximal right ICA stenosis. 2D echo: Normal left ventricle size and systolic function. Limited doppler study with moderate tricuspid regurgitation. No evidence of shunting by color doppler study. 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 Her symptoms has resolved. Transient left-sided numbness over the left face hand likely transient ischemic attack. I feels her symptoms due to symptomatic right ICA. MRI Brain is negative for acute or subacute stroke. Right ICA stenosis of 50-69% on duplex and per vascular surgery N.P. as outpatient has significant right ICA as outpatient. History of left pontine infarct and of March 2023 as well as previous strokelike right dominant stroke Significant left ICA stenosis and pending clearance of cardiology for intervention History of right vertebral artery occlusion Hypertension Hyperlipidemia Plan: Patient is resumed on her home medication of aspirin 81 mg, Plavix 75 mg and Lipitor 40 mg daily at bedtime. Because of her symptoms recommend stopping Plavix and starting Brilinta 90mg bid. Vascular surgery is on board and patient is scheduled outpatient carotid surgery. Pending cardiology clearance and is scheduled testing outpatient on 09/06/2023. She has appointment with Dr. Cm as outpatient on 08/31/2023 Recommend MRI C-spine as outpatient for her chronic neck pain and consideration of EMG with NCS to rule out any radiculopathy but that would not explain facial numbness. Continue neuro checks Cardiac monitoring We'll defer the rest of the medical management to primary team We'll hold off PT and OT since the patient does not have any focal deficits at this time. For DVT prophylaxis patient is on subcu heparin The plan was discussed with the patient, family members who are at bedside, vascular surgery N.P. and her nurse. There is no further neurological work-up. Will sign off. Please reconsult if needed. Time with Patient: Less than 30
[2023-08-24] MEDS ORDERED: TICAGRELOR 90 MG TAB PO SCH (21:00)
--- NOTE | 2023-08-27 06:19 | P.DS ---
Providers Date of admission: 08/22/23 15:07 Expected date of discharge: 08/24/23 Attending physician: Melany Rodriguez Consults: 08/22/23 14:50 Consult Physician Urgent Consulting Provider: Jaqui Lombardi Consult Reason/Comments: Left sided facial paresthesia, hx of CVA Do you want consulting provider notified?: Yes 08/23/23 09:35 Consult Physician Urgent Consulting Provider: Gail Cm Consult Reason/Comments: carotid stenosis Do you want consulting provider notified?: Yes 08/24/23 09:51 Consult Physician Urgent Consulting Provider: Len Calles Consult Reason/Comments: cardiac clearance for left ICA Do you want consulting provider notified?: Yes Primary care physician: Victoriano Servin Hospital Course: Final diagnosis Paresthesias involving left oral, facial numbness and tingling of the hand and/fingers. Ruled out acute CVA, likely tia History of acute ischemic stroke involving left inferior paxton and superior lingula resulting in right upper and lower extremity weakness and speech deficits in March 2023. Improved now. History of CVA in 2021 with no residual deficits. Bilateral carotid stenosis left greater than right. Patient is supposed to get carotid intervention pending cardiac workup. Uncontrolled hypertension Hyperlipidemia Fibromyalgia Migraine headaches GERD Anxiety DVT prophylaxis with heparin subcu Full code Discharge disposition Patient is being discharged in a stable condition with guarded prognosis to home. Patient will follow-up with Dr. Servin in the outpatient setting upon discharge. Patient is to continue with medications as prescribed low and close outpatient follow-up with vascular surgery as well as cardiology as scheduled. Total time taken is greater than 35 minutes. Hospital course This is a 58-year-old female who was recently admitted with paresthesia and increased facial numbness and tingling that was radiating down hands and fingers with concerns of possible TIA versus CVA. CVA ruled out on MRI and likely TIA. Patient with significant carotid stenosis left greater than right scheduled to undergo outpatient presurgical clearance and follow-up with Dr. Cm. Patient seen and evaluated by cardiology recommending outpatient follow-up with her stress test that is scheduled in September and has been cleared for discharge. Vascular surgery also evaluated the patient and will follow-up in the clinic next week and has been placed on brilinta. She was seen and evaluated by neurology recommending vascular surgery follow-up. Please refer to other consultation notes for further HPI. Currently no reports of chest pain, shortness of breath, or palpitations. Patient is afebrile. No reports of nausea or vomiting and patient is tolerating diet. Patient will be discharged home today. Physical exam: Gen: This is a 58-year-old female who is awake, alert and oriented 3, well- developed, well-nourished HEENT: Head is atraumatic, normocephalic. Pupils equal, round. Sclerae is anicteric. NECK: Supple. No JVD. No lymphadenopathy. No thyromegaly. LUNGS: Clear to auscultation. No wheezes or rhonchi. No intercostal retractions. HEART: Regular rate and rhythm. No murmur. ABDOMEN: Soft. Bowel sounds are present. No masses. No tenderness. EXTREMITIES: No pedal edema. No calf tenderness. NEUROLOGICAL: Patient is awake, alert and oriented x3. Cranial nerves 2 through 12 are grossly intact. Please refer to medication reconciliation sheet for a list of medications. The impression and plan of care has been dictated by Ivana Taylor, Nurse Practitioner as directed. Dr. Jennifer MD I have performed a history and examination and MDM of this patient, discussed the same with the dictator, and agree with the dictator's assessment and plan as written ,documented as a scribe. Based on total visit time, I have performed more than 50% of the visit. Patient Condition at Discharge: Fair Plan - Discharge Summary New Discharge Prescriptions: New Ticagrelor [Brilinta] 90 mg PO BID #60 tab Acetaminophen Tab [Tylenol] 650 mg PO Q6HR PRN tab PRN Reason: Mild Pain Or Fever > 100.5 Continue Atorvastatin [Lipitor] 40 mg PO HS 30 Days #30 tab lisinopriL [Zestril] 10 mg PO DAILY Azithromycin [Zithromax Z Pack] See Taper PO DIRECTED Aspirin 81 mg PO DAILY Discontinued Clopidogrel [Plavix] 75 mg PO QAM methylPREDNISolone Dose Pack [Medrol Dose Pack] See Taper PO DIRECTED Discharge Medication List Atorvastatin [Lipitor] 40 mg PO HS 30 Days #30 tab 04/05/23 [Rx] Aspirin 81 mg PO DAILY 05/18/23 [History] Azithromycin [Zithromax Z Pack] See Taper PO DIRECTED 08/22/23 [History] lisinopriL [Zestril] 10 mg PO DAILY 08/22/23 [History] Acetaminophen Tab [Tylenol] 650 mg PO Q6HR PRN tab 08/24/23 [Rx] Ticagrelor [Brilinta] 90 mg PO BID #60 tab 08/24/23 [Rx] Follow up Appointment(s)/Referral(s): Len Calles MD [STAFF PHYSICIAN] - 09/06/23 7:15 am (pt already had scheduled) Gail Cm DO [STAFF PHYSICIAN] - 08/31/23 11:15 am Victoriano Servin MD [Primary Care Provider] - 1-2 days Patient Instructions/Handouts: Carotid Artery Disease (DC) Activity/Diet/Wound Care/Special Instructions: Activity Limited until follow-up follow-up with primary care provider on discharge Follow-up with cardiology as scheduled for stress testing for cardiac clearance in the outpatient setting follow-up with vascular surgery at your scheduled appointment continue taking medications as prescribed Discharge Disposition: HOME SELF-CARE
== END 2023-08-24 15:11 | disposition home or self-care (01) ==
LOC: EC 10:47 → 6NMEDSUR 15:07
PROVIDERS: ADMIT Internal Medicine; ATTEND Internal Medicine
DX: R20.0 Anesthesia of skin (principal); R20.2 Paresthesia of skin; I65.23 Occlusion and stenosis of bilateral carotid arteries; E78.5 Hyperlipidemia, unspecified; I10 Essential (primary) hypertension; K21.9 Gastro-esophageal reflux disease without esophagitis; F41.9 Anxiety disorder, unspecified; M79.7 Fibromyalgia; G43.909 Migraine, unspecified, not intractable, without status migrainosus; I27.20 Pulmonary hypertension, unspecified; I65.01 Occlusion and stenosis of right vertebral artery; I69.351 Hemiplegia and hemiparesis following cerebral infarction affecting right dominant side; Z79.02 Long term (current) use of antithrombotics/antiplatelets; Z79.82 Long term (current) use of aspirin; Z79.899 Other long term (current) drug therapy; Z88.0 Allergy status to penicillin; Z88.1 Allergy status to other antibiotic agents; Z88.2 Allergy status to sulfonamides
CPT/HCPCS: 96372 ×4; 96360; 96361; 99285; 36415; 93005; 93306; 80053; 80048; 85025; 85610; 85730; 82306; 93880; 70450; 70551; G0378 ×3; J1644 ×3

== ENCOUNTER → 2023-09-16 | Outpatient (CLI) | payer OTHER | END | disposition home or self-care (01) | LOC: LABPAT 10:43 | PROVIDERS: ATTEND Anesthesiology | DX: Z01.812 Encounter for preprocedural laboratory examination (principal) | CPT/HCPCS: 36415; 86850; 86900; 86901 ==

== ENCOUNTER 2023-09-22 05:36 | Inpatient (IN) | payer OTHER ==
[2023-09-15 10:05] VITALS: BMI 26.2
[~2023-09-22 05:36] MED LIST: DEXAMETHASONE SOD PHOSPHATE 4 MG/ML 1 ML VIAL IV ONE; LIDOCAINE 1% (10MG/ML) FOR IV START INTRADERMA PRN; ONDANSETRON 4 MG/2 ML VIAL IVP ONE; SCOPOLAMINE 1 MG/72 HR PATCH TRANSDERM ONE
[2023-09-22] MEDS: LACTATED RINGERS 1,000 ML IV SCH (05:58)
[2023-09-22 06:22] LABS: Glucose,Whole Blood 103 mg/dL (70-110)
[2023-09-22] MEDS ORDERED: LACTATED RINGERS 1,000 ML IV ONE ×3 (06:26→10:20)
[2023-09-22] MEDS ORDERED: fentaNYL (PF) 50 MCG/ML 2 ML AMP IV PRN (07:00)
[2023-09-22] MEDS ORDERED: fentaNYL (PF) 50 MCG/ML 2 ML AMP ONE (07:41)
[2023-09-22] MEDS ORDERED: PROTAMINE SULFATE 10 MG/ML 5 ML VIAL ONE (07:41)
[2023-09-22] MEDS ORDERED: NEOSTIGMINE 1 MG/ML 10 ML VIAL ONE (07:41)
[2023-09-22] MEDS ORDERED: HEPARIN SODIUM,PORCINE 5,000 UNIT/ML 1 ML VIAL ONE (07:41)
[2023-09-22] MEDS ORDERED: LABETALOL 5 MG/ML VIAL MDV ONE (07:41)
[2023-09-22] MEDS ORDERED: SUCCINYLCHOLINE CHLORIDE 200 MG/10 ML VIAL IV ONE (07:41)
[2023-09-22] MEDS ORDERED: PHENYLEPHRINE-0.9% NACL SYG 1,000 MCG/10 ML SYRINGE ONE (07:41)
[2023-09-22] MEDS ORDERED: PROPOFOL 10 MG/ML 20 ML VIAL IV ONE (07:41)
[2023-09-22] MEDS ORDERED: MIDAZOLAM 2 MG/2 ML VIAL ONE (07:41)
[2023-09-22] MEDS ORDERED: GLYCOPYRROLATE 0.2 MG/ML 2 ML VIAL ONE (07:41)
[2023-09-22] MEDS ORDERED: ROCURONIUM 10 MG/ML (5 ML VIAL) IV ONE (07:41)
[2023-09-22] MEDS ORDERED: HEPARIN SODIUM,PORCINE (1 ML) 2,000 UNIT in SODIUM CHLORIDE 0.9% 500 ML 500 ML IRRIGATION ONE (07:46)
[2023-09-22] MEDS ORDERED: ceFAZolin 2 GM in SODIUM CHLORIDE 0.9% 500 ML 500 ML IRRIGATION ONE (07:46)
[2023-09-22] MEDS ORDERED: THROMBIN (BOVINE) 5,000 UNIT VIAL TOPICAL ONE ×2 (09:04)
[2023-09-22] MEDS ORDERED: GELATIN SPONGE,ABSORB (LARGE) 1 EACH SPONGE TOPICAL ONE (09:04)
[2023-09-22] MEDS ORDERED: GELATIN SPONGE,ABSORB (SMALL) 1 EACH SPONGE TOPICAL ONE (09:04)
[2023-09-22] MEDS ORDERED: ACETAMINOPHEN TAB 325 MG TAB PO PRN ×2 (11:08→20:00)
[2023-09-22] MEDS ORDERED: HYDROcodone/APAP 5-325MG 1 EACH TAB PO PRN (11:15)
[2023-09-22] MEDS ORDERED: MORPHINE SULFATE 2 MG/ML SYRINGE IVP PRN (11:15)
[2023-09-22] MEDS ORDERED: PROPARACAINE 0.5% OPHTH DROPS 15 ML BTL RIGHT EYE SCH (13:00)
--- NOTE | 2023-09-22 16:07 | P.OP ---
Date of Procedure: 09/22/23 Description of Procedure: Preoperative Diagnosis: High-grade left some traumatic Internal carotid artery stenosis Postoperative Diagnosis: Same Procedure: Left carotid endarterectomy with patch angioplasty Anesthesia: GET Surgeon: Gail Cm DO Estimated Blood Loss (ml): 100 mL IV Fluids: 1400 mL Urine Output: 1100 mL Specimen: Left carotid plaque, left cervical lymph nodes Condition: stable Disposition: PACU Findings and indications: Patient is a 58-year-old female who a few months ago had issues with strokelike symptoms. She went through workups and evaluations. Initially was recommended for her to undergo intervention however she failed to follow-up for scheduling and subsequent cardiac clearance. Subsequently she has had such things has been found acceptable risk for open surgical intervention. Risks and benefits were discussed including but not limited to bleeding, infection injury to the vessel, stroke and she seemingly understood and was willing to proceed. Procedure in detail: After written informed consent was obtained the patient all risks benefits and competitions were described the patient is brought to the operative suite and laid in a supine position. The area of the neck was prepped and draped in usual sterile fashion after appropriate anesthetic was performed per the anesthesiologist. A timeout was performed in normal fashion antibiotics were administered prior to incision. An oblique incision was then created just anterior to the sternocleidomastoid m usculature with a 10 blade scalpel and dissection was carried down to the carotid sheath. The carotid sheath was then entered after facial vein was located and suture ligated in normal fashion. The common carotid, internal carotid, external carotid and superior thyroid arteries were located and dissected free in a meticulous fashion circumferentially and controlled with vessel loops. Attention was then placed to locating the vagus nerve as well as hypoglossal nerve which were both spared. Once controlled, patient was administered heparin and followed with ACTs for appropriate heparinization. Once ACT was appropriate, the proximal and distal aspects of the dissection were then controlled with vascular clamps. Arteriotomy was then created with 11 blade scalpel and extended with Madden Brito scissors. Cervical oximetry was utilized and upon clamping there was no significant drop in findings therefore No shunt was required. An endarterectomy was then performed with a Boyden elevator. The plaque was transected proximally and then feathered at the distal aspect of the internal carotid artery and removed. The plaque was very gelatinous in the bulb and very thick on the posterior wall proximally. Due to the continued extent, it was transected as high position that was safely accessible and the posterior wall was tacked with interrupted sutures of 7-0 Prolene. The area was copiously irrigated with heparinized saline and all free debris was removed. A 0.8 x 8 cm bovine pericardial patch was then chosen and patch angioplasty was performed with 6-0 Prolene suture in a running fashion. Prior to last sutures being placed the inflow was released flushing any free debris out of the patch. This was reclamped and the internal carotid artery was released revealing good brisk flow and was once again reclamped. The external carotid and superior thyroid artery were then released followed by the common carotid artery to allow any free debris to be flushed into the external system. Final sutures were placed and secured. Internal carotid artery control was then released. Good pulsatile flow was noted through the patch and a Doppler was utilized demonstrating good brisk flow into the internal, external carotid arteries without any signs of obstruction. Hemostasis was then assured with interrupted sutures of 6-0 Prolene as well as thrombin and Gelfoam. There was significant continued oozing from needle sites. Protamine was administered. Surgicel was used.. A 10-[place]ian [place] drain was then placed in normal fashion and secured with 3-0 nylon suture. The incision was then closed in a multilayer fashion after hemostasis was assured. The skin was then cleansed and dressings were placed. Patient tolerated the procedure well and was following commands and moving all extremities. Patient was then sent to PACU for recovery.
--- NOTE | 2023-09-22 16:09 | P.PN ---
Progress Note - Text Patient seen and examined up on 3 S. Initially discussions were for patient to go to ICU due to variable blood pressures during surgery. however standard order was placed and unfortunately throughout her time in PACU she was stable as far as her blood pressures are concerned. She was sent to [facility]. The Cm catheter may, out. Discussed the importance of not rubbing her eye. We will try saline drops to her eye. Unfortunately apparently no ophthalmology coverage at this time. Patient ALLERGIC to lidocaine reportedly therefore no ability to place lidocaine drops. She is neurosensory intact. Mild staining on the dressing at the site of the CAR[place]. Neck is soft. Continue current care, medicine consult placed
[2023-09-23 07:18] LABS: Basophils % (A) 0 %; Eosinophils % (A) 0 %; HCT 33.6 % (34.0-46.0); HGB 11.1 gm/dL (11.4-16.0); Lymphocytes % (A) 21 %; MCH 30.9 pg (25.0-35.0); MCV 93.7 fL (80.0-100.0); Mean Platelet Volume 9.1; Monocytes # (A) 0.3 k/uL (0-1.0); Monocytes % (A) 6 %; Neutrophils # (A) 3.5 k/uL (1.3-7.7); Neutrophils % (A) 72 %; Platelet Count 151 k/uL (150-450); RBC 3.58 m/uL (3.80-5.40); RDW 13.1 % (11.5-15.5); WBC 4.9 k/uL (3.8-10.6)
[2023-09-23] MEDS: LACTATED RINGERS 1,000 ML IV SCH (07:21)
[2023-09-23 07:29] LABS: African American GFR (CKD) 72 (>60 ml/min/1.73 sqM); Anion Gap 6 mmol/L; Blood Urea Nitrogen 15 mg/dL (7-17); Calcium 9.3 mg/dL (8.4-10.2); Carbon Dioxide 26 mmol/L (22-30); Chloride 108 mmol/L (98-107); Glucose 89 mg/dL (74-99); Non-African American GFR(CKD) 62 (>60 ml/min/1.73 sqM); Potassium 4.2 mmol/L (3.5-5.1); Sodium 140 mmol/L (137-145)
[2023-09-23] MEDS ORDERED: lisinopriL 10 MG TAB PO SCH (09:45)
--- NOTE | 2023-09-23 09:48 | P.PN ---
Subjective Progress Note Date: 09/23/23 Patient seen and examined. Some generalized complaints overall no significant neck pain. Some sore throat due to ET tube. Treatment in [place] helps. No unilateral weakness Objective - Vital Signs Vital signs: Vital Signs Temp 98.3 F 09/23/23 08:00 Pulse 71 09/23/23 08:00 Resp 18 09/23/23 08:00 BP 137/84 09/23/23 08:00 Pulse Ox 96 09/23/23 08:00 FiO2 Intake & Output 09/22/23 09/23/23 09/23/23 18:59 06:59 18:59 Intake Total 1632.4 Output Total 1350 24 Balance 282.4 -24 Weight 65.3 kg Intake: IV 1452.4 Oral 180 Output: Drainage 0 24 Left Neck 0 24 Urine 1250 Estimated Blood Loss 100 Other: Voiding Method Indwelling Catheter Toilet # Voids 1 - Exam Left neck clean and dry. No hematoma. Drain with minimal serosanguineous output. Removed without complications. Drain sponge placed - Labs CBC & Chem 7: 09/23/23 06:51 09/23/23 06:51 Labs: Abnormal Lab Results - Last 24 Hours (Table) 09/23/23 09/23/23 Range/Units 06:51 06:51 RBC 3.58 L (3.80-5.40) m/uL Hgb 11.1 L (11.4-16.0) gm/dL Hct 33.6 L (34.0-46.0) % Chloride 108 H (98-107) mmol/L Assessment and Plan Assessment: Postop left carotid endarterectomy for high-grade symptomatic left carotid stenosis Plan: Overall doing well. Due to social conditions, whether and patient is not feeling fully comfortable with like to see another A, discussed this is fine. We'll plan to get discharge tomorrow She remained stable. We'll continue dual antiplatelet therapy. Monitor blood pressures. Hold medications for the less than 130 at this time
[2023-09-23] MEDS: ASPIRIN 81 MG PO SCH (09:57)
[2023-09-23] MEDS: TICAGRELOR 90 MG TAB PO SCH ×2 (09:57→20:35)
--- NOTE | 2023-09-23 12:05 | P.CONS ---
History of Present Illness - Reason for Consult Consult date: 09/23/23 - Chief Complaint Status post left carotid endarterectomy - History of Present Illness * 58-year-old patient with past medical history significant for TIA, history of CVA involving left anterior paxton with right upper lower extremity weakness and speech deficit March 2023, carotid artery stenosis, hypertension, hyperlipidemia, fibromyalgia, gastroesophageal reflux disease was admitted for left carotid surgery. Patient was admitted in the hospital in August 2023 and was noted to have significant carotid artery stenosis left greater than right. * Blood work obtained showed WBC 4.9 hemoglobin 11 platelet count of 151. Serum chemistry showed sodium 140 potassium 4.2, chloride 108, dissected 20 6B on 15 creatinine 1 glucose 89 * Intraoperatively patient had labile blood pressure with systolic pressures as high as 200, home medications were reviewed and reconciled REVIEW OF SYSTEMS: Right eye discomfort improved CONSTITUTIONAL: No fever, no malaise, no fatigue. HEENT: No recent visual problems or hearing problems. Denied any sore throat. CARDIOVASCULAR: No chest pain, orthopnea, PND, no palpitations, no syncope. PULMONARY: No shortness of breath, no cough, no hemoptysis. GASTROINTESTINAL: No diarrhea, no nausea, no vomiting, no abdominal pain. NEUROLOGICAL: No headaches, no weakness, no numbness. HEMATOLOGICAL: Denies any bleeding or petechiae. GENITOURINARY: Denies any burning micturition, frequency, or urgency. MUSCULOSKELETAL/RHEUMATOLOGICAL: Denies any joint pain, swelling, or any muscle pain. ENDOCRINE: Denies any polyuria or polydipsia. PHYSICAL EXAMINATION: GENERAL: The patient is alert and oriented x3, not in any acute distress. Well developed, well nourished. HEENT: Pupils are round and equally reacting to light. EOMI Normocephalic, status post surgery, left neck incision bandage CARDIOVASCULAR: S1 and S2 present. No murmurs, rubs, or gallops. PULMONARY: Chest is clear to auscultation, no wheezing or crackles. ABDOMEN: Soft, nontender, nondistended, normoactive bowel sounds. No palpable organomegaly. MUSCULOSKELETAL: No joint swelling or deformity. EXTREMITIES: No cyanosis, clubbing, or pedal edema. NEUROLOGICAL: Gross neurological examination did not reveal any focal deficits. SKIN: No rashes. Past Medical History Past Medical History: CVA/TIA, Fibromyalgia, GERD/Reflux, Hyperlipidemia, Hypertension Additional Past Medical History / Comment(s): carotid stenosis, weakness with activity after starting blood thinner,cva 03-06-23-had difficulty walking/rt sided weakness- resolve, CVA 03-07-22-had numbness on left side numbness resolved w/in 1 hr, Primary pulmonary hypertension; Migraines occasionally, low back pain. History of Any Multi-Drug Resistant Organisms: None Reported Past Surgical History: Appendectomy Additional Past Surgical History / Comment(s): BIANCA(states was awake for BIANCA), d&c x 2 Past Anesthesia/Blood Transfusion Reactions: No Reported Reaction, Motion Sickness Additional Past Anesthesia/Blood Transfusion Reaction / Comm: no hx blood transfusion Smoking Status: Never smoker - Past Family History Mother Family Medical History: Hyperlipidemia, Myocardial Infarction (MA) Additional Family Medical History / Comment(s): MS Father Family Medical History: Blood Disorder Additional Family Medical History / Comment(s): hemophilia- during surgery with an MA Medications and Allergies Home Medications Medication Instructions Recorded Confirmed Type Atorvastatin [Lipitor] 40 mg PO HS 30 Days #30 tab 04/05/23 09/22/23 Rx Aspirin 81 mg PO DAILY 05/18/23 09/22/23 History lisinopriL [Zestril] 10 mg PO QAM 08/22/23 09/22/23 History Acetaminophen Tab [Tylenol] 650 mg PO Q6HR PRN tab 08/24/23 09/22/23 Rx Ticagrelor [Brilinta] 90 mg PO BID #60 tab 08/24/23 09/22/23 Rx Allergies Allergy/AdvReac Type Severity Reaction Status Date / Time cefaclor [From Ceclor] Allergy Unknown Verified 09/15/23 09:46 Childhood Penicillins Allergy Unknown Verified 09/15/23 09:46 povidone-iodine Allergy Unknown Verified 09/15/23 09:46 [From Betadine] sulfamethoxazole Allergy Unknown Verified 09/15/23 09:46 [From Bactrim] Childhood trimethoprim [From Bactrim] Allergy Unknown Verified 09/15/23 09:46 Childhood chocolate flavor AdvReac headache Verified 09/15/23 09:46 milk AdvReac headache Verified 09/15/23 09:46 rosuvastatin [From Crestor] AdvReac Nausea Verified 09/22/23 06:30 lidocaine Allergy Intermediate Swelling Uncoded 09/15/23 09:46 ANESTHETIC(UNKNOWN) Allergy dizziness Uncoded 09/15/23 09:46 and headache,30 yrs ago Physical Exam Vitals: Vital Signs Temp Pulse Pulse Resp BP Pulse Ox 09/23/23 08:00 98.3 F 71 18 137/84 96 09/23/23 06:00 98.2 F 73 16 122/72 94 L 09/23/23 04:00 98.0 F 66 16 126/76 94 L 09/23/23 02:00 75 16 09/23/23 00:00 98.3 F 75 16 116/71 95 09/22/23 22:10 71 126/63 98 09/22/23 20:10 64 131/70 96 09/22/23 20:00 98.2 F 67 16 137/75 97 09/22/23 18:10 55 L 128/61 98 09/22/23 16:10 63 133/72 97 09/22/23 16:00 65 131/74 98 09/22/23 14:10 59 L 118/68 96 09/22/23 14:00 61 16 145/70 98 09/22/23 13:30 61 12 119/60 97 09/22/23 13:15 65 10 L 122/67 96 09/22/23 13:00 60 12 148/67 98 09/22/23 12:21 59 L 12 117/55 97 09/22/23 12:06 65 15 124/58 96 09/22/23 11:51 64 18 125/62 93 L 09/22/23 11:36 65 14 99 09/22/23 11:21 97.7 F 75 22 147/71 99 Intake and Output 09/22/23 09/23/23 09/23/23 22:59 06:59 14:59 Intake Total 180 Output Total 0 24 Balance 180 -24 Intake: Oral 180 Output: Drainage 0 24 Left Neck 0 24 Other: Voiding Method Toilet Toilet # Voids 1 1 Weight 65.3 kg Results CBC & Chem 7: 09/23/23 06:51 09/23/23 06:51 Labs: Abnormal Lab Results - Last 24 Hours (Table) 09/23/23 09/23/23 Range/Units 06:51 06:51 RBC 3.58 L (3.80-5.40) m/uL Hgb 11.1 L (11.4-16.0) gm/dL Hct 33.6 L (34.0-46.0) % Chloride 108 H (98-107) mmol/L Assessment and Plan Assessment: Assessment and plan * History of carotid artery stenosis, status post left carotid endarterectomy with patch angioplasty postoperative day one * Hypertension * Hyperlipidemia * History of TIA * History of CVA * In regards to postoperative management, vascular surgery following continue current medication regimen patient is on aspirin, Tatiana, Lipitor * In regards to history of hypertension we will hold lisinopril, allow permissive hypertension, * In regards to history of CVA TIA continue current antiplatelet and statin * We'll ambulate, continue with neurovascular checks
[2023-09-23] MEDS: lisinopriL 10 MG TAB PO SCH (16:37)
[2023-09-23] MEDS ORDERED: ATORVASTATIN 40 MG TAB PO SCH (21:00)
[2023-09-24] MEDS: LACTATED RINGERS 1,000 ML IV SCH (06:58)
[2023-09-24 09:03] LABS: HCT 36.1 % (34.0-46.0); HGB 12.1 gm/dL (11.4-16.0); MCH 31.3 pg (25.0-35.0); MCHC 33.7 g/dL (31.0-37.0); MCV 92.9 fL (80.0-100.0); Mean Platelet Volume 8.4; Platelet Count 161 k/uL (150-450); RBC 3.88 m/uL (3.80-5.40); RDW 12.7 % (11.5-15.5); WBC 6.7 k/uL (3.8-10.6)
[2023-09-24] MEDS: ASPIRIN 81 MG PO SCH (09:07)
[2023-09-24] MEDS: TICAGRELOR 90 MG TAB PO SCH (09:07)
[2023-09-24] MEDS: lisinopriL 10 MG TAB PO SCH (09:07)
[2023-09-24 09:15] LABS: African American GFR (CKD) 83 (>60 ml/min/1.73 sqM); Anion Gap 4 mmol/L; Blood Urea Nitrogen 18 mg/dL (7-17); Calcium 9.8 mg/dL (8.4-10.2); Carbon Dioxide 28 mmol/L (22-30); Chloride 105 mmol/L (98-107); Glucose 86 mg/dL (74-99); Non-African American GFR(CKD) 72 (>60 ml/min/1.73 sqM); Potassium 4.2 mmol/L (3.5-5.1); Sodium 137 mmol/L (137-145)
[2023-09-24 09:18] VITALS: TEMP 98.4
[2023-09-24 12:05] VITALS: BP 154/89; PULSE 83; RESP 16
--- NOTE | 2023-09-24 12:37 | P.PN ---
Subjective Progress Note Date: 09/24/23 Principal diagnosis: carotid stenosis, Post op CEA patient seen and examined. Doing well, no complaints. No lateralizing symptoms. Objective - Vital Signs Vital signs: Vital Signs Temp 98.4 F 09/24/23 09:05 Pulse 83 09/24/23 11:57 Resp 16 09/24/23 11:57 BP 154/89 09/24/23 11:57 Pulse Ox 98 09/24/23 11:57 FiO2 Intake & Output 09/23/23 09/24/23 09/24/23 18:59 06:59 18:59 Intake Total 360 540 Balance 360 540 Intake: Oral 360 540 Other: Voiding Method Toilet Toilet Toilet # Voids 2 2 - Exam left neck incision clean, dry and intact. No hematoma or signs of infection. no focal deficits, tongue midline - Labs CBC & Chem 7: 09/24/23 07:54 09/24/23 07:54 Labs: Abnormal Lab Results - Last 24 Hours (Table) 09/24/23 Range/Units 07:54 BUN 18 H (7-17) mg/dL Assessment and Plan Assessment: Post Op left CEA Plan: ok for discharge home today. F/U with Dr. Cm in 2 weeks.
--- NOTE | 2023-09-24 12:44 | P.PN ---
Subjective Progress Note Date: 09/24/23 * 58-year-old patient with past medical history significant for TIA, history of CVA involving left anterior paxton with right upper lower extremity weakness and speech deficit March 2023, carotid artery stenosis, hypertension, hyperlipidemia, fibromyalgia, gastroesophageal reflux disease was admitted for left carotid surgery. Patient was admitted in the hospital in August 2023 and was noted to have significant carotid artery stenosis left greater than right. * Blood work obtained showed WBC 4.9 hemoglobin 11 platelet count of 151. Serum chemistry showed sodium 140 potassium 4.2, chloride 108, dissected 20 6B on 15 creatinine 1 glucose 89 * Intraoperatively patient had labile blood pressure with systolic pressures as high as 200, home medications were reviewed and reconciled * 09/24/2023: Patient seen and evaluated bedside, on my evaluation patient is alert and oriented 4, patient states left neck discomfort has resolved, left ear discomfort has resolved right-sided discomfort has resolved * Blood work reviewed CBC within normal limits R panel essentially negative patient cleared by discharge PHYSICAL EXAMINATION: GENERAL: The patient is alert and oriented x3, not in any acute distress. Well developed, well nourished. HEENT: Pupils are round and equally reacting to light. EOMI Normocephalic, status post surgery, left neck incision intact no drainage noted CARDIOVASCULAR: S1 and S2 present. No murmurs, rubs, or gallops. PULMONARY: Chest is clear to auscultation, no wheezing or crackles. ABDOMEN: Soft, nontender, nondistended, normoactive bowel sounds. No palpable organomegaly. MUSCULOSKELETAL: No joint swelling or deformity. EXTREMITIES: No cyanosis, clubbing, or pedal edema. NEUROLOGICAL: Gross neurological examination did not reveal any focal deficits. SKIN: No rashes. Objective - Vital Signs Vital signs: Vital Signs Temp 98.4 F 09/24/23 09:05 Pulse 83 09/24/23 11:57 Resp 16 09/24/23 11:57 BP 154/89 09/24/23 11:57 Pulse Ox 98 09/24/23 11:57 FiO2 Intake & Output 09/23/23 09/24/23 09/24/23 18:59 06:59 18:59 Intake Total 360 540 Balance 360 540 Intake: Oral 360 540 Other: Voiding Method Toilet Toilet Toilet # Voids 2 2 - Labs CBC & Chem 7: 09/24/23 07:54 09/24/23 07:54 Labs: Abnormal Lab Results - Last 24 Hours (Table) 09/24/23 Range/Units 07:54 BUN 18 H (7-17) mg/dL Assessment and Plan Assessment: Assessment and plan * History of carotid artery stenosis, status post left carotid endarterectomy with patch angioplasty postoperative day one * Hypertension * Hyperlipidemia * History of TIA * History of CVA * In regards to postoperative management, vascular surgery following continue current medication regimen patient is on aspirin, Brilinta , Lipitor * In regards to history of hypertension continue lisinopril * In regards to history of CVA TIA continue current antiplatelet and statin * Patient seen by vascular surgery and cleared for discharge, patient remains stable okay to discharge home Time with Patient: Greater than 30
== END 2023-09-24 14:28 | disposition home or self-care (01) | DRG 24 ==
LOC: 2ORMAIN 05:36 → 2SICU 11:15 → 2ORMAIN 13:15 → 3SCARD 13:26
PROVIDERS: ADMIT Surgery; ATTEND Surgery
PROC: 03CL0ZZ Extirpation of Matter from Left Internal Carotid Artery, Open Approach (ICD-10-PCS; principal; 2023-09-22 07:30)
PROC: 03UL0KZ Supplement Left Internal Carotid Artery with Nonautologous Tissue Substitute, Open Approach (ICD-10-PCS; principal; 2023-09-22 07:30)
DX: I65.22 Occlusion and stenosis of left carotid artery (principal); E78.5 Hyperlipidemia, unspecified; I27.0 Primary pulmonary hypertension; M79.7 Fibromyalgia; R09.89 Other specified symptoms and signs involving the circulatory and respiratory systems; K21.9 Gastro-esophageal reflux disease without esophagitis; G43.909 Migraine, unspecified, not intractable, without status migrainosus; F41.9 Anxiety disorder, unspecified; I69.328 Other speech and language deficits following cerebral infarction; I69.331 Monoplegia of upper limb following cerebral infarction affecting right dominant side; Z79.899 Other long term (current) drug therapy; Z79.82 Long term (current) use of aspirin; Z82.49 Family history of ischemic heart disease and other diseases of the circulatory system; Z88.4 Allergy status to anesthetic agent; Z91.011 Allergy to milk products
CPT/HCPCS: 80048; 85025; 85027; 88304; 88305; 88311

== ENCOUNTER 2024-03-01 07:37 | Inpatient (IN) | payer OTHER ==
[2024-02-27 13:51] VITALS: BMI 27.3
[2024-03-01] MEDS ORDERED: LIDOCAINE 1% (10MG/ML) FOR IV START INTRADERMA PRN (08:04)
[2024-03-01] MEDS ORDERED: fentaNYL (PF) 50 MCG/ML 2 ML AMP IVP PRN (08:04)
[2024-03-01] MEDS ORDERED: MIDAZOLAM 2 MG/2 ML VIAL IV PRN (08:04)
[2024-03-01] MEDS: LACTATED RINGERS 1,000 ML IV SCH (08:12)
[2024-03-01] MEDS: DEXAMETHASONE SOD PHOSPHATE 4 MG/ML 1 ML VIAL IV ONE (08:38)
[2024-03-01] MEDS: ONDANSETRON 4 MG/2 ML VIAL IVP ONE (08:38)
[2024-03-01] MEDS: fentaNYL (PF) 50 MCG/ML 2 ML AMP IVP ONE (08:57)
[2024-03-01] MEDS: MIDAZOLAM 2 MG/2 ML VIAL IVP ONE (08:57)
--- NOTE | 2024-03-01 09:05 | P.ANPRN ---
Procedure Note - Anesthesia - Invasive Line Right Arterial Line Time Out Performed: Yes Date of Procedure: 03/01/24 Time of Procedure: 08:56 Location of Patient: PreOp Preparation: Sterile Prep, Sterile Dressing Arterial Line Location: Radial Ultrasound Used: Yes Purpose - Visualization and Identification of Vasculature: Yes Image Stored and Saved: Yes Narrative: Invasive line placement per sterile protocol utilized.
--- NOTE | 2024-03-01 09:19 | P.HPIHPCON ---
History of Present Illness H&P Date: 03/01/24 Patient is a 58-year-old female with severe carotid stenosis and previous underwent a left carotid endarterectomy and patch angioplasty presents today for a right carotid endarterectomy and patch angioplasty. She is asymptomatic. Consent for Procedure: I have explained the operation/procedure to the patient, including the risks, benefits, side effects, alternative therapies (including not receiving the proposed treatment or service), the likelihood of the patient achieving his/her goals, and potential recuperation problems for the procedure/sedation/analgesia, as well as any blood products, if indicated. I also explained to the patient the risks, benefits and side effects of the alternatives, as well as the risks related to not receiving the proposed procedure, care, treatment, or services. Past Medical History Past Medical History: CVA/TIA, Fibromyalgia, GERD/Reflux, Hearing Disorder / Deafness, Hyperlipidemia, Hypertension, Renal Disease, Skin Disorder, Sleep Apnea/CPAP/BIPAP Additional Past Medical History / Comment(s): carotid stenosis, weakness with activity ,cva 03-06-23-had difficulty walking/rt sided weakness- resolve, CVA 03-07-22-had numbness on left side numbness resolved w/in 1 hr, Primary pulmonary hypertension; Migraines occasionally, low back pain. "I get pains in my hip when I walk sometiimes." Vitiligo. "borderline kidney issue." Tinnitis at times. "they gave me a C-PAP and I haven't used it."IBD. History of Any Multi-Drug Resistant Organisms: None Reported Past Surgical History: Appendectomy Additional Past Surgical History / Comment(s): BIANCA(states was awake for BIANCA), d&c x 2.Lt carotid endartarectomy September 2023. Past Anesthesia/Blood Transfusion Reactions: Motion Sickness, Postoperative Nausea & Vomiting (PONV) Additional Past Anesthesia/Blood Transfusion Reaction / Comment(s): no hx blood transfusion. "30 years ago one time I had a problem." Smoking Status: Never smoker - Past Family History Mother Family Medical History: Hyperlipidemia, Myocardial Infarction ([place]) Additional Family Medical History / Comment(s): MS Father Family Medical History: Blood Disorder Additional Family Medical History / Comment(s): hemophilia- during surgery with an MD. HIV Sister(s) Family Medical History: Pneumonia Medications and Allergies Home Medications Medication Instructions Recorded Confirmed Type Atorvastatin [Lipitor] 40 mg PO HS 30 Days #30 tab 04/05/23 03/01/24 Rx Aspirin 81 mg PO QAM 05/18/23 03/01/24 History lisinopriL [Zestril] 10 mg PO QAM 08/22/23 03/01/24 History Allergies Allergy/AdvReac Type Severity Reaction Status Date / Time cefaclor [From Ceclor] Allergy Unknown Verified 03/01/24 08:33 Childhood lactose Allergy Nausea & Verified 03/01/24 08:33 Vomiting & Diarrhea Penicillins Allergy Unknown Verified 03/01/24 08:33 povidone-iodine Allergy Unknown Verified 03/01/24 08:33 [From Betadine] sulfamethoxazole Allergy Unknown Verified 03/01/24 08:33 [From Bactrim] Childhood ticagrelor [From Brilinta] Allergy Severe Verified 03/01/24 08:33 fatigue trimethoprim [From Bactrim] Allergy Unknown Verified 03/01/24 08:33 Childhood chocolate flavor AdvReac headache Verified 03/01/24 08:33 milk AdvReac headache Verified 03/01/24 08:33 rosuvastatin [From Crestor] AdvReac Nausea Verified 03/01/24 08:33 "Bad fatigue" lidocaine Allergy Intermediate Swelling Uncoded 03/01/24 08:33 ANESTHETIC(UNKNOWN) Allergy dizziness Uncoded 03/01/24 08:33 and headache,30 yrs ago Surgical - Exam Vital Signs Temp Pulse Resp BP Pulse Ox 98 F 73 16 142/68 97 03/01/24 08:16 03/01/24 08:16 03/01/24 08:16 03/01/24 08:16 03/01/24 08:16 No acute distress resting comfortably. HEENT is normocephalic, atraumatic, extraocular motion intact. Heart appears regular. Lungs are clear. Abdomen is soft. Extremities without clubbing, cyanosis or edema. Cranial nerves II thro ugh XII grossly intact. Results Imaging has been reviewed. High-grade right internal carotid artery stenosis Assessment and Plan Assessment: High-grade asymptomatic right internal carotid artery stenosis Previous left carotid endarterectomy and patch angioplasty Anxiety Plan: Will plan today for a right carotid endarterectomy and patch angioplasty. Risks and benefits again discussed with the patient. Questions were answered. She seems understands and would like to proceed.
[2024-03-01] MEDS ORDERED: fentaNYL (PF) 50 MCG/ML 2 ML AMP ONE (09:39)
[2024-03-01] MEDS ORDERED: PROPOFOL 10 MG/ML 20 ML VIAL IV ONE (09:39)
[2024-03-01] MEDS ORDERED: NALOXONE 0.4 MG/ML 1 ML VIAL ONE (09:39)
[2024-03-01] MEDS ORDERED: HYDROmorphone (PF) 1 MG/ML ONE (09:39)
[2024-03-01] MEDS ORDERED: MIDAZOLAM 2 MG/2 ML VIAL ONE (09:39)
[2024-03-01] MEDS ORDERED: GLYCOPYRROLATE 0.2 MG/ML 2 ML VIAL ONE (09:39)
[2024-03-01] MEDS ORDERED: ROCURONIUM 10 MG/ML (5 ML VIAL) IV ONE (09:39)
[2024-03-01] MEDS ORDERED: HEPARIN SODIUM,PORCINE 10,000 UNIT/ML 1 ML VIAL ONE (09:39)
[2024-03-01] MEDS ORDERED: NEOSTIGMINE 1 MG/ML 10 ML VIAL ONE (09:39)
[2024-03-01] MEDS ORDERED: PROTAMINE SULFATE 10 MG/ML 5 ML VIAL ONE (09:39)
[2024-03-01] MEDS: ceFAZolin 1,000 MG in SODIUM CHLORIDE 0.9% 1,000 ML IRRIGATION ONE (10:11)
[2024-03-01] MEDS: HEPARIN SODIUM (1,000 UNIT/ML) 2,000 UNIT in SODIUM CHLORIDE 0.9% 1,000 ML IRRIGATION ONE (10:11)
[2024-03-01] MEDS: GELATIN SPONGE,ABSORB (LARGE) 1 EACH SPONGE TOPICAL ONE (10:22)
[2024-03-01] MEDS: THROMBIN (BOVINE) 5,000 UNIT VIAL TOPICAL ONE (10:22)
[2024-03-01] MEDS: LIDOCAINE 1% INJ 10MG/ML (20 ML MDV) SQ ONE (10:22)
[2024-03-01] MEDS: IV FLUID CONTINUATION 1,000 ML IV ONE (10:39)
[2024-03-01] MEDS ORDERED: MORPHINE SULFATE 2 MG/ML SYRINGE IVP PRN (12:44)
[2024-03-01] MEDS ORDERED: BENZOCAINE/MENTHOL LOZENG 1 EACH LOZENGE MUCOUS MEM PRN (12:44)
[2024-03-01] MEDS ORDERED: HYDROcodone/APAP 5-325MG 1 EACH TAB PO PRN (12:44)
--- NOTE | 2024-03-01 12:44 | P.OP ---
Date of Procedure: 03/01/24 Description of Procedure: Preoperative Diagnosis: Right internal carotid artery stenosis Postoperative Diagnosis: Same Procedure: Asymptomatic right carotid endarterectomy with patch angioplasty Anesthesia: GET Surgeon: Gail Cm DO Estimated Blood Loss (ml): 50cc IV Fluids: See records Urine Output: See records Specimen: Multiple right cervical lymph nodes Right carotid plaque Condition: stable Disposition: PACU Findings and indications: Patient is a 58-year-old female with severe peripheral vascular disease and previous left carotid endarterectomy who has high-grade right internal carotid artery stenosis and presents today for patch angioplasty and endarterectomy. Risks and benefits were discussed. She seems understood and was willing to proceed. Procedure in detail: After written informed consent was obtained the patient risks benefits and competitions were described the patient is brought to the operative suite and laid in a supine position. The area of the neck was prepped and draped in usual sterile fashion after appropriate anesthetic was performed per the anesthesiologist. A timeout was performed in normal fashion antibiotics were administered prior to incision. An oblique incision was then created just anterior to the sternocleidomastoid musculature with a 10 blade scalpel and dissection was carried down to the carotid sheath. The carotid sheath was then entered after facial vein was located and suture ligated in normal fashion. The common carotid, internal carotid, external carotid and superior thyroid arteries were located and dissected free in a meticulous fashion circumferentially and controlled with vessel loops. Attention was then placed to locating the vagus nerve as well as hypoglossal nerve which were both spared. Once controlled, patient was administered heparin and followed with ACTs for appropriate heparinization. Once ACT was appropriate, the proximal and distal aspects of the dissection were then controlled with vascular clamps. Arteriotomy was then created with 11 blade scalpel and extended with Madden Brito scissors. The previously placed cerebral oximeter was showing no significant drop in perfusion therefore no shunt was required. An endarterectomy was then performed with a [place] elevator. The plaque was transected proximally and then feathered at the distal aspect of the internal carotid artery and removed. The area was copiously irrigated with heparinized saline and all free debris was removed. A 0.8 x 8 cm bovine pericardial patch was then chosen and patch angioplasty was performed with 6-0 Prolene suture in a running fashion. Prior to last sutures being placed the inflow was released flushing any free debris out of the patch. This was reclamped and the internal carotid artery was released revealing good brisk flow and was once again reclamped. The external carotid and superior thyroid artery were then released followed by the common carotid artery to allow any free debris to be flushed into the external system. Final sutures were placed and secured. Internal carotid artery control was then released. Good pulsatile flow was noted through the patch and a Doppler was utilized demonstrating good brisk flow into the internal, external carotid arteries without any signs of obstruction. Hemostasis was then assured with interrupted sutures of 6-0 Prolene as well as thrombin and Gelfoam. A 10-[place] drain was then placed in normal fashion and secured with 3-0 nylon suture. The incision was then closed in a multilayer fashion after hemostasis was assured. The skin was then cleansed and dressings were placed. Patient tolerated the procedure well and was following commands and moving all extremities. Patient was then sent to PACU for recovery.
[2024-03-01] MEDS: NITROGLYCERIN-D5W PMX 50 MG in DEXTROSE/WATER 1 250ML.BAG IV SCH (12:50)
[2024-03-01] MEDS: SODIUM CHLORIDE 0.9% 1,000 ML IV ONE (13:00)
[2024-03-01] MEDS: hydrALAZINE HCL 20 MG/ML 1 ML VIAL IVP STA (13:12)
[2024-03-01] MEDS: METOPROLOL TARTRATE 5 MG/5 ML VIAL IVP STA (13:28)
[2024-03-01] MEDS: HYDROmorphone 0.5 MG/0.5 ML SYRINGE IVP PRN (13:38)
[2024-03-01 16:59] LABS: Glucose,Whole Blood 129 mg/dL (70-110)
[2024-03-01] MEDS: HEPARIN SODIUM,PORCINE 5,000 UNIT/ML 1 ML VIAL SQ SCH (17:32)
--- NOTE | 2024-03-01 23:06 | P.CONS ---
History of Present Illness - Reason for Consult Consult date: 03/01/24 Medical management Requesting physician: Gail Cm - Chief Complaint Right CEA - History of Present Illness This is a pleasant 58-year-old patient who follows with Dr. Kj Servin. Chronic stable medical conditions include fibromyalgia, GERD, hard of hearing, hypertension, hyperlipidemia, obstructive sleep apnea, stroke in March 2023 with right-sided weakness, that resolved and in March 2022 numbness on the left side that lasted about an hour, primary pulmonary hypertension, vitiligo, occasional tinnitus, patient does not use a CPAP anxiety. Patient has undergone right carotid endarterectomy. Dressing in place. ICU. Nitroglycerin drip. Awake. Some discomfort with swallowing. Review of systems: GEN.: None EYES: None HEENT: Decreased hearing some discomfort with swallowing NECK: None RESPIRATORY: None CARDIOVASCULAR: None GASTROINTESTINAL: None GENITOURINARY: None MUSCULOSKELETAL: [Some low back pain LYMPHATICS: None HEMATOLOGICAL: None PSYCHIATRY: None NEUROLOGICAL: None Social history: Patient lives with her daughter and boyfriend. 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 No smoking no alcohol Physical examination: VITAL SIGNS: 98, 65, 12, 137/55, 93% on room air GENERAL: BMI 27.3, laying in bed awake. EYES: Pupils equal. Conjunctiva ludy l. HEENT: External appearance of nose and ears normal, oral cavity grossly normal. Some decrease in hearing NECK: JVD not raised; masses not palpable. Dressing over the right side of the neck HEART: First and second heart sounds are normal; no edema. LUNGS: Respiratory rate normal; clear to auscultation. ABDOMEN: Soft, nontender, liver spleen not palpable, no masses palpable. PSYCH: Alert and oriented x3; mood and affect ludy l. MUSCULOSKELETAL:No Clubbing/cyanosis;muscles-grossly intact NEUROLOGICAL: Cranial nerves grossly intact; no facial asymmetry, power and sensation grossly intact. LYMPHATICS: No lymph nodes palpable in the axilla and neck INVESTIGATIONS, reviewed in the clinical context: October 02, 2023: White count 6.7 hemoglobin 12.1 platelets 161 potassium 4.2 creatinine 0.9 Telemetry: Normal sinus rhythm Assessment and plan: -Right carotid endarterectomy Dressing in place -Essential hypertension Zestril. Currently on nitroglycerin drip -Hyperlipidemia Lipitor -Primary pulmonary hypertension Patient not on any medications Care was discussed with the patient. On a nitroglycerin drip. Venodyne boots. IV Ancef. Plavix. Subcu heparin. Thank you Dr. Cm - Past Medical History Past Medical History: CVA/TIA, Fibromyalgia, GERD/Reflux, Hearing Disorder / Deafness, Hyperlipidemia, Hypertension, Renal Disease, Skin Disorder, Sleep Apnea/CPAP/BIPAP Additional Past Medical History / Comment(s): carotid stenosis, weakness with activity ,cva 03-06-23-had difficulty walking/rt sided weakness- resolve, CVA 03-07-22-had numbness on left side numbness resolved w/in 1 hr, Primary pulmonary hypertension; Migraines occasionally, low back pain. "I get pains in my hip when I walk sometiimes." Vitiligo. "borderline kidney issue." Tinnitis at times. "they gave me a C-PAP and I haven't used it."IBD. History of Any Multi-Drug Resistant Organisms: None Reported Past Surgical History: Appendectomy Additional Past Surgical History / Comment(s): BIANCA(states was awake for BIANCA), d&c x 2.Lt carotid endartarectomy September 2023. Past Anesthesia/Blood Transfusion Reactions: Motion Sickness, Postoperative Nausea & Vomiting (PONV) Additional Past Anesthesia/Blood Transfusion Reaction / Comm: no hx blood transfusion. "30 years ago one time I had a problem." Smoking Status: Never smoker - Past Family History Mother Family Medical History: Hyperlipidemia, Myocardial Infarction ([place]) Additional Family Medical History / Comment(s): MS Father Family Medical History: Blood Disorder Additional Family Medical History / Comment(s): hemophilia- during surgery with an [place]. HIV Sister(s) Family Medical History: Pneumonia Medications and Allergies Home Medications Medication Instructions Recorded Confirmed Type Atorvastatin [Lipitor] 40 mg PO HS 30 Days #30 tab 04/05/23 03/01/24 Rx Aspirin 81 mg PO QAM 05/18/23 03/01/24 History lisinopriL [Zestril] 10 mg PO QAM 08/22/23 03/01/24 History Allergies Allergy/AdvReac Type Severity Reaction Status Date / Time cefaclor [From [facility]] Allergy Unknown Verified 03/01/24 08:33 Childhood lactose Allergy Nausea & Verified 03/01/24 08:33 Vomiting & Diarrhea Penicillins Allergy Unknown Verified 03/01/24 08:33 povidone-iodine Allergy Unknown Verified 03/01/24 08:33 [From Betadine] sulfamethoxazole Allergy Unknown Verified 03/01/24 08:33 [From Bactrim] Childhood ticagrelor [From Brilinta] Allergy Severe Verified 03/01/24 08:33 fatigue trimethoprim [From Bactrim] Allergy Unknown Verified 03/01/24 08:33 Childhood chocolate flavor AdvReac headache Verified 03/01/24 08:33 milk AdvReac headache Verified 03/01/24 08:33 rosuvastatin [From Crestor] AdvReac Nausea Verified 03/01/24 08:33 "Bad fatigue" lidocaine Allergy Intermediate Swelling Uncoded 03/01/24 08:33 ANESTHETIC(UNKNOWN) Allergy dizziness Uncoded 03/01/24 08:33 and headache,30 yrs ago Physical Exam Vitals: Vital Signs Temp Pulse Pulse Pulse Resp BP BP 03/01/24 22:00 65 12 03/01/24 21:00 61 12 03/01/24 20:00 98 F 65 10 L 03/01/24 19:00 60 12 147/87 03/01/24 18:00 75 22 137/71 03/01/24 17:00 68 14 147/73 03/01/24 16:49 66 16 03/01/24 16:15 56 L 16 03/01/24 15:45 71 16 03/01/24 15:30 66 16 03/01/24 15:15 52 L 16 03/01/24 15:00 67 16 03/01/24 14:45 57 L 16 03/01/24 14:25 53 L 16 03/01/24 14:10 61 16 03/01/24 13:55 69 16 03/01/24 13:40 60 16 03/01/24 13:24 62 16 03/01/24 13:09 80 16 03/01/24 12:54 80 16 03/01/24 12:39 97.1 F L 79 16 03/01/24 09:18 75 16 142/64 03/01/24 08:16 98 F 73 16 142/68 BP BP Pulse Ox 03/01/24 22:00 94 L 03/01/24 21:00 93 L 03/01/24 20:00 95 03/01/24 19:00 95 03/01/24 18:00 95 03/01/24 17:00 96 03/01/24 16:49 95 03/01/24 16:15 115/56 166/64 97 03/01/24 15:45 127/61 170/64 96 03/01/24 15:30 127/71 171/63 98 03/01/24 15:15 132/61 174/71 97 03/01/24 15:00 133/64 166/65 98 03/01/24 14:45 130/56 174/68 98 03/01/24 14:25 134/62 165/63 98 03/01/24 14:10 150/72 177/70 99 03/01/24 13:55 148/69 176/69 99 03/01/24 13:40 153/74 176/74 99 03/01/24 13:24 190/77 185/77 100 03/01/24 13:09 194/89 208/80 98 03/01/24 12:54 198/92 96 03/01/24 12:39 181/82 96 03/01/24 09:18 98 03/01/24 08:16 97 Intake and Output 03/01/24 03/01/24 03/02/24 14:59 22:59 06:59 Intake Total 1874.8 252.75 Output Total 550 0 Balance 1324.8 252.75 Intake: IV 1852 100 Lactated Ringers 1,000 ml 100 @ 20 mls/hr IV .Q24H [facility] Rx#:[id number] Intake, IV Titration 22.8 152.75 Amount Nitroglycerin-D5w Pmx 50 22.8 152.75 mg In Dextrose/Water 1 250ml.bag @ 5 MCG/MIN 1.5 mls/hr IV .Q24H [facility] Rx#: [id number] Output: Urine 500 0 Estimated Blood Loss 50 Other: Voiding Method External Catheter Weight 69.8 kg ABP, PAP, CO, CI - Last 8 Hours Arterial Blood Pressure 138/59 Arterial Blood Pressure 137/55 Arterial Blood Pressure 141/55 Arterial Blood Pressure 157/61 Arterial Blood Pressure 155/66 Arterial Blood Pressure 180/65 Results Labs: Abnormal Lab Results - Last 24 Hours (Table) 03/01/24 Range/Units 16:57 POC Glucose (mg/dL) 129 H (70-110) mg/dL
[2024-03-02 05:04] LABS: ALT 19 U/L (4-34); AST 18 U/L (14-36); African American GFR (CKD) 83 (>60 ml/min/1.73 sqM); Albumin 3.5 g/dL (3.5-5.0); Alkaline Phosphatase 89 U/L (38-126); Anion Gap 6 mmol/L; Blood Urea Nitrogen 18 mg/dL (7-17); Calcium 9.2 mg/dL (8.4-10.2); Carbon Dioxide 22 mmol/L (22-30); Chloride 106 mmol/L (98-107); Glucose 94 mg/dL (74-99); Non-African American GFR(CKD) 72 (>60 ml/min/1.73 sqM); Potassium 4.2 mmol/L (3.5-5.1); Sodium 134 mmol/L (137-145); Total Bilirubin 0.7 mg/dL (0.2-1.3); Total Protein 6.3 g/dL (6.3-8.2)
[2024-03-02 06:34] LABS: HCT 33.1 % (34.0-46.0); HGB 10.8 gm/dL (11.4-16.0); MCH 30.8 pg (25.0-35.0); MCHC 32.5 g/dL (31.0-37.0); MCV 94.6 fL (80.0-100.0); Platelet Count 149 k/uL (150-450); RDW 13.3 % (11.5-15.5); WBC 7.5 k/uL (3.8-10.6)
[2024-03-02] MEDS: lisinopriL 10 MG TAB PO SCH (08:26)
[2024-03-02] MEDS: ACETAMINOPHEN TAB 325 MG TAB PO PRN (08:27)
[2024-03-02] MEDS: CLOPIDOGREL 75 MG TAB PO SCH (08:27)
[2024-03-02] MEDS: ASPIRIN 81 MG PO SCH (08:27)
[2024-03-02 08:58] VITALS: TEMP 97.8
[2024-03-02] MEDS ORDERED: ASPIRIN 81 MG PO SCH (09:00)
--- NOTE | 2024-03-02 10:07 | P.DS ---
Providers Date of admission: 03/01/24 07:37 Attending physician: Gail Cm DO Consults: 03/01/24 12:44 Consult Physician Routine Consulting Provider: Melany Rodriguez Consult Reason/Comments: med mgmnt, post carotid Do you want consulting provider notified?: Yes Primary care physician: [facility] Course: 58-year-old female with severe peripheral vascular disease and previous left carotid endarterectomy who has high-grade right internal carotid artery stenosis and presented for asymptomatic right carotid endarterectomy with patch angioplasty. She is postop day #1. [place] drain in place with minimal serosanguineous output. Patient was admitted to the ICU for blood pressure control, hypertension and was put on nitroglycerin drip. This morning she states she is having some difficulty with urinating and only feels like she is able to get small amounts out but has not been up to the bathroom to try to void. Has catheter tampon/wick. Denies any focal deficits. States that having some difficulty with swallowing due to sore throat however does not want any Cepacol lozenges. States she is having some upper extremity pain she believes secondary to her fibromyalgia. WBC 7.5 hemoglobin 10.8 platelet count 149,000 sodium 134 potassium 4.2 BUN 18 creatinine 0.89 glucose 94 Nitroglycerin drip has since been discontinued. Systolic blood pressures have been maintaining 150s 160s. She has been up and ambulating the hallway. She has voided without any difficulty. She is requesting discharge home. Exam General appearance: The patient is alert, oriented, appears in no acute distress. HET: Head is normocephalic and atraumatic. Pupils are equal and reactive. Neck: Supple. Right side of neck with incision well-approximated, no hematoma or bleeding noted. CAR[place] drain in place with scant amount of serosanguineous output. Heart: Regular. Lungs: Equal expansion, normal respiratory effort. Abdomen: Soft, nontender, nondistended. Extremities: Normal skin color and turgor. Neurological: No focal deficits. Strength and sensation are grossly intact. Assessment 1. Asymptomatic right carotid artery stenosis status post right carotid endarterectomy with patch angioplasty 2. Hypertension 3. Peripheral vascular disease 4. History CVA/TIA 5. Hyperlipidemia 6. History of previous left carotid endarterectomy 7. Fibromyalgia 8. Obstructive sleep apnea Plan 1. Start Plavix 75 mg daily, continue 81 mg aspirin daily 2. Resume home medications 3. Encourage ambulation 4. CAROLINA drain discontinued 5. May discontinue arterial line 6. Primary medical team on consultation, appreciate their recommendations. 7. Blood pressure management per primary medical team 8. Anticipate discharge today if medically cleared. The impression and plan of care has been dictated as directed. Dr. Cm I performed a history and examination of this patient, discussed the same with the dictator. I agree with the dictator's note ,documented as a scribe. Any additional findings or plans will be noted. Procedures: Asymptomatic right carotid endarterectomy with patch angioplasty Patient Condition at Discharge: Stable Plan - Discharge Summary Discharge Rx Participant: No New Discharge Prescriptions: New Clopidogrel [Plavix] 75 mg PO DAILY 30 Days #30 tab Acetaminophen Tab [Tylenol] 650 mg PO Q4HR PRN tab PRN Reason: Pain Continue Atorvastatin [Lipitor] 40 mg PO HS 30 Days #30 tab lisinopriL [Zestril] 10 mg PO QAM Aspirin 81 mg PO QAM Discharge Medication List Atorvastatin [Lipitor] 40 mg PO HS 30 Days #30 tab 04/05/23 [Rx] Aspirin 81 mg PO QAM 05/18/23 [History] lisinopriL [Zestril] 10 mg PO QAM 08/22/23 [History] Acetaminophen Tab [Tylenol] 650 mg PO Q4HR PRN tab 03/02/24 [Rx] Clopidogrel [Plavix] 75 mg PO DAILY 30 Days #30 tab 03/02/24 [Rx] Follow up Appointment(s)/Referral(s): Gail Cm DO [STAFF PHYSICIAN] - 2 Weeks Victoriano Servin MD [Primary Care Provider] - 1 Week Patient Instructions/Handouts: Carotid Endarterectomy (DC) Activity/Diet/Wound Care/Special Instructions: No strenuous activity or heavy lifting greater than 10 pounds. May shower tomorrow but no tub bathing or soaking. No driving for at least 1 week. Watch incision site for infection including redness, drainage, or temperature greater than 100.4. If you notice he symptoms please call office
[2024-03-02] MEDS: LISINOPRIL-HCTZ 10-12.5 MG 1 EACH TAB PO SCH (12:23)
[2024-03-02] MEDS: METOPROLOL TARTRATE 25 MG TAB PO SCH (13:08)
[2024-03-02 13:25] VITALS: BP 164/62; PULSE 74; RESP 18
--- NOTE | 2024-03-02 13:30 | P.PN ---
Progress Note - Text Progress Note Date: 03/02/24 - Chief Complaint Right CEA - History of Present Illness This is a pleasant 58-year-old patient who follows with Dr. Kj Servin. Chronic stable medical conditions include fibromyalgia, GERD, hard of hearing, hypertension, hyperlipidemia, obstructive sleep apnea, stroke in March 2023 with right-sided weakness, that resolved and in March 2022 numbness on the left side that lasted about an hour, primary pulmonary hypertension, vitiligo, occasional tinnitus, patient does not use a CPAP anxiety. Patient has undergone right carotid endarterectomy. Dressing in place. ICU. Nitroglycerin drip. Awake. Some discomfort with swallowing. March 02: Up in a recliner. Blood pressure running in the 160s. Medications changed to lisinopril hydrochlorothiazide. Discussed with patient. Patient reluctant about taking new medications. Will be discharging the patient home now lisinopril hydrochlorothiazide 20/12.5. Nightly. Discussed. Tolerating diet. Did ambulate no new issues Active Medications Acetaminophen (Acetaminophen Tab 325 Mg Tab) 650 mg PO Q4HR PRN PRN Reason: Pain Last Admin: 03/02/24 08:27 Dose: 650 mg Hydrocodone Bitart/Acetaminophen (Hydrocodone/Apap 5-325mg 1 Each Tab) 1 each PO Q6HR PRN PRN Reason: Pain Scale 4 to 6 Aspirin (Aspirin 81 Mg) 81 mg PO QAM [facility] Last Admin: 03/02/24 08:27 Dose: 81 mg Atorvastatin Calcium (Atorvastatin 40 Mg Tab) 40 mg PO HS [facility] Benzocaine/Menthol (Benzocaine/Menthol Lozeng 1 Each Lozenge) 1 each MUCOUS MEM Q2HR PRN PRN Reason: Sore Throat Clopidogrel Bisulfate (Clopidogrel 75 Mg Tab) 75 mg PO DAILY [facility] Last Admin: 03/02/24 08:27 Dose: 75 mg Lisinopril/HCTZ (Lisinopril-Hctz 10-12.5 Mg 1 Each Tab) 1 each PO DAILY [facility] Last Admin: 03/02/24 12:23 Dose: 1 each Heparin Sodium (Porcine) (Heparin Sodium,Porcine 5,000 Unit/Ml 1 Ml Vial) 5,000 unit SQ Q8HR [facility] Last Admin: 03/02/24 08:57 Dose: 5,000 unit Hydromorphone HCl (Hydromorphone 0.5 Mg/0.5 Ml Syringe) 0.5 mg IVP Q5M PRN PRN Reason: Phase 1 or 2 - Pain Control Stop: 03/02/24 23:00 Last Admin: 03/01/24 14:16 Dose: 0.5 mg Lidocaine HCl (Lidocaine 1% (10mg/Ml) For Iv Start) 0.1 ml INTRADERMA PER PROTOCOL PRN PRN Reason: IV Start Metoprolol Tartrate (Metoprolol Tartrate 25 Mg Tab) 25 mg PO BID [facility] Last Admin: 03/02/24 13:08 Dose: Not Given Morphine Sulfate (Morphine Sulfate 2 Mg/Ml Syringe) 2 mg IVP Q4H PRN PRN Reason: Pain Scale 6 to 7 Social history: Patient lives with her daughter and boyfriend. 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 No smoking no alcohol Physical examination: VITAL SIGNS: Afebrile, 74, 18, 157/88, 94% GENERAL: Up in a recliner EYES: Pupils equal. Conjunctiva ludy l. HEENT: External appearance of nose and ears normal, oral cavity grossly normal. Some decrease in hearing NECK: JVD not raised; masses not palpable. Dressing over the right side of the neck HEART: First and second heart sounds are normal; no edema. LUNGS: Respiratory rate normal; clear to auscultation. ABDOMEN: Soft, nontender, liver spleen not palpable, no masses palpable. PSYCH: Alert and oriented x3; mood and affect ludy l. MUSCULOSKELETAL:No Clubbing/cyanosis;muscles-grossly intact INVESTIGATIONS, reviewed in the clinical context: March 02: White count 7.5 hemoglobin 10.8 platelets 149 potassium 4.2 BUN 18 creatinine 0.89 October 02, 2023: White count 6.7 hemoglobin 12.1 platelets 161 potassium 4.2 creatinine 0.9 Telemetry: Normal sinus rhythm Assessment and plan: -Right carotid endarterectomy Dressing in place -Essential hypertension: Uncontrolled Changed to Zestoretic 24/08.51 tablet nightly -Acute postprocedure blood loss anemia expected from surgery Ferrous sulfate 325 daily -Hyperlipidemia Lipitor -Primary pulmonary hypertension Patient not on any medications Discussed with patient. Follow-up with PCP. Thank you Dr. Cm - Past Medical History Past Medical History: CVA/TIA, Fibromyalgia, GERD/Reflux, Hearing Disorder / Deafness, Hyperlipidemia, Hypertension, Renal Disease, Skin Disorder, Sleep Apnea/CPAP/BIPAP Additional Past Medical History / Comment(s): carotid stenosis, weakness with activity ,cva 03-06-23-had difficulty walking/rt sided weakness- resolve, CVA 03-07-22-had numbness on left side numbness resolved w/in 1 hr, Primary pulmonary hypertension; Migraines occasionally, low back pain. "I get pains in my hip when I walk sometiimes." Vitiligo. "borderline kidney issue." Tinnitis at times. "they gave me a C-PAP and I haven't used it."IBD. History of Any Multi-Drug Resistant Organisms: None Reported Past Surgical History: Appendectomy Additional Past Surgical History / Comment(s): BIANAC(states was awake for BIANCA), d&c x 2.Lt carotid endartarectomy September 2023. Past Anesthesia/Blood Transfusion Reactions: Motion Sickness, Postoperative Nausea & Vomiting (PONV) Additional Past Anesthesia/Blood Transfusion Reaction / Comm: no hx blood transfusion. "30 years ago one time I had a problem." Smoking Status: Never smoker
[2024-03-02] MEDS ORDERED: ATORVASTATIN 40 MG TAB PO SCH (21:00)
== END 2024-03-02 14:02 | disposition home or self-care (01) | DRG 24 ==
LOC: 2ORMAIN 07:37 → 2SICU 15:37
PROVIDERS: ADMIT Surgery; ATTEND Surgery
PROC: 03UK0KZ Supplement Right Internal Carotid Artery with Nonautologous Tissue Substitute, Open Approach (ICD-10-PCS; principal; 2024-03-01 09:30)
PROC: 03CK0ZZ Extirpation of Matter from Right Internal Carotid Artery, Open Approach (ICD-10-PCS; principal; 2024-03-01 09:30)
DX: I65.21 Occlusion and stenosis of right carotid artery (principal); I27.0 Primary pulmonary hypertension; D62 Acute posthemorrhagic anemia; I73.9 Peripheral vascular disease, unspecified; I10 Essential (primary) hypertension; R13.10 Dysphagia, unspecified; E78.5 Hyperlipidemia, unspecified; G47.33 Obstructive sleep apnea (adult) (pediatric); M79.7 Fibromyalgia; F41.9 Anxiety disorder, unspecified; K21.9 Gastro-esophageal reflux disease without esophagitis; M54.50 Low back pain, unspecified; H91.90 Unspecified hearing loss, unspecified ear; H93.19 Tinnitus, unspecified ear; L98.9 Disorder of the skin and subcutaneous tissue, unspecified; L80 Vitiligo; Z86.73 Personal history of transient ischemic attack (TIA), and cerebral infarction without residual deficits; Z79.82 Long term (current) use of aspirin; Z79.899 Other long term (current) drug therapy; Z88.4 Allergy status to anesthetic agent; Z88.1 Allergy status to other antibiotic agents; Z88.3 Allergy status to other anti-infective agents; Z88.0 Allergy status to penicillin; Z88.2 Allergy status to sulfonamides; Z88.8 Allergy status to other drugs, medicaments and biological substances
CPT/HCPCS: 80053; 85027; 88304; 88305

== ENCOUNTER 2024-03-03 13:25 | Observation (INO) | payer OTHER ==
--- NOTE | 2024-03-03 14:18 | ED ---
General Adult HPI - General Chief complaint: Recheck/Abnormal Lab/Rx Stated complaint: Post-op high BP Time Seen by Provider: 03/03/24 13:30 Source: patient Mode of arrival: ambulatory Limitations: no limitations - History of Present Illness Initial comments: 58-year-old female with past medical history of CVA, hypertension, hyperlipidemia who presents emergency department status post carotid endarterectomy. Patient had a procedure done on March [address] Cm. She did have some postop hypertension therefore she was on a nitro drip. Patient was discharged yesterday. She states that she took her blood pressure this morning and it remains elevated even though she took her morning medication. She was aware of the blood pressure parameters after surgery and presents to the emergency department for further treatment of it. She denies having any headaches or neck pain. No fevers. No visual changes. Denies any concern for infection at the site. No other alleviating, precipitating or modifying factors - Related Data Home Medications Medication Instructions Recorded Confirmed Aspirin 81 mg PO DAILY 05/18/23 03/03/24 Previous Rx's Medication Instructions Recorded Atorvastatin [Lipitor] 40 mg PO HS 30 Days #30 tab 04/05/23 Acetaminophen Tab [Tylenol] 650 mg PO Q4HR PRN tab 03/02/24 Clopidogrel [Plavix] 75 mg PO DAILY 30 Days #30 tab 03/02/24 Ferrous Sulfate [Iron (65 MG 325 mg PO DAILY #30 tab 03/02/24 Elemental)] Lisinopril-Hctz 20-12.5 mg 1 tab PO BID #60 tab 03/04/24 [Zestoretic 20-12.5] Allergies Allergy/AdvReac Type Severity Reaction Status Date / Time cefaclor [From Ceclor] Allergy Unknown Verified 03/03/24 14:34 Childhood lactose Allergy Nausea & Verified 03/03/24 14:34 Vomiting & Diarrhea Penicillins Allergy Unknown Verified 03/03/24 14:34 povidone-iodine Allergy Unknown Verified 03/03/24 14:34 [From Betadine] sulfamethoxazole Allergy Unknown Verified 03/03/24 14:34 [From Bactrim] Childhood ticagrelor [From Brilinta] Allergy Severe Verified 03/03/24 14:34 fatigue trimethoprim [From Bactrim] Allergy Unknown Verified 03/03/24 14:34 Childhood chocolate flavor AdvReac headache Verified 03/03/24 14:34 milk AdvReac headache Verified 03/03/24 14:34 rosuvastatin [From Crestor] AdvReac Nausea Verified 03/03/24 14:34 "Bad fatigue" lidocaine Allergy Intermediate Swelling Uncoded 03/03/24 14:34 ANESTHETIC(UNKNOWN) Allergy dizziness Uncoded 03/03/24 13:31 and headache,30 yrs ago Review of Systems ROS Statement: Those systems with pertinent positive or pertinent negative responses have been documented in the HPI. ROS Other: All systems not noted in ROS Statement are negative. Past Medical History Past Medical History: CVA/TIA, Fibromyalgia, GERD/Reflux, Hearing Disorder / Deafness, Hyperlipidemia, Hypertension, Renal Disease, Skin Disorder, Sleep Apnea/CPAP/BIPAP Additional Past Medical History / Comment(s): carotid stenosis, weakness with activity ,cva 03-06-23-had difficulty walking/rt sided weakness- resolve, CVA 03-07-22-had numbness on left side numbness resolved w/in 1 hr, Primary pulmonary hypertension; Migraines occasionally, low back pain. "I get pains in my hip when I walk sometiimes." Vitiligo. "borderline kidney issue." Tinnitis at times. "they gave me a C-PAP and I haven't used it."IBD. History of Any Multi-Drug Resistant Organisms: None Reported Past Surgical History: Appendectomy Additional Past Surgical History / Comment(s): BIANCA(states was awake for BIANCA), d&c x 2.Lt carotid endartarectomy September 2023. Right Carotid surgery 2023 Past Anesthesia/Blood Transfusion Reactions: Motion Sickness, Postoperative Nausea & Vomiting (PONV) Additional Past Anesthesia/Blood Transfusion Reaction / Comment(s): no hx blood transfusion. "30 years ago one time I had a problem." Past Psychological History: Anxiety Smoking Status: Never smoker Past Alcohol Use History: None Reported Past Drug Use History: None Reported - Past Family History Mother Family Medical History: Hyperlipidemia, Myocardial Infarction ([place]) Additional Family Medical History / Comment(s): MS Father Family Medical History: Blood Disorder Additional Family Medical History / Comment(s): hemophilia- during surgery with an [place]. HIV Sister(s) Family Medical History: Pneumonia General Exam Limitations: no limitations General appearance: alert, in no apparent distress Head exam: Present: atraumatic, normocephalic, normal inspection Eye exam: Present: normal appearance, PERRL, EOMI. Absent: scleral icterus, conjunctival injection, periorbital swelling ENT exam: Present: normal exam, mucous membranes moist Neck exam: Present: normal inspection, other (Well-healing surgical lesion over right neck. No pustular drainage or swelling). Absent: tenderness, meningismus, lymphadenopathy Respiratory exam: Present: normal lung sounds bilaterally. Absent: respiratory distress, wheezes, rales, rhonchi, stridor Cardiovascular Exam: Present: regular rate, normal rhythm, normal heart sounds. Absent: systolic murmur, diastolic murmur, rubs, gallop, clicks GI/Abdominal exam: Present: soft, normal bowel sounds. Absent: distended, tenderness, guarding, rebound, rigid Extremities exam: Present: normal inspection, full ROM, normal capillary refill. Absent: tenderness, pedal edema, joint swelling, calf tenderness Back exam: Present: normal inspection Neurological exam: Present: alert, oriented X3, CN II-XII intact Psychiatric exam: Present: normal affect, normal mood Skin exam: Present: warm, dry, intact, normal color. Absent: rash Course Vital Signs 03/03/24 03/03/24 03/03/24 13:28 14:00 15:00 Temperature 98.4 F Pulse Rate 103 H 86 80 Pulse Rate [ Pulse Oximetery ] Respiratory 15 18 16 Rate Blood Pressure 183/100 192/104 175/92 Blood Pressure [Right Arm] O2 Sat by Pulse 98 Oximetry 03/03/24 03/03/24 16:13 16:40 Temperature 99.9 F H Pulse Rate 85 Pulse Rate [ 90 Pulse Oximetery ] Respiratory 16 18 Rate Blood Pressure 190/105 Blood Pressure 178/88 [Right Arm] O2 Sat by Pulse 95 96 Oximetry Medical Decision Making - Medical Decision Making Was pt. sent in by a medical professional or institution (, PA, [employer], urgent care, hospital, or custodial...) When possible be specific @ -No Did you speak to anyone other than the patient for history (EMS, parent, family, police, friend...)? What history was obtained from this source @ -No Did you review nursing and triage notes (agree or disagree)? Why? @ -I reviewed and agree with nursing and triage notes Were old charts reviewed (outside hosp., previous admission, EMS record, old EKG, old radiological studies, urgent care reports/EKG's, custodial records)? Report findings @ -I reviewed discharge summary from yesterday Differential Diagnosis (chest pain, altered mental status, abdominal pain women, abdominal pain men, vaginal bleeding, weakness, fever, dyspnea, syncope, headache, dizziness, GI bleed, back pain, seizure, CVA, palpatations, mental health, musculoskeletal)? @ -Wound dehiscence, accelerated hypertension, hypertension urgency EKG interpreted by me (3pts min.). @ -Yes and demonstrates sinus rhythm with a rate of 81. AL interval 153. QRS 89. QTc of 384. No acute ST segment elevations or depressions X-rays interpreted by me (1pt min.). @ -None done CT interpreted by me (1pt min.). @ -None done U/S interpreted by me (1pt. min.). @ -None done What testing was considered but not performed or refused? (CT, X-rays, U/S, labs)? Why? @ -None What meds were considered but not given or refused? Why? @ -None Did you discuss the management of the patient with other professionals ( professionals i.e. , PA, [employer], lab, RT, psych nurse, manager social, nursing care partner, teacher, court security officer, case work aide)? Give summary @ -Spoke with Dr. mC and Dr. Reynoso. Patient will be readmitted Was smoking cessation discussed for >3mins.? @ -No Was critical care preformed (if so, how long)? @ -No Were there social determinants of health that impacted care today? How? (Homelessness, low income, unemployed, alcoholism, drug addiction, transportation, low edu. Level, literacy, decrease access to med. care, fdc, rehab)? @ -No Was there de-escalation of care discussed even if they declined (Discuss DNR or withdrawal of care, Hospice)? DNR status @ -No What co-morbidities impacted this encounter? (DM, HTN, Smoking, COPD, CAD, Cancer, CVA, ARF, Chemo, Hep., AIDS, mental health diagnosis, sleep apnea, morbid obesity)? @ -Hypertension Was patient admitted / discharged? Hospital course, mention meds given and route, prescriptions, significant lab abnormalities, going to OR and other pertinent info. @ -Upon arrival patient seen and evaluated in room 1. Thorough history and physical exam was performed. I did review the patient's discharge summary. I spoke with Dr. Cm. Patient will be admitted for blood pressure control. Spoke with Dr. reynoso for admission Undiagnosed new problem with uncertain prognosis? @ -No Drug Therapy requiring intensive monitoring for toxicity (Heparin, Nitro, Insulin, Cardizem)? @ -No Were any procedures done? @ -No Diagnosis/symptom? @ -Accelerated hypertension, status post carotid endarterectomy Acute, or Chronic, or Acute on Chronic? @ -Acute Uncomplicated (without systemic symptoms) or Complicated (systemic symptoms)? @ -Complicated Side effects of treatment? @ -No Exacerbation, Progression, or Severe Exacerbation? @ -No Poses a threat to life or bodily function? How? (Chest pain, [place], [place], pneumonia, PE, COPD, DKA, ARF, appy, cholecystitis, CVA, Diverticulitis, Homicidal, Suicidal, threat to staff... and all critical care pts) @ -No - Lab Data Result diagrams: 03/04/24 05:50 03/04/24 05:49 Lab Results 03/03/24 03/03/24 03/03/24 Range/Units 14:22 14:22 15:09 WBC 6.3 (3.8-10.6) k/uL RBC 4.30 (3.80-5.40) m/uL Hgb 13.2 (11.4-16.0) gm/dL Hct 40.0 (34.0-46.0) % MCV 93.1 (80.0-100.0) fL MCH 30.8 (25.0-35.0) pg MCHC 33.0 (31.0-37.0) g/dL RDW 13.2 (11.5-15.5) % Plt Count 153 (150-450) k/uL MPV 8.1 Neutrophils % 79 % Lymphocytes % 11 % Monocytes % 6 % Eosinophils % 2 % Basophils % 0 % Neutrophils # 5.0 (1.3-7.7) k/uL Lymphocytes # 0.7 L (1.0-4.8) k/uL Monocytes # 0.4 (0-1.0) k/uL Eosinophils # 0.1 (0-0.7) k/uL Basophils # 0.0 (0-0.2) k/uL PT 10.5 (10.0-12.5) sec INR 0.9 (<1.2) Sodium 136 L (137-145) mmol/L Potassium 4.6 (3.5-5.1) mmol/L Chloride 102 (98-107) mmol/L Carbon Dioxide 26 (22-30) mmol/L Anion Gap 8 mmol/L BUN 19 H (7-17) mg/dL Creatinine 0.80 (0.52-1.04) mg/dL Est GFR (CKD-EPI)AfAm >90 (>60 ml/min/1.73 sqM) Est GFR (CKD-EPI)NonAf 82 (>60 ml/min/1.73 sqM) Glucose 89 (74-99) mg/dL Calcium 9.6 (8.4-10.2) mg/dL Total Bilirubin 1.3 (0.2-1.3) mg/dL AST 28 (14-36) U/L ALT 18 (4-34) U/L Alkaline Phosphatase 95 (38-126) U/L Total Protein 7.9 (6.3-8.2) g/dL Albumin 4.3 (3.5-5.0) g/dL Disposition Clinical Impression: Hypertension, S/P carotid endarterectomy Disposition: ADMITTED IP TO THIS HOSP Is patient prescribed a controlled substance at d/c from ED?: No Time of Disposition: 15:28 Decision to Admit Reason: Admit from EC Decision Date: 03/03/24 Decision Time: 15:28
[2024-03-03 14:28] LABS: Basophils % (A) 0 %; Eosinophils # (A) 0.1 k/uL (0-0.7); Eosinophils % (A) 2 %; HGB 13.2 gm/dL (11.4-16.0); Lymphocytes # (A) 0.7 k/uL (1.0-4.8); Lymphocytes % (A) 11 %; MCH 30.8 pg (25.0-35.0); MCV 93.1 fL (80.0-100.0); Mean Platelet Volume 8.1; Monocytes # (A) 0.4 k/uL (0-1.0); Monocytes % (A) 6 %; Neutrophils % (A) 79 %; Platelet Count 153 k/uL (150-450); RDW 13.2 % (11.5-15.5); WBC 6.3 k/uL (3.8-10.6)
[2024-03-03 14:38] LABS: INR 0.9 (<1.2); Prothrombin Time 10.5 sec (10.0-12.5)
[2024-03-03 15:28] LABS: African American GFR (CKD) >90 (>60 ml/min/1.73 sqM); Albumin 4.3 g/dL (3.5-5.0); Anion Gap 8 mmol/L; Blood Urea Nitrogen 19 mg/dL (7-17); Calcium 9.6 mg/dL (8.4-10.2); Carbon Dioxide 26 mmol/L (22-30); Chloride 102 mmol/L (98-107); Glucose 89 mg/dL (74-99); Non-African American GFR(CKD) 82 (>60 ml/min/1.73 sqM); Sodium 136 mmol/L (137-145); Total Bilirubin 1.3 mg/dL (0.2-1.3); Total Protein 7.9 g/dL (6.3-8.2)
[2024-03-03] MEDS ORDERED: NALOXONE 0.4 MG/ML 1 ML VIAL IV PRN (15:28)
[2024-03-03 15:30] LABS: AST 28 U/L (14-36); Alkaline Phosphatase 95 U/L (38-126); Potassium 4.6 mmol/L (3.5-5.1)
[2024-03-03 15:31] LABS: ALT 18 U/L (4-34)
[2024-03-03] MEDS ORDERED: ACETAMINOPHEN TAB 325 MG TAB PO PRN (16:08)
[2024-03-03] MEDS: hydrALAZINE HCL 20 MG/ML 1 ML VIAL IVP PRN (17:14)
[2024-03-03] MEDS ORDERED: ALPRAZolam 0.25 MG TAB PO PRN (19:28)
[2024-03-03] MEDS ORDERED: TEMAZEPAM 15 MG CAP PO PRN (19:28)
[2024-03-03] MEDS ORDERED: ONDANSETRON 4 MG/2 ML VIAL IVP PRN (19:28)
[2024-03-03] MEDS ORDERED: CALCIUM CARBONATE 500 MG CHEWABLE PO PRN (19:28)
[2024-03-03] MEDS ORDERED: LACTULOSE 20 GM/30 ML CUP PO PRN (19:28)
--- NOTE | 2024-03-03 19:29 | P.HPIM ---
History of Present Illness H&P Date: 03/03/24 Chief Complaint: High blood pressure This is a pleasant 58-year-old patient who follows with Dr. Kj Servin. Chronic stable medical conditions include fibromyalgia, GERD, hard of hearing, , hyperlipidemia, obstructive sleep apnea, stroke in March 2023 with right-sided weakness, that resolved and in March 2022 numbness on the left side that lasted about an hour, primary pulmonary hypertension, vitiligo, occasional tinnitus, patient does not use a CPAP anxiety. March [address] Karina Cm. Postoperative patient blood pressure running high. Normally takes lisinopril 10 mg a day. Lisinopril was increased to 20/12.5. Patient has been keen to go home yesterday. Per vascular patient was to be discharged okay. Hence patient left last recorded blood pressure was 164 x 62. I had offered the patient close of blood pressure monitoring but she was keen to go home. Patient returns with blood pressure still running high. Did have some headache at home. She is staying with her son in town. Now patient returns Review of systems: GEN.: None EYES: None HEENT: Decreased hearing some discomfort with swallowing NECK: None RESPIRATORY: None CARDIOVASCULAR: None GASTROINTESTINAL: None GENITOURINARY: None MUSCULOSKELETAL: [Some low back pain LYMPHATICS: None HEMATOLOGICAL: None PSYCHIATRY: None NEUROLOGICAL: None Social history: Patient lives with her daughter and boyfriend. 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 No smoking no alcohol Physical examination: VITAL SIGNS: 99.9, 90, 18, 178 x 88, 96% room air. GENERAL: BMI 27.3, laying in bed awake. Vitiligo EYES: Pupils equal. Conjunctiva ludy l. HEENT: External appearance of nose and ears normal, oral cavity grossly normal. Some decrease in hearing NECK: JVD not raised; masses not palpable. Dressing over the right side of the neck HEART: First and second heart sounds are normal; no edema. LUNGS: Respiratory rate normal; clear to auscultation. ABDOMEN: Soft, nontender, liver spleen not palpable, no masses palpable. PSYCH: Alert and oriented x3; mood and affect ludy l. MUSCULOSKELETAL:No Clubbing/cyanosis;muscles-grossly intact NEUROLOGICAL: Cranial nerves grossly intact; no facial asymmetry, power and sensation grossly intact. LYMPHATICS: No lymph nodes palpable in the axilla and neck INVESTIGATIONS, reviewed in the clinical context: March 03: White count 6.3 hemoglobin 13.2 platelets 153 sodium 136 potassium 4.6 creatinine 0.8 EKG tracing personally reviewed by me-normal sinus rhythm Assessment and plan: -Essential hypertension, uncontrolled Zestoretic 20/12.5, increased to twice daily. Add Lopressor 12.5 twice daily -Right carotid endarterectomy March [address] Karina Cm. Dressing in place -Vitiligo -Hyperlipidemia Lipitor -Primary pulmonary hypertension Patient not on any medications -Full code Care was discussed with the patient and patient's aunt at the bedside. Questions answered Past Medical History Past Medical History: CVA/TIA, Fibromyalgia, GERD/Reflux, Hearing Disorder / Deafness, Hyperlipidemia, Hypertension, Renal Disease, Skin Disorder, Sleep Apnea/CPAP/BIPAP Additional Past Medical History / Comment(s): carotid stenosis, weakness with activity ,cva 03-06-23-had difficulty walking/rt sided weakness- resolve, CVA 03-07-22-had numbness on left side numbness resolved w/in 1 hr, Primary pulmonary hypertension; Migraines occasionally, low back pain. Vitiligo. "borderline kidney issue." Tinnitis at times. "they gave me a C-PAP and I haven't used it."IBD. History of Any Multi-Drug Resistant Organisms: None Reported Past Surgical History: Appendectomy Additional Past Surgical History / Comment(s): BIANCA(states was awake for BIANCA), d&c x 2.Lt carotid endartarectomy September 2023. Right Carotid surgery 2023 Past Anesthesia/Blood Transfusion Reactions: Motion Sickness, Postoperative Nausea & Vomiting (PONV) Additional Past Anesthesia/Blood Transfusion Reaction / Comment(s): no hx blood transfusion. "30 years ago one time I had a problem." Smoking Status: Never smoker - Past Family History Mother Family Medical History: Hyperlipidemia, Myocardial Infarction ([place]) Additional Family Medical History / Comment(s): MS Father Family Medical History: Blood Disorder Additional Family Medical History / Comment(s): hemophilia- during surgery with an [place]. HIV Sister(s) Family Medical History: Pneumonia Medications and Allergies Home Medications Medication Instructions Recorded Confirmed Type Atorvastatin [Lipitor] 40 mg PO HS 30 Days #30 tab 04/05/23 03/03/24 Rx Aspirin 81 mg PO DAILY 05/18/23 03/03/24 History Acetaminophen Tab [Tylenol] 650 mg PO Q4HR PRN tab 03/02/24 03/03/24 Rx Clopidogrel [Plavix] 75 mg PO DAILY 30 Days #30 tab 03/02/24 03/03/24 Rx Ferrous Sulfate [Iron (65 MG 325 mg PO DAILY #30 tab 03/02/24 03/03/24 Rx Elemental)] Lisinopril-Hctz 20-12.5 mg 1 tab PO DAILY 03/03/24 03/03/24 History [Zestoretic 20-12.5] Allergies Allergy/AdvReac Type Severity Reaction Status Date / Time cefaclor [From Ceclor] Allergy Unknown Verified 03/03/24 14:34 Childhood lactose Allergy Nausea & Verified 03/03/24 14:34 Vomiting & Diarrhea Penicillins Allergy Unknown Verified 03/03/24 14:34 povidone-iodine Allergy Unknown Verified 03/03/24 14:34 [From Betadine] sulfamethoxazole Allergy Unknown Verified 03/03/24 14:34 [From Bactrim] Childhood ticagrelor [From Brilinta] Allergy Severe Verified 03/03/24 14:34 fatigue trimethoprim [From Bactrim] Allergy Unknown Verified 03/03/24 14:34 Childhood chocolate flavor AdvReac headache Verified 03/03/24 14:34 milk AdvReac headache Verified 03/03/24 14:34 rosuvastatin [From Crestor] AdvReac Nausea Verified 03/03/24 14:34 "Bad fatigue" lidocaine Allergy Intermediate Swelling Uncoded 03/03/24 14:34 ANESTHETIC(UNKNOWN) Allergy dizziness Uncoded 03/03/24 13:31 and headache,30 yrs ago Physical Exam Vitals: Vital Signs Temp Pulse Pulse Resp BP BP Pulse Ox 03/03/24 18:46 165/74 03/03/24 17:45 156/64 03/03/24 17:30 171/77 03/03/24 17:15 213/101 03/03/24 17:05 194/95 03/03/24 16:40 99.9 F H 90 18 178/88 96 03/03/24 16:13 85 16 190/105 95 03/03/24 15:00 80 16 175/92 03/03/24 14:00 86 18 192/104 03/03/24 13:28 98.4 F 103 H 15 183/100 98 Intake and Output 03/03/24 03/03/24 03/03/24 06:59 14:59 22:59 Other: Voiding Method Toilet Weight 69.853 kg 69.853 kg Results CBC & Chem 7: 03/03/24 14:22 03/03/24 15:09 Labs: Abnormal Lab Results - Last 24 Hours (Table) 03/03/24 03/03/24 Range/Units 14:22 15:09 Lymphocytes # 0.7 L (1.0-4.8) k/uL Sodium 136 L (137-145) mmol/L BUN 19 H (7-17) mg/dL Thrombosis Risk Factor Assmnt - Choose All That Apply Any of the Below Risk Factors Present?: Yes Each Factor Represents 1 point: Obesity (BMI >25) Other Risk Factors: No Other congenital or acquired thrombophilia - If yes, enter type in comment: No Thrombosis Risk Factor Assessment Total Risk Factor Score: 1 Thrombosis Risk Factor Assessment Level: Low Risk
[2024-03-03] MEDS: ATORVASTATIN 40 MG TAB PO SCH (20:20)
[2024-03-03] MEDS: ENOXAPARIN 40 MG/0.4 ML SYRINGE SQ SCH (20:20)
[2024-03-03] MEDS: LISINOPRIL-HCTZ 20-12.5 MG 1 EACH TAB PO SCH (20:25)
[2024-03-03] MEDS: METOPROLOL TARTRATE 12.5 MG TAB PO SCH (21:44)
[2024-03-04 08:06] LABS: Basophils % (A) 0 %; Eosinophils # (A) 0.2 k/uL (0-0.7); Eosinophils % (A) 3 %; HCT 39.8 % (34.0-46.0); HGB 13.2 gm/dL (11.4-16.0); Lymphocytes # (A) 0.8 k/uL (1.0-4.8); Lymphocytes % (A) 12 %; MCH 30.7 pg (25.0-35.0); MCHC 33.2 g/dL (31.0-37.0); MCV 92.4 fL (80.0-100.0); Monocytes # (A) 0.7 k/uL (0-1.0); Monocytes % (A) 11 %; Neutrophils # (A) 4.9 k/uL (1.3-7.7); Neutrophils % (A) 73 %; Platelet Count 183 k/uL (150-450); RDW 13.5 % (11.5-15.5); WBC 6.6 k/uL (3.8-10.6)
[2024-03-04 08:35] LABS: African American GFR (CKD) 73 (>60 ml/min/1.73 sqM); Anion Gap 9 mmol/L; Blood Urea Nitrogen 21 mg/dL (7-17); Calcium 10.1 mg/dL (8.4-10.2); Carbon Dioxide 26 mmol/L (22-30); Chloride 101 mmol/L (98-107); Glucose 81 mg/dL (74-99); Non-African American GFR(CKD) 64 (>60 ml/min/1.73 sqM); Potassium 4.1 mmol/L (3.5-5.1); Sodium 136 mmol/L (137-145)
[2024-03-04] MEDS: ASPIRIN 81 MG PO SCH (08:53)
[2024-03-04] MEDS: CLOPIDOGREL 75 MG TAB PO SCH (08:54)
[2024-03-04] MEDS: FERROUS SULFATE 325 MG TAB PO SCH (08:54)
[2024-03-04] MEDS ORDERED: LISINOPRIL-HCTZ 20-12.5 MG 1 EACH TAB PO SCH (09:00)
--- NOTE | 2024-03-04 17:45 | P.PN ---
Progress Note - Text Progress Note Date: 03/04/24 Chief Complaint: High blood pressure This is a pleasant 58-year-old patient who follows with Dr. Kj Servin. Chronic stable medical conditions include fibromyalgia, GERD, hard of hearing, , hyperlipidemia, obstructive sleep apnea, stroke in March 2023 with right-sided weakness, that resolved and in March 2022 numbness on the left side that lasted about an hour, primary pulmonary hypertension, vitiligo, occasional tinnitus, patient does not use a CPAP anxiety. March [address]. Karina Cm. Postoperative patient blood pressure running high. Normally takes lisinopril 10 mg a day. Lisinopril was increased to 20/12.5. Patient has been keen to go home yesterday. Per vascular patient was to be discharged okay. Hence patient left last recorded blood pressure was 164 x 62. I had offered the patient close of blood pressure monitoring but she was keen to go home. Patient returns with blood pressure still running high. Did have some headache at home. She is staying with her son in town. Now patient returns March 04: Patient had been started on Zestoretic 20/12.51 tablet twice daily. Lopressor 12.5 twice daily was added. I saw the patient this afternoon. Doing well. Did ambulate the patient in the hallway. Heart rate was up with ambulation 114. Patient is awaiting related to go home and get discharged. Then patient had a 2.4-second pause. No symptoms with the same. Lopressor is being discontinued. 2D echo ordered. Cardiology consult ordered. Will add amlodipine 2.5 mg in the morning depending on blood pressure at night. Continue telemetry. Active Medications Acetaminophen (Acetaminophen Tab 325 Mg Tab) 650 mg PO Q4HR PRN PRN Reason: Mild Pain Alprazolam (Alprazolam 0.25 Mg Tab) 0.25 mg PO Q6HR PRN PRN Reason: Anxiety Aspirin (Aspirin 81 Mg) 81 mg PO DAILY [facility] Last Admin: 03/04/24 08:53 Dose: 81 mg Atorvastatin Calcium (Atorvastatin 40 Mg Tab) 40 mg PO HS [facility] Last Admin: 03/03/24 20:20 Dose: 40 mg Calcium Carbonate/Glycine (Calcium Carbonate 500 Mg Chewable) 1,000 mg PO Q4HR PRN PRN Reason: Dyspepsia Clopidogrel Bisulfate (Clopidogrel 75 Mg Tab) 75 mg PO DAILY [facility] Last Admin: 03/04/24 08:54 Dose: 75 mg Enoxaparin Sodium (Enoxaparin 40 Mg/0.4 Ml Syringe) 40 mg SQ DAILY@1999 [facility] Last Admin: 03/03/24 20:20 Dose: 40 mg Ferrous Sulfate (Ferrous Sulfate 325 Mg Tab) 325 mg PO DAILY [facility] Last Admin: 03/04/24 08:55 Dose: Not Given Lisinopril/HCTZ (Lisinopril-Hctz 20-12.5 Mg 1 Each Tab) 1 each PO BID [facility] Last Admin: 03/04/24 08:53 Dose: 1 each Hydralazine HCl (Hydralazine Hcl 20 Mg/Ml 1 Ml Vial) 20 mg IVP Q6HR PRN PRN Reason: Blood Pressure - High Last Admin: 03/03/24 17:14 Dose: 20 mg Lactulose (Lactulose 20 Gm/30 Ml Cup) 20 gm PO DAILY PRN PRN Reason: Constipation Naloxone HCl (Naloxone 0.4 Mg/Ml 1 Ml Vial) 0.2 mg IV Q2M PRN PRN Reason: Opioid Reversal Ondansetron HCl (Ondansetron 4 Mg/2 Ml Vial) 4 mg IVP Q8HR PRN PRN Reason: Nausea And Vomiting Temazepam (Temazepam 15 Mg Cap) 15 mg PO HS PRN PRN Reason: Insomnia Social history: Patient lives with her daughter and boyfriend. 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 No smoking no alcohol Physical examination: VITAL SIGNS: 99.3, 90, 16, 143/82, 97% room air GENERAL: Comfortable. Vitiligo EYES: Pupils equal. Conjunctiva ludy l. HEENT: External appearance of nose and ears normal, oral cavity grossly normal. Some decrease in hearing NECK: JVD not raised; masses not palpable. Dressing over the right side of the neck HEART: First and second heart sounds are normal; no edema. LUNGS: Respiratory rate normal; clear to auscultation. ABDOMEN: Soft, nontender, liver spleen not palpable, no masses palpable. PSYCH: Alert and oriented x3; mood and affect ludy l. MUSCULOSKELETAL:No Clubbing/cyanosis;muscles-grossly intact INVESTIGATIONS, reviewed in the clinical context: March 04: White count 6.6 hemoglobin 13.2 platelets 183 sodium 136 potassium 4.1 creatinine 0.99 March 03: White count 6.3 hemoglobin 13.2 platelets 153 sodium 136 potassium 4.6 creatinine 0.8 EKG tracing personally reviewed by me-normal sinus rhythm Assessment and plan: -Essential hypertension, better controlled Zestoretic 20/12.5, increased to twice daily. Stop Lopressor because of sinus pause -Sinus pause of 2.4-second, under Lopressor dose of 12.5 twice daily.: New diagnosis Stop Lopressor. Telemetry. 2D echo. Consult cardiology -Right carotid endarterectomy March [address] Karina Cm. Aspirin. Plavix. Lipitor -Vitiligo -Hyperlipidemia Lipitor -Primary pulmonary hypertension Patient not on any medications -Full code Stop Lopressor. Telemetry. 2D echo. Consult cardiology. Discharge was canceled. Past Medical History Past Medical History: CVA/TIA, Fibromyalgia, GERD/Reflux, Hearing Disorder / Deafness, Hyperlipidemia, Hypertension, Renal Disease, Skin Disorder, Sleep Apnea/CPAP/BIPAP Additional Past Medical History / Comment(s): carotid stenosis, weakness with activity ,cva 03-06-23-had difficulty walking/rt sided weakness- resolve, CVA 03-07-22-had numbness on left side numbness resolved w/in 1 hr, Primary pulmonary hypertension; Migraines occasionally, low back pain. Vitiligo. "borderline kidney issue." Tinnitis at times. "they gave me a C-PAP and I haven't used it."IBD. History of Any Multi-Drug Resistant Organisms: None Reported Past Surgical History: Appendectomy Additional Past Surgical History / Comment(s): BIANCA(states was awake for BIANCA), d&c x 2.Lt carotid endartarectomy September 2023. Right Carotid surgery 2023 Past Anesthesia/Blood Transfusion Reactions: Motion Sickness, Postoperative Nausea & Vomiting (PONV) Additional Past Anesthesia/Blood Transfusion Reaction / Comment(s): no hx blood transfusion. "30 years ago one time I had a problem." Smoking Status: Never smoker
--- NOTE | 2024-03-05 09:17 | P.CRDCN ---
History of Present Illness Consult date: 03/05/24 Reason for Consult (text): 2.4 sec pause History of present illness: This is a 58-year-old female patient of Dr. Teresa Hernandez with past medical history of hypertension, hyperlipidemia, cerebral infarct. We have been asked to evaluate the patient for a 2.4-second pause. Patient was last seen in the office with Dr. Teresa Hernandez on 02/07/2024 for preop clearance for a right carotid endarterectomy. Patient underwent right carotid endarterectomy on 03/01 requiring nitroglycerin drip for blood pressure control postop right what else and patient was disc harged home on 03/02. Patient returned to the emergency center on 03/03 due to elevated blood pressure readings despite taking all of her medications as directed. Patient presented with a blood pressure 183/100. Blood pressure is now 116/81, heart rate 91, pulse ox 95% on room air. Yesterday approximately 350 in the afternoon, patient had a 2.4-second pause on telemetry and patient's Lopressor was discontinued. No further pauses were noted on telemetry review. Patient was asymptomatic during pause. EKG: Sinus rhythm with no acute ST-T wave changes. Laboratory studies: WBC 6.6, hemoglobin 13.2. Sodium 136, potassium 4.1, BUN 21 creatinine 0.99. Home cardiac medications: Aspirin 81 mg daily, Plavix 75 mg daily, atorvastatin 40 mg at bedtime, lisinopril/hydrochlorothiazide 20-12.5 mg 1 twice daily, Lopressor 12.5 mg twice daily. Echocardiogram performed 08/23/2023 reveals EF 55 to 60%, limited Doppler study with moderate tricuspid regurgitation. No evidence of shunting. Lexiscan Cardiolite stress test performed in the office on 09/06/2023 was a negative stress test by EKG criteria. Normal myocardial perfusion and function. Review Of Systems: At the time of my exam: CONSTITUTIONAL: Denies fever or chills. HEENT: Denies blurred vision, vision changes, or eye pain. Denies hemoptysis CARDIOVASCULAR: Denies chest pain. Denies orthopnea. Denies PND. Denies palpitations RESPIRATORY: Denies shortness of breath. GASTROINTESTINAL: Denies abdominal pain. Denies nausea or vomiting. HEMATOLOGIC: Denies bleeding disorders. GENITOURINARY: Denies any blood in urine. SKIN: Denies puritis. Denies rash. Physical examination: Gen: This is a 58-year-old female in no acute distress VS: reviewed HEENT: Head is atraumatic, normocephalic. Pupils equal, round. Sclerae is anicteric. NECK: Supple. No JVD. LUNGS: Clear to auscultation. No wheezes or rhonchi. No intercostal retractions . HEART: Regular rate and rhythm. No murmur. ABDOMEN: Soft No tenderness. EXTREMITIES: No pedal edema. No calf tenderness. NEUROLOGICAL: Patient is awake, alert and oriented x3. Assessment: 2.4-second pause x1 Hypertensive emergency Hypertension Hyperlipidemia History of CVA Carotid stenosis status post left carotid endarterectomy 09/22/2023 and status post right carotid endarterectomy on 03/01/2024 Plan: Resume patient's home cardiac medications Continue to hold beta-rubne and discontinue at the time of discharge No need to repeat echocardiogram Patient is cleared for discharge from cardiology. Patient may follow-up with Dr. Teresa Hernandez in 1 to 2 weeks. Thank you kindly for this consultation. Nurse practitioner note has been reviewed, I agree with documented findings and plan of care. Patient was seen and examined. Past Medical History Past Medical History: CVA/TIA, Fibromyalgia, GERD/Reflux, Hearing Disorder / Deafness, Hyperlipidemia, Hypertension, Renal Disease, Skin Disorder, Sleep Apnea/CPAP/BIPAP Additional Past Medical History / Comment(s): carotid stenosis, weakness with activity ,cva 7--had difficulty walking/rt sided weakness- resolve, CVA 7-had numbness on left side numbness resolved w/in 1 hr, Primary pulmonary hypertension; Migraines occasionally, low back pain. Vitiligo. "borderline kidney issue." Tinnitis at times. "they gave me a C-PAP and I haven't used it."IBD. History of Any Multi-Drug Resistant Organisms: None Reported Past Surgical History: Appendectomy Additional Past Surgical History / Comment(s): BIANCA(states was awake for BIANCA), d&c x 2.Lt carotid endartarectomy September 2023. Right Carotid surgery 2023 Past Anesthesia/Blood Transfusion Reactions: Motion Sickness, Postoperative Nausea & Vomiting (PONV) Additional Past Anesthesia/Blood Transfusion Reaction / Comment(s): no hx blood transfusion. "30 years ago one time I had a problem." Smoking Status: Never smoker - Past Family History Mother Family Medical History: Hyperlipidemia, Myocardial Infarction ([place]) Additional Family Medical History / Comment(s): MS Father Family Medical History: Blood Disorder Additional Family Medical History / Comment(s): hemophilia- during surgery with an [place]. HIV Sister(s) Family Medical History: Pneumonia Medications and Allergies Home Medications Medication Instructions Recorded Confirmed Type Atorvastatin [Lipitor] 40 mg PO HS 30 Days #30 tab 04/05/23 03/03/24 Rx Aspirin 81 mg PO DAILY 05/18/23 03/03/24 History Acetaminophen Tab [Tylenol] 650 mg PO Q4HR PRN tab 03/02/24 03/03/24 Rx Clopidogrel [Plavix] 75 mg PO DAILY 30 Days #30 tab 03/02/24 03/03/24 Rx Ferrous Sulfate [Iron (65 MG 325 mg PO DAILY #30 tab 03/02/24 03/03/24 Rx Elemental)] Lisinopril-Hctz 20-12.5 mg 1 tab PO BID #60 tab 03/04/24 Rx [Zestoretic 20-12.5] Metoprolol Tartrate [Lopressor] 12.5 mg PO BID #60 tab 03/04/24 Rx Allergies Allergy/AdvReac Type Severity Reaction Status Date / Time cefaclor [From Ceclor] Allergy Unknown Verified 03/03/24 14:34 Childhood lactose Allergy Nausea & Verified 03/03/24 14:34 Vomiting & Diarrhea Penicillins Allergy Unknown Verified 03/03/24 14:34 povidone-iodine Allergy Unknown Verified 03/03/24 14:34 [From Betadine] sulfamethoxazole Allergy Unknown Verified 03/03/24 14:34 [From Bactrim] Childhood ticagrelor [From Brilinta] Allergy Severe Verified 03/03/24 14:34 fatigue trimethoprim [From Bactrim] Allergy Unknown Verified 03/03/24 14:34 Childhood chocolate flavor AdvReac headache Verified 03/03/24 14:34 milk AdvReac headache Verified 03/03/24 14:34 rosuvastatin [From Crestor] AdvReac Nausea Verified 03/03/24 14:34 "Bad fatigue" lidocaine Allergy Intermediate Swelling Uncoded 03/03/24 14:34 ANESTHETIC(UNKNOWN) Allergy dizziness Uncoded 03/03/24 13:31 and headache,30 yrs ago Physical Exam Vitals: Vital Signs Temp Pulse Resp BP Pulse Ox 03/05/24 04:30 98.7 F 91 16 116/81 95 03/05/24 00:20 98.5 F 91 16 146/67 94 L 03/04/24 20:20 98.8 F 107 H 16 125/82 97 03/04/24 16:00 99.9 F H 86 16 165/83 97 03/04/24 14:00 90 16 03/04/24 12:00 99.3 F 90 16 143/82 97 03/04/24 08:00 99.5 F 96 16 139/90 96 Intake and Output 03/04/24 03/05/24 03/05/24 22:59 06:59 14:59 Other: Voiding Method Toilet Toilet # Voids 3 Results 03/04/24 05:50 03/04/24 05:49 CBC 03/04/24 Range/Units 05:50 WBC 6.6 (3.8-10.6) k/uL RBC 4.30 (3.80-5.40) m/uL Hgb 13.2 (11.4-16.0) gm/dL Hct 39.8 (34.0-46.0) % Plt Count 183 (150-450) k/uL Comprehensive Metabolic Panel 03/04/24 Range/Units 05:49 Sodium 136 L (137-145) mmol/L Potassium 4.1 (3.5-5.1) mmol/L Chloride 101 (98-107) mmol/L Carbon Dioxide 26 (22-30) mmol/L BUN 21 H (7-17) mg/dL Creatinine 0.99 (0.52-1.04) mg/dL Glucose 81 (74-99) mg/dL Calcium 10.1 (8.4-10.2) mg/dL Current Medications Generic Name Dose Route Start Last Admin Trade Name Freq PRN Reason Stop Dose Admin Acetaminophen 650 mg 03/03/24 16:08 Acetaminophen Tab 325 Mg Tab PO Q4HR PRN Mild Pain Alprazolam 0.25 mg 03/03/24 19:28 Alprazolam 0.25 Mg Tab PO Q6HR PRN Anxiety Aspirin 81 mg 03/04/24 09:00 03/04/24 08:53 Aspirin 81 Mg PO 81 mg DAILY [facility] Administration Atorvastatin Calcium 40 mg 03/03/24 21:00 03/04/24 20:49 Atorvastatin 40 Mg Tab PO 40 mg HS [facility] Administration Calcium Carbonate/Glycine 1,000 mg 03/03/24 19:28 Calcium Carbonate 500 Mg Chewable PO Q4HR PRN Dyspepsia Clopidogrel Bisulfate 75 mg 03/04/24 09:00 03/04/24 08:54 Clopidogrel 75 Mg Tab PO 75 mg DAILY [facility] Administration Enoxaparin Sodium 40 mg 03/03/24 20:00 03/04/24 20:49 Enoxaparin 40 Mg/0.4 Ml Syringe SQ 40 mg DAILY@1999 [facility] Administration Ferrous Sulfate 325 mg 03/04/24 09:00 03/04/24 08:55 Ferrous Sulfate 325 Mg Tab PO Not Given DAILY [facility] Lisinopril/HCTZ 1 each 03/03/24 21:00 03/04/24 20:49 Lisinopril-Hctz 20-12.5 Mg 1 Each Tab PO 1 each BID [facility] Administration Hydralazine HCl 20 mg 03/03/24 15:31 03/03/24 17:14 Hydralazine Hcl 20 Mg/Ml 1 Ml Vial IVP 20 mg Q6HR PRN Administration Blood Pressure - High Lactulose 20 gm 03/03/24 19:28 Lactulose 20 Gm/30 Ml Cup PO DAILY PRN Constipation Naloxone HCl 0.2 mg 03/03/24 15:28 Naloxone 0.4 Mg/Ml 1 Ml Vial IV Q2M PRN Opioid Reversal Ondansetron HCl 4 mg 03/03/24 19:28 Ondansetron 4 Mg/2 Ml Vial IVP Q8HR PRN Nausea And Vomiting Temazepam 15 mg 03/03/24 19:28 Temazepam 15 Mg Cap PO HS PRN Insomnia Intake and Output 03/04/24 03/05/24 03/05/24 22:59 06:59 14:59 Other: Voiding Method Toilet Toilet # Voids 3 03/04/24 05:50 03/04/24 05:49
[2024-03-05 09:22] VITALS: RESP 20
--- NOTE | 2024-03-05 11:45 | CA ---
Transthoracic Echo Report Name: Celina Mejia Age: 58 Gender: F : 1965 Exam Date: 03/05/2024 07:44 Exam Location: [facility] Ht (in): 63 Wt (lb): 154 Ordering Physician: Clarence Robin MD Attending/Referring Phys: [employer] Valerie Hdez RDCS Procedure CPT: Indications: pauses Cardiac Hx: Technical Quality: Fair Contrast 1: Total Dose (mL): Contrast 2: Total Dose (mL): MEASUREMENTS (Male / Female) Normal Values 2D ECHO LV Diastolic Diameter PLAX 3.7 cm 4.2 - 5.9 / 3.9 - 5.3 cm LV Systolic Diameter PLAX 1.7 cm IVS Diastolic Thickness 1.4 cm 0.6 - 1.0 / 0.6 - 0.9 cm LVPW Diastolic Thickness 1.2 cm 0.6 - 1.0 / 0.6 - 0.9 cm LV Relative Wall Thickness 0.7 RV Internal Dim ED PLAX 3.5 cm LA Systolic Diameter LX 3.5 cm 3.0 - 4.0 / 2.7 - 3.8 cm LV Diastolic Volume MOD BP 34.2 cm??? 67 - 155 / 56 - 104 cm??? LV Systolic Volume MOD BP 14.6 cm??? 22 - 58 / 19 - 49 cm??? LV Ejection Fraction MOD BP 57.2 % >= 55 % LV Cardiac Index MOD BP 1001.4 cm???/min???m??? LV Diastolic Volume MOD 4C 48.4 cm??? LV Systolic Volume MOD 4C 18.8 cm??? LV Ejection Fraction MOD 4C 61.2 % LV Cardiac Index MOD 4C 1511.5 cm???/min???m??? LV Diastolic Length 4C 6.2 cm LV Systolic Length 4C 5.4 cm LV Diastolic Volume MOD 2C 23.0 cm??? LV Systolic Volume MOD 2C 10.9 cm??? LV Ejection Fraction MOD 2C 52.5 % LV Cardiac Index MOD 2C 615.7 cm???/min???m??? LV Diastolic Length 2C 5.7 cm LV Systolic Length 2C 5.0 cm LA Volume 25.8 cm??? 18 - 58 / 22 - 52 cm??? LA Volume Index 14.5 cm???/m??? 16 - 28 cm???/m??? M-MODE Aortic Root Diameter MM 2.6 cm LA Systolic Diameter MM 3.4 cm LA Ao Ratio MM 1.3 AV Cusp Separation MM 1.5 cm DOPPLER MV Area PHT 4.3 cm??? Mitral E Point Velocity 52.9 cm/s Mitral A Point Velocity 95.0 cm/s Mitral E to A Ratio 0.6 MV Deceleration Time 174.6 ms TR Peak Velocity 255.6 cm/s TR Peak Gradient 26.1 mmHg FINDINGS Left Ventricle Left ventricular ejection fraction is estimated at 55-60 %. Left ventricular cavity size normal. No obvious regional wall motion abnormalities.Mildly increased left ventricular wall thickness. Right Ventricle Normal right ventricular size and function. Right ventricular systolic pressure within normal limits. Right Atrium Normal right atrial size. Prominent eustachian valve in the right atrium (normal variant). Left Atrium Normal left atrial size. Mitral Valve Structurally normal mitral valve. Mild mitral regurgitation. Aortic Valve Trileaflet aortic valve. No aortic stenosis. No aortic regurgitation. Tricuspid Valve Structurally normal tricuspid valve. Moderate tricuspid regurgitation. Pulmonic Valve Structurally normal pulmonic valve. Trace pulmonic regurgitation. No pulmonic stenosis. Pericardium No pericardial or pleural effusion. Aorta Normal size aortic root and proximal ascending aorta. CONCLUSIONS Normal left ventricle size and systolic function Moderate tricuspid with mild mitral regurgitation No evidence of pulmonary hypertension Previewed by: Dr. Akiko Garcia MD (Electronically Signed) Final Date: 05 March 2024 11:44
[2024-03-05 12:22] VITALS: BP 144/89; PULSE 94; TEMP 98.7
--- NOTE | 2024-03-05 13:43 | P.DS ---
Providers Date of admission: 03/03/24 15:31 Expected date of discharge: 03/05/24 Attending physician: Clarence Robin Consults: 03/03/24 15:28 Consult Physician Urgent Consulting Provider: Gail Cm Consult Reason/Comments: s/p carotid endarterectomy Do you want consulting provider notified?: Already Contacted 03/04/24 17:05 Consult Physician Routine Consulting Provider: Varun Spivey Consult Reason/Comments: 2.4 sec pause Do you want consulting provider notified?: Yes Primary care physician: Victoriano Servin [facility] Course: Chief Complaint: High blood pressure This is a pleasant 58-year-old patient who follows with Dr. Kj Servin. Chronic stable medical conditions include fibromyalgia, GERD, hard of hearing, , hyperlipidemia, obstructive sleep apnea, stroke in March 2023 with right-sided weakness, that resolved and in March 2022 numbness on the left side that lasted about an hour, primary pulmonary hypertension, vitiligo, occasional tinnitus, patient does not use a CPAP anxiety. March [address]. Karina Cm. Postoperative patient blood pressure running high. Normally takes lisinopril 10 mg a day. Lisinopril was increased to 20/12.5. Patient has been keen to go home yesterday. Per vascular patient was to be discharged okay. Hence patient left last recorded blood pressure was 164 x 62. I had offered the patient close of blood pressure monitoring but she was keen to go home. Patient returns with blood pressure still running high. Did have some headache at home. She is staying with her son in town. Now patient returns March 04: Patient had been started on Zestoretic 20/12.51 tablet twice daily. Lopressor 12.5 twice daily was added. I saw the patient this afternoon. Doing well. Did ambulate the patient in the hallway. Heart rate was up with ambulation 114. Patient is awaiting related to go home and get discharged. Then patient had a 2.4-second pause. No symptoms with the same. Lopressor is being discontinued. 2D echo ordered. Cardiology consult ordered. Will add amlodipine 2.5 mg in the morning depending on blood pressure at night. Continue telemetry. March 05. Lopressor was discontinued yesterday. No further pauses. Patient to follow-up with Dr. Teresa Hernandez outpatient. Blood pressure controlled. Questions answered. She will keep her appointment with Dr. Cm. Social history: Patient lives with her daughter and boyfriend. 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 No smoking no alcohol Physical examination: VITAL SIGNS: 98.7, 94, 20, 144/89, 96% room air GENERAL: Comfortable. Vitiligo EYES: Pupils equal. Conjunctiva ludy l. HEENT: External appearance of nose and ears normal, oral cavity grossly normal. Some decrease in hearing NECK: JVD not raised; masses not palpable. Dressing over the right side of the neck HEART: First and second heart sounds are normal; no edema. LUNGS: Respiratory rate normal; clear to auscultation. ABDOMEN: Soft, nontender, liver spleen not palpable, no masses palpable. PSYCH: Alert and oriented x3; mood and affect ludy l. MUSCULOSKELETAL:No Clubbing/cyanosis;muscles-grossly intact INVESTIGATIONS, reviewed in the clinical context: March 04: White count 6.6 hemoglobin 13.2 platelets 183 sodium 136 potassium 4.1 creatinine 0.99 March 03: White count 6.3 hemoglobin 13.2 platelets 153 sodium 136 potassium 4.6 creatinine 0.8 EKG tracing personally reviewed by me-normal sinus rhythm Assessment and plan: -Essential hypertension, better controlled Zestoretic 20/12.5, increased to twice daily. -Sinus pause of 2.4-second, under Lopressor dose of 12.5 twice daily.: Resolved Stop Lopressor. Seen by cardiology. Follow-up outpatient with Dr. Teresa Hernandez. -Right carotid endarterectomy March [address] Karina Cm. Aspirin. Plavix. Lipitor -Vitiligo -Hyperlipidemia Lipitor -Primary pulmonary hypertension Patient not on any medications -Full code Dispo patient: Home Past Medical History Past Medical History: CVA/TIA, Fibromyalgia, GERD/Reflux, Hearing Disorder / Deafness, Hyperlipidemia, Hypertension, Renal Disease, Skin Disorder, Sleep Apnea/CPAP/BIPAP Additional Past Medical History / Comment(s): carotid stenosis, weakness with activity ,cva 7---had difficulty walking/rt sided weakness- resolve, CVA 03-07-22-had numbness on left side numbness resolved w/in 1 hr, Primary pulmonary hypertension; Migraines occasionally, low back pain. Vitiligo. "borderline kidney issue." Tinnitis at times. "they gave me a C-PAP and I haven't used it."IBD. History of Any Multi-Drug Resistant Organisms: None Reported Past Surgical History: Appendectomy Additional Past Surgical History / Comment(s): BIANCA(states was awake for BIANCA), d&c x 2.Lt carotid endartarectomy September 2023. Right Carotid surgery 2023 Past Anesthesia/Blood Transfusion Reactions: Motion Sickness, Postoperative Nausea & Vomiting (PONV) Additional Past Anesthesia/Blood Transfusion Reaction / Comment(s): no hx blood transfusion. "30 years ago one time I had a problem." Smoking Status: Never smoker Plan - Discharge Summary Discharge Rx Participant: Yes New Discharge Prescriptions: Continue Atorvastatin [Lipitor] 40 mg PO HS 30 Days #30 tab Clopidogrel [Plavix] 75 mg PO DAILY 30 Days #30 tab Aspirin 81 mg PO DAILY Acetaminophen Tab [Tylenol] 650 mg PO Q4HR PRN tab PRN Reason: Pain Ferrous Sulfate [Iron (65 MG Elemental)] 325 mg PO DAILY #30 tab Changed Lisinopril-Hctz 20-12.5 mg [Zestoretic 20-12.5] 1 tab PO BID #60 tab Discharge Medication List Atorvastatin [Lipitor] 40 mg PO HS 30 Days #30 tab 04/05/23 [Rx] Aspirin 81 mg PO DAILY 05/18/23 [History] Acetaminophen Tab [Tylenol] 650 mg PO Q4HR PRN tab 03/02/24 [Rx] Clopidogrel [Plavix] 75 mg PO DAILY 30 Days #30 tab 03/02/24 [Rx] Ferrous Sulfate [Iron (65 MG Elemental)] 325 mg PO DAILY #30 tab 03/02/24 [Rx] Lisinopril-Hctz 20-12.5 mg [Zestoretic 20-12.5] 1 tab PO BID #60 tab 03/04/24 [Rx] Follow up Appointment(s)/Referral(s): Victoriano Servin MD [Primary Care Provider] - 1-2 days (please call and make follow up appointment with Dr Servin) Jamel Hernandez MD [STAFF PHYSICIAN] - 03/19/24 8:45 am Patient Instructions/Handouts: Hypertension (DC) Discharge Disposition: HOME SELF-CARE
== END 2024-03-05 12:59 | disposition home or self-care (01) ==
LOC: EC 13:25 → 3SCARD 15:31
PROVIDERS: ADMIT Hospitalist; ATTEND Hospitalist
DX: I27.0 Primary pulmonary hypertension (principal); L80 Vitiligo; E78.5 Hyperlipidemia, unspecified; Z86.73 Personal history of transient ischemic attack (TIA), and cerebral infarction without residual deficits; M79.7 Fibromyalgia; K21.9 Gastro-esophageal reflux disease without esophagitis; G47.30 Sleep apnea, unspecified; Z90.49 Acquired absence of other specified parts of digestive tract; Z83.2 Family history of diseases of the blood and blood-forming organs and certain disorders involving the immune mechanism; Z82.49 Family history of ischemic heart disease and other diseases of the circulatory system; Z79.899 Other long term (current) drug therapy; Z79.82 Long term (current) use of aspirin; Z79.02 Long term (current) use of antithrombotics/antiplatelets; H91.90 Unspecified hearing loss, unspecified ear
CPT/HCPCS: 96372 ×2; 96374; 99285; 36415; 93306; 80053; 80048; 85025 ×2; 85610; G0378 ×3; J0360; J1650 ×2

== ENCOUNTER 2024-06-21 14:22 | Emergency (ER) | payer OTHER ==
[2024-06-21 14:33] VITALS: RESP 18; TEMP 98.4
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
[2024-06-21 17:08] VITALS: BP 176/80; PULSE 78
== END 2024-06-21 17:05 | disposition home or self-care (01) ==
LOC: EC 14:22
CPT/HCPCS: 70450; 72125; 99284

== ENCOUNTER → 2024-07-11 | Outpatient (CLI) | payer OTHER ==
--- NOTE | 2024-07-11 09:32 | XR ---
EXAMINATION TYPE: XR lumbosacral spine min 4V DATE OF EXAM: 07/11/2024 8:50 AM COMPARISON: None. CLINICAL INDICATION: Female, 59 years old with history of M54.9 DORSALGIA, UNSPECIFIED, TECHNIQUE: XR lumbosacral spine min 4V view(s) obtained. FINDINGS: There are 5 lumbar-type vertebral bodies. Pedicles are intact. T12 is a rudimentary. Facet degenerati ve changes are present. No spondylolytic defects are evident. There is loss of disc height L4-5 with vacuum disc phenomenon. There is narrowing of L3-4 posteriorly at L2-3 using L1 to. Vertebral body he ights are preserved. IMPRESSION: 1. Degenerative disc changes lumbar spine discussed above [facility], , 07/11/2024 9:30 AM
--- NOTE | 2024-07-11 09:36 | XR ---
EXAMINATION TYPE: XR Hip Bilateral Complete DATE OF EXAM: 07/11/2024 8:50 AM COMPARISON: None. CLINICAL INDICATION: Female, 59 years old with history of M54.9 DORSALGIA, UNSPECIFIED, TECHNIQUE: XR Hip Bilateral Complete view(s) obtained. FINDINGS: Lateral hips articulate with the acetabulum. Joint spaces are preserved. No acute fractures are evide nt. Remaining osseous structures visualized appear intact. IMPRESSION: 1. Unremarkable bilateral hips. [facility], , 07/11/2024 9:34 AM
== END | disposition home or self-care (01) ==
LOC: RADXRMAIN 08:27
PROVIDERS: ATTEND Pediatrics
DX: M51.360 Other intervertebral disc degeneration, lumbar region with discogenic back pain only (principal); M25.551 Pain in right hip; M25.552 Pain in left hip
CPT/HCPCS: 72110; 73521

== ENCOUNTER 2025-03-21 22:05 | Emergency (ER) | payer OTHER ==
[2025-03-21 22:15] VITALS: RESP 18
--- NOTE | 2025-03-21 22:18 | ED ---
General Adult HPI - General Chief complaint: Recheck/Abnormal Lab/Rx Stated complaint: high blood pressure Time Seen by Provider: 03/21/25 22:16 Source: patient Mode of arrival: ambulatory Limitations: no limitations - History of Present Illness Initial comments: 59-year-old female with past medical history of CVA, hypertension who presents emergency department reporting high blood pressure. Patient states that she has been checking her blood pressure over the past week and found that her blood pressure was running high. She typically takes lisinopril 10 mg daily. She reports she did take an extra quarter of her lisinopril tonight when she found that her blood pressure was high. She states she has been under a tremendous amount of stress. She denies headache or visual changes. No neck or back pain. No chest pain or difficulty breathing. No lateralizing weakness. No speech changes. No other alleviating, precipitating or modifying factors - Related Data Home Medications Medication Instructions Recorded Confirmed Aspirin 81 mg PO DAILY 05/18/23 03/03/24 Previous Rx's Medication Instructions Recorded Atorvastatin [Lipitor] 40 mg PO HS 30 Days #30 tab 04/05/23 Acetaminophen Tab [Tylenol] 650 mg PO Q4HR PRN tab 03/02/24 Clopidogrel [Plavix] 75 mg PO DAILY 30 Days #30 tab 03/02/24 Ferrous Sulfate [Iron (65 MG 325 mg PO DAILY #30 tab 03/02/24 Elemental)] Lisinopril-Hctz 20-12.5 mg 1 tab PO BID #60 tab 03/04/24 [Zestoretic 20-12.5] lisinopriL [Zestril] 10 mg PO BID #60 tab 03/22/25 Allergies Allergy/AdvReac Type Severity Reaction Status Date / Time cefaclor [From Ceclor] Allergy Unknown Verified 03/21/25 22:14 Childhood lactose Allergy Nausea & Verified 03/21/25 22:14 Vomiting & Diarrhea Penicillins Allergy Unknown Verified 03/21/25 22:14 povidone-iodine Allergy Unknown Verified 03/21/25 22:14 [From Betadine] sulfamethoxazole Allergy Unknown Verified 03/21/25 22:14 [From Bactrim] Childhood ticagrelor [From Brilinta] Allergy Severe Verified 03/21/25 22:14 fatigue trimethoprim [From Bactrim] Allergy Unknown Verified 03/21/25 22:14 Childhood chocolate flavor AdvReac headache Verified 03/21/25 22:14 milk AdvReac headache Verified 03/21/25 22:14 rosuvastatin [From Crestor] AdvReac Nausea Verified 03/21/25 22:14 "Bad fatigue" lidocaine Allergy Intermediate Swelling Uncoded 03/21/25 22:14 ANESTHETIC(UNKNOWN) Allergy dizziness Uncoded 03/21/25 22:14 and headache,30 yrs ago Review of Systems ROS Statement: Those systems with pertinent positive or pertinent negative responses have been documented in the HPI. ROS Other: All systems not noted in ROS Statement are negative. Past Medical History Past Medical History: CVA/TIA, Fibromyalgia, GERD/Reflux, Hearing Disorder / Deafness, Hyperlipidemia, Hypertension, Renal Disease, Skin Disorder, Sleep Apnea/CPAP/BIPAP Additional Past Medical History / Comment(s): carotid stenosis, weakness with activity ,cva 03-06-23-had difficulty walking/rt sided weakness- resolve, CVA 03-07-22-had numbness on left side numbness resolved w/in 1 hr, Primary pulmonary hypertension; Migraines occasionally, low back pain. "I get pains in my hip when I walk sometiimes." Vitiligo. "borderline kidney issue." Tinnitis at times. "they gave me a C-PAP and I haven't used it."IBD. History of Any Multi-Drug Resistant Organisms: None Reported Past Surgical History: Appendectomy Additional Past Surgical History / Comment(s): BIANCA(states was awake for BIANCA), d&c x 2.Lt carotid endartarectomy September 2023. Right Carotid surgery 2023 Past Anesthesia/Blood Transfusion Reactions: Motion Sickness, Postoperative Tejinder sea & Vomiting (PONV) Additional Past Anesthesia/Blood Transfusion Reaction / Comment(s): no hx blood transfusion. "30 years ago one time I had a problem." Past Psychological History: Anxiety Smoking Status: Never smoker Past Alcohol Use History: None Reported Past Drug Use History: None Reported - Past Family History Mother Family Medical History: Hyperlipidemia, Myocardial Infarction (SC) Additional Family Medical History / Comment(s): MS Father Family Medical History: Blood Disorder Additional Family Medical History / Comment(s): hemophilia- during surgery with an SC. HIV Sister(s) Family Medical History: Pneumonia General Exam Limitations: no limitations General appearance: alert, in no apparent distress Head exam: Present: atraumatic, normocephalic, normal inspection Eye exam: Present: normal appearance, PERRL, EOMI. Absent: scleral icterus, conjunctival injection, periorbital swelling ENT exam: Present: normal exam, mucous membranes moist Neck exam: Present: normal inspection. Absent: tenderness, meningismus, lym phadenopathy Respiratory exam: Present: normal lung sounds bilaterally. Absent: respiratory distress, wheezes, rales, rhonchi, stridor Cardiovascular Exam: Present: regular rate, normal rhythm, normal heart sounds. Absent: systolic murmur, diastolic murmur, rubs, gallop, clicks GI/Abdominal exam: Present: soft, normal bowel sounds. Absent: distended, tenderness, guarding, rebound, rigid Extremities exam: Present: normal inspection, full ROM, normal capillary refill. Absent: tenderness, pedal edema, joint swelling, calf tenderness Back exam: Present: normal inspection Neurological exam: Present: alert, oriented X3, CN II-XII intact Psychiatric exam: Present: normal affect, normal mood Skin exam: Present: warm, dry, intact, normal color. Absent: rash Course Vital Signs 03/21/25 03/21/25 03/22/25 22:12 23:31 01:23 Temperature 97.9 F Pulse Rate 74 65 59 L Respiratory 18 Rate Blood Pressure 189/98 167/92 168/84 O2 Sat by Pulse 99 Oximetry 03/22/25 02:26 Temperature 97.8 F Pulse Rate 69 Respiratory 18 Rate Blood Pressure 174/85 O2 Sat by Pulse 98 Oximetry Medical Decision Making - Medical Decision Making Was pt. sent in by a medical professional or institution (, PA, CNA LTC, urgent care, hospital, or [place] [facility] facility...) When possible be specific @ -No Did you speak to anyone other than the patient for history (EMS, parent, family, police, friend...)? What history was obtained from this source @ -No Did you review nursing and triage notes (agree or disagree)? Why? @ -I reviewed and agree with nursing and triage notes Were old charts reviewed (outside hosp., previous admission, EMS record, old EKG, old radiological studies, urgent care reports/EKG's, [place] [facility] facility records)? Report findings @ -No old charts were reviewed Differential Diagnosis (chest pain, altered mental status, abdominal pain women, abdominal pain men, vaginal bleeding, weakness, fever, dyspnea, syncope, headache, dizziness, GI bleed, back pain, seizure, CVA, palpatations, mental health, musculoskeletal)? @ -Essential hypertension, CVA, acute kidney injury, NSTEMI EKG interpreted by me (3pts min.). @ -Yes which demonstrates sinus rhythm with a rate of 71. PA interval 180. QRS 92. QTc of 402. No acute ST segment elevations or depressions X-rays interpreted by me (1pt min.). @ -None done CT interpreted by me (1pt min.). @ -None done U/S interpreted by me (1pt. min.). @ -None done What testing was considered but not performed or refused? (CT, X-rays, U/S, labs)? Why? @ -None What meds were considered but not given or refused? Why? @ -None Did you discuss the management of the patient with other professionals (professionals i.e. , PA, CNA LTC, lab, RT, psych nurse, socially responsible investment adviser, rehabilitation caseworker, teacher, community cultural development officer, continuous pillowcase cutter)? Give summary @ -No Was smoking cessation discussed for >3mins.? @ -No Was critical care preformed (if so, how long)? @ -No Were there social determinants of health that impacted care today? How? (Homelessness, low income, unemployed, alcoholism, drug addiction, transportation, low edu. Level, literacy, decrease access to med. care, detention, rehab)? @ -No Was there de-escalation of care discussed even if they declined (Discuss DNR or withdrawal of care, Hospice)? DNR status @ -No What co-morbidities impacted this encounter? (DM, HTN, Smoking, COPD, CAD, Cancer, CVA, ARF, Chemo, Hep., AIDS, mental health diagnosis, sleep apnea, morbid obesity)? @ -Hypertension, CVA Was patient admitted / discharged? Hospital course, mention meds given and route, prescriptions, significant lab abnormalities, going to OR and other pertinent info. @ -Upon arrival patient seen and evaluated in bed 8. Thorough history and physical exam was performed. Laboratory studies are conducted. Results are dis cussed with the patient. Did recommend that the patient take 10 mg of lisinopril in the morning and 10 mg at night. She is to keep a blood pressure log. Follow-up with her doctor. Return to the emergency room for any new or worsening symptoms. Patient agreeable plan she was discharged in stable condition Undiagnosed new problem with uncertain prognosis? @ -No Drug Therapy requiring intensive monitoring for toxicity (Heparin, Nitro, Insulin, Cardizem)? @ -No Were any procedures done? @ -No Diagnosis/symptom? @ -Accelerated hypertension Acute, or Chronic, or Acute on Chronic? @ -Acute Uncomplicated (without systemic symptoms) or Complicated (systemic symptoms)? @ -Uncomplicated Side effects of treatment? @ -No Exacerbation, Progression, or Severe Exacerbation? @ -No Poses a threat to life or bodily function? How? (Chest pain, USA, SC, pneumonia, PE, COPD, DKA, ARF, appy, cholecystitis, CVA, Diverticulitis, Homicidal, Suicidal, threat to staff... and all critical care pts) @ -No - Lab Data Result diagrams: 03/21/25 23:05 03/21/25 23:05 Lab Results 03/21/25 03/21/25 03/21/25 Range/Units 23:05 23:05 23:05 WBC 4.75 (4.50-10.00) 10*3/uL RBC 3.90 L (4.10-5.20) 10*6/uL Hgb 12.0 (12.0-15.0) g/dL Hct 35.9 L (37.2-46.3) % MCV 92.1 (80.0-97.0) fL MCH 30.8 (27.0-32.0) pg MCHC 33.4 (32.0-37.0) g/dL Plt Count 164 (140-440) 10*3/uL MPV 10.8 (9.5-12.2) fL Immature Gran % (Auto) 0.2 % Neutrophils % 71.6 % Lymphocytes % 17.1 % Monocytes % 8.8 % Eosinophils % 2.1 % Basophils % 0.2 % Immature Gran # 0.01 (0.00-0.04) 10*3/uL Neutrophils # 3.40 (1.80-7.70) 10*3/uL Lymphocytes # 0.81 L (0.90-5.00) 10*3/uL Monocytes # 0.42 (0.20-1.00) 10*3/uL Eosinophils # 0.10 (0.04-0.35) 10*3/uL Basophils # 0.01 (0.00-0.10) 10*3/uL Sodium 138 (137-145) mmol/L Potassium 4.3 (3.5-5.1) mmol/L Chloride 103 (98-107) mmol/L Carbon Dioxide 24 (22-30) mmol/L Anion Gap 11 mmol/L BUN 18 H (7-17) mg/dL Creatinine 0.89 (0.52-1.04) mg/dL Est GFR (CKD-EPI)AfAm 83 (>60 ml/min/1.73 sqM) Est GFR (CKD-EPI)NonAf 72 (>60 ml/min/1.73 sqM) Glucose 96 (74-99) mg/dL Calcium 10.0 (8.4-10.2) mg/dL Magnesium 1.7 (1.6-2.3) mg/dL Total Bilirubin 0.7 (0.2-1.3) mg/dL AST 24 (14-36) U/L ALT 26 (4-34) U/L Alkaline Phosphatase 117 (38-126) U/L Troponin I <0.012 (0.000-0.034) ng/mL Total Protein 7.7 (6.3-8.2) g/dL Albumin 4.2 (3.5-5.0) g/dL TSH 4.950 H (0.465-4.680) mIU/L Free T4 1.28 (0.78-2.19) ng/dL Disposition Clinical Impression: Hypertension Disposition: HOME SELF-CARE Condition: Stable Instructions (If sedation given, give patient instructions): Hypertension (ED) Additional Instructions: Please take your lisinopril twice a day. Please measure your blood pressure 3 times a day and keep a log. Follow-up with your primary care doctor and notify them of the changes made to your blood pressure medications. Return to the emergency department for any new or worsening symptoms Prescriptions: lisinopriL [Zestril] 10 mg PO BID #60 tab Is patient prescribed a controlled substance at d/c from ED?: No Referrals: Victoriano Servin MD [Primary Care Provider] - 1-2 days Time of Disposition: 01:49
[2025-03-21 23:52] LABS: Basophils # (A) 0.01 10*3/uL (0.00-0.10); Basophils % (A) 0.2 %; Eosinophils # (A) 0.10 10*3/uL (0.04-0.35); Eosinophils % (A) 2.1 %; HCT 35.9 % (37.2-46.3); HGB 12.0 g/dL (12.0-15.0); Lymphocytes # (A) 0.81 10*3/uL (0.90-5.00); Lymphocytes % (A) 17.1 %; MCH 30.8 pg (27.0-32.0); MCHC 33.4 g/dL (32.0-37.0); MCV 92.1 fL (80.0-97.0); Monocytes # (A) 0.42 10*3/uL (0.20-1.00); Monocytes % (A) 8.8 %; Neutrophils # (A) 3.40 10*3/uL (1.80-7.70); Neutrophils % (A) 71.6 %; Platelet Count 164 10*3/uL (140-440); RBC 3.90 10*6/uL (4.10-5.20); RDW 12.6 % (11.5-14.5); WBC 4.75 10*3/uL (4.50-10.00)
[2025-03-22 00:05] LABS: ALT 26 U/L (4-34); AST 24 U/L (14-36); African American GFR (CKD) 83 (>60 ml/min/1.73 sqM); Albumin 4.2 g/dL (3.5-5.0); Alkaline Phosphatase 117 U/L (38-126); Anion Gap 11 mmol/L; Blood Urea Nitrogen 18 mg/dL (7-17); Calcium 10.0 mg/dL (8.4-10.2); Carbon Dioxide 24 mmol/L (22-30); Chloride 103 mmol/L (98-107); Glucose 96 mg/dL (74-99); Magnesium 1.7 mg/dL (1.6-2.3); Non-African American GFR(CKD) 72 (>60 ml/min/1.73 sqM); Potassium 4.3 mmol/L (3.5-5.1); Sodium 138 mmol/L (137-145); Total Protein 7.7 g/dL (6.3-8.2)
[2025-03-22 01:30] LABS: T4, Free (Free Thyroxine) 1.28 ng/dL (0.78-2.19)
[2025-03-22 02:27] VITALS: BP 174/85; PULSE 69; TEMP 97.8
== END 2025-03-22 02:27 | disposition home or self-care (01) ==
LOC: EC 22:05
DX: I10 Essential (primary) hypertension (principal); Z91.011 Allergy to milk products; Z88.2 Allergy status to sulfonamides; Z88.8 Allergy status to other drugs, medicaments and biological substances; Z88.0 Allergy status to penicillin; Z88.1 Allergy status to other antibiotic agents; Z91.018 Allergy to other foods; Z86.73 Personal history of transient ischemic attack (TIA), and cerebral infarction without residual deficits
CPT/HCPCS: 36415; 80053; 83735; 84439; 84443; 84484; 85025; 93005; 99284